=== PATIENT | female | born 1960 | race Caucasian/White ===

== ENCOUNTER 2021-01-03 08:06 | Emergency (ER) | payer BC, SELFPAY ==
[2021-01-03 08:07] VITALS: BP 179/96; PULSE 88; RESP 20; TEMP 36.6; O2SAT 98; BMI 32.9
--- NOTE | 2021-01-03 08:25 | CT_ITS ---
STUDY: CT ABDOMEN AND PELVIS WITH CONTRAST REASON FOR EXAM: Female, 60 years old. Abdominal pain RADIATION DOSAGE (If Supplied By Facility): CTDIvol = ( 17.10 ) mGy, DLP = ( 875.20 ) mGycm TECHNIQUE: Transaxial images were obtained from the dome of the diaphragm to the symphysis pubis without oral contrast. IV 100mL Isovue-370 was administered. Sagittal and coronal images were reconstructed. Individualized dose optimization techniques were used for this CT. COMPARISON: None. FINDINGS: The visualized lung bases are unremarkable. The visualized portions of the heart are within normal limits. Normal liver. Normal gallbladder and extrahepatic biliary system. Normal spleen. Normal pancreas. Normal bilateral adrenal glands. Normal right kidney. Normal left kidney. There is a small hiatal hernia. Nonspecific fluid-filled small bowel loops. No evidence of bowel obstruction. Thickening of the descending colon likely due to underdistention. Diverticulosis of the sigmoid colon. No evidence of acute diverticulitis. The appendix is visualized and appears normal. There is diffuse atherosclerotic calcification of the abdominal aorta, without a demonstrated aneurysm. Normal inferior vena cava. Normal retroperitoneum. Normal urinary bladder. Metallic densities in the pelvic regions consistent with previous tubal ligation. Normal abdominal wall. Degenerative changes in lumbar spine. CT/Abdomen/Pelvis W IV Cont ONLY IMPRESSION: 1. Small hiatal hernia. 2. Diverticulosis without evidence of acute diverticulitis. 3. Thickening of the descending colon likely due to underdistention. 4. Otherwise no focal acute inflammatory process. Electronically Signed: Getachew Lewis MD at 9:53 EDT Tel , Service support ,
[2021-01-03 08:33] LABS: Absolute Lymphocyte Count 1.77 X10^3/uL (0.83-4.51); Absolute Neutrophil Count 5.3 X10^3/uL (2.0-7.7); Basophil# 0.02 X10^3/uL; Basophil% 0.3 % (0-1); Eosinophil# 0.34 X10^3/uL; Eosinophils% 4.3 % (0-5); Hematocrit 41.4 % (37-47); Hemoglobin 13.8 g/dL (12.0-15.0); Lymphocyte # 1.77 X10^3/ul (0.83-4.51); Lymphocyte % 22.2 % (19-41); Mean Corp Hgb Conc 33.3 g/dL (32-36); Mean Corpuscular Hgb 29.1 pg (27.0-32.0); Mean Corpuscular Volume 87.2 fL (81-99); Mean Platelet Vol. 9.7 fl (6.2-12.0); Monocyte# 0.52 X10^3/uL; Monocyte% 6.5 % (0-10); NRBC Flagged by Analyzer 0 % (0-5); Neutrophil # 5.31 X10^3/uL (2.7-7.7); Neutrophil % 66.3 % (47-70); Platelet Count 254 K/mm3 (150-450); RBC Distribution Width CV 12.8 % (11.6-14.6); RBC Distribution Width SD 40.7 fl (35.1-43.9); Red Blood Count 4.75 M/mm3 (4.2-5.4)
[2021-01-03] MEDS: 0.9% Normal Saline 1,000 ML 1000 ML IV (08:36)
[2021-01-03] MEDS: Ondansetron 4 MG/2 ML Vial IV (08:36)
[2021-01-03 08:46] LABS: Mucous, Urine 0 SEEN /hpf (<or=2+); Red Blood Cells-Urine 0 SEEN /hpf (0-5); White Blood Cells 0 SEEN /hpf (0-5)
[2021-01-03 08:50] LABS: AST(SGOT) 17 U/L (15-37); Alanine Aminotransfer ALT/SGPT 26 U/L (13-56); Albumin, Serum 3.7 g/dL (3.2-5.0); Alkaline Phosphatase 129 U/L (45-117); Anion Gap 9 (5-15); BUN 13 mg/dL (7-18); BUN/Creat Ratio 12.6 RATIO (10-20); Calcium,Total 9.4 mg/dL (8.5-10.1); Chloride 103 mmol/L (98-107); Creatinine, Serum 1.03 mg/dL (0.55-1.02); EST Glomerular Filtration Rate 58 mL/min (>60); Est Glom Filt Rate - Afr Amer 70 mL/min (>60); Estimated Creatinine Clearance 46.85 ml/min; Globulin 3.6 g/dL (2.2-4.2); Glucose 104 mg/dL (74-106); Lipase 295 U/L (73-393); Potassium 4.2 mmol/L (3.5-5.1); Protein, Total 7.3 g/dL (6.4-8.2); Sodium Level 139 mmol/L (136-145)
[2021-01-03 08:50] LABS: Color, Urine Yellow (Yellow); Glucose, Dipstick Normal (Normal); Ketone-Dipstick Negative (Negative); Leukocyte Esterase-Dipstick Negative /ul (Negative); Nitrite-Dipstick Negative (Negative); Occult Blood-Urine 10 /ul (Negative); Protein-Dipstick 30 mg/dl (Negative); Urine Bilirubin Dipstick Negative (Negative); Urine Clarity Clear (Clear); Urine Urobilinogen Normal (Normal)
--- NOTE | 2021-01-03 08:56 | EDS_ITS ---
HPI History of Present Illness Chief Complaint: Flank Pain Informant: patient Narrative Narrative: 60-year-old female presents with left flank pain and lower abdominal pain. She reports that 3 weeks ago she began to notice urinary frequency with small amounts of urine. She began to have a pulling-like's pain in her lower pelvis is worse with standing up and movement. This past week she went to an urgent care was started on nitrofurantoin but the culture came back negative so she stopped the antibiotic. She did note that she had some loose stool. The pain in the lower pelvis has persisted and now she has this pain in the left flank. She states that she called the triage nurse last night and they told her to go to the emergency room but she went to bed and came this morning. No fevers. She notes nausea but no vomiting. Prior abdominal surgery is significant for bilateral tubal ligation [facility] Medical History (Updated 01/03/21 @ 10:[address] Hung Cooper DO) Depression Hypercholesterolemia Home Medications atorvastatin 40 mg PO DAILY 01/03/21 [History Last Taken Unknown] bupropion HCl 150 mg PO DAILY 01/03/21 [History Last Taken Unknown] fluoxetine 40 mg PO DAILY 01/03/21 [History Last Taken Unknown] oxycodone-acetaminophen 1 tab PO Q6H PRN PRN 5 Days #20 tablet 01/03/21 [Rx Last Taken Unknown] tolterodine 4 mg PO DAILY 01/03/21 [History Last Taken Unknown] Allergy/AdvReac Type Severity Reaction Status Date / Time codeine Allergy Unknown Verified 01/03/21 08:40 Surgical History (Updated 01/03/21 @ 08:[address] Hung Cooper DO) History of carpal tunnel surgery History of tubal ligation Social History (Updated 01/03/21 @ 08:[address] Hung Cooper DO) Smoking Status: Current some day smoker tobacco type: cigarettes substance use type: does not use ROS ROS ED Constitutional Constitutional ED: Denies chills or weight loss Eyes Eyes: Denies change in vision or diplopia ENT ENT ED: Denies ear pain, rhinorrhea or sore throat Cardiovascular Cardiovascular: Denies chest pain, orthopnea, palpitations or racing heartbeat Respiratory/Chest Respiratory/Chest: Denies cough, dyspnea or orthopnea Gastrointestinal Gastrointestinal: Reports abdominal pain and nausea; Denies diarrhea or vomiting Genitourinary Genitourinary ED: Reports urinary frequency; Denies dysuria or hematuria Musculoskeletal Musculoskeletal: Reports other Details: Left flank pain ; Denies arthralgias or myalgias Integumentary Denies abscess or rash Neurologic Neurologic: Denies headache(s) or weakness Psychiatric Psychiatric: Denies anxiety, depression, suicidal ideation or suicidal thoughts Endocrine Endocrinology: Denies polydipsia, polyphagia or polyuria Allergic/Immunologic Allergic/Immunologic ED: Denies mouth swelling, tongue swelling or urticaria EXAM Physical Exam Const Vital Signs: 01/03/21 08:07 Temperature 98 F Temperature Source Temporal Pulse Rate 88 Respiratory Rate 20 H Blood Pressure 179/96 H Blood Pressure Mean 123 Pulse Ox 98 Oxygen Delivery Method Room Air Positive well nourished, well developed and obese General Appearance ED: well developed Nutritional Appearance: obese HEENT Reports normocephalic, head/scalp atraumatic, TM's clear and moist mucous membranes Negative for trauma Tympanic Membrane ED: Yes TM's clear Eyes PERRL and EOMs intact bilaterally Neck no lymphadenopathy, supple and no JVD Resp normal respiratory effort and clear to auscultation bilaterally Cardio regular rate, regular rhythm and no murmurs GI non-tender Auscultation: normoactive bowel sounds Palpation: soft and tender suprapubic Back/Spine no CVA tenderness and normal ROM Thoracic Spine / Upper Back: Negative for paraspinal muscle tenderness Extremity normal to inspection General Extremety ED: Negative for edema General Extremity: Negative for edema Neuro oriented x3 and CN's II-XII intact bilaterally Sensorium / Orientation: alert Motor Exam: strength 5/5 throughout Psych mental status grossly normal Mood & Affect: Negative for depressed or tearful Skin no rashes or lesions noted and no wounds MDM MDM MDM Narrative Medical decision making narrative: CBC normal CMP with creatinine 1.03 lipase normal urinalysis with no overt infection. CT the pelvis with IV contrast does not demonstrate an acute inflammatory process. She has evidence of sigmoid diverticulosis. This point I do not see an obvious cause for the patient's symptoms. She may benefit given the urinary frequency and pelvic discomfort from visiting with urology or gynecology. Patient will be referred to them as she does not currently have either established Lab Data Attestation: I reviewed the patient's lab results. Labs: Laboratory Results - last 24 hr 01/03/21 01/03/2121 08:18 08:27 08:27 WBC 8.0 RBC 4.75 Hgb 13.8 Hct 41.4 MCV 87.2 MCH 29.1 MCHC 33.3 RDW Std Deviation 40.7 RDW Coeff of Miguel 12.8 Plt Count 254 MPV 9.7 Immature Gran % (Auto) 0.400 Neut % (Auto) 66.3 Lymph % (Auto) 22.2 Upton % (Auto) 6.5 Eos % (Auto) 4.3 Baso % (Auto) 0.3 Absolute Neuts (auto) 5.3 Absolute Lymphs (auto) 1.77 Nucleated RBC % 0 Sodium 139 Potassium 4.2 Chloride 103 Carbon Dioxide 27.0 Anion Gap 9 BUN 13 Creatinine 1.03 H Estim Creat Clear Calc 46.85 Est GFR (MDRD) Af Amer 70 Est GFR (MDRD) Non-Af 58 L BUN/Creatinine Ratio 12.6 Glucose 104 Calcium 9.4 Total Bilirubin 0.70 AST 17 ALT 26 Alkaline Phosphatase 129 H Total Protein 7.3 Albumin 3.7 Globulin 3.6 Albumin/Globulin Ratio 1.0 Lipase 295 Urine Color Yellow Urine Clarity Clear Urine pH 7.0 Ur Specific Bevier 1.010 Urine Protein 30 H Urine Glucose (UA) Normal Urine Ketones Negative Urine Occult Blood 10 H Urine Nitrite Negative Urine Bilirubin Negative Urine Urobilinogen Normal Ur Leukocyte Esterase Negative Urine RBC 0 SEEN Urine WBC 0 SEEN Ur Squamous Epith Cells 0-5 SEEN Urine Bacteria 1+ Urine Mucus 0 SEEN Radiography Diagnostic Testing: Clinical Impression(s) from Imaging Studies Abdomen/Pelvis CT 01/03/21 08:25 IMPRESSION: 1. Small hiatal hernia. 2. Diverticulosis without evidence of acute diverticulitis. 3. Thickening of the descending colon likely due to underdistention. 4. Otherwise no focal acute inflammatory process. Electronically Signed: Getachew Lewis MD at 9:53 EDT Tel , Service support , Discharge Plan Triage Chief Complaint: Flank Pain ED Provider: Hung Cooper Dx/Rx/DC Orders Clinical Impression: Pelvic pain Instructions: ED Pelvic Pain, Unknown Cause Prescriptions: New oxycodone-acetaminophen [oxycodone-acetaminophen] 1 TABLET tablet 1 tab PO Q6H PRN PRN (Reason: pain) 5 Days Qty: 20 RF: 0 No Action fluoxetine 40 mg Capsule 40 mg PO DAILY RF: 0 atorvastatin 40 mg Tablet 40 mg PO DAILY RF: 0 tolterodine 4 mg Capsule,Extended Release 24hr 4 mg PO DAILY RF: 0 bupropion HCl 150 mg Tablet Extended Release 24 Hr 150 mg PO DAILY RF: 0 Primary Care Provider: Ramesh Cornell Referrals: Randa Castro MD [STAFF PHYSICIAN] - As soon as possible (for urology ) Zora Rivera MD [STAFF PHYSICIAN] - As soon as possible (for gynecology) Ramesh Cornell PA [Primary Care Provider] - Disposition Disposition: Home, Self Care
[2021-01-03 08:59] LABS: Bacteria 1+ /hpf (None Seen); Squamous Epithelial Cells - UA 0-5 SEEN /hpf (5-10)
[2021-01-03] MEDS: Ketorolac 30 MG/ML Syringe IV (09:04)
[2021-01-03 10:13] VITALS: BP 167/92; PULSE 74; RESP 16; O2SAT 99
== END 2021-01-03 10:20 | disposition home or self-care (01) ==
PROVIDERS: Emergency Provider Emergency Medicine; PCP Physician Assistant
DX: R10.2 Pelvic and perineal pain (principal); E78.00 Pure hypercholesterolemia, unspecified; E66.9 Obesity, unspecified; F32.A Depression, unspecified; F17.210 Nicotine dependence, cigarettes, uncomplicated; Z68.32 Body mass index [BMI] 32.0-32.9, adult; Z79.899 Other long term (current) drug therapy
CPT/HCPCS: 74177; 80053; 81001; 83690; 85025; 96361; 96374; 96375; 99283; J7030; Q9967; A4216; J2405

== ENCOUNTER 2022-05-22 19:38 | Emergency (ER) | payer BC, SELFPAY ==
[2022-05-22 19:39] VITALS: BP 203/100; PULSE 105; RESP 22; TEMP 37.2; O2SAT 98; BMI 33.4
[2022-05-22 20:04] VITALS: BP 173/89; PULSE 91; RESP 16; O2SAT 99
[2022-05-22] MEDS: Ketorolac 15 MG/ML Vial IV (20:21)
[2022-05-22] MEDS: 0.9% Normal Saline 1,000 ML 999 ML IV (20:21)
[2022-05-22] MEDS: DiphenhydrAMINE 50 MG/ML Syringe 25 MG IV (20:22)
[2022-05-22] MEDS: Metoclopramide 10 MG/2 ML Vial IV (20:22)
--- NOTE | 2022-05-22 20:30 | RAD_ITS ---
INDICATION: cough EXAMINATION/TECHNIQUE: X-RAY - XR Chest 1 View COMPARISON: None. FINDINGS: LINES/DEVICES: None. LUNGS: No consolidation, edema or effusion. No pneumothorax. MEDIASTINUM AND CARDIOVASCULAR STRUCTURES: Cardiac silhouette not enlarged. Central airways and mediastinal contour are unremarkable. BONES AND SOFT TISSUES: Unremarkable. RAD/Chest 1 View (Portable) IMPRESSION: No radiographic evidence of acute cardiopulmonary disease. Electronically Signed: Jozef Osorio DO at 20:54 EDT ,
--- NOTE | 2022-05-22 20:50 | EDS_ITS ---
HPI HPI - URI History of Present Illness Chief Complaint: Headache Narrative Narrative: 61-year-old female presenting with headache, body aches, chills, cough. She think she has COVID. She has been having symptoms since . She states her headache is very bad. She states it seems to be emanating from her right ear. She denies any trauma. She states that there is something draining from the right ear. She has not chest pain and is not short of breath. She has not actually had a fever at home. No nausea or vomiting. No diarrhea or constipation. ROS ROS ED Constitutional Constitutional ED: Reports chills and subjective; Denies fever(s), sweats, weight loss or other Eyes Eyes: Denies change in vision or diplopia ENT ENT ED: Reports ear pain right Cardiovascular Cardiovascular: Denies chest pain or palpitations Respiratory/Chest Respiratory/Chest: Reports cough; Denies dyspnea or dyspnea on exertion Gastrointestinal Gastrointestinal: Denies abdominal pain, nausea or vomiting Genitourinary Genitourinary ED: Denies dysuria or hematuria Musculoskeletal Musculoskeletal: Reports myalgias Integumentary Denies abscess Neurologic Neurologic: Reports headache(s); Denies paresthesias or weakness Psychiatric Psychiatric: Denies anxiety or depression PFSH PFS Medical History Depression Hypercholesterolemia Home Medications atorvastatin 40 mg tablet 40 mg PO DAILY 01/03/21 [History Last Taken Unknown] bupropion HCl 150 mg 24 hr tablet, extended release 150 mg PO DAILY 01/03/21 [History Last Taken Unknown] fluoxetine 40 mg capsule 40 mg PO DAILY 01/03/21 [History Last Taken Unknown] tolterodine 4 mg capsule,extended release 24 hr 4 mg PO DAILY 01/03/21 [History Last Taken Unknown] naproxen 500 mg tablet (Naprosyn) 500 mg PO BID PRN pain #20 tabs 05/22/22 [Rx Last Taken Unknown] ondansetron 4 mg disintegrating tablet 4 mg PO Q8H PRN PRN Nausea #14 tabs 05/22/22 [Rx Last Taken Unknown] Allergy/AdvReac Type Severity Reaction Status Date / Time codeine Allergy Unknown Verified 01/03/21 08:40 Surgical History History of carpal tunnel surgery History of tubal ligation Social History Smoking Status: Current some day smoker tobacco type: cigarettes substance use type: does not use EXAM Physical Exam Const Vital Signs: 05/22/22 19:39 05/22/22 20:04 05/22/22 20:59 Temperature 99 F Temperature Source Temporal Pulse Rate 105 H 91 98 Respiratory Rate 22 H 16 16 Blood Pressure 203/100 H 173/89 H 135/75 H Blood Pressure Mean 134 117 95 Pulse Ox 98 99 98 Oxygen Delivery Method Room Air Room Air Room Air 05/22/22 21:25 Temperature Temperature Source Pulse Rate 89 Respiratory Rate 16 Blood Pressure 145/81 H Blood Pressure Mean Pulse Ox Oxygen Delivery Method Positive well nourished General Appearance ED: NAD HEENT Reports moist mucous membranes HEENT Narrative: Right TM noted to have a right TM perforation. External auditory canals are normal. Left TM normal normocephalic and atraumatic Neck no lymphadenopathy and supple Resp normal respiratory effort and clear to auscultation bilaterally Auscultation: Negative for rales, rhonchi or wheezes GI non-tender Extremity normal to inspection Neuro oriented x3 and CN's II-XII intact bilaterally Sensorium / Orientation: alert Motor Exam: strength 5/5 throughout Psych mental status grossly normal MDM MDM MDM Narrative Medical decision making narrative: 61-year-old female presenting with headache and viral symptoms. Her initial blood pressure was 203/100. I did initially think that this might be the cause of her symptoms. After resting her blood pressure was rechecked it was 173/89. She is not have any chest pain or shortness of breath but is still having a headache.. She also has COVID symptoms which could likely be the cause. He does not have any focal neurologic deficits or lateralizing signs or symptoms. I think her symptoms are all viral. I will test her for COVID and influenza. IV line was established she was given a liter normal saline. She is given Reglan and Benadryl for her headache. We will monitor her blood pressure. After treatment of her headache her blood pressure is now 135/75. I do not think this needs acute treatment. She still complains of right ear pain but she has a perforated eardrum on examination. There is no purulent drainage and only she needs antibiotics clean cotton ball was placed in the ear. I did obtain a chest x-ray which on my interpretation shows no acute process. Radiologist are persistent agrees. Rapid flu and COVID are both negative. At this point I feel the patient is stable to be discharged home. She is given follow-up with ENT. Return precautions were discussed. Impression: 1. Viral syndrome 2. Headache 3. Right TM perforation Radiography Diagnostic Testing: Clinical Impression(s) from Imaging Studies Chest X-Ray 05/22/22 20:30 IMPRESSION: No radiographic evidence of acute cardiopulmonary disease. Electronically Signed: Jozef Osorio DO at 20:54 EDT Reading Location ID and State: [facility] / [place] Tel [phone], Service support , Discharge Plan Triage Chief Complaint: Headache ED Provider: Doron Tobar Dx/Rx/DC Orders Instructions: ED Headache Unspecified, ED PERFORATED TM Infected [Adult], ED Viral Syndrome (Adult) Prescriptions: New ondansetron 4 mg tablet,disintegrating 4 mg PO Q8H PRN PRN (Reason: Nausea) Qty: 14 0RF naproxen [Naprosyn] 500 mg tablet 500 mg PO BID PRN (Reason: pain) Qty: 20 0RF No Action fluoxetine 40 mg Capsule 40 mg PO DAILY atorvastatin 40 mg Tablet 40 mg PO DAILY tolterodine 4 mg Capsule,Extended Release 24hr 4 mg PO DAILY bupropion HCl 150 mg Tablet Extended Release 24 Hr 150 mg PO DAILY Primary Care Provider: Ramesh Cornell Referrals: Odilon Stevens MD [Med Staff - Active Staff] - 1 Day Ramesh Cornell PA [Primary Care Provider] - Disposition Disposition: Home, Self Care
[2022-05-22 20:59] VITALS: BP 135/75; PULSE 98; RESP 16; O2SAT 98
[2022-05-22 21:25] VITALS: BP 145/81; PULSE 89; RESP 16
== END 2022-05-22 21:40 | disposition home or self-care (01) ==
PROVIDERS: Emergency Provider Student in an Organized Health Care Education/Training Program; PCP Physician Assistant; Visit Provider Student in an Organized Health Care Education/Training Program
DX: B34.9 Viral infection, unspecified (principal); R51.9 Headache, unspecified; H72.91 Unspecified perforation of tympanic membrane, right ear; F17.210 Nicotine dependence, cigarettes, uncomplicated; Z79.899 Other long term (current) drug therapy
CPT/HCPCS: 71045; 87428; 96374; 96375; 99283; J7030; A4216

== ENCOUNTER → 2023-02-21 | Outpatient (CLI) | payer BC, SELFPAY ==
--- NOTE | 2023-02-21 15:55 | VDLE_ITS ---
Reason For Study: Right calf pain RIGHT LEFT GSV is normal. CFV is compressible, spontaneous, phasic, CFV is compressible, spontaneous, phasic, competent, and demonstrates normal competent and demonstrates normal augmentation. augmentation. FV is compressible, spontaneous, phasic, competent and demonstrates normal augmentation. POP V is compressible, spontaneous, phasic, competent and demonstrates normal augmentation. T/P Trunk is compressible. PTV is compressible. RT PerV is compressible. Procedure This is a venous duplex using B-mode, color flow and spectral Doppler. Exam performed in department. A preliminary report was called and/or faxed to Dr. Rogers. VL/Venous Duplex US, Unilateral Interpretation Summary There is no evidence of right lower extremity deep vein thrombosis. Right great saphenous vein appears patent and compressible segmentally. Normal flow rate left common femor al vein Ordering Physician: Bob Rogers Referring Physician: Bob Rogers Performed By: Sofia Murguia RVT
== END | disposition home or self-care (01) ==
LOC: CVS 15:50
PROVIDERS: PCP Family Medicine; Referring Provider Family Medicine; Visit Provider Family Medicine
DX: M79.661 Pain in right lower leg (principal)
CPT/HCPCS: 93971

== ENCOUNTER 2023-07-24 14:28 | Emergency (ER) | payer BC, SELFPAY ==
[2023-07-24 14:28] VITALS: BP 188/94; PULSE 95; RESP 16; TEMP 36.8; O2SAT 100; BMI 34.2
--- NOTE | 2023-07-24 14:56 | CT_ITS ---
INDICATION: Trauma, injury EXAMINATION: CT BRAIN - CT Head or Brain W/O Contrast Injection TECHNIQUE: Multiple axial images were obtained of the head without intravenous contrast. A radiation dose optimization technique was used for this scan. IV Contrast dosage and agent: None. COMPARISON: None. FINDINGS: BRAIN PARENCHYMA: No intra- or extra-axial hemorrhage. No evidence of acute infarct. No intracranial mass or mass effect. There is preservation of the real/white matter interface. Posterior fossa structures are unremarkable. CSF SPACES: Appropriate for age. No hydrocephalus. Basal cisterns are patent. CALVARIUM, SKULL BASE, PARANASAL SINUSES AND MASTOID AIR CELLS: Clear. No acute fracture. ORBITS: Both globes, extraocular muscles, optic nerves and retrobulbar fat appear unremarkable. CT/Brain/Head without Contrast IMPRESSION: No acute intracranial findings. Electronically Signed: Kwabena Caraballo MD at 15:41 EDT ,
--- NOTE | 2023-07-24 14:58 | EDS_ITS ---
HPI HPI - Fall History of Present Illness Chief Complaint: Fall Informant: patient and family Narrative Narrative: 62-year-old female presenting to the emergency room with head injury from a fall. Patient was standing on a ledge way about 2 feet up off the ground she lost her balance and started falling. Struck her head against a corner and then fell to the ground. She notes abrasion to the right forearm generalized soreness but a laceration to the right parietal scalp. She denies any neck or back pain. Unknown last tetanus. She states that she is not on any blood thinners. She believes she may have had a brief loss of consciousness versus being stunned [facility] Medical History Depression Hypercholesterolemia Home Medications ?Medication ?Instructions ?Recorded ?Last Taken ?Type atorvastatin 40 mg tablet 40 mg PO DAILY 01/03/21 Unknown History bupropion HCl 150 mg 24 hr tablet, 150 mg PO DAILY 01/03/21 Unknown History extended release fluoxetine 40 mg capsule 40 mg PO DAILY 01/03/21 Unknown History tolterodine 4 mg capsule,extended 4 mg PO DAILY 01/03/21 Unknown History release 24 hr naproxen 500 mg tablet (Naprosyn) 500 mg PO BID PRN pain #20 tabs 05/22/22 Unknown Rx ondansetron 4 mg disintegrating 4 mg PO Q8H PRN PRN Nausea #14 tabs 05/22/22 Unknown Rx tablet Allergy/AdvReac Type Severity Reaction Status Date / Time codeine Allergy Unknown Verified 07/24/23 14:30 Surgical History History of carpal tunnel surgery History of tubal ligation Social History Smoking Status: Current some day smoker tobacco type: cigarettes substance use type: does not use ROS ROS ED Constitutional Constitutional ED: Denies chills, fever(s) or weight loss Eyes Eyes: Denies change in vision or diplopia ENT ENT ED: Denies ear pain, rhinorrhea or sore throat Cardiovascular Cardiovascular: Denies chest pain, orthopnea, palpitations or racing heartbeat Respiratory/Chest Respiratory/Chest: Denies cough, dyspnea or orthopnea Gastrointestinal Gastrointestinal: Denies abdominal pain, diarrhea, nausea or vomiting Genitourinary Genitourinary ED: Denies dysuria, hematuria or urinary frequency Musculoskeletal Musculoskeletal: Denies arthralgias, back pain, myalgias or neck pain Integumentary Reports Abrasions and other Details: scalp laceration ; Denies abscess or rash Neurologic Neurologic: Reports headache(s); Denies weakness Psychiatric Psychiatric: Denies anxiety, depression, suicidal ideation or suicidal thoughts Endocrine Endocrinology: Denies polydipsia, polyphagia or polyuria Allergic/Immunologic Allergic/Immunologic ED: Denies mouth swelling, tongue swelling or urticaria EXAM Physical Exam Const Vital Signs: 07/24/23 14:28 07/24/23 15:09 Temperature 98.2 F Temperature Source Temporal Pulse Rate 95 Respiratory Rate 16 Respiratory Effort Normal Respiratory Depth Normal Respiratory Pattern Normal Blood Pressure 188/94 H Blood Pressure Mean 125 Pulse Ox 100 Oxygen Delivery Method Room Air Positive well nourished and well developed General Appearance ED: well developed HEENT Reports normocephalic and moist mucous membranes HEENT Narrative: Located on the high right parietal occipital scalp is a 2.5 cm linear laceration with concussed skin. The wound edges are well-approximated. There is no significant active bleeding. No palpable bony depression. Eyes PERRL and EOMs intact bilaterally Neck full ROM, no lymphadenopathy, supple and no JVD Resp normal respiratory effort and clear to auscultation bilaterally Cardio regular rate, regular rhythm and no murmurs GI normal to inspection, nondistended, normoactive bowel sounds and non-tender Palpation: soft Back/Spine no CVA tenderness and normal ROM Extremity Extremity Narrative: There is a linear superficial abrasion and contusion to the posterior mid right forearm. General Extremety ED: Negative for edema General Extremity: Negative for edema Neuro oriented x3 and CN's II-XII intact bilaterally Sensorium / Orientation: alert Motor Exam: strength 5/5 throughout Psych mental status grossly normal Mood & Affect: Negative for depressed or tearful Skin no rashes or lesions noted and no wounds MDM MDM MDM Narrative Medical decision making narrative: CT of the brain demonstrates no intracranial hemorrhage or hematoma. No skull fracture. Wound was locally anesthetized using 1% lidocaine with epinephrine. Was washed with Shur-Clens and explored. No foreign bodies noted. Was closed using 3 simple interrupted 5-0 Vicryl stitches. Wound care discussed with patient. Follow-up as needed return if worsening or concerns. Head injury instructions given. History & Record Review Discussion w/independent historian: Patient and Family Radiography Diagnostic Testing: Clinical Impression(s) from Imaging Studies Brain CT 07/24/23 14:56 IMPRESSION: No acute intracranial findings. Electronically Signed: Kwabena Caraballo MD at 15:41 EDT , Discharge Plan Triage Chief Complaint: Fall ED Provider: Hung Cooper Dx/Rx/DC Orders Clinical Impression: Fall, Laceration of scalp, Head injury Instructions: ED Head Injury (Adult), ED Laceration, All Closures Prescriptions: No Action fluoxetine 40 mg Capsule 40 mg PO DAILY atorvastatin 40 mg Tablet 40 mg PO DAILY tolterodine 4 mg Capsule,Extended Release 24hr 4 mg PO DAILY bupropion HCl 150 mg Tablet Extended Release 24 Hr 150 mg PO DAILY ondansetron 4 mg tablet,disintegrating 4 mg PO Q8H PRN PRN (Reason: Nausea) Qty: 14 0RF naproxen [Naprosyn] 500 mg tablet 500 mg PO BID PRN (Reason: pain) Qty: 20 0RF Primary Care Provider: Bob Rogers Referrals: Bob Rogers MD [Primary Care Provider] - As Needed Print Language: [place]an Disposition Disposition: Home, Self Care
[2023-07-24] MEDS: Lidocaine 1% /Epi 1:100 (20ml) 20 ML Vial INFILT (15:10)
[2023-07-24] MEDS: Diphth,Pertuss(Acell),Tet Vac 0.5 ML Vial IM (15:10)
[2023-07-24 16:01] VITALS: BP 140/71; PULSE 79; RESP 16; TEMP 36.6; O2SAT 99
== END 2023-07-24 16:03 | disposition home or self-care (01) ==
PROVIDERS: Emergency Provider Emergency Medicine; PCP Family Medicine; Visit Provider Emergency Medicine
DX: S01.01XA Laceration without foreign body of scalp, initial encounter (principal); F17.210 Nicotine dependence, cigarettes, uncomplicated; W19.XXXA Unspecified fall, initial encounter
CPT/HCPCS: 12001; 70450; 90715; 99282

== ENCOUNTER 2023-08-02 12:15 | Emergency (ER) | payer BC, SELFPAY ==
[2023-08-02 12:16] VITALS: BP 180/102; PULSE 97; RESP 18; O2SAT 98
[2023-08-02 12:17] VITALS: BP 191/104; PULSE 94; RESP 16; TEMP 36.6; O2SAT 98; BMI 34.0
[2023-08-02 12:59] VITALS: BP 152/77
--- NOTE | 2023-08-02 13:47 | EDS_ITS ---
HPI History of Present Illness Chief Complaint: Poisoning Informant: patient Narrative Narrative: Patient presents after ingesting boric acid. She picked up some [id number] boric acid tablets that are to be used as vaginal suppositories to maintain appropriate pH balance. Patient did not closely read the bottle and has been taking 1 tab orally for the past 9 days. She complains of some intermittent headache and dizziness as well as anxiety when she realized what she had been doing. She has had a mild sore throat but states that is been ongoing for the last month and she has been seeing ENT. [facility] Medical History Depression Hypercholesterolemia Home Medications ?Medication ?Instructions ?Recorded ?Last Taken ?Type atorvastatin 40 mg tablet 40 mg PO DAILY 01/03/21 Unknown History bupropion HCl 150 mg 24 hr tablet, 150 mg PO DAILY 01/03/21 Unknown History extended release fluoxetine 40 mg capsule 40 mg PO DAILY 01/03/21 Unknown History tolterodine 4 mg capsule,extended 4 mg PO DAILY 01/03/21 Unknown History release 24 hr naproxen 500 mg tablet (Naprosyn) 500 mg PO BID PRN pain #20 tabs 05/22/22 Unknown Rx ondansetron 4 mg disintegrating 4 mg PO Q8H PRN PRN Nausea #14 tabs 05/22/22 Unknown Rx tablet Allergy/AdvReac Type Severity Reaction Status Date / Time codeine Allergy Unknown Verified 08/02/23 12:16 Surgical History History of carpal tunnel surgery History of tubal ligation Social History Smoking Status: Current some day smoker tobacco type: cigarettes substance use type: does not use ROS ROS ED Constitutional Constitutional ED: Denies chills or fever(s) Eyes Eyes: Denies change in vision ENT ENT ED: Reports sore throat Cardiovascular Cardiovascular: Denies chest pain or palpitations Respiratory/Chest Respiratory/Chest: Denies cough or dyspnea Gastrointestinal Gastrointestinal: Denies abdominal pain or vomiting Genitourinary Genitourinary ED: Denies dysuria Neurologic Neurologic: Reports headache(s); Denies weakness Psychiatric Psychiatric: Reports anxiety EXAM Physical Exam Const Vital Signs: 08/02/23 12:16 08/02/23 12:17 08/02/23 12:26 Temperature 98 F Temperature Source Temporal Pulse Rate 97 94 Respiratory Rate 18 16 Respiratory Pattern Normal Blood Pressure 180/102 H 191/104 H Blood Pressure Mean 128 133 Pulse Ox 98 98 Oxygen Delivery Method Room Air Room Air 08/02/23 12:59 Temperature Temperature Source Pulse Rate Respiratory Rate Respiratory Pattern Blood Pressure 152/77 H Blood Pressure Mean 102 Pulse Ox Oxygen Delivery Method Positive well nourished and well developed General Appearance ED: well developed HEENT Reports moist mucous membranes Eyes EOMs intact bilaterally Chest Wall inspection of chest normal and palpation of chest normal Resp normal respiratory effort and clear to auscultation bilaterally Cardio regular rate and regular rhythm GI non-tender Palpation: soft Extremity normal to inspection Neuro oriented x3 and no sensory deficits noted Motor Exam: strength 5/5 throughout Psych Mood & Affect: anxious Skin no rashes or lesions noted MDM MDM MDM Narrative Medical decision making narrative: I spoke with poison control. They state that this is actually quite common and as long as the patient is not having significant GI symptoms no further workup or evaluation needs to be performed. Patient was significant hypertensive on arrival but was anxious. Repeat blood pressure is improved. Discussion with poison control discussed with the patient and she is comfortable with discharge to home and will monitor any further symptoms. Return instructions provided. Discharge Plan Triage Chief Complaint: Poisoning ED Provider: Kourtney Tobin Dx/Rx/DC Orders Clinical Impression: Ingestion of nontoxic substance Instructions: ED Accidental Ingestion ... Prescriptions: No Action fluoxetine 40 mg Capsule 40 mg PO DAILY atorvastatin 40 mg Tablet 40 mg PO DAILY tolterodine 4 mg Capsule,Extended Release 24hr 4 mg PO DAILY bupropion HCl 150 mg Tablet Extended Release 24 Hr 150 mg PO DAILY ondansetron 4 mg tablet,disintegrating 4 mg PO Q8H PRN PRN (Reason: Nausea) Qty: 14 0RF naproxen [Naprosyn] 500 mg tablet 500 mg PO BID PRN (Reason: pain) Qty: 20 0RF Primary Care Provider: Bob Rogers Referrals: Bob Rogers MD [Primary Care Provider] - 1-2 Weeks Print Language: Niuean Disposition Disposition: Home, Self Care Discharge Date/Time: 08/02/23 13:58
== END 2023-08-02 13:58 | disposition home or self-care (01) ==
PROVIDERS: Emergency Provider Emergency Medicine; PCP Family Medicine; Visit Provider Emergency Medicine
DX: T50.991A Poisoning by other drugs, medicaments and biological substances, accidental (unintentional), initial encounter (principal); G44.40 Drug-induced headache, not elsewhere classified, not intractable; R42 Dizziness and giddiness; F17.210 Nicotine dependence, cigarettes, uncomplicated
CPT/HCPCS: 99282

== ENCOUNTER → 2023-08-23 | Outpatient (CLI) | payer BC, SELFPAY ==
--- NOTE | 2023-08-23 08:20 | RAD_ITS ---
STUDY: X-RAY - ESOPHAGUS (BARIUM SWALLOW) WITH FLUOROSCOPY REASON FOR EXAM: Female, 62 years old. GERD TECHNIQUE: 17 view(s) of the esophagus were obtained following swallowing of barium. FLUOROSCOPY TIME (if supplied): (27 seconds) minutes/seconds. 13.46 mGy. COMPARISON: None. FINDINGS: There is no demonstrated esophageal foreign body. There is no demonstrated stricture or mucosal abnormality. There is a small hiatal hernia of the fundus of the stomach. The patient ingested a 12 mm tablet of barium without any difficulty. Normal visualized aortic arch and descending thoracic aorta. Normal visualized pulmonary parenchyma. Normal visualized osseous structures of the thorax. RAD/Esophagus Dual Contrast IMPRESSION: Small sliding hiatal hernia without gastroesophageal reflux. Electronically Signed: Bryson Krishnan MD at 13:40 EDT ,
== END | disposition home or self-care (01) ==
PROVIDERS: PCP Family Medicine; Referring Provider Otolaryngology Otolaryngology/Facial Plastic Surgery; Visit Provider Otolaryngology Otolaryngology/Facial Plastic Surgery
DX: R13.14 Dysphagia, pharyngoesophageal phase (principal); K21.9 Gastro-esophageal reflux disease without esophagitis
CPT/HCPCS: 74221

== ENCOUNTER → 2023-11-02 | Outpatient (CLI) | payer BC, SELFPAY ==
--- NOTE | 2023-11-02 16:43 | CT_ITS ---
STUDY: CT SOFT TISSUE NECK WITH CONTRAST REASON FOR EXAM: Female, 62 years old. LEFT TONSIL CARCINOMA RADIATION DOSAGE (If Supplied By Facility): CTDIvol = ( 17.00 ) mGy, DLP = ( 1084.34 ) mGycm TECHNIQUE: The patient was scanned in a multi-detector CT scanner. High resolution transaxial imaging was performed following intravenous administration of IV 75mL Isovue-300. Sagittal and coronal images were reconstructed. Individualized dose optimization techniques were used for this CT. COMPARISON: None. FINDINGS: Atherosclerotic calcification of the aortic arch and carotid bifurcations bilaterally. Normal bilateral parotid glands. 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 Normal bilateral parapharyngeal spaces. Normal bilateral carotid spaces. Normal bilateral sublingual and submandibular glands and spaces. Normal visualized nasopharynx. Normal retropharyngeal space. Normal perivertebral space. There is a 2.6 x 2.1 cm x 2.8 cm mass in the left faucial tonsils. A neoplastic process should be ruled out. Indentation of the oropharyngeal airway. The visualized tongue, tongue base and oropharynx are normal. The visualized cervical lymph nodes (levels I-) are within normal size limits, and maintain normal morphology. There is no demonstrated solid or cystic mass lesion. There is no abnormal contrast enhancement. Normal epiglottis, bilateral vallecula and hypopharynx. The pre-epiglottic and paraglottic adipose spaces are normal. Normal visualized bilateral piriform sinuses, aryepiglottic folds, vocal cords, and arytenoid-cricoid articulations. Normal subglottic trachea. Normal bilateral lobes of the thyroid gland. Normal visualized pulmonary apices. Normal visualized paranasal sinuses. There is multilevel degenerative changes of the cervical spine. CT/Soft Tissue Neck WITH Contrast IMPRESSION: 2.6 cm x 2.1 cm x 2.8 cm mass in the left apophyseal tonsils. A neoplastic process should be ruled out. Electronically Signed: Bryson Krishnan MD at 11:19 EDT ,
[2023-11-02 17:16] LABS: CREATININE FINGERSTICK 1.2 mg/dL (0.55-1.02)
== END | disposition home or self-care (01) ==
PROVIDERS: PCP Family Medicine; Referring Provider Otolaryngology Otolaryngology/Facial Plastic Surgery; Visit Provider Otolaryngology Otolaryngology/Facial Plastic Surgery
DX: C44.329 Squamous cell carcinoma of skin of other parts of face (principal)
CPT/HCPCS: 70491; Q9967

== ENCOUNTER 2023-11-21 05:43 | Day surgery (SDC) | payer BC, SELFPAY ==
[2023-11-21] VITALS (8 sets, daily range): BP systolic 158–187; BP diastolic 81–97; PULSE 88–95; RESP 14–18; TEMP 36.1–36.4; O2SAT 92–98; BMI 33.7
--- NOTE | 2023-11-21 | IMM_PTH ---
PATIENT: VIOLA RL LOC: [facility] – [place] U#:[id number] AGE/SX: 63/F ROOM: RE11/21/[address]: Dr. Odilon Stevens MD : 1960 BED: DIS: 11/21/2023 SPEC #: [id number] RECD: 11/22/23 12:41 STATUS: PHIL REQ #: [id number] JUANCARLOS: 11/21/23 00:[address]: Odilon Stevens DEPT: IMMUNOHISTOCHEMISTRY RECD BY: Josue Rutledge ENTERED: 11/22/23 12:41 SP TYPE: IMMUNO OTHR DR: Dr. Bob Rogers MD Tissues: Tonsil, NOS Procedures: CK20 (add) CK5-6 (add) CK7 (add) CK8 (add) KI-67 (add) P16 (add) P53 (add) Pankeratin (initial) P40 (add) PHYSICIAN & INSTITUTION [facility] [place] [id number] SPECIMEN INFORMATION: Tissue Source: B- Left tonsil additional tissue mass Clinical Info: Left tonsil, mass Specimen Number: [id number] CPT code: 57408,00588p1 METHODOLOGY: Deparaffinized sections of prefer/formalin-fixed tissue or PAP/DQ stained slides are incubated with monoclonal/polyclonal antibodies/oligonucleotide probes. Localization is made via biotin free immunoperoxidase method. Appropriate controls are performed and reacted as expected. Results on target cell population are indicated in the following table: RESULTS: ANTIBODY / CLONE RESULT Block B AE1-3 (AE1/AE3/PCK26) positive, focal CK7 (OV-TL12/30) positive, focal CK8 (08xekmD85) positive, focal CK20 (KS20.8) negative CK5-6 (D5 & 1684) positive P40 (BC28) positive P16 (E6H4) positive, block staining P53 (DO-7) positive, focal (wild type pattern) Ki-67 (30-9) positive, moderate to high These tests were developed and their performance characteristics determined by [facility]. They may not have been cleared or approved by the U.S. Food and Drug Administration. The FDA has determined that such clearance or approval is not necessary. The above immunohistochemical/dualISH markers are ordered and reviewed by the Pathologist. INTERPRETATION: Left tonsil, additional mass tissue, biopsy: Invasive squamous cell carcinoma. NAJMA/ 11/23/2023
[2023-11-21] MEDS: Lactated Ringers 1,000 ML 15 ML IV (06:20)
--- NOTE | 2023-11-21 06:44 | PCM.PRE.AN2 ---
ASA Classification* ASA Classification ASA Classification: 2 Assessment & Plan Anesthesia* Anesthesia Assessment Anesthesia Assessment: Discussed sedation and/or anesthesia options, risks, benefits, and alternatives with patient/parents/legal guardian/POA. Questions invited. The patient/parents/legal guardian/POA seems to understand and agrees to proceed with anesthesia plan. Reviewed the physical assessment, medical history, allergy history and patient home medications list prior to surgery/procedure/anesthetic and documented any changes. Performed airway and anesthesia risk assessments. Anesthesia Type Anesthesia Type: General Anesthesia Focused Assessment* Temperature: 97.5 F Pulse Rate: 88 Blood Pressure: 158/97 Respiratory Rate: 18 Pulse Ox: 98 Airway Assessment Mouth opens: >3 cm Mallampati Score: II Focused Labs Anesthesia Preop lab: CBC WBC 8.0 K/mm3 (4.4-11.0) 01/03/21 08:27 RBC 4.75 M/mm3 (4.2-5.4) 01/03/21 08:27 Hgb 13.8 g/dL (12.0-15.0) 01/03/21 08:27 Hct 41.4 % (37-47) 01/03/21 08:27 Plt Count 254 K/mm3 (150-450) 01/03/21 08:27 CHEMISTRY Potassium 4.2 mmol/L (3.5-5.1) 01/03/21 08:27 Sodium 139 mmol/L (136-145) 01/03/21 08:27 BUN 13 mg/dL (7-18) 01/03/21 08:27 Creatinine 1.03 mg/dL (0.55-1.02) H 01/03/21 08:27 Glucose 104 mg/dL (74-106) 01/03/21 08:27 COAG Pre-Assessment Diagnosis/Proposed Procedure Planned Operative Procedure(s): (L) left side tonsillectomy with frozen section Anesthesia History Anesthesia History - medical director of hospice: Anesthesia History - medical director of hospice Hx Hospitalization No 11/14/23 13:17 Any Problems With Anesthesia No 11/14/23 13:17 Cholinesterase deficiency No 11/14/23 13:17 You/Your Family Experience No 11/14/23 13:17 fever (hyperthermia) with Relationship Recent Exposure to Contagious No 11/21/23 06:16 Disease Does patient have nerve No 11/14/23 13:17 stimulator Patient instructed to have device shut off --Does patient have Pacemaker No 11/21/23 06:16 or ICD? When Was Last Pacemaker Check QUESTION #4 FULL TEXT: You/Your Family Experience fever (hyperthermia) with Anesthesia Last Oral Intake Last Oral intake: Last Oral Intake NPO since 01:30 11/21/23 06:16 Meds taken in AM with sips of water? Meds patient instructed to take am of surgery PONV PONV - medical director of hospice: PONV - medical director of hospice Female Yes 11/14/23 13:17 HX of Motion Sickness Yes 11/14/23 13:17 HX of N/V After Surgery No 11/14/23 13:17 Non-Smoker Yes 11/14/23 13:17 Duration of Surgery greater No 11/14/23 13:17 than 60 minutes Number of Risk Factors 3 11/14/23 13:17 PONV Score Moderate Risk 11/14/23 13:17 Height & Weight Height & Weight: Anesthesia: Height & Weight Height 5 ft 3 in 11/21/23 06:16 Weight: 86.4 kg 11/21/23 06:16 Body Mass Index (BMI) 33.7 11/21/23 06:16 Respiratory Assessment Respiratory Assessment - medical director of hospice: Respiratory Tract Infection Hx - medical director of hospice Hx Respiratory Tract Infection No 11/14/23 13:17 STOP Sleep Apnea STOP Sleep Apnea - medical director of hospice: STOP Sleep Apnea - medical director of hospice Hx Hypertension No 11/14/23 13:17 Hx Sleep Apnea No 11/14/23 13:17 CPAP BIPAP Do you snore loudly (louder Yes 11/14/23 13:17 than talking or can be heard Do you often feel tired/ No 11/14/23 13:17 fatigued/ sleepy during daytime? Has anyone observed you stop No 11/14/23 13:17 breathing during sleep? STOP Results Negative 11/14/23 13:17 QUESTION #5 FULL TEXT : Do you snore loudly (louder than talking or can be heard through closed doors)? 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 Specify any problems Hx of Preganancy in last 3 No 11/14/23 13:17 Months Nurse Filling Out Transfusion VCHRISTIN 11/14/23 13:17 & Questions: Date: 11/14/23 11/14/23 13:17 Time: 13:18 11/14/23 13:17 Patient unable to answer at this time (ie. confused, unrespo /Reproduction History /Reproductive History - medical director of hospice: /Reproductive Hx- medical director of hospice Hx Now Gestational Age (in weeks): EDC: Hx Hx Para Hx Section SAB Active Medications Active Medications: Current Medications Generic Name Dose Route Start Last Admin Trade Name Freq PRN Reason Stop Dose Admin Lactated Ringer's 1,000 mls @ 15 mls/hr 11/21/23 06:00 11/21/23 06:20 IV 15 mls/hr .Q48H LACHO Administration PFSH Medical History Post-menopausal Anxiety Arthritis High cholesterol Migraine headache Injury of head and neck Difficulty swallowing Difficulty chewing History of diverticulitis Gastric reflux Former smoker Physical exam, pre-employment Depression Hypercholesterolemia Home Medications ?Medication ?Instructions ?Recorded ?Last Taken ?Type bupropion HCl 150 mg 24 hr tablet, 300 mg PO DAILY 01/03/21 Unknown History extended release fluoxetine 40 mg capsule 60 mg PO DAILY 01/03/21 Unknown History tolterodine 4 mg capsule,extended 4 mg PO DAILY 01/03/21 Unknown History release 24 hr acetaminophen 500 mg capsule 1,000 mg PO Q6H PRN pain 11/14/23 11/21/23 History omeprazole 20 mg capsule,delayed 20 mg PO BID 11/14/23 Unknown History release Allergy/AdvReac Type Severity Reaction Status Date / Time codeine Allergy Unknown Verified 11/21/23 06:29 Surgical History Hx of bilateral cataract extraction History of carpal tunnel surgery History of tubal ligation Social History Smoking Status: Current some day smoker tobacco type: cigarettes substance use type: does not use Review of Systems (Anesthesia) ROS Narrative System reviewed and no additional complaints, except as documented.
--- NOTE | 2023-11-21 07:33 | PCM.DC.SUM ---
Providers Primary Care Physician: Dr. Bob Rogers MD Reason For Visit: left side tonsillectomy with frozen section Medications at Discharge Home Medications bupropion HCl 150 mg 24 hr tablet, extended release 300 mg PO DAILY 01/03/21 fluoxetine 40 mg capsule 60 mg PO DAILY 01/03/21 tolterodine 4 mg capsule,extended release 24 hr 4 mg PO DAILY 01/03/21 acetaminophen 500 mg capsule 1,000 mg PO Q6H PRN pain 11/14/23 omeprazole 20 mg capsule,delayed release 20 mg PO BID 11/14/23 Weight / BMI Weight Weight: 86.4 kg Body Mass Index (BMI) 33.7 D/C Instructions Discharge Diet: Soft diet Discharge Activity: Return to Normal Activity Please Follow Up With: Odilon Stevens MD When: next week Meaningful Use Info Meaningful Use Meaningful Use Diagnoses (Choose all that apply): None applicable Ischemic Stroke Statin Dosing Therapy Reference: STATIN DOSE THERAPY REFERENCE: * Patients > 75 years receive moderate or high dose statin therapy. * Patients 75 years or YOUNGER should receive HIGH intensity statin dose unless contraindicated. You will be required to document reason for non-treatment if statin daily dose does not meet guidelines. HIGH DOSE STATIN THERAPY DAILY Atorvastatin > than or = to 40 mg Rosuvastatin > than or = to 20 mg Amlodipine + Atorvastatin > than or = to 2.5/40 mg Ezetimibe + Simvastatin 10/80 mg Simvastatin 80mg Discharge Plan Admission Attending Provider: Odilon Stevens Primary Care Provider: Bob oRgers Instructions Print Language: Citizen Of [place] Discharge Orders/Prescriptions Prescriptions: No Action fluoxetine 40 mg Capsule 60 mg PO DAILY tolterodine 4 mg Capsule,Extended Release 24hr 4 mg PO DAILY bupropion HCl 150 mg Tablet Extended Release 24 Hr 300 mg PO DAILY acetaminophen 500 mg capsule 1,000 mg PO Q6H PRN (Reason: pain) omeprazole 20 mg capsule,delayed release(DR/EC) 20 mg PO BID Referrals / Follow Up: Bob Rogers MD [Primary Care Provider] - Disposition Disposition (needs filled in before D/C Order can be placed): Home, Self Care
[2023-11-21] MEDS: Bupivacaine Mpf 0.5% 30 ML VIAL (07:46)
--- NOTE | 2023-11-21 08:00 | TONS_PTH ---
PATIENT: VIOLA LR LOC: [facility] – [place] U#:[id number] AGE/SX: 63/F ROOM: RE11/21/[address]: Dr. Odilon Stevens MD : 1960 BED: DIS: 11/21/2023 SPEC #: [id number] RECD: 11/21/23 08:42 STATUS: PHIL REJohanny #: [id number] JUANCARLOS: 11/21/23 08:[address]: Odilon Stevens DEPT: SURGICAL PATHOLOGY RECD BY: Josue Rutledge ENTERED: 11/21/23 08:42 SP TYPE: TONSILS OTHR DR: Dr. Bob Rogers MD Tissues: Tonsil, NOS Procedures: Frozen Section (charge) Frozen Section Add'l ([facility]) Surgery Specimen Level III HEADER OPERATION: Left side biopsy tonsil with frozen section PRE-OP DIAGNOSIS: Left tonsil, mass TISSUE SUBMITTED: A- Left tonsil mass, B- Left tonsil additional tissue mass FROZEN SECTION DIAGNOSIS A. Left tonsil mass, biopsy: Lymphoid tissue, negative for carcinoma. B. Left tonsil mass, biopsy: Invasive squamous cell carcinoma. 11/21/2023 MICROSCOPIC DIAGNOSIS A. Left tonsil mass, biopsy: Lymphoid tissue with focal area suspicious for involvement by invasive squamous cell carcinoma. B. Left tonsil mass, additional tissue, biopsy: Invasive well differentiated squamous cell carcinoma. See comment. Lisa 11/22/2023 COMMENT B. Immunohistochemistry ([id number]) supports the above diagnosis. Immunohistochemistry ([id number]) for surrogate HPV marker (p16) is also being performed and results will be reported separately. Molecular study on the tumor can be performed, if clinically indicated. Please notify the laboratory, if they are needed. Case has been reviewed in consultation with Dr. Swartz who concurs with the above diagnosis. IDC:AM MICROSCOPIC DESCRIPTION Slides are reviewed. GROSS DESCRIPTION A. Received fresh for frozen section diagnosis labeled with the patient's name is a specimen designated Mass of left tonsil. The specimen consists of a piece of pink soft tissue measuring 0.5 x 0.5 x 0.4cm. The entire specimen is submitted in one cassette for frozen section diagnosis. B. Received fresh for frozen section diagnosis labeled with the patient's name is a specimen designated Additional left tonsil mass. The specimen consists of a piece of pink soft tissue measuring 0.9 x 0.6 x 0.4cm. The specimen is bisected and submitted entirely for frozen section diagnosis in one cassette. 11/21/2023 TC:0 CPT:84114y3,10130o7
--- NOTE | 2023-11-21 08:37 | PCM.OPRPT ---
Report of Operation Date of Procedure: 11/21/23 Pre-Operative Diagnosis: left tonsil mass Post-Operative Diagnosis: same Surgery/Procedure Performed:: Biopsy left tonsil Description of Surgical Findings:: frozen section reveals squamous cell carcinoma Surgeon: Odilon Stevens Type of Anesthesia: General Anesthesiologist: Manoj Daniels Estimated Blood Loss (mL): minimal Description of Procedure: The patient was taken to the OR on 11/21/23. She was placed in the supine position on the OR table. She was given sufficient general endotracheal anesthesia. The table was turned 90 degrees clockwise. A Deondre mouth gag was inserted into the patient's mouth. She was suspended on a Braun stand. Palpation of the mass revealed a very hard, fixed mass seemingly invading into the hard palate and mandible. Base on these findings, and the CT neck findings, I did not think it was possible to obtain a lateral plane. I elected to biopsy the mass with a Bovie and this was sent for frozen section. The initial biopsy came back as normal. I then took more tissue superiorly behind the soft palate. This was sent for frozen section as well and found to be invasive squamous cell carcinoma. Hemostasis was achieved with suction cautery. The gag was closed. It was reopened to inspect for bleeding and there was none. The gag was removed. The patient was turned back to the regular anesthesia position and awoken. She was brought to the recovery room in stable condition. Blood loss minimal, replacement none. Sponge, needle and instrument count were correct at the end of the procedure.
--- NOTE | 2023-11-21 09:07 | PCM.POSTANE2 ---
Anesthesia Postop Eval I Sum Anesthesia Postop Eval I Summary Anesthesia Postop Eval I Summary: Anesthesia Postop Eval I: Assessment Summary Airway patent Spontaneous unlabored respirations Mental status nausea Vomiting Anesthesia Postop Eval I: Fluid Summary Crystalloid volume administer (ml) Colloids volume administered ( ml) Blood Product volume administered (ml) Total IV fluid infused Anesthesia Postop Eval I: Summary Notes Anesthesia Complication Anesthesia Complication Comment: Post-operative progress note Anesthesia: Postop Eval II Evaluation Mental status: Awake and Calm Pain Level: 1 nausea: No Vomiting: No Complications Anesthesia Complication: No
[2023-11-21] MEDS: Acetaminophen 325 MG Tablet 650 MG PO (09:35)
--- NOTE | 2023-11-21 10:36 | PCM.POST.ANE ---
Anesthesia: Postop Eval I Current Vital Signs Temperature: 97 F Pulse Rate: 93 Blood Pressure: 164/96 Respiratory Rate: 14 Pulse Ox: 93 Oxygen Delivery Method: Room Air Assessment Airway patent: Yes Spontaneous unlabored respirations: Yes Mental status: Awake and Calm nausea: No Vomiting: No Anesthesia Complication: No Fluid Hydration Crystalloid volume administer (ml): 1,000 Total IV fluid infused: 1,000 Progress Note Anesthesia document: Postop Eval 1 completed: Yes
== END 2023-11-21 10:00 | disposition home or self-care (01) ==
LOC: SDC 05:45 → AC 05:46
PROVIDERS: PCP Family Medicine; Referring Provider Otolaryngology; Visit Provider Otolaryngology
PROC: (CPT 42999; principal; 2023-11-21 07:15)
DX: C09.9 Malignant neoplasm of tonsil, unspecified (principal); Z79.899 Other long term (current) drug therapy
CPT/HCPCS: 42999; 88304; 88331; 88332; 88341; 88342; J7120; J2405

== ENCOUNTER 2023-12-13 08:24 | Day surgery (SDC) | payer BC, SELFPAY ==
[2023-12-13] VITALS (11 sets, daily range): BP systolic 91–148; BP diastolic 60–101; PULSE 82–89; RESP 16–18; TEMP 36.6; O2SAT 96–100; BMI 32.4
--- NOTE | 2023-12-13 08:46 | PRE.ANES_ITS ---
ASA Classification* ASA Classification ASA Classification: 3 Assessment & Plan Anesthesia* Anesthesia Assessment Anesthesia Assessment: Discussed sedation and/or anesthesia options, risks, benefits, and alternatives with patient/parents/legal guardian/POA. Questions invited. The patient/parents/legal guardian/POA seems to understand and agrees to proceed with anesthesia plan. Reviewed the physical assessment, medical history, allergy history and patient home medications list prior to surgery/procedure/anesthetic and documented any changes. Performed airway and anesthesia risk assessments. Anesthesia Type Anesthesia Type: MAC (see written pre anesthesia record for full assessment) Anesthesia Focused Assessment* Airway Assessment Mouth opens: >3 cm Mallampati Score: II Focused Labs Anesthesia Preop lab: CBC WBC 8.0 K/mm3 (4.4-11.0) 01/03/21 08:27 RBC 4.75 M/mm3 (4.2-5.4) 01/03/21 08:27 Hgb 13.8 g/dL (12.0-15.0) 01/03/21 08:27 Hct 41.4 % (37-47) 01/03/21 08:27 Plt Count 254 K/mm3 (150-450) 01/03/21 08:27 CHEMISTRY Potassium 4.2 mmol/L (3.5-5.1) 01/03/21 08:27 Sodium 139 mmol/L (136-145) 01/03/21 08:27 BUN 13 mg/dL (7-18) 01/03/21 08:27 Creatinine 1.03 mg/dL (0.55-1.02) H 01/03/21 08:27 Glucose 104 mg/dL (74-106) 01/03/21 08:27 COAG Pre-Assessment Diagnosis/Proposed Procedure Planned Operative Procedure(s): EGD, PEG Tube Placement in OR (L) Insertion, left poss right Vascular Port & peg tube placement in OR Anesthesia History 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 When Was Last Pacemaker Check QUESTION #4 FULL TEXT: You/Your Family Experience fever (hyperthermia) with Anesthesia Last Oral Intake Last Oral intake: Last Oral Intake NPO since Meds taken in AM with sips of water? Meds patient instructed to take am of surgery PONV PONV - international broadcast music librarian: PONV - international broadcast music librarian Female Yes 12/09/23 15:56 HX of Motion Sickness Yes 12/09/23 15:56 HX of N/V After Surgery No 12/09/23 15:56 Non-Smoker Yes 12/09/23 15:56 Duration of Surgery greater Yes 12/09/23 15:56 than 60 minutes Number of Risk Factors 4 12/09/23 15:56 PONV Score Severe Risk 12/09/23 15:56 Height & Weight Height & Weight: Anesthesia: Height & Weight Height 5 ft 3 in 12/09/23 13:53 Respiratory Assessment Respiratory Assessment - international broadcast music librarian: Respiratory Tract Infection Hx - international broadcast music librarian Hx Respiratory Tract Infection No 12/09/23 15:56 STOP Sleep Apnea STOP Sleep Apnea - international broadcast music librarian: STOP Sleep Apnea - international broadcast music librarian Hx Hypertension No 12/09/23 15:56 Hx Sleep Apnea No 12/09/23 15:56 CPAP BIPAP Do you snore loudly (louder No 12/09/23 15:56 than talking or can be heard Do you often feel tired/ No 12/09/23 15:56 fatigued/ sleepy during daytime? Has anyone observed you stop No 12/09/23 15:56 breathing during sleep? STOP Results Negative 12/09/23 15:56 QUESTION #5 FULL TEXT : Do you snore loudly (louder than talking or can be heard through closed doors)? 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 Specify any problems Hx of Preganancy in last 3 N/A 12/09/23 15:56 Months Nurse Filling Out Transfusion NBUCHER 12/09/23 15:56 & Questions: Date: 12/09/23 12/09/23 15:56 Time: 15:57 12/09/23 15:56 Patient unable to answer at this time (ie. confused, unrespo /Reproduction History /Reproductive History - international broadcast music librarian: /Reproductive Hx- international broadcast music librarian Hx Now Gestational Age (in weeks): EDC: Hx Hx Para Hx Section SAB Active Medications Active Medications: Current Medications Generic Name Dose Route Start Last Admin Trade Name Freq PRN Reason Stop Dose Admin Cefazolin Sodium 2 gm/ Sodium 110 mls @ 150 mls/hr 12/13/23 10:00 Chloride IV 12/13/23 10:43 PREOP ONE [facility] Medical History (Updated 12/09/23 @ 16:01 by Colette Mendoza) Cancer Squamous cell carcinoma of face Post-menopausal Anxiety Arthritis High cholesterol Migraine headache Injury of head and neck Difficulty swallowing Difficulty chewing History of diverticulitis Gastric reflux Former smoker Physical exam, pre-employment Depression Hypercholesterolemia Home Medications ?Medication ?Instructions ?Recorded ?Last Taken ?Type bupropion HCl 150 mg 24 hr tablet, 300 mg PO DAILY 01/03/21 Unknown History extended release fluoxetine 40 mg capsule 60 mg PO DAILY 01/03/21 Unknown History tolterodine 4 mg capsule,extended 4 mg PO DAILY 01/03/21 Unknown History release 24 hr omeprazole 20 mg capsule,delayed 20 mg PO BID 11/14/23 Unknown History release Allergy/AdvReac Type Severity Reaction Status Date / Time codeine Allergy Unknown Verified 12/09/23 15:53 Family History Sister Cancer Father Hypertension CVA (cerebral vascular accident) Mother Hypertension Diabetes Surgical History History of laryngoscopy Hx of bilateral cataract extraction History of carpal tunnel surgery History of tubal ligation Social History Smoking Status: Former smoker quit date: 03/07/21 Tobacco: How many years used: 40 substance use type: does not use Review of Systems (Anesthesia) ROS Narrative System reviewed and no additional complaints, except as documented.
--- NOTE | 2023-12-13 09:31 | PCM.HP.STD ---
HPI - General General Date of Admission: 12/13/23 Date of Service: 12/13/23 Chief Complaint: need for port and PEG HPI Narrative VIOLA LR, is a 63 F who presents with head and neck ca - patient to get chemo and radiation. She was seen in my office to discuss port and peg placement [facility] Medical History Cancer Squamous cell carcinoma of face Post-menopausal Anxiety Arthritis High cholesterol Migraine headache Injury of head and neck Difficulty swallowing Difficulty chewing History of diverticulitis Gastric reflux Former smoker Physical exam, pre-employment Depression Hypercholesterolemia Home Medications ?Medication ?Instructions ?Recorded ?Last Taken ?Type bupropion HCl 150 mg 24 hr tablet, 300 mg PO DAILY 01/03/21 12/12/23 History extended release fluoxetine 40 mg capsule 60 mg PO DAILY 01/03/21 12/12/23 History tolterodine 4 mg capsule,extended 4 mg PO DAILY 01/03/21 12/12/23 History release 24 hr omeprazole 20 mg capsule,delayed 20 mg PO BID 11/14/23 12/12/23 History release Allergy/AdvReac Type Severity Reaction Status Date / Time codeine Allergy Unknown Verified 12/13/23 08:54 Family History Sister Cancer Father Hypertension CVA (cerebral vascular accident) Mother Hypertension Diabetes Surgical History History of laryngoscopy Hx of bilateral cataract extraction History of carpal tunnel surgery History of tubal ligation Social History Smoking Status: Former smoker quit date: 03/07/21 Tobacco: How many years used: 40 substance use type: does not use Vital Signs Vital Signs Vital Signs: 12/13/23 08:55 12/13/23 08:55 Temperature 97.8 F Temperature Source Temporal Pulse Rate 89 Respiratory Rate 18 Respiratory Pattern Normal Blood Pressure 145/79 H Blood Pressure Mean 101 Blood Pressure Source Monitor Blood Pressure Position Semi-Fowlers Blood Pressure Location Left Arm Pulse Ox 99 Oxygen Delivery Method Room Air Weight Weight: 182 lb 15.739 oz Body Mass Index (BMI) 32.4 Physical Exam Const alert and oriented x3 HEENT normocephalic Eyes PERRL General Eye: normal appearance of both eyes Neck full ROM General: trachea midline Chest inspection of chest normal Resp normal air movement Assessment & Plan Assessment/Plan (1) Encounter for insertion of venous access port: (2) Squamous cell carcinoma of left tonsil: PLAN: Plan plan for peg and port placement today
[2023-12-13] MEDS: Cefazolin 2 GM in 0.9% Normal Saline (100mL Bag) 100 ML IV (09:59)
[2023-12-13] MEDS: Lidocaine 1% /Epi 1:100 (20ml) 20 ML Vial (10:50)
[2023-12-13] MEDS: Bupivacaine Mpf 0.5% 30 ML VIAL (10:50)
--- NOTE | 2023-12-13 11:34 | EX.PCM.DISCH ---
Discharge Instructions Diet Discharge Diet: Light diet - advance as tolerated Activity Discharge Activity: Return to Normal Activity and May Shower May shower in (days): 1 Dressing / Incision Call your doctor if your incision/area has: Continuous Slow Oozing, Sudden Increased Bleeding, Increased Pain/ Swelling, Increased Redness, Foul Smelling Discharge and Swelling at the incision site Call your doctor if you observe: Fever of 101 or Higher and Change in Color Remove Dressing in: 4 days Cleanse incision/area with: Soap & Water Catheter: - Additional Dressing/Incision Instructions:: Flush PEG tube with 50 cc saline daily Follow Up Care Test Results: Test results from this visit will be discussed in further detail at your follow-up appointment, if applicable. Discharge Plan Admission Primary Reason for Your Visit: PEG and port placement Attending Provider: Howard Ro Primary Care Provider: Bob Rogers Instructions Print Language: [place] Discharge Orders/Prescriptions Prescriptions: New oxycodone-acetaminophen [Percocet] 5-325 mg tablet 1 tab PO Q8H PRN (Reason: pain) 3 Days Qty: 5 0RF Continued fluoxetine 40 mg Capsule 60 mg PO DAILY tolterodine 4 mg Capsule,Extended Release 24hr 4 mg PO DAILY bupropion HCl 150 mg Tablet Extended Release 24 Hr 300 mg PO DAILY omeprazole 20 mg capsule,delayed release(DR/EC) 20 mg PO BID Referrals / Follow Up: Bob Rogers MD [Primary Care Provider] - Disposition Disposition (needs filled in before D/C Order can be placed): Home, Self Care
--- NOTE | 2023-12-13 11:40 | PCM.POST.ANE ---
Anesthesia: Postop Eval I Current Vital Signs Temperature: 97.8 F Pulse Rate: 84 Blood Pressure: 126/66 Respiratory Rate: 16 Pulse Ox: 100 Oxygen Delivery Method: Room Air Assessment Airway patent: Yes Spontaneous unlabored respirations: Yes Mental status: Awake nausea: No Vomiting: No Anesthesia Complication: No Fluid Hydration Crystalloid volume administer (ml): 15 Total IV fluid infused: 15 Progress Note Anesthesia document: Postop Eval 1 completed: Yes
--- NOTE | 2023-12-13 11:40 | PCM.OPRPT ---
Problems Associated Problem List Diagnoses (1) Encounter for insertion of venous access port: (2) Squamous cell carcinoma of left tonsil: Report of Operation Date of Procedure: 12/13/23 Pre-Operative Diagnosis: Head neck cancer Post-Operative Diagnosis: Same Surgery/Procedure Performed:: Left subclavian Mediport placement with C arm EGD with PEG placement Surgeon: Howard Ro automobile mechanic: None Type of Anesthesia: MAC Anesthesiologist: Manoj Daniels Drains: None Estimated Blood Loss (mL): 5 mL Description of Procedure: Patient is a 63-year-old female recently diagnosed with tonsillar squamous cell carcinoma. She was seen in my office recently to discuss port placement and PEG tube placement. We discussed the details of the planned procedure and she wished to proceed. She was brought to the operating today following informed consent she was placed supine on the operative table with arms outstretched on arm boards. Antibiotics were given preoperatively. A MAC anesthesia was induced. An axillary roll was placed behind the shoulder blades. The left neck and chest were prepped and draped in the usual manner. Local anesthetic was injected into the left periclavicular area. Using the supplied needle and syringe I was then able to gain access to the left subclavian vein on the first pass. Guidewire was then threaded through the aperture and the needle. This was then secured to the drapes using a curved hemostat. C-arm was brought into confirm good placement of the wire. Next marking pen was then used to indicate the site of the subcutaneous pocket. Local anesthetic was injected. #15 blade was then used to make a skin incision Bovie electrocautery was then used dissect down through subcutaneous tissue. A subcutaneous pocket was then created. Another smaller incision was made at the entry point of the guidewire. The tubing was connected to the tunneler and the tubing was then tunneled into the larger incision and up and out through the smaller incision. This was then trimmed to about 20 cm. It was then attached to the port. The port was then affixed to the underlying chest wall using Prolene suture. Next the dilator and tear-away sheath were then threaded over the guidewire and advanced down to the hub. This was performed under fluoroscopy. The guidewire and dilator were then removed, thus leaving the sheath in place. The free end of the tubing was then threaded down the sheath and was advanced. This sheath was then extracted. The port reagan and flushed nicely both with injectable saline as well as heparin flush. The incision was then closed with 3-0 Vicryl and 5-0 Vicryl. Skin glue was applied as dressing. 2 x 2 and an OpSite was then applied. Next the patient was prepped and draped for the EGD PEG portion of the operation. A bite-block was placed. The EGD scope was advanced into the mouth and down the esophagus. Once in the stomach this was insufflated with air. I was then able to get into the duodenum. This appeared normal. I retracted the scope back into the stomach. The stomach grossly appeared normal. I was able to get good insufflation and was able to get very good transillumination as well. There was good one-to-one palpation of the abdomen visualized within the stomach lumen. I then injected local anesthetic. I was able to see the needle and sure the stomach. I then made a small and skin incision using #11 blade. The supplied needle and catheter were then inserted into the skin incision and was then visualized inside the stomach. A snare was then delivered down the scope in order to grab the guidewire. The guidewire was then threaded down the opening in the catheter. This was then brought out through the mouth. The guidewire was then threaded onto the PEG tube and the PEG was then pulled into the mouth and up and out through the abdominal wall. This was secured at about 3-1/2 to 4 cm. Bumper was applied. A clamp as well as a Hernan tree was then applied to the tube as well. This was taped in place. I made an attempt to readvanced the scope however patient was becoming much more awake and would not tolerate insertion of the EGD scope again so this was aborted. I was confident that the port was in good positioning. An abdominal binder was placed. She was awakened anesthesia and taken the PACU in good condition Complications None Admit VTE Documentation VTE Present on Admission: No VTE Mechan Device Prophylaxis: SCD's Multi Select Codes Respiratory/Cardiovascular Resp/Cardiovascular CPT Codes: 53423 Insert tunneled cv cath Digestive Digestive CPT Codes: [address] gastrostomy tube
--- NOTE | 2023-12-13 11:50 | RAD_ITS ---
STUDY: X-RAY CHEST REASON FOR EXAM: Female, 63 years old. Port placement TECHNIQUE: Single AP portable view of the chest. COMPARISON: Comparison is made with prior study May 22, 2022. FINDINGS: A left-sided Port-A-Cath is in place with the tip at the junction of the superior vena cava and right atrium. The lungs are clear and expanded. There is no demonstrated pleural abnormality. Normal size heart. Normal mediastinum and ochoa. Normal visualized pulmonary arteries. Normal visualized aortic arch and descending thoracic aorta. Normal visualized thoracic spine. Normal visualized ribs, clavicles, and shoulders. There is no demonstrated abnormality of the visualized soft tissue structures of the upper abdomen. RAD/CXR for Line Placement IMPRESSION: A left-sided portacatheter is in place with the tip at the junction of the superior vena cava and right atrium. Electronically Signed: Bryson Krishnan MD at 12:24 EDT ,
--- NOTE | 2023-12-13 13:32 | PCM.POSTANE2 ---
Anesthesia Postop Eval I Sum Postop Eval Completion status Anesthesia document: Postop Eval 1 completed: Yes Anesthesia Postop Eval I Summary Anesthesia Postop Eval I Summary: Anesthesia Postop Eval I: Assessment Summary Airway patent Yes 12/13/23 11:43 Spontaneous unlabored Yes 12/13/23 11:43 respirations Mental status Awake 12/13/23 11:43 nausea No 12/13/23 11:43 Vomiting No 12/13/23 11:43 Anesthesia Postop Eval I: Fluid Summary Crystalloid volume administer 15 12/13/23 11:43 (ml) Colloids volume administered ( ml) Blood Product volume administered (ml) Total IV fluid infused 15 12/13/23 11:43 Anesthesia Postop Eval I: Summary Notes Anesthesia Complication No 12/13/23 11:43 Anesthesia Complication Comment: Post-operative progress note Anesthesia: Postop Eval II Evaluation Mental status: Awake Pain Level: 0 nausea: No Vomiting: No
== END 2023-12-13 13:10 | disposition home or self-care (01) ==
LOC: SDC 08:30 → AC 08:44
PROVIDERS: PCP Family Medicine; Referring Provider Surgery; Visit Provider Surgery
PROC: (CPT 36561; principal; 2023-12-13 09:45)
PROC: 0DJ08ZZ Inspection of Upper Intestinal Tract, Via Natural or Artificial Opening Endoscopic (ICD-10-PCS; CPT 43235; principal; 2023-12-13 09:55)
DX: Z45.2 Encounter for adjustment and management of vascular access device (principal); C09.9 Malignant neoplasm of tonsil, unspecified; C76.0 Malignant neoplasm of head, face and neck; F32.A Depression, unspecified; K21.9 Gastro-esophageal reflux disease without esophagitis; F41.9 Anxiety disorder, unspecified; Z87.891 Personal history of nicotine dependence; Z79.899 Other long term (current) drug therapy
CPT/HCPCS: 36561; 43246; 00532; 71045; 77001; A4216; C1788; J2405

== ENCOUNTER 2024-01-07 11:39 | Emergency (ER) | payer BC, SELFPAY ==
[2024-01-07 11:42] VITALS: BP 108/58; PULSE 88; RESP 16; TEMP 36.7; O2SAT 98; BMI 33.5
--- NOTE | 2024-01-07 12:42 | EX.ED.DYSGE1 ---
HPI History of Present Illness Chief Complaint: Anxiety [facility] Medical History Encounter for chemotherapy management Encounter for education Diverticular disease Cancer Squamous cell carcinoma of face Post-menopausal Anxiety Arthritis High cholesterol Migraine headache Injury of head and neck Difficulty swallowing Difficulty chewing History of diverticulitis Gastric reflux Former smoker Depression Hypercholesterolemia Home Medications ?Medication ?Instructions ?Recorded ?Last Taken ?Type bupropion HCl 150 mg 24 hr tablet, 300 mg PO DAILY 01/03/21 12/12/23 History extended release fluoxetine 40 mg capsule 60 mg PO DAILY 01/03/21 12/12/23 History tolterodine 4 mg capsule,extended 4 mg PO DAILY 01/03/21 12/12/23 History release 24 hr omeprazole 20 mg capsule,delayed 20 mg PO BID 11/14/23 12/12/23 History release oxycodone-acetaminophen 5 mg-325 1 tab PO Q8H PRN pain 3 days #5 12/13/23 Unknown Rx mg tablet (Percocet) tabs lidocaine-prilocaine 2.5 %-2.5 % 1 applic topical ONCE PRN port 12/20/23 Unknown Rx topical cream access 30 days #30 grams ondansetron 8 mg disintegrating 8 mg PO Q8H PRN nausea and 12/20/23 Unknown Rx tablet vomiting #30 tabs prochlorperazine maleate 10 mg 10 mg PO Q6H PRN nausea and 12/20/23 Unknown Rx tablet vomiting #30 tabs acetaminophen 500 mg tablet 500 mg PO Q6H PRN 01/04/24 Unknown History (Tylenol Extra Strength) MAGIC MOUTH WASH (BMX) 180 mL 15 ml PO .qid PRN pain #180 mL 01/06/24 Unknown Rx suspension Allergy/AdvReac Type Severity Reaction Status Date / Time codeine Allergy Unknown Verified 01/07/24 11:42 Family History Sister Cancer Father Hypertension CVA (cerebral vascular accident) Mother Hypertension Diabetes Aunt Cancer Unknown Cancer multiple cousins with cancer Surgical History S/P percutaneous endoscopic gastrostomy (PEG) tube placement History of laryngoscopy Hx of bilateral cataract extraction History of carpal tunnel surgery History of tubal ligation Social History Smoking Status: Former smoker quit date: 03/07/21 Tobacco: How many years used: 40 substance use type: does not use EXAM Physical Exam Const Vital Signs: 01/07/24 11:42 Temperature 98.1 F Temperature Source Oral Pulse Rate 88 Respiratory Rate 16 Blood Pressure 108/58 L Blood Pressure Mean 74 Pulse Ox 98 MDM MDM MDM Narrative Medical decision making narrative: HISTORY OF PRESENT ILLNESS: 63-year-old female presents with sore throat after receiving radiation for throat cancer yesterday. She states she also broke her feeding tube. She further states she thinks may have had a panic attack and normal think she has been in the emergency department. She notes she felt short duration shortness of breath she continued to breathe heavily and then it resolved spontaneously. Denying chest pain, palpitations. Bleeding diathesis. Notes she was getting more anxious secondary to recent radiation to her throat. REVIEW OF SYSTEMS: Pertinent positives: Throat pain, shortness of breath Pertinent negatives: Fever, vomiting PHYSICAL EXAM: Nursing triage notes reviewed, Vital signs reviewed Constitutional: please see mdm HENT: MMM, trismus, posterior oropharyngeal edema (baseline per patient) Eyes: Pupils equal round and reactive to light, Extraocular muscles intact Neck: No stridor, no JVD, full neck ROM Lungs: Left chest port in place, clear to auscultation, No wheezing or rales. No increased work of breathing, no conversational dyspnea, no accessory muscle use, no nasal flaring. No respiratory distress noted Heart: Regular rate and rhythm, No murmurs, No rubs and No gallops, 2+ distal pulses (radial, femoral, posterior tibial) in all extremities Abdomen: PEG tube in place soft, there is no tenderness, rigidity, rebound or guarding, no obvious peritoneal signs, no palpable pulsatile abdominal masses, no auscultated abdominal bruit : No CVAT Extremities: No edema Neuro: No focal neurological deficits, cranial nerves II through XII intact, 5/5 strength in all extremities. Intact sensation to light touch in all extremities, 2+ reflexes bilateral patella tendons. Normal gait. No ataxia. Skin: No rash or lesions noted MEDICAL DECISION MAKING: Chief Complaint: Feeding tube malfunction MDM Narrative: The patient was initially hemodynamically stable. Exam without focal cardiopulmonary abnormalities. I initially offered the patient a broad lab and imaging workup to further elucidate etiology of the patient's complaint. While the patient does have a history of throat cancer and underwent radiation therapy she had a low risk Wells score and as such I do not suspect the patient suffering from PE. I did however want to obtain an EKG, chest x-ray, labs including troponin CBC BMP, COVID to further elucidate etiology of patient's complaint. The patient was alert and orient x 3 and had capacity to make her medical symptoms and chose to forego labs images at this time. States she gets her labs done weekly at radiation therapy. She states she thinks he just had a panic attack. She states she does not need any additional therapy. In terms of patient's PEG tube she notes is functioning appropriately she just needed a syringe for it. Services provided by the ED. The patient appropriate discharge home. Strict return precautions were discussed The patient and/or family, caregivers express understanding. The patient and/or family, caregivers agrees with the plan. Shared decision making: I will have a discussion with the patient and or visitors regarding risk/benefits of further testing or admission. They will be made aware of of the risk/benefits inherent in this decision they will be given the opportunity to voice understanding. Total critical care time today provided was at least 0 minutes. This excludes separately billable procedures. Critical care time (if documented) is secondary to the patient having high probability of clinically significant/life threatening deterioration in the patient's condition which required my urgent intervention. Impression: 1. Sore throat 2. Currently undergoing radiation therapy 3. History of throat cancer Dispo: Discharge home This note was generated with [email or web address] dictation software. It may contain incorrect words, spelling, and punctuation that were not noted in review of the chart prior to signing. Discharge Plan Triage Chief Complaint: Anxiety ED Provider: Larry Pruitt Dx/Rx/DC Orders Prescriptions: No Action prochlorperazine maleate 10 mg tablet 10 mg PO Q6H PRN (Reason: nausea and vomiting) Qty: 30 2RF ondansetron 8 mg tablet,disintegrating 8 mg PO Q8H PRN (Reason: nausea and vomiting) Qty: 30 2RF lidocaine-prilocaine 2.5-2.5 % cream 1 applic topical ONCE PRN (Reason: port access) 30 Days Qty: 30 2RF acetaminophen [Tylenol Extra Strength] 500 mg tablet 500 mg PO Q6H PRN fluoxetine 40 mg Capsule 60 mg PO DAILY tolterodine 4 mg Capsule,Extended Release 24hr 4 mg PO DAILY bupropion HCl 150 mg Tablet Extended Release 24 Hr 300 mg PO DAILY omeprazole 20 mg capsule,delayed release(DR/EC) 20 mg PO BID oxycodone-acetaminophen [Percocet] 5-325 mg tablet 1 tab PO Q8H PRN (Reason: pain) 3 Days Qty: 5 0RF MAGIC MOUTH WASH (BMX) 180 mL suspension 15 ml PO .qid PRN (Reason: pain) Qty: 180 5RF Rx Instructions: diphenhydramine 12.5 mg/5 mL oral liquid 60 mL; aluminum-mag hydroxide-simethicone 400 mg-400 mg-40 mg/5 mL oral susp 60 mL; Lidocaine Viscous 2 % mucosal solution 60 mL; Per 180 mL Primary Care Provider: Bob Rogers Referrals: Bob Rogers MD [Primary Care Provider] - Print Language: Serbian
== END 2024-01-07 13:21 | disposition home or self-care (01) ==
PROVIDERS: Emergency Provider Emergency Medicine; PCP Family Medicine; Visit Provider Emergency Medicine
DX: J02.9 Acute pharyngitis, unspecified (principal); Z87.891 Personal history of nicotine dependence
CPT/HCPCS: 99284

== ENCOUNTER → 2024-01-13 | Outpatient (CLI) | payer BC, SELFPAY | END | disposition home or self-care (01) | LOC: RAD 08:26 | PROVIDERS: PCP Family Medicine; Referring Provider Student in an Organized Health Care Education/Training Program; Visit Provider Student in an Organized Health Care Education/Training Program | DX: C09.9 Malignant neoplasm of tonsil, unspecified (principal) | CPT/HCPCS: 74230; 92611 ==

== ENCOUNTER 2024-01-21 13:34 | Emergency (ER) | payer BC, SELFPAY ==
[2024-01-21 13:35] VITALS: BP 144/66; PULSE 116; RESP 15; TEMP 36.9; O2SAT 97; BMI 30.2
[2024-01-21 13:48] VITALS: BP 144/66; PULSE 116; RESP 15; TEMP 36.9; O2SAT 97
--- NOTE | 2024-01-21 14:13 | EKG12_ITS ---
Test Reason : N/V Blood Pressure : */* mmHG Vent. Rate : 91 BPM Atrial Rate : 91 BPM P-R Int : 158 ms QRS Dur : 84 ms QT Int : 356 ms P-R-T Axes : 72 44 71 degrees QTcB Int : 437 ms Normal sinus rhythm Cannot rule out Inferior infarct , age undetermined Abnormal ECG Confirmed by OKSANA REBOLLEDO, ИВАН ([id number]), content editor ELÍAS OLIVARES ([id number]) on 01/23/2024 8:12:19 AM Referred By: Confirmed By: ИВАН GANDHI MD
--- NOTE | 2024-01-21 14:13 | CT_ITS ---
STUDY: CT ABDOMEN AND PELVIS WITH CONTRAST REASON FOR EXAM: Female, 63 years old. LLQ abd pain RADIATION DOSAGE (If Supplied By Facility): CTDIvol = ( 14.85 ) mGy, DLP = ( 949.04 ) mGycm TECHNIQUE: Transaxial images were obtained from the dome of the diaphragm to the symphysis pubis without oral contrast. IV 100mL Isovue-370 was administered. Sagittal and coronal images were reconstructed. Individualized dose optimization techniques were used for this CT. COMPARISON: January 03, 2021 FINDINGS: The visualized lung bases are unremarkable. The visualized portions of the heart are within normal limits. Moderate-sized hiatal hernia is noted Liver is normal in size. There is a tiny hypoattenuated density which is too small to characterize. Bile ducts are not dilated Normal gallbladder and extrahepatic biliary system. Normal spleen. Normal pancreas. Normal bilateral adrenal glands. Normal right kidney. There is a tiny cortical cyst which will not require additional imaging. PEG tube noted with tip in the gastric body. Normal small intestine. Diverticular changes of the descending and sigmoid colon without evidence for acute diverticulitis. The appendix is visualized and appears normal. Atherosclerotic change of the aorta without evidence for aneurysm. Normal inferior vena cava. Normal retroperitoneum. Normal urinary bladder. Postop change status post bilateral tubal ligation Normal abdominal wall. Lumbar spine demonstrates mild degenerative change. CT/Abdomen/Pelvis W IV Cont ONLY IMPRESSION: Diverticular disease of the descending and sigmoid colon without evidence for acute diverticulitis No evidence for small bowel obstruction or other acute abnormality Findings as above Electronically Signed: Miguel Osorio MD at 16:11 EST Reading Location ID and State: [facility] / [place] Tel , Service support ,
--- NOTE | 2024-01-21 14:23 | EDS_ITS ---
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 Patient states that she gets chemotherapy on Mondays followed by radiation the next 5 days. Patient notes that yesterday afternoon she started not feeling well and noted that she was able to sleep however when she woke up this morning she felt worse. She states that she had nausea vomiting and feels that she may be dehydrated as she is not able to keep anything down orally. Patient notes she does have PEG tube but she is not currently using this. Patient denies any recent sick contacts. Denies any history of blood clots or travel history. [facility] Medical History Encounter for chemotherapy management Encounter for education Diverticular disease Cancer Squamous cell carcinoma of face Post-menopausal Anxiety Arthritis High cholesterol Migraine headache Injury of head and neck Difficulty swallowing Difficulty chewing History of diverticulitis Gastric reflux Former smoker Depression Hypercholesterolemia Home Medications ?Medication ?Instructions ?Recorded ?Last Taken ?Type bupropion HCl 150 mg 24 hr tablet, 300 mg PO DAILY 01/03/21 12/12/23 History extended release fluoxetine 40 mg capsule 60 mg PO DAILY 01/03/21 12/12/23 History tolterodine 4 mg capsule,extended 4 mg PO DAILY 01/03/21 12/12/23 History release 24 hr omeprazole 20 mg capsule,delayed 20 mg PO BID 11/14/23 12/12/23 History release oxycodone-acetaminophen 5 mg-325 1 tab PO Q8H PRN pain 3 days #5 12/13/23 Unknown Rx mg tablet (Percocet) tabs lidocaine-prilocaine 2.5 %-2.5 % 1 applic topical ONCE PRN port 12/20/23 Unknown Rx topical cream access 30 days #30 grams ondansetron 8 mg disintegrating 8 mg PO Q8H PRN nausea and 12/20/23 Unknown Rx tablet vomiting #30 tabs prochlorperazine maleate 10 mg 10 mg PO Q6H PRN nausea and 12/20/23 Unknown Rx tablet vomiting #30 tabs acetaminophen 500 mg tablet 500 mg PO Q6H PRN 01/04/24 Unknown History (Tylenol Extra Strength) MAGIC MOUTH WASH (BMX) 180 mL 15 ml PO .qid PRN pain #180 mL 01/06/24 Unknown Rx suspension nystatin 100,000 unit/mL oral 5 ml buccal 4X/DAY 7 days #140 mL 01/09/24 Unknown Rx suspension oxycodone 5 mg/5 mL oral solution 5 mg (5 mL) PO Q6H PRN pain 4 01/11/24 Unknown Rx weeks #500 mL Allergy/AdvReac Type Severity Reaction Status Date / Time codeine Allergy Unknown Verified 01/21/24 13:35 Family History Sister Cancer Father Hypertension CVA (cerebral vascular accident) Mother Hypertension Diabetes Aunt Cancer Unknown Cancer multiple cousins with cancer Surgical History S/P percutaneous endoscopic gastrostomy (PEG) tube placement History of laryngoscopy Hx of bilateral cataract extraction History of carpal tunnel surgery History of tubal ligation Social History Smoking Status: Former smoker quit date: 03/07/21 Tobacco: How many years used: 40 substance use type: does not use ROS ROS ED ROS Narrative Constitutional: Complains of chills denies any fevers, headaches, lightheadedness, dizziness Eyes ears, nose, throat: Complains of sores in the back of her throat from the radiation that has been there for some time now she states denies change in vis ion double vision blurry vision Cardiovascular: Denies chest pain or palpitations Respiratory: Complains of dry cough, denies shortness of breath Abdomen: Complains of some abdominal pain and nausea vomiting as noted above denies diarrhea : Denies any pain phonation, hematuria and polyuria Neurological: Denies numbness, weakness, tingling Musculoskeletal: Complains of back pain in the lower portion of her back denies any falls or trauma Skin: Denies any rashes or lesions EXAM Physical Exam Narrative Exam Narrative: General: Patient is lying in bed rest comfortably did not appear to be in acute distress Head: Atraumatic, normocephalic Eyes ears, nose, throat: PERRL bilateral, EOMI buttock no conjunctival injection noted. Patient has postradiation mucosal changes in the back of her throat, uvula midline, no exudates noted no concern for peritonsillar abscess Neck: Soft, supple, trachea midline Cardiovascular: Patient was tachycardic with a regular rhythm no murmurs gallops rubs noted Respiratory: Clear to auscultation bilaterally no rales rhonchi or wheeze noted Abdomen: Soft, nondistended, tender to palpation left lower quadrant no rebound or guarding on exam. Patient does have PEG tube in place which appears to be without any signs of infection Extremities: +5/5 strength noted in the bilateral upper and lower extremities, no pedal edema no exam, radial pulses +2/4 in the bilateral per extremities Neurological: Patient following commands knew that she was at [facility] there is 2023 Skin: Warm, dry, intact Const Vital Signs: 01/21/24 13:35 01/21/24 13:48 01/21/24 15:08 Temperature 98.5 F 98.5 F 98.4 F Temperature Source Oral Temporal Temporal Pulse Rate 116 H 116 H 92 Respiratory Rate 15 15 18 Blood Pressure 144/66 H 144/66 H 134/77 H Blood Pressure Mean 92 92 96 Pulse Ox 97 97 98 Oxygen Delivery Method Room Air Room Air 01/21/24 15:34 01/21/24 16:00 Temperature 98.1 F Temperature Source Temporal Pulse Rate 92 89 Respiratory Rate 16 16 Blood Pressure 155/63 H Blood Pressure Mean 93 Pulse Ox 96 97 Oxygen Delivery Method Room Air MDM MDM MDM Narrative Medical decision making narrative: Patient is a 63-year-old female who presents to the emergency department chief complaint of abdominal pain, nausea vomiting not feeling well for the past 1 to 2 days now. Patient will have a workup performed here on the differential diagnosis includes but not limited to diverticulitis, viral gastroenteritis, COVID, flu, pneumonia, ACS. Once workup is obtained reviewed she will be reevaluated. Patient's CBC reviewed and showed a white blood count of 4.2, hemoglobin was 10 which is stable compared to previous blood draws, her absolute neutrophil count was normal at 3.3. Patient sodium was noted be 133, potassium normal at 4.1, creatinine normal at 0.86. Patient's AST and ALT 14 and 18 respectively. Patient's troponin was normal at 5, EKG was reviewed and independently interpreted by myself which showed sinus rhythm with a rate of [address] changes noted. Patient's urinalysis showed 25 leukocyte esterase 0-5 white cells and 2+ bacteria however there was noted to be 5-10 squamous epithelial cells and she does not have any urinary symptoms this will be sent for culture she was advised to follow-up on this with her primary care physician. Patient CT abdomen pelvis with IV contrast showed diverticular disease of the descending and sigmoid colon without evidence of acute diverticulitis. No evidence of small bowel obstruction or other acute abnormality. I did discuss results with the patient she is feeling better she would like to go home. She states that she has liquid oxycodone at home for pain control as well as Zofran ODT. She is advised using medication for pain control. She was advised to follow-up with her missile pad mechanic oncologist in outpatient setting in regards to using her PEG tube. She was advised to stay hydrated she states that she is on a pur?ed diet now secondary to the posterior pharynx changes from the radiation therapy. She was encouraged return with worsening symptoms or any concerns. She would like to go home significant other bedside is agreeable this plan all question concerns answered she was discharged home in stable condition. Lab Data Labs: Laboratory Results - last 24 hr 01/21/24 01/21/24 14:50 14:58 WBC 4.2 L RBC 3.46 L Hgb 10.0 L Hct 29.5 L MCV 85.3 MCH 28.9 MCHC 33.9 RDW Std Deviation 42.3 RDW Coeff of Miguel 14.4 Plt Count MPV 9.2 Immature Gran % (Auto) 0.700 Neut % (Auto) 77.6 H Lymph % (Auto) 8.0 L Cloud % (Auto) 13.0 H Eos % (Auto) 0.5 Baso % (Auto) 0.2 Absolute Neuts (auto) 3.3 Absolute Lymphs (auto) 0.34 L Nucleated RBC % 0 Differential Comment SCANNED Platelet Estimate ADEQUATE Plt Morphology Comment CLUMPED RBC Morphology NORM C+C Sodium 133 L Potassium 4.1 Chloride 101 Carbon Dioxide 27.0 Anion Gap 5 BUN 22 H Creatinine 0.86 Estim Creat Clear Calc 64.31 Est GFR (MDRD) Af Amer 85 Est GFR (MDRD) Non-Af 70 BUN/Creatinine Ratio 25.6 H Glucose 100 Calcium 9.3 Total Bilirubin 0.50 AST 14 L ALT 18 Alkaline Phosphatase 114 Troponin I High Sens 5 Total Protein 6.6 Albumin 3.2 Globulin 3.4 Albumin/Globulin Ratio 0.9 Lipase 19 Urine Color Yellow Urine Clarity Clear Urine pH 7.0 Ur Specific [place] 1.010 Urine Protein 30 H Urine Glucose (UA) Normal Urine Ketones 50 H Urine Occult Blood 10 H Urine Nitrite Negative Urine Bilirubin Negative Urine Urobilinogen 4 H Ur Leukocyte Esterase 25 H Urine RBC 0 SEEN Urine WBC 0-5 SEEN Ur Squamous Epith Cells 5-10 SEEN Urine Bacteria 2+ Urine Mucus 0 SEEN Radiography Diagnostic Testing: Clinical Impression(s) from Imaging Studies Abdomen/Pelvis CT 01/21/24 14:13 IMPRESSION: Diverticular disease of the descending and sigmoid colon without evidence for acute diverticulitis No evidence for small bowel obstruction or other acute abnormality Findings as above Electronically Signed: Miguel Osorio MD at 16:11 EST Reading Location ID and State: [address] [place] [address] Tel , Service support , Discharge Plan Triage Chief Complaint: Nausea/Vomiting ED Provider: Jim King Dx/Rx/DC Orders Clinical Impression: Nausea & vomiting Prescriptions: No Action prochlorperazine maleate 10 mg tablet 10 mg PO Q6H PRN (Reason: nausea and vomiting) Qty: 30 2RF ondansetron 8 mg tablet,disintegrating 8 mg PO Q8H PRN (Reason: nausea and vomiting) Qty: 30 2RF lidocaine-prilocaine 2.5-2.5 % cream 1 applic topical ONCE PRN (Reason: port access) 30 Days Qty: 30 2RF nystatin 100,000 unit/mL suspension 5 ml buccal 4X/DAY 7 Days Qty: 140 7RF Rx Instructions: Swish and swallow acetaminophen [Tylenol Extra Strength] 500 mg tablet 500 mg PO Q6H PRN fluoxetine 40 mg Capsule 60 mg PO DAILY tolterodine 4 mg Capsule,Extended Release 24hr 4 mg PO DAILY bupropion HCl 150 mg Tablet Extended Release 24 Hr 300 mg PO DAILY omeprazole 20 mg capsule,delayed release(DR/EC) 20 mg PO BID oxycodone-acetaminophen [Percocet] 5-325 mg tablet 1 tab PO Q8H PRN (Reason: pain) 3 Days Qty: 5 0RF MAGIC MOUTH WASH (BMX) 180 mL suspension 15 ml PO .qid PRN (Reason: pain) Qty: 180 5RF Rx Instructions: diphenhydramine 12.5 mg/5 mL oral liquid 60 mL; aluminum-mag hydroxide- simethicone 400 mg-400 mg-40 mg/5 mL oral susp 60 mL; Lidocaine Viscous 2 % mucosal solution 60 mL; Per 180 mL oxycodone 5 mg/5 mL solution 5 mg PO Q6H PRN (Reason: pain) 28 Days Qty: 500 0RF Rx Instructions: take 5 mL PO/PEG q6 hours prn pain Primary Care Provider: Bob Rogers Referrals: Bob Rogers MD [Primary Care Provider] - Activity Restrictions/Additional Instructions: Follow-up with your missile pad mechanic oncologist outpatient setting. Use the liquid oxycodone and Zofran ODT as prescribed. Return with worsening symptoms or any concerns. Follow-up on urine culture results with your missile pad mechanic oncologist or your primary care physician. Print Language: Palauan Disposition Disposition: Home, Self Care
[2024-01-21] MEDS: Ondansetron 4 MG/2 ML Vial IV (14:49)
[2024-01-21] MEDS: 0.9% Normal Saline (1000mL) 1,000 ML 999 ML IV (14:49)
[2024-01-21 15:03] LABS: Mucous, Urine 0 SEEN /hpf (<or=2+); Red Blood Cells-Urine 0 SEEN /hpf (0-5)
[2024-01-21 15:07] LABS: Absolute Lymphocyte Count 0.34 X10^3/uL (0.83-4.51); Absolute Neutrophil Count 3.3 X10^3/uL (2.0-7.7); Basophil# 0.01 X10^3/uL; Basophil% 0.2 % (0-1); Eosinophil# 0.02 X10^3/uL; Eosinophils% 0.5 % (0-5); Hematocrit 29.5 % (37-47); Lymphocyte # 0.34 X10^3/ul (0.83-4.51); Mean Corp Hgb Conc 33.9 g/dL (32-36); Mean Corpuscular Hgb 28.9 pg (27.0-32.0); Mean Corpuscular Volume 85.3 fL (81-99); Mean Platelet Vol. 9.2 fl (6.2-12.0); Monocyte# 0.55 X10^3/uL; NRBC Flagged by Analyzer 0 % (0-5); Neutrophil # 3.29 X10^3/uL (2.7-7.7); Neutrophil % 77.6 % (47-70); POSITIVE COUNT YES; POSITIVE DIFFERENTIAL YES; RBC Distribution Width CV 14.4 % (11.6-14.6); RBC Distribution Width SD 42.3 fl (35.1-43.9); Red Blood Count 3.46 M/mm3 (4.2-5.4); White Blood Count 4.2 K/mm3 (4.4-11.0)
[2024-01-21 15:07] LABS: Color, Urine Yellow (Yellow); Glucose, Dipstick Normal (Normal); Ketone-Dipstick 50 mg/dl (Negative); Leukocyte Esterase-Dipstick 25 /ul (Negative); Nitrite-Dipstick Negative (Negative); Occult Blood-Urine 10 /ul (Negative); Protein-Dipstick 30 mg/dl (Negative); Urine Bilirubin Dipstick Negative (Negative); Urine Clarity Clear (Clear); Urine Urobilinogen 4 mg/dl (Normal)
[2024-01-21 15:08] VITALS: BP 134/77; PULSE 92; RESP 18; TEMP 36.9; O2SAT 98
[2024-01-21 15:28] LABS: ALB/GLOB Ratio 0.9 RATIO (0.9-2.4); AST(SGOT) 14 U/L (15-37); Alanine Aminotransfer ALT/SGPT 18 U/L (13-56); Albumin, Serum 3.2 g/dL (3.2-5.0); Alkaline Phosphatase 114 U/L (45-117); Anion Gap 5 (5-15); BUN 22 mg/dL (7-18); BUN/Creat Ratio 25.6 RATIO (10-20); Calcium,Total 9.3 mg/dL (8.5-10.1); Chloride 101 mmol/L (98-107); Creatinine, Serum 0.86 mg/dL (0.55-1.02); EST Glomerular Filtration Rate 70 mL/min (>60); Est Glom Filt Rate - Afr Amer 85 mL/min (>60); Estimated Creatinine Clearance 64.31 ml/min; Globulin 3.4 g/dL (2.2-4.2); Glucose 100 mg/dL (74-106); Lipase 19 U/L (13-75); Potassium 4.1 mmol/L (3.5-5.1); Protein, Total 6.6 g/dL (6.4-8.2); Sodium Level 133 mmol/L (136-145); Troponin-I HS 5 pg/mL (3.0-54.0)
[2024-01-21 15:34] VITALS: PULSE 92; RESP 16; O2SAT 96
[2024-01-21 15:34] LABS: Bacteria 2+ /hpf (None Seen); Squamous Epithelial Cells - UA 5-10 SEEN /hpf (5-10); White Blood Cells 0-5 SEEN /hpf (0-5)
[2024-01-21 15:50] LABS: Differential Comment SCANNED; Differential Indicated SCAN CRITERIA MET; Platelet Estimate ADEQUATE (ADEQ); Platelet Morphology CLUMPED; Red Cell Morphology NORM C+C NORMAL (NORM C&C)
[2024-01-21 16:00] VITALS: BP 155/63; PULSE 89; RESP 16; TEMP 36.7; O2SAT 97
== END 2024-01-21 17:17 | disposition home or self-care (01) ==
PROVIDERS: Emergency Provider Emergency Medicine; PCP Family Medicine; Visit Provider Emergency Medicine
DX: R11.2 Nausea with vomiting, unspecified (principal); Z93.1 Gastrostomy status; Z87.891 Personal history of nicotine dependence
CPT/HCPCS: 74177; 80053; 81001; 83690; 84484; 85025; 87077; 87086; 87088; 87631; 93005; 96361; 96374; 96376; 99282; J7030; Q9967; A4216; J2405

== ENCOUNTER 2024-01-23 10:30 | Outpatient (RCR) | payer BC, SELFPAY ==
--- NOTE | 2024-01-11 12:00 | HP.SP.EVAL ---
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 Pt reports painful and restricted jaw opening since October of 2023, which is when she had also been dealing w/ throat pain for weeks at that time. Pt reports increased swallowing difficulty as treatment has progressed. PEG tube is in place, but has not yet been used. See further details re: current dysphagia below. Smoking Status: Former smoker Pain Is pain an issue with your current prescribed condition?: Yes Personal Preferred language: [place]raini Patient Allergies Allergies Allergies: Allergies codeine Allergy (Verified 01/09/24 09:26) Unknown Subjective Dysphagia Symptoms Reported Symptoms/Problems with: Difficulty Swallowing Solids, Difficulty Swallowing Liquids, Pain on Swallowing, Food gets stuck and Xerostomia Current Diet Solids Current Diet: Pureed Other: moist, finely blended purees only Current Diet Liquids Current Liquids: Thin Comments Patient Report: -: Amount of oral intake: -6, 16oz bottles of water -1 serving of food per day, Pt is currently discussing oral supplements w/ video tape editor. She is also planning to begin PEG tube supplements. Xerostomia: moderate-severe Taste: Moderate hypogeusia and dysgeusia Baking soda and salt rinse ? 3-4X, [employer] recommended 5-7X Green tea ? 0X, [employer] recommends starting (decaf) Pain management: Pt reports that magic mouthwash makes things worse. She is taking Tylenol. Patient is about to start oxycodone prescribed by physician. Objective Dysphagia Administered by Administered by: Self Thin Liquids Administred via: Cup and Straw Comments: Coughing after straw sip 1X w/ patient reporting increased difficulty w/ straw sips. Sips consumed via cup w/ no overt s/s of aspiration. Mild-moderate delay for swallow onset w/ thin by cup and straw. Pt reports use of effortful swallows w/ sips. Pureed Administered via: Spoon Comments: 1/4 tsp consumed w/ increase in odynophagia, no overt s/s of aspiration, but need for immediate liquid wash to clear. She feels her dry mouth zaps moisture from applesauce and leave a difficult texture to swallow. Impact Impact on Safety & Functioning: Risk for Aspiration and Risk for Inadequate Nutrition/Hydration Recommendations Modified Barium Swallow/Cookie Swallow Recommended: Yes Swallowing Treatment: Yes Diet Texture Recommendations Solids: Pureed (Level 4) Liquids: Thin (Level 0) NPO: Alternative Nutrition/Hydration Recommended Other: Small bites/sips, No straws, Slow rate, Sit upright for all po intake, Alternate bites/sips Results Swallowing Within Normal Limits: No Swallowing Diagnosis: Oropharyngeal Phase Dysphagia (R13.12) Additional: Moderate-Severe SURGICAL TRAINING SPECIALIST V Trigeminal Nerve V Trigeminal Nerve Response: Intact VII Facial Nerve VII Facial Nerve Result: Impaired Comment: impaired taste X Vagus Nerve X Vagus Nerve Result: Impaired Comment:: Unable to view symmetry of soft palate due to restricted jaw opening, pt reports increased strain and intermittent hoarseness XII Hypoglossal Nerve XII Hypoglossal Nerve Result: Intact Swallowing Performance Scale Swallowing Performance Scale Swallowing Performance Scale Result: 6 Moderate to Severe Reference: Neuro-QoL instrument Radiation Oncology Patient FOIS Functional Oral Intake Scale Total oral diet with multiple consistencies, but requiring special preparation or compensations: Level 5 Other Other EAT-10: -: Eating Assessment Tool (EAT-10) ? Score = 26 Score of 3 or more indicates there may be a swallowing problem or dysphagia. For patients with head and neck cancer, researchers found a cut-off value of 19 to be helpful in detecting presence of post-swallow pharyngeal residue. Plan Plan Plan: Will recommend the patient for skilled outpatient dysphagia therapy to address moderate-severe oropharyngeal dysphagia due to SCC of L tonsil w/ ongoing chemoradiation treatment. Pt is at risk for worsening dysphagia and aspiration risk. Speech therapy POC to include further education and training re: oropharyngeal exercise program, diet texture recommendations, aspiration precautions, and compensatory strategies to decrease risk for aspiration. Additionally, will provide ongoing assessment of diet tolerance during and post chemoradiation treatment. Without skilled ST services, the patient is at increased risk for aspiration, weight loss, and malnutrition. Recommendations MBS: Yes Treatment Warranted: Yes Treatment Warranted: Dysphagia Progress Prognosis: Good Frequency Frequency: 1x/Week Duration: 12 Months Goals that are Established Determination:: Goals will be added/modified as deemed necessary and appropriate. Therapy will be discontinued when results of re-evaluation indicate therapy is no longer needed or lack of progress has been documented. Goal #1-5 Goal #1: The patient will consume least restrictive diet textures without overt s/s of aspiration with minimal verbal cues for use of compensatory strategies to decrease risk for aspiration. Goal #2: The patient will complete an oropharyngeal exercise program X10-15 reps, 3-5X daily with minimal verbal cues to improve strength, ROM, and coordination of swallowing mechanism (Effortful, Jaw, Karen, recommended 30 reps daily). Goal #3: The patient will participate in ongoing education re: short-term and long-term effects of chemoradiation treatment on swallow function and management of symptoms that contribute to dysphagia. Goal #4: The patient will participate in routine MBSS/FEES to objectively assess swallow function and provide recommendations for safest, least restrictive diet and compensatory strategies to reduce risk for aspiration during and following radiation treatment. Education Patient has Indicated that the Following Identified Educational Needs: None The Patient has indicated that they have no educational or learning abilities that may effect their care.: Yes Patient Instruction Patient Education: Treatment Plan, Goals, Safety Precautions, Diet Level and Home Exercise Program Other Education: Educated the patient re: short-term and long-term effects of chemoradiation treatment that increase her risk for worsening dysphagia, such as mucositis, odynophagia, xerostomia, hypo/dysgeusia, disuse atrophy, and radiation fibrosis. Discussed consuming as much oral intake as she safely can and completing oropharyngeal exercises as much as able during treatment. Discussed importance for speech therapy to monitor and address dysphagia during and post chemoradiation treatment. Provided the patient a handout and demonstration of oropharyngeal exercise program, as well as a jaw ROM exercise (Karen, Effortful, Jaw Stretch). The patient provided return demonstration with all exercises with minimal verbal cues. The patient would benefit from continued training to monitor proper execution of exercises and encourage strict adherence to exercise program. Person Taught: Patient Teaching Method: Discussion, Demonstration, Handout and Teach Back Response to teaching: Return Demonstration, Verbalize Understanding and Reinforcement Needed
--- NOTE | 2024-03-06 12:21 | HP.SP.DC ---
ST Discharge Summary Discharged: Discharge: The patient unfortunately . She was a pleasure to work with this dysphagia POC. The patient's chart will be discharged at this time.
== END 2024-01-23 19:00 | disposition home or self-care (01) ==
LOC: SP 10:30
PROVIDERS: PCP Family Medicine; Referring Provider Student in an Organized Health Care Education/Training Program; Visit Provider Student in an Organized Health Care Education/Training Program
DX: C09.9 Malignant neoplasm of tonsil, unspecified (principal)
CPT/HCPCS: 92526; 92610

== ENCOUNTER 2024-02-04 09:05 | Inpatient (IN) | payer BC, MEDICARE, SELFPAY ==
[2024-02-04] VITALS (19 sets, daily range): BP systolic 80–125; BP diastolic 41–74; PULSE 94–114; RESP 17–34; TEMP 35.9–38.1; O2SAT 91–96; BMI 30.7; BMI 29.5
--- NOTE | 2024-02-04 09:10 | EKG12_ITS ---
Test Reason : WEAKNESS Blood Pressure : */* mmHG Vent. Rate : 108 BPM Atrial Rate : 108 BPM P-R Int : 146 ms QRS Dur : 80 ms QT Int : 332 ms P-R-T Axes : 47 32 64 degrees QTcB Int : 444 ms Sinus tachycardia Possible Left atrial enlargement Borderline ECG Confirmed by Andi Melendez ([id number]), food editor CATY SHABAZZ ([id number]) on 02/06/2024 11:34:24 AM Referred By: Confirmed By: Andi Melendez
--- NOTE | 2024-02-04 09:17 | EX.ED.DYSGE1 ---
HPI History of Present Illness Chief Complaint: Weakness Informant: patient and family (Daughter at bedside. Provides most of the history.) Onset/Context/Timing Onset: Days Context: Gradual Onset Timing: Continuous Current Severity: Moderate Maximum Severity: Moderate Narrative Narrative: 63-year-old female history of throat cancer undergoing chemotherapy at her last treatment this past Tuesday. PEG tube for nutrition. History of anemia. Going to her daughters at bedside she has had altered level of consciousness at least the last 4 days with confusion. Denies nausea, vomiting or diarrhea. No documented fever. No recent falls. She is on no blood thinners. No recent hospitalization. Prior similar symptoms: Yes Recent Illness/Hospitalization: No PFSH PFSH Medical History Anemia CINV (chemotherapy-induced nausea and vomiting) Encounter for chemotherapy management Encounter for education Diverticular disease Cancer Squamous cell carcinoma of face Post-menopausal Anxiety Arthritis High cholesterol Migraine headache Injury of head and neck Difficulty swallowing Difficulty chewing History of diverticulitis Gastric reflux Former smoker Depression Hypercholesterolemia Home Medications ?Medication ?Instructions ?Recorded ?Last Taken ?Type bupropion HCl 150 mg 24 hr tablet, 300 mg PO DAILY 01/03/21 02/04/24 History extended release fluoxetine 40 mg capsule 60 mg PO DAILY 01/03/21 02/04/24 History tolterodine 4 mg capsule,extended 4 mg PO DAILY 01/03/21 02/04/24 History release 24 hr omeprazole 20 mg capsule,delayed 20 mg PO BID 11/14/23 02/04/24 History release lidocaine-prilocaine 2.5 %-2.5 % 1 applic topical ONCE PRN port 12/20/23 Unknown Rx topical cream access 30 days #30 grams ondansetron 8 mg disintegrating 8 mg PO Q8H PRN nausea and 12/20/23 Unknown Rx tablet vomiting #30 tabs prochlorperazine maleate 10 mg 10 mg PO Q6H PRN nausea and 12/20/23 Unknown Rx tablet vomiting #30 tabs acetaminophen 500 mg tablet 500 mg PO Q6H PRN fever or pain 01/04/24 02/04/24 History (Tylenol Extra Strength) oxycodone 5 mg/5 mL oral solution 5 mg (5 mL) PO Q6H PRN pain 4 01/11/24 Unknown Rx weeks #500 mL fluoxetine 20 mg capsule 20 mg PO DAILY 02/04/24 02/04/24 History potassium chloride 20 mEq/15 mL 20 meq PO BID 02/04/24 02/04/24 History oral liquid Allergy/AdvReac Type Severity Reaction Status Date / Time codeine Allergy Unknown Verified 01/30/24 10:08 Family History Sister Cancer Father Hypertension CVA (cerebral vascular accident) Mother Hypertension Diabetes Aunt Cancer Unknown Cancer multiple cousins with cancer Surgical History S/P percutaneous endoscopic gastrostomy (PEG) tube placement History of laryngoscopy Hx of bilateral cataract extraction History of carpal tunnel surgery History of tubal ligation Social History Smoking Status: Former smoker quit date: 03/07/21 Tobacco: How many years used: 40 substance use type: does not use ROS ROS ED ROS Narrative Decreased oral intake. Constitutional Constitutional ED: Denies chills or fever(s) Eyes Eyes: Denies blurry vision ENT ENT ED: Denies ear pain Cardiovascular Cardiovascular: Denies chest pain Respiratory/Chest Respiratory/Chest: Denies cough or dyspnea Gastrointestinal Gastrointestinal: Denies abdominal pain, constipation, diarrhea, melena, nausea or vomiting Genitourinary Genitourinary ED: Denies dysuria or hematuria Musculoskeletal Musculoskeletal: Denies arthralgias Integumentary Denies abscess Neurologic Neurologic: Denies headache(s) Psychiatric Psychiatric: Denies anxiety Endocrine Endocrinology: Denies cold intolerance Hematologic/Lymphatic Hematologic/Lymphatic: Reports none Allergic/Immunologic Allergic/Immunologic ED: Denies mouth swelling, tongue swelling or urticaria EXAM Physical Exam Narrative Exam Narrative: 63-year-old female sitting upright in bed her initial blood pressure is 80/41. Heart rate 114. She is afebrile. Pulse ox 94% on room air no signs of hypoxia. She is actually tolerating her hypotension well. Daughter at bedside. H EENT exam pupils round reactive light. No trauma. Very dry mucous membranes. Neck nontender no lymphadenopathy. Heart tachycardic rate about 115 no murmur. Chest wall and ribs nontender. Lungs clear to auscultation bilaterally. Abdomen is soft, nontender, nondistended normal bowel sounds without peritoneal signs. Left upper quadrant feeding tube. Back nontender. Moving all 4 extremities. Normal health care legal assistant strength. Normal dorsi plantarflexion. Nontender no edema. Neurologically she is awake. She knows she is at the hospital. She answers questions. She is confused. She does not know the month. She could not remember the most recent holiday. She has no slurred speech. She has no localizing weakness. Const Vital Signs: 02/04/24 09:05 02/04/24 09:07 02/04/24 09:07 Temperature 97.5 F L 99 F Temperature Source Temporal Core Pulse Rate 114 H 107 H Respiratory Rate 28 H 26 H Respiratory Effort Normal Non-Labored Respiratory Pattern Normal Blood Pressure 80/41 L 101/59 L Blood Pressure Mean 54 73 Pulse Ox 94 92 Oxygen Delivery Method Room Air Room Air 02/04/24 09:16 02/04/24 09:42 02/04/24 09:45 Temperature Temperature Source Pulse Rate 109 H Respiratory Rate 25 H Respiratory Effort Respiratory Pattern Blood Pressure 112/53 L Blood Pressure Mean 70 Pulse Ox 92 Oxygen Delivery Method Room Air 02/04/24 10:00 02/04/24 10:07 Temperature 100.6 F H Temperature Source Core Pulse Rate 109 H Respiratory Rate 22 H Respiratory Effort Respiratory Pattern Blood Pressure 121/57 H 115/59 L Blood Pressure Mean 76 77 Pulse Ox 96 Oxygen Delivery Method Room Air Positive well nourished and well developed; Negative for obese, cachectic, contractures or unkempt General Appearance ED: well developed; Negative for unkempt, cachectic, contractures, cyanotic, diaphoretic, NAD or pallor Nutritional Appearance: Negative for cachectic or obese HEENT Reports dry mucous membranes Negative for trauma or tenderness Mouth ED: Yes dry mucous membranes Mouth: dry mucous membranes Eyes PERRL and EOMs intact bilaterally Neck no lymphadenopathy, supple and no JVD General: Negative for tenderness Chest Wall inspection of chest normal and palpation of chest normal Resp normal respiratory effort and clear to auscultation bilaterally Cardio regular rhythm, S1 normal heart sound, S2 normal heart sound and no murmurs; Negative for regular rate Rate: tachycardic GI normal to inspection, nondistended, normoactive bowel sounds, non-tender, non-distended and no masses Inspection: Negative for abdominal distention Auscultation: normoactive bowel sounds Palpation: soft; Negative for tender, guarding or rebound tenderness present Back/Spine no CVA tenderness General Back: Negative for CVA tenderness Cervical Spine: Negative for cervical spine tenderness Thoracic Spine / Upper Back: Negative for thoracic spinal tenderness or paraspinal muscle tenderness Lumbar Spine / Lower Back: Negative for lumbar spinal tenderness Extremity normal to inspection General Extremety ED: Negative for edema or tenderness General Extremity: Negative for edema Neuro oriented x3 and CN's II-XII intact bilaterally Sensorium / Orientation: alert and orientation impaired; Negative for lethargic or stuporous Motor Exam: strength 5/5 throughout Psych mental status grossly normal Appearance: Negative for unkempt Attitude: No agitated Mood & Affect: Negative for depressed or anxious Skin no rashes or lesions noted and no wounds General Skin Exam: Negative for jaundice or pallor Lesions: No lesion noted Rashes: No rashes noted Trauma: Negative for abrasion Wounds: Negative for wounds noted MDM MDM MDM Narrative Medical decision making narrative: 63-year-old female with throat cancer undergoing chemotherapy with her last treatment last Tuesday. Clinically looks dehydrated and hypotensive. She undergo a septic workup. She will be initially started on 1 L normal saline. Repeat exam patient is doing much better at 11 AM. Pressure currently is 118/60. She has had 1 L normal saline she is being given a second. Should be started on both Rocephin and Zithromax for her right upper and lower lobe pneumonia. I discussed her test results with both her and her . I have the hospitalist on page for admission. She will be admitted for sepsis, hypotension, immunocompromise, acute kidney injury and both right upper and lower lobe pneumonia. Patient will be admitted to the progressive care unit to Dr. Perales. We discussed her anemia also. She will be typed and crossed and transfused a unit. History & Record Review Discussion w/independent historian: Patient and Family Additional record(s) reviewed:: Prior inpatient record, Prior outpatient record, Prior ED visit and Prior labs Lab Data Attestation: I reviewed the patient's lab results. Lab results narrative: CBC shows a white count 2.5. H&H is 7.0 and 20. Platelet count 109. PT/INR of 17 and 1.4. PTT of 30. Electrolytes show sodium 133. Gap 9. BUN 25 creatinine 1.42. Glucose 108. Lactic acid 2.2. Liver enzymes unremarkable. Lipase less than 10. UA occult blood. No white or red cells. No nitrites. 1+ bacteria. Chest x-ray right-sided upper and lower pneumonia. Labs: Laboratory Results - last 24 hr 02/04/24 02/04/24 09:24 09:42 WBC 2.5 L RBC 2.37 L Hgb 7.0 L Hct 20.2 L MCV 85.2 MCH 29.5 MCHC 34.7 RDW Std Deviation 48.1 H RDW Coeff of Miguel 16.2 H Plt Count 109 L MPV 9.8 Immature Gran % (Auto) 0.400 Neut % (Auto) 88.9 H Lymph % (Auto) 2.4 L Leon % (Auto) 7.5 Eos % (Auto) 0.0 Baso % (Auto) 0.8 Absolute Neuts (auto) 2.2 Absolute Lymphs (auto) 0.06 L Nucleated RBC % 0 Differential Comment SCANNED Diff Path Review July foll PT 17.0 H INR 1.4 APTT 30.8 Sodium 133 L Potassium 3.8 Chloride 100 Carbon Dioxide 25.0 Anion Gap 9 BUN 25 H Creatinine 1.42 H Estim Creat Clear Calc 39.23 Est GFR (MDRD) Af Amer 48 L Est GFR (MDRD) Non-Af 39 L BUN/Creatinine Ratio 17.6 Glucose 108 H Lactic Acid 2.2 H* Calcium 9.3 Total Bilirubin 0.80 AST 22 ALT 22 Alkaline Phosphatase 84 Total Protein 6.4 Albumin 2.2 L Globulin 4.2 Albumin/Globulin Ratio 0.5 L Lipase < 10 L Urine Color Yellow Urine Clarity Clear Urine pH 6.0 Ur Specific [place] 1.025 Urine Protein 100 H Urine Glucose (UA) Normal Urine Ketones 15 H Urine Occult Blood 150 H Urine Nitrite Negative Urine Bilirubin 1 H Urine Urobilinogen 8 H Ur Leukocyte Esterase 25 H Urine RBC 0-5 SEEN Urine WBC 0-5 SEEN Ur Squamous Epith Cells 0 SEEN Amorphous Sediment 1+ Urine Bacteria 1+ Hyaline Casts 5-10 SEEN Urine Mucus 0 SEEN Radiography Chest X-Ray - ED: 1 View, Normal, Heart, Mediastinum, Bony Structures, Chronic Changes and Right Infiltrate Diagnostic Testing: Clinical Impression(s) from Imaging Studies Brain CT 02/04/24 10:05 IMPRESSION: 1. No acute intracranial abnormality. 2. Stable senescent changes. Electronically Signed: Juwan García MD at 11:01 EST , Chest x-ray, portable, single view interpreted by myself shows both a right upper and lower lobe pneumonia. By lobar pneumonia. Normal cardiac silhouette. Normal left lung. Mediport on the left. Rhythm Strip Rhythm Strip: Sinus Tach Rate: 108 Ectopy: None EKG Initial EKG: Attestation: I personally reviewed and interpreted this EKG as follows: Interpretation: Sinus Rhythm, No Acute Injury Pattern and Sinus Tachycardia Comments: Sinus tachycardia. Rate 108. No acute signs of VT or ischemia. Follow-up EKG: Attestation: I personally reviewed and interpreted this EKG as follows: Interpretation: Sinus Rhythm and No Acute Injury Pattern Comments: Normal sinus rhythm rate 93 no acute signs of VT or ischemia. Critical Care Time Critical Care Time: Yes Critical care time (excluding procedures): 30-74 minutes, Including time spent:, Discussing w/Patient &/or Family/Brake Lining Finisher, Discussing w/Consultants, Arranging Admission or Transfer, Performing Direct Patient Care at Bedside and - (37 minutes.) Discharge Plan Dx/Rx/DC Orders Clinical Impression: Sepsis, Right upper lobe pneumonia, Right lower lobe pneumonia, Acute hypotension, Altered level of consciousness, Acute kidney injury Disposition Disposition: [facility]
[2024-02-04] MEDS: 0.9% Normal Saline (1000mL) 1,000 ML 1000 ML IV (09:28)
[2024-02-04 09:35] LABS: Absolute Lymphocyte Count 0.06 X10^3/uL (0.83-4.51); Absolute Neutrophil Count 2.2 X10^3/uL (2.0-7.7); Basophil# 0.02 X10^3/uL; Basophil% 0.8 % (0-1); Hematocrit 20.2 % (37-47); Lymphocyte # 0.06 X10^3/ul (0.83-4.51); Lymphocyte % 2.4 % (19-41); Mean Corp Hgb Conc 34.7 g/dL (32-36); Mean Corpuscular Hgb 29.5 pg (27.0-32.0); Mean Corpuscular Volume 85.2 fL (81-99); Mean Platelet Vol. 9.8 fl (6.2-12.0); Monocyte# 0.19 X10^3/uL; Monocyte% 7.5 % (0-10); NRBC Flagged by Analyzer 0 % (0-5); Neutrophil # 2.24 X10^3/uL (2.7-7.7); Neutrophil % 88.9 % (47-70); POSITIVE DIFFERENTIAL YES; POSITIVE MORPHOLOGY YES; Platelet Count 109 K/mm3 (150-450); RBC Distribution Width CV 16.2 % (11.6-14.6); RBC Distribution Width SD 48.1 fl (35.1-43.9); Red Blood Count 2.37 M/mm3 (4.2-5.4); White Blood Count 2.5 K/mm3 (4.4-11.0)
[2024-02-04 09:44] LABS: International Normalized Ratio 1.4
[2024-02-04 09:45] LABS: Partial Thromboplast Time 30.8 Seconds (24.1-36.2)
[2024-02-04 09:48] LABS: Mucous, Urine 0 SEEN /hpf (<or=2+); Squamous Epithelial Cells - UA 0 SEEN /hpf (5-10)
[2024-02-04 09:52] LABS: ALB/GLOB Ratio 0.5 RATIO (0.9-2.4); AST(SGOT) 22 U/L (15-37); Alanine Aminotransfer ALT/SGPT 22 U/L (13-56); Albumin, Serum 2.2 g/dL (3.2-5.0); Alkaline Phosphatase 84 U/L (45-117); Anion Gap 9 (5-15); BUN 25 mg/dL (7-18); BUN/Creat Ratio 17.6 RATIO (10-20); Calcium,Total 9.3 mg/dL (8.5-10.1); Chloride 100 mmol/L (98-107); Creatinine, Serum 1.42 mg/dL (0.55-1.02); EST Glomerular Filtration Rate 39 mL/min (>60); Est Glom Filt Rate - Afr Amer 48 mL/min (>60); Estimated Creatinine Clearance 39.23 ml/min; Globulin 4.2 g/dL (2.2-4.2); Glucose 108 mg/dL (74-106); Lipase < 10 U/L (13-75); Potassium 3.8 mmol/L (3.5-5.1); Protein, Total 6.4 g/dL (6.4-8.2); Sodium Level 133 mmol/L (136-145)
[2024-02-04 09:59] LABS: Color, Urine Yellow (Yellow); Glucose, Dipstick Normal (Normal); Ketone-Dipstick 15 mg/dl (Negative); Leukocyte Esterase-Dipstick 25 /ul (Negative); Nitrite-Dipstick Negative (Negative); Occult Blood-Urine 150 /ul (Negative); Protein-Dipstick 100 mg/dl (Negative); Specific Gravity, Urine 1.025 (1.002-1.030); Urine Clarity Clear (Clear); Urine Urobilinogen 8 mg/dl (Normal)
[2024-02-04 10:01] LABS: Differential Comment SCANNED; Differential Indicated SCAN CRITERIA MET
--- NOTE | 2024-02-04 10:05 | CT_ITS ---
EXAM: CT HEAD WITHOUT INTRAVENOUS CONTRAST CLINICAL INDICATION: ALOC TECHNIQUE: Multiple axial images were obtained of the head without intravenous contrast. This CT exam was performed using one or more of the following dose reduction techniques: automated exposure control, adjustment of the mA and/or kV according to patient size, and/or use of iterative reconstruction technique. COMPARISON: CT Head dated 07/22/2023 FINDINGS: BRAIN AND EXTRA-AXIAL SPACES: No hemorrhage or mass effect. No acute ischemia. Areas of diminished white matter density noted within both cerebral hemispheres suggestive of chronic microvascular change. Prominence of the cortical sulci and ventricles related to volume loss change. Posterior fossa is normal. Basilar cisterns are patent. BONES/JOINTS: Normal calvarium. SINUSES: Mucosal thickening noted within the left maxillary sinus. MASTOID AIR CELLS: Normal. Clear. CT/Brain/Head without Contrast IMPRESSION: 1. No acute intracranial abnormality. 2. Stable senescent changes. Electronically Signed: Juwan García MD at 11:01 EST ,
[2024-02-04 10:09] LABS: Urine Bilirubin Dipstick 1 mg/dL (Negative)
[2024-02-04 10:09] LABS: Lactic Acid 2.2 mmol/L (0.4-1.9)
[2024-02-04 10:10] LABS: Amorphous Sediment 1+; Bacteria 1+ /hpf (None Seen); Hyaline Cast 5-10 SEEN /lpf (0-5); Red Blood Cells-Urine 0-5 SEEN /hpf (0-5); White Blood Cells 0-5 SEEN /hpf (0-5)
--- NOTE | 2024-02-04 10:15 | RAD_ITS ---
EXAM: XR CHEST, 1 VIEW CLINICAL INDICATION: hypotension TECHNIQUE: Frontal view of the chest. COMPARISON: XR Chest dated 12/13/2023 FINDINGS: LUNGS AND PLEURAL SPACES: New rounded opacities are identified throughout the right lung with question of central cavitation. Cavitary pneumonia to BE differentiated from underlying neoplasm. Left lung is clear. No pleural effusion or pneumothorax. HEART: Normal heart size. MEDIASTINUM: No mediastinal or hilar mass. BONES/JOINTS: No acute abnormality. TUBES, LINES AND DEVICES: Left subclavian infusion catheter remains in place within the proximal SVC. RAD/Chest 1 View (Portable) IMPRESSION: 1. Extensive rounded areas opacification of the right lung with question of central cavitation. Pneumonia/abscess suspected. Neoplasm to BE excluded. 2. Recommend follow-up CT chest for further evaluation. Electronically Signed: Juwan García MD at 11:15 EST ,
[2024-02-04] MEDS: Acetaminophen 650 MG/20 ML UDC 1000 MG GT (11:06)
[2024-02-04] MEDS: 0.9% Normal Saline (1000mL) 1,000 ML 999 ML IV (11:06)
[2024-02-04] MEDS: Ceftriaxone 2 GM in 0.9% Normal Saline (50mL MB+) 50 ML IV (11:25)
--- NOTE | 2024-02-04 11:51 | HP.PCM.HOS_ITS ---
HPI - General General Date of Admission: 02/04/24 HPI Narrative VIOLA LR, is a 63 F who presents to the hospital with altered mental status. She has a stage III throat cancer that she is on going curative chemotherapy and radiation with low-dose cisplatin. She received her sixth cycle on 01/30/2024. For the last several days she has been confused per family. She presented to the hospital and was found to have a right lung pneumonia. No obvious signs of sepsis based on her insurance. Her lactic acid is slightly elevated to 2.2 and she was given IV fluids in the ER. She was started on Rocephin and azithromycin however she is immunocompromised with white count of 2.5. She is also anemic which is an unclear etiology at this time though it looks like she has been dropping since the beginning of January therefore we will type and cross and transfuse at least 1 unit starting in the ER. [facility] Medical History Anemia CINV (chemotherapy-induced nausea and vomiting) Encounter for chemotherapy management Encounter for education Diverticular disease Cancer Squamous cell carcinoma of face Post-menopausal Anxiety Arthritis High cholesterol Migraine headache Injury of head and neck Difficulty swallowing Difficulty chewing History of diverticulitis Gastric reflux Former smoker Depression Hypercholesterolemia Home Medications ?Medication ?Instructions ?Recorded ?Last Taken ?Type bupropion HCl 150 mg 24 hr tablet, 300 mg PO DAILY 01/03/21 02/04/24 History extended release fluoxetine 40 mg capsule 60 mg PO DAILY 01/03/21 02/04/24 History tolterodine 4 mg capsule,extended 4 mg PO DAILY 01/03/21 02/04/24 History release 24 hr omeprazole 20 mg capsule,delayed 20 mg PO BID 11/14/23 02/04/24 History release lidocaine-prilocaine 2.5 %-2.5 % 1 applic topical ONCE PRN port 12/20/23 Unknown Rx topical cream access 30 days #30 grams ondansetron 8 mg disintegrating 8 mg PO Q8H PRN nausea and 12/20/23 Unknown Rx tablet vomiting #30 tabs prochlorperazine maleate 10 mg 10 mg PO Q6H PRN nausea and 12/20/23 Unknown Rx tablet vomiting #30 tabs acetaminophen 500 mg tablet 500 mg PO Q6H PRN fever or pain 01/04/24 02/04/24 History (Tylenol Extra Strength) oxycodone 5 mg/5 mL oral solution 5 mg (5 mL) PO Q6H PRN pain 4 01/11/24 Unknown Rx weeks #500 mL fluoxetine 20 mg capsule 20 mg PO DAILY 02/04/24 02/04/24 History potassium chloride 20 mEq/15 mL 20 meq PO BID 02/04/24 02/04/24 History oral liquid Allergy/AdvReac Type Severity Reaction Status Date / Time codeine Allergy Unknown Verified 01/30/24 10:08 Family History Sister Cancer Father Hypertension CVA (cerebral vascular accident) Mother Hypertension Diabetes Aunt Cancer Unknown Cancer multiple cousins with cancer Surgical History S/P percutaneous endoscopic gastrostomy (PEG) tube placement History of laryngoscopy Hx of bilateral cataract extraction History of carpal tunnel surgery History of tubal ligation Social History Smoking Status: Former smoker quit date: 03/07/21 Tobacco: How many years used: 40 substance use type: does not use ROS Constitutional Constitutional: Reports chills, fatigue and fever(s); Denies malaise Eyes Eyes: Denies blurry vision ENT HEENT: Denies headache(s) or nasal discharge Cardiovascular Cardiovascular: Denies chest pain, dyspnea on exertion or syncope Respiratory/Chest Respiratory/Chest: Reports productive cough; Denies shortness of breath at rest or shortness of breath with exertion Gastrointestinal Gastrointestinal: Denies constipation, diarrhea, nausea or vomiting Genitourinary Genitourinary: Denies dysuria Neurologic Neurologic: Denies focal weakness, numbness or tremor(s) Psychiatric Psychiatric: Denies anxiety or depression Vital Signs Vital Signs Vital Signs: 02/04/24 09:05 02/04/24 09:07 02/04/24 09:07 Temperature 97.5 F L 99 F Temperature Source Temporal Core Pulse Rate 114 H 107 H Respiratory Rate 28 H 26 H Respiratory Effort Normal Non-Labored Respiratory Pattern Normal Blood Pressure 80/41 L 101/59 L Blood Pressure Mean 54 73 Pulse Ox 94 92 Oxygen Delivery Method Room Air Room Air 02/04/24 09:16 02/04/24 09:42 02/04/24 09:45 Temperature Temperature Source Pulse Rate 109 H Respiratory Rate 25 H Respiratory Effort Respiratory Pattern Blood Pressure 112/53 L Blood Pressure Mean 70 Pulse Ox 92 Oxygen Delivery Method Room Air 02/04/24 10:00 02/04/24 10:07 02/04/24 10:15 Temperature 100.6 F H Temperature Source Core Pulse Rate 109 H Respiratory Rate 22 H Respiratory Effort Respiratory Pattern Blood Pressure 121/57 H 115/59 L 115/59 L Blood Pressure Mean 76 77 75 Pulse Ox 96 Oxygen Delivery Method Room Air 02/04/24 10:17 02/04/24 10:30 02/04/24 10:45 Temperature Temperature Source Pulse Rate 109 H 108 H 107 H Respiratory Rate 22 H 34 H 19 H Respiratory Effort Respiratory Pattern Blood Pressure 123/59 H 120/56 L Blood Pressure Mean 77 75 Pulse Ox 93 93 93 Oxygen Delivery Method 02/04/24 11:00 02/04/24 11:06 02/04/24 11:42 Temperature 100.2 F H Temperature Source Pulse Rate 107 H 107 H 107 H Respiratory Rate 23 H 20 H 20 H Respiratory Effort Respiratory Pattern Blood Pressure 118/60 118/60 Blood Pressure Mean 76 79 Pulse Ox 92 94 94 Oxygen Delivery Method Weight Weight: 173 lb 8 oz Body Mass Index (BMI) 30.7 Physical Exam Narrative General: Alert, Oriented x3, Cooperative, No apparent distress HEENT: Atraumatic, PERRLA, EOMI, Normocephalic Oral: Moist Mucosa Neck: Supple, No JVD Lungs: Diminished, Normal air movement, scattered rhonchi on the right, No wheeze, No rales Cardiovascular: Tachycardic, Regular Rhythm, Normal S1, Normal S2, No murmurs Abdomen: Soft, Non Tender, Non-Distended, No Hepato-splenomegaly Extremities: No edema, Capillary Refill Less than 3 Seconds Skin: No rashes, No breakdown Musculoskeletal: No Tenderness to Palpation of Joints or Extremities Neurological: No focal neurological deficits, moves all extremities, slight left upper extremity tremor Psych/Mental Status: Normal Affect, Appropriate Results Lab / Micro Data 02/04/24 09:24 02/04/24 09:24 Labs: Laboratory Results - last 24 hr 02/04/24 09:24: WBC 2.5 L, RBC 2.37 L, Hgb 7.0 L, Hct 20.2 L, MCV 85.2, MCH 29.5, MCHC 34.7, RDW Std Deviation 48.1 H, RDW Coeff of Miguel 16.2 H, Plt Count 109 L, MPV 9.8, Immature Gran % (Auto) 0.400, Neut % (Auto) 88.9 H, Lymph % (Auto) 2.4 L, [place] % (Auto) 7.5, Eos % (Auto) 0.0, Baso % (Auto) 0.8, Absolute Neuts (auto) 2.2, Absolute Lymphs (auto) 0.06 L, Nucleated RBC % 0, Differential Comment SCANNED, Diff Path Review July, PT 17.0 H, INR 1.4, APTT 30.8, S odium 133 L, Potassium 3.8, Chloride 100, Carbon Dioxide 25.0, Anion Gap 9, BUN 25 H, Creatinine 1.42 H, Estim Creat Clear Calc 39.23, Est GFR (MDRD) Af Amer 48 L, Est GFR (MDRD) Non-Af 39 L, BUN/Creatinine Ratio 17.6, Glucose 108 H, Lactic Acid 2.2 H*, Calcium 9.3, Total Bilirubin 0.80, AST 22, ALT 22, Alkaline Phosphatase 84, Total Protein 6.4, Albumin 2.2 L, Globulin 4.2, Albumin/Globulin Ratio 0.5 L, Lipase < 10 L 02/04/24 09:42: Urine Color Yellow, Urine Clarity Clear, Urine pH 6.0, Ur Specific [place] 1.025, Urine Protein 100 H, Urine Glucose (UA) Normal, Urine Ketones 15 H, Urine Occult Blood 150 H, Urine Nitrite Negative, Urine Bilirubin 1 H, Urine Urobilinogen 8 H, Ur Leukocyte Esterase 25 H, Urine RBC 0-5 SEEN, Urine WBC 0-5 SEEN, Ur Squamous Epith Cells 0 SEEN, Amorphous Sediment 1+, Urine Bacteria 1+, Hyaline Casts 5-10 SEEN, Urine Mucus 0 SEEN Rhythm Strip Rhythm Strip: Sinus Tach Rate: 108 Ectopy: None Imaging Radiology Impression Brain CT 02/04/24 10:05 IMPRESSION: 1. No acute intracranial abnormality. 2. Stable senescent changes. Electronically Signed: Juwan García MD at 11:01 EST , Chest X-Ray 02/04/24 10:15 IMPRESSION: 1. Extensive rounded areas opacification of the right lung with question of central cavitation. Pneumonia/abscess suspected. Neoplasm to BE excluded. 2. Recommend follow-up CT chest for further evaluation. Electronically Signed: Juwan García MD at 11:15 EST Reading Location ID and State: [facility] / [place] Tel , Service support , Assessment & Plan Assessment/Plan (1) Acute kidney injury: (2) Altered level of consciousness: (3) Right lower lobe pneumonia: (4) Right upper lobe pneumonia: PLAN: Plan 1. Right sided pneumonia no sepsis due to insurance with metabolic encephalopathy and ARABELLA ? Continue with IV fluids ? Will broaden her coverage to include vancomycin, Zosyn, and azithromycin for atypicals given her immunocompromised status ? Sputum culture ? Will continue with antinausea medications as well as pain medication 2. Acute anemia ? Unclear as to the etiology at the moment, will obtain iron studies and a fecal occult ? Her hemoglobin is down to 7 so we will transfuse 1 unit 3. 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 She has a PEG tube in for nutrition, will consult dietitian ? She is undergoing chemoradiation with low-dose cisplatin ? Her last dose of cisplatin was on 01/30/2024, which was her last dose of chemotherapy and she has 5 more days of radiation 4. Anxiety/depression ? Stable ? Continue resume her home medications DVT: SCDs 75 minutes was spent on direct patient care, including documentation as well as chart review and collaboration with colleagues Charges/Coding Visit Charges Inpatient E&M: 00544 Init Hosp L3
[2024-02-04] MEDS: Azithromycin 500 MG in Dextrose 5%-Water (250mL Bag) 250 ML 250 MG IV (12:04)
[2024-02-04] MEDS: 0.9% Normal Saline (1000mL) 1,000 ML 100 ML IV (13:17)
[2024-02-04 13:30] LABS: Reflex Lactate? Y
[2024-02-04 13:41] LABS: Ferritin 935 ng/mL (8-252); Iron 18 ug/dL (50-170); Iron Binding Capacity,Total 163 ug/dL (250-450)
[2024-02-04] MEDS: Pantoprazole Sodium 40 MG in 0.9% Normal Saline (100mL MB+) 100 ML 330 MG IV ×2 (14:11→21:09)
[2024-02-04 14:28] LABS: Lactic Acid 1.1 mmol/L (0.4-1.9)
[2024-02-04] MEDS: Morphine 2 MG/ML Syringe IV ×2 (14:44→21:09)
[2024-02-04] MEDS: 0.9% Saline Lock 10 ML Syringe IV ×2 (14:44→21:09)
[2024-02-04] MEDS: Ondansetron 4 MG/2 ML Vial IV (14:50)
[2024-02-04] MEDS: Vancomycin HCl 2,000 MG in 0.9% Normal Saline (500mL Bag) 500 ML 250 MG IV (17:21)
--- NOTE | 2024-02-04 17:48 | PCM.RX.CS ---
Consult Antibiotic Management Pharmacy has been consulted to manage selected antibiotic: Vancomycin Type of Intervention Type of Consult: New start Suspected Infection Suspected Infection: Pneumonia Labs Labs: Sodium 133 mmol/L (136-145) L 02/04/24 09:24 Potassium 3.8 mmol/L (3.5-5.1) 02/04/24 09:24 Chloride 100 mmol/L (98-107) 02/04/24 09:24 Carbon Dioxide 25.0 mmol/L (21.0-32.0) 02/04/24 09:24 Anion Gap 9 (5-15) 02/04/24 09:24 BUN 25 mg/dL (7-18) H 02/04/24 09:24 Creatinine 1.42 mg/dL (0.55-1.02) H 02/04/24 09:24 Est GFR (MDRD) Af Amer 48 mL/min (>60) L 02/04/24 09:24 Est GFR (MDRD) Non-Af 39 mL/min (>60) L 02/04/24 09:24 BUN/Creatinine Ratio 17.6 RATIO (10-20) 02/04/24 09:24 Glucose 108 mg/dL (74-106) H 02/04/24 09:24 Dosing Weight Weight used for dosin.7 kg Estimated Creatinine Clearance Estimated Creatinine Clearance: 39 ML/MIN Goal Trough Goal Trough: 15-20 mcg/mL Pharmacy Plan for Drug Dosing Pharmacy Plan for Drug Dosing: Give initial load of 2000mg IV x1, then continue with 1000mg q24h per [facility] dosing protocol. Check a trough before the 3rd overall dose. Pharmacy Service will continue to monitor and adjust dosing as required. Follow-Up Labs Follow-Up Labs: Trough: Vancomycin Date/Time Labs Ordered Labs to be done on [date and time ordered]: 02/05 16:30
[2024-02-04 20:31] LABS: Hematocrit 20.9 % (37-47); Hemoglobin 7.2 g/dL (12.0-15.0)
[2024-02-04] MEDS: Piperacil/Tazobactam 3.375 GM in 0.9% Normal Saline (50mL MB+) 50 ML IV (22:28)
[2024-02-05] VITALS (8 sets, daily range): BP systolic 123–145; BP diastolic 60–90; PULSE 100–107; RESP 18–20; TEMP 35.8–36.6; O2SAT 85–99
[2024-02-05] MEDS: 0.9% Normal Saline (1000mL) 1,000 ML 100 ML IV ×3 (02:59→23:58)
[2024-02-05] MEDS: Piperacil/Tazobactam 3.375 GM in 0.9% Normal Saline (50mL MB+) 50 ML IV ×3 (05:38→21:23)
[2024-02-05 07:06] LABS: Hematocrit 21.1 % (37-47); Hemoglobin 7.3 g/dL (12.0-15.0); Mean Corp Hgb Conc 34.6 g/dL (32-36); Mean Corpuscular Hgb 29.9 pg (27.0-32.0); Mean Corpuscular Volume 86.5 fL (81-99); Mean Platelet Vol. 10.2 fl (6.2-12.0); POSITIVE COUNT YES; POSITIVE DIFFERENTIAL YES; POSITIVE MORPHOLOGY YES; Platelet Count 96 K/mm3 (150-450); RBC Distribution Width CV 15.8 % (11.6-14.6); RBC Distribution Width SD 47.9 fl (35.1-43.9); Red Blood Count 2.44 M/mm3 (4.2-5.4)
[2024-02-05 07:54] LABS: Differential Indicated MANUAL DIFF
[2024-02-05 08:09] LABS: Anion Gap 9 (5-15); BUN 23 mg/dL (7-18); BUN/Creat Ratio 25.9 RATIO (10-20); Calcium,Total 8.7 mg/dL (8.5-10.1); Chloride 106 mmol/L (98-107); Creatinine, Serum 0.89 mg/dL (0.55-1.02); EST Glomerular Filtration Rate 68 mL/min (>60); Est Glom Filt Rate - Afr Amer 82 mL/min (>60); Glucose 93 mg/dL (74-106); Potassium 3.5 mmol/L (3.5-5.1); Sodium Level 138 mmol/L (136-145)
[2024-02-05 08:27] LABS: Neutrophil-Band 8 % (0-5); Neutrophil-Segmented 79 % (47-70); Total Cells Counted 100 (MANUAL DIFF)
[2024-02-05 08:28] LABS: Absolute Neutrophil Count 1.6 X10^3/uL (2.0-7.7); Lymphocyte 5 % (19-41); Metamyelocyte 1 % (0-1); Monocyte 7 % (0-10); Neutrophil # 1.58 X10^3/uL (2.7-7.7)
[2024-02-05 08:29] LABS: Differential Comment MANUAL DIFF; Platelet Estimate MOD DEC (ADEQ)
[2024-02-05 08:31] LABS: Red Cell Morphology NORM C+C NORMAL (NORM C&C)
[2024-02-05] MEDS: Pantoprazole Sodium 40 MG in 0.9% Normal Saline (100mL MB+) 100 ML 330 MG IV ×2 (10:02→20:20)
[2024-02-05] MEDS: Azithromycin 500 MG in Dextrose 5%-Water (250mL Bag) 250 ML 250 MG IV (10:36)
[2024-02-05] MEDS: NYSTATIN 500,000 UNIT/5 ML UDC 500000 UNIT PO ×3 (10:38→20:21)
[2024-02-05] MEDS: Morphine 2 MG/ML Syringe IV ×3 (10:42→23:57)
[2024-02-05] MEDS: BMX LIQUID 180 ML 10 ML PO (10:43)
--- NOTE | 2024-02-05 10:46 | PCM.RX.CS ---
Consult Antibiotic Management Pharmacy has been consulted to manage selected antibiotic: Vancomycin Type of Intervention Type of Consult: Follow-up Suspected Infection Suspected Infection: Pneumonia Prior Doses of Antibiotics Prior Doses of Antibiotics Received/Current Regimen: current dose is 1000mg IV q24h but the patient has not received this dose yet. Had a loading dose of 2000mg x1 yesterday at 17:21. Labs Labs: Sodium 138 mmol/L (136-145) 02/05/24 05:55 Potassium 3.5 mmol/L (3.5-5.1) 02/05/24 05:55 Chloride 106 mmol/L (98-107) 02/05/24 05:55 Carbon Dioxide 23.0 mmol/L (21.0-32.0) 02/05/24 05:55 Anion Gap 9 (5-15) 02/05/24 05:55 BUN 23 mg/dL (7-18) H 02/05/24 05:55 Creatinine 0.89 mg/dL (0.55-1.02) 02/05/24 05:55 Est GFR (MDRD) Af Amer 82 mL/min (>60) 02/05/24 05:55 Est GFR (MDRD) Non-Af 68 mL/min (>60) 02/05/24 05:55 BUN/Creatinine Ratio 25.9 RATIO (10-20) H 02/05/24 05:55 Glucose 93 mg/dL (74-106) 02/05/24 05:55 Microbiology Microbiology: Microbiology 02/04/24 09:42 Urine, Catheterized Urine Culture - Preliminary Beta streptococcus Dosing Weight Weight used for dosin lb 14.239 oz Goal Trough Goal Trough: 15-20 mcg/mL Pharmacy Plan for Drug Dosing Pharmacy Plan for Drug Dosing: The patient's SCr improved to 0.89 today (CrCl 61) so will change dose to 750mg q12h. Check a trough before the 3rd dose of 750mg tomorrow. Pharmacy Service will continue to monitor and adjust dosing as required. Follow-Up Labs Follow-Up Labs: Trough: Vancomycin Date/Time Labs Ordered Labs to be done on [date and time ordered]: 02/06/24 11:30
--- NOTE | 2024-02-05 11:07 | PN.HOSP_ITS ---
Subjective Subjective Doing well, no issues overnight Objective Data Objective Data Vital Signs: Vital Signs Temp Pulse Resp BP Pulse Ox O2 Del Method O2 Flow Rate 96.4 F L 103 H 20 H 144/70 H 97 Nasal Cannula 2 02/05/24 08:21 02/05/24 08:21 02/05/24 08:21 02/05/24 08:21 02/05/24 08:21 02/05/24 08:24 02/05/24 10:35 Oxygen Flow Rate (L/min) 2 Oxygen Delivery Method Nasal Cannula Weight: 166 lb 14.239 oz Body Mass Index (BMI) 29.5 Intake & Output: Intake and Output for Last 24 Hours 02/04/24 02/05/24 02/06/24 03:59 03:59 03:59 Intake Total 4388.33 / 4388.33 921.67 / 921.67 Output Total 400 / 400 350 / 350 Balance 3988.33 / 3988.33 571.67 / 571.67 Medical Nutrition Assessment Dietitian: Malnutrition Criteria Met Start: 02/05/24 09:52 Freq: Status: Active Protocol: Document 02/05/24 09:52 (Rec: 02/05/24 09:52 [id number]) Nutrition Malnutrition Evidence of Malnutrition Exists Yes Evidenced By Suboptimal Energy Intake ( Severe),Weight Loss (Severe) Clinical Problem Acute Disease or Injury Related Malnutrition Etiology severe related to dysphagia and decreased appetite Signs/Symptoms as evidenced by 9.1kg (10.7%) weight loss in 1 month and PO /PEG nutrition needs meeting < 75% of estimated nutrition needs for 2-3 weeks Status Active Problem Recommendation Dietitian Recommendations/Changes Recommend 240mL bolus Jevity 1 .5 5x daily with 90mL water flush before and after each bolus to meet estimated nutrition needs. Diet per [employer] recommendations. If able to take PO, will be for pleasure feeds. Enteral nutrition to meet 100% of estimated nutrition needs at this time. Lab / Micro Data 02/05/24 05:55 02/05/24 05:55 Labs: Laboratory Results - last 24 hr 02/04/24 09:17: Iron 18 L, TIBC 163 L, Iron Saturation 11.0 L, Ferritin 935 H 02/04/24 12:57: Blood Type A POSITIVE, Antibody Screen NEGATIVE, Crossmatch See Detail 02/04/24 13:56: Lactic Acid 1.1 02/04/24 19:40: Hgb 7.2 L, Hct 20.9 L 02/05/24 05:55: WBC 2.0 L, RBC 2.44 L, Hgb 7.3 L, Hct 21.1 L, MCV 86.5, MCH 29.9, MCHC 34.6, RDW Std Deviation 47.9 H, RDW Coeff of Miguel 15.8 H, Plt Count 96 L, MPV 10.2, Neut % (Auto) Not Reportable, Absolute Neuts (auto) 1.6 L, Absolute Lymphs (auto) 0.10 L, Total Counted 100, Neutrophils % (Manual) 79 H, Band Neutrophils % 8 H, Lymphocytes % (Manual) 5 L, Monocytes % (Manual) 7, Metamyelocytes % 1, Differential Comment MANUAL DIFF, Diff Path Review May foll, Platelet Estimate MOD DEC, RBC Morphology NORM C+C, Sodium 138, Potassium 3.5, Chloride 106, Carbon Dioxide 23.0, Anion Gap 9, BUN 23 H, Creatinine 0.89, Estim Creat Clear Calc 61.40, Est GFR (MDRD) Af Amer 82, Est GFR (MDRD) Non-Af 68, B UN/Creatinine Ratio 25.9 H, Glucose 93, Calcium 8.7 Micro: Microbiology 02/04/24 09:42 Urine, Catheterized Urine Culture - Preliminary Beta streptococcus Radiography Diagnostic Testing: Radiology Impression Chest X-Ray 02/04/24 10:15 IMPRESSION: 1. Extensive rounded areas opacification of the right lung with question of central cavitation. Pneumonia/abscess suspected. Neoplasm to BE excluded. 2. Recommend follow-up CT chest for further evaluation. Electronically Signed: Juwan García MD at 11:15 EST , Rhythm Strip Rhythm Strip: Sinus Tach Rate: 108 Ectopy: None Physical Exam Narrative General: Alert, Oriented x3, Cooperative, No apparent distress HEENT: Atraumatic, PERRLA, EOMI, Normocephalic Oral: Moist Mucosa Neck: Supple, No JVD Lungs: Diminished, Normal air movement, scattered rhonchi on the right, No wheeze, No rales Cardiovascular: Tachycardic, Regular Rhythm, Normal S1, Normal S2, No murmurs Abdomen: Soft, Non Tender, Non-Distended, No Hepato-splenomegaly Extremities: No edema, Capillary Refill Less than 3 Seconds Skin: No rashes, No breakdown Musculoskeletal: No Tenderness to Palpation of Joints or Extremities Neurological: No focal neurological deficits, moves all extremities, slight left upper extremity tremor Psych/Mental Status: Normal Affect, Appropriate Assessment & Plan Assessment/Plan (1) Acute kidney injury: (2) Altered level of consciousness: (3) Right lower lobe pneumonia: (4) Right upper lobe pneumonia: PLAN: Plan 1. Right sided pneumonia no sepsis due to insurance with metabolic encephalopathy and ARABELLA ? Continue with IV fluids ? Will broaden her coverage to include vancomycin, Zosyn, and azithromycin for atypicals given her immunocompromised status ? Sputum culture pending ? Will continue with antinausea medications as well as pain medication 2. Acute anemia ? Unclear as to the etiology at the moment, will obtain iron studies and a fecal occult ? Her hemoglobin is down to 7 so we will transfuse 1 unit ? Recheck 7.3 today 3. 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 She has a PEG tube in for nutrition, will consult dietitian ? She is undergoing chemoradiation with low-dose cisplatin ? Her last dose of cisplatin was on 01/30/2024, which was her last dose of chemotherapy and she has 5 more days of radiation ? Absolute neutrophils down to 1600 today if it drops below thousand tomorrow may need to Granix 4. Anxiety/depression ? Stable ? Continue her home medications DVT: SCDs Charges/Coding Visit Charges Inpatient E&M: 48575 Subs Hosp L2
[2024-02-05] MEDS: Vancomycin HCl 750 MG in 0.9% Normal Saline (250mL Bag) 250 ML 250 MG IV (12:39)
[2024-02-05] MEDS: Jevity 1.5 1,000 ML 20 ML GT (14:21)
[2024-02-05] MEDS: 0.9% Saline Lock 10 ML Syringe IV (23:57)
[2024-02-06] VITALS (22 sets, daily range): BP systolic 80–183; BP diastolic 49–95; PULSE 82–125; RESP 14–44; TEMP 37–38.2; O2SAT 84–100
[2024-02-06] MEDS: Vancomycin HCl 750 MG in 0.9% Normal Saline (250mL Bag) 250 ML 250 MG IV (01:01)
[2024-02-06] MEDS: DiphenhydrAMINE 50 MG/ML Syringe 25 MG IV (03:10)
[2024-02-06] MEDS: 0.9% Saline Lock 10 ML Syringe IV ×5 (03:12→23:48)
[2024-02-06] MEDS: Piperacil/Tazobactam 3.375 GM in 0.9% Normal Saline (50mL MB+) 50 ML IV ×3 (05:03→23:39)
[2024-02-06] MEDS: Morphine 2 MG/ML Syringe IV ×3 (05:53→15:15)
[2024-02-06 06:07] LABS: Absolute Lymphocyte Count 0.06 X10^3/uL (0.83-4.51); Absolute Neutrophil Count 0.3 X10^3/uL (2.0-7.7); Hematocrit 21.8 % (37-47); Hemoglobin 7.2 g/dL (12.0-15.0); Lymphocyte # 0.06 X10^3/ul (0.83-4.51); Lymphocyte % 13.6 % (19-41); Mean Corpuscular Hgb 28.7 pg (27.0-32.0); Mean Corpuscular Volume 86.9 fL (81-99); Mean Platelet Vol. 9.4 fl (6.2-12.0); Monocyte# 0.09 X10^3/uL; Monocyte% 20.5 % (0-10); NRBC Flagged by Analyzer 0 % (0-5); Neutrophil # 0.27 X10^3/uL (2.7-7.7); Neutrophil % 61.4 % (47-70); POSITIVE COUNT YES; POSITIVE DIFFERENTIAL YES; POSITIVE MORPHOLOGY YES; Platelet Count 91 K/mm3 (150-450); RBC Distribution Width CV 15.9 % (11.6-14.6); RBC Distribution Width SD 48.1 fl (35.1-43.9); Red Blood Count 2.51 M/mm3 (4.2-5.4)
[2024-02-06 06:19] LABS: White Blood Count 0.4 K/mm3 (4.4-11.0)
[2024-02-06 06:20] LABS: Differential Indicated SCAN CRITERIA MET
[2024-02-06 06:24] LABS: Anion Gap 8 (5-15); BUN 18 mg/dL (7-18); BUN/Creat Ratio 21.8 RATIO (10-20); Chloride 109 mmol/L (98-107); Creatinine, Serum 0.83 mg/dL (0.55-1.02); EST Glomerular Filtration Rate 74 mL/min (>60); Est Glom Filt Rate - Afr Amer 89 mL/min (>60); Estimated Creatinine Clearance 65.84 ml/min; Glucose 138 mg/dL (74-106); Sodium Level 140 mmol/L (136-145)
[2024-02-06] MEDS: Pantoprazole Sodium 40 MG in 0.9% Normal Saline (100mL MB+) 100 ML 330 MG IV ×2 (07:58→23:39)
--- NOTE | 2024-02-06 08:12 | PCM.PN.HOSP ---
Reason for Visit Reason for Visit: Diagnoses Pneumonia, unspecified organism (02/04/24) Acute kidney failure, unspecified (02/04/24) Transient alteration of awareness (02/04/24) Objective Data Objective Data Vital Signs: Vital Signs Temp Pulse Resp BP Pulse Ox O2 Del Method O2 Flow Rate 100.8 F H 118 H 20 H 151/86 H 92 Nasal Cannula 2 02/06/24 07:51 02/06/24 07:51 02/06/24 07:51 02/06/24 07:51 02/06/24 07:51 02/06/24 07:51 02/06/24 07:51 Oxygen Flow Rate (L/min) 2 Oxygen Delivery Method Nasal Cannula Weight: 166 lb 14.239 oz Body Mass Index (BMI) 29.5 Intake & Output: Intake and Output for Last 24 Hours 02/04/24 02/05/24 02/06/24 23:59 23:59 23:59 Intake Total 3795 / 3795 3662.00 / 3662.00 1300.37 / 1300.37 Output Total 400 / 400 350 / 350 230 / 230 Balance 3395 / 3395 3312.00 / 3312.00 1070.37 / 1070.37 Medical Nutrition Assessment Dietitian: Malnutrition Criteria Met Start: 02/05/24 09:52 Freq: Status: Active Protocol: Document 02/05/24 09:52 (Rec: 02/05/24 09:52 [id number]) Nutrition Malnutrition Evidence of Malnutrition Exists Yes Malnutrition (severe): Acute Illness/Injury Evidenced By Suboptimal Energy Intake ( Severe),Weight Loss (Severe) Clinical Problem Acute Disease or Injury Related Malnutrition Etiology severe related to dysphagia and decreased appetite Signs/Symptoms as evidenced by 9.1kg (10.7%) weight loss in 1 month and PO /PEG nutrition needs meeting < 75% of estimated nutrition needs for 2-3 weeks Status Active Problem Recommendation Dietitian Recommendations/Changes Recommend Jevity 1.5 at 50mL/ hr goal rate and 150mL water flush 6x daily to meet estimated nutrition needs. Initiate at 20ml/hr and advance by 15mL every 4-8 hours as tolerated to goal rate. Once tolerance of tube feeds is established at goal rate, will tranition to nocturnal or bolus tube feeds for homegoing. RDN will follow for home going enteral nutrition needs. Lab / Micro Data 02/06/24 05:36 02/06/24 05:36 Labs: Laboratory Results - last 24 hr 02/05/24 05:55: Absolute Neuts (auto) 1.6 L, Absolute Lymphs (auto) 0.10 L, Total Counted 100, Neutrophils % (Manual) 79 H, Band Neutrophils % 8 H, Lymphocytes % (Manual) 5 L, Monocytes % (Manual) 7, Metamyelocytes % 1, Differential Comment MANUAL DIFF, Diff Path Review May foll, Platelet Estimate MOD DEC, RBC Morphology NORM C+C 02/06/24 05:36: RBC 2.51 L, Hgb 7.2 L, Hct 21.8 L, MCV 86.9, MCH 28.7, MCHC 33.0, RDW Std Deviation 48.1 H, RDW Coeff of Miguel 15.9 H, Plt Count 91 L, MPV 9.4, Immature Gran % (Auto) 4.500 H, Neut % (Auto) 61.4, Lymph % (Auto) 13.6 L, Deuel % (Auto) 20.5 H, Eos % (Auto) 0.0, Baso % (Auto) 0.0, Absolute Neuts (auto) 0.3 L, Absolute Lymphs (auto) 0.06 L, Nucleated RBC % 0, Sodium 140, Potassium 3.0 L, Chloride 109 H, Carbon Dioxide 23.0, Anion Gap 8, BUN 18, Creatinine 0.83, Estim Creat Clear Calc 65.84, Est GFR (MDRD) Af Amer 89, Est GFR (MDRD) Non-Af 74, BUN/Creatinine Ratio 21.8 H, Glucose 138 H, Calcium 9.0 Micro: Microbiology 02/04/24 09:42 Urine, Catheterized Urine Culture - Final Streptococcus agalactiae (B) Rhythm Strip Rhythm Strip: Sinus Tach Rate: 108 Ectopy: None Physical Exam Narrative Seen and examined. Patient looks sick, febrile, tachypneic and short of breath even at rest. Denies chest pain or pressure. Physical exam General: Alert, Oriented x3, Cooperative, looks frail and fatigued and sick HEENT: Atraumatic, PERRLA, EOMI, Normocephalic Oral: Pharyngeal region ulcerated, erythematous. Neck: Supple, No JVD, Negative Carotid Bruits Chest wall/Lungs: Upper chest wall skin dry, and radiation changes. Air entry diminished in bilateral lung bases. Bilateral crepitation Cardiovascular: Sinus tachycardia, Normal S1, Normal S2, No M/G/R Abdomen: Bowel Sounds Present, Soft, Non Tender, Non-Distended : Burning micturition, increased frequency no renal angle tenderness. No suprapubic tenderness. Extremities: No edema, Capillary Refill Less than 3 Seconds Skin: No rashes, No breakdown Musculoskeletal: No Tenderness to Palpation of Joints or Extremities. Muscle strength 4/5 at major Neurological: Cranial nerves II-XII grossly intact, DTR 2+/4. No acute focal neurological deficit. Psych/Mental Status: Flat affect Assessment & Plan Assessment/Plan (1) Acute kidney injury: PLAN: Total time of the visit including total time spent in counseling or coordination of care, (more than 50% of the total time, spent in obtaining medical information from nurses and other ancillary care providers ,explaining to the patient about labs, imaging, diagnosis and management of active complex medical conditions), review of CT chest with IV contrast, ID and pulmonary consult, review of labs and imaging is 35 minutes. (2) Altered level of consciousness: (3) Right lower lobe pneumonia: (4) Right upper lobe pneumonia: PLAN: Plan 63-year-old female was admitted with altered level of consciousness for 4 days prior to admission. Denies nausea, vomiting or diarrhea. No documented fever or recent fall at home. 1.SIRS due to Right sided pneumonia with multiple rounded opacities and central cavitation with suspicion of lung abscess: Chest x-ray reviewed which shows extensive 100 areas opacification in the right lung. CT chest with IV contrast done but report pending. Images individually reviewed and shows diffuse right lung alveolar opacities and groundglass opacity. It also shows left lower lobe opacity. ID and shop coordinator consulted. Currently on vancomycin Zosyn and azithromycin. Sputum culture are ordered. Triple PCR for SARS-CoV-2, flu and RSV are negative negative on 01/20. Urine culture shows strep group B and mixed gram-positive organism. Respiratory panel and blood cultures are pending Patient does not have chest pain but short of breath, tachycardia, tachypnea and mild hypoxia 2. Pancytopenia with severe neutropenia, normocytic normochromic severe anemia and thrombocytopenia due to recent chemotherapy: Hemoglobin 7.2, WBC 0.4K, ANC 0.3K, ALC 0.06K, platelet count 91K. Started on Granix. 3. 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 She has a PEG tube in for nutrition, will consult dietitian ? She is undergoing chemoradiation with low-dose cisplatin ? Her last dose of cisplatin was on 01/30/2024, which was her last dose of chemotherapy and she has 5 more days of radiation ? 02/05 on oral exam: Base of tongue and posterior pharynx are raw and ulcerated. 4. Anxiety/depression ? Anxious and depressed ? Continue her home medications DVT: SCDs Charges/Coding Visit Charges Inpatient E&M: 89055 Subs Hosp L3
[2024-02-06 09:01] LABS: Platelet Estimate MOD DEC (ADEQ)
--- NOTE | 2024-02-06 09:17 | CT_ITS ---
STUDY: CT CHEST WITH CONTRAST REASON FOR EXAM: Female, 63 years old. Pneumonia RADIATION DOSAGE (If Supplied By Facility): CTDIvol = ( 11.13 ) mGy, DLP = ( 450.46 ) mGycm TECHNIQUE: Transaxial imaging was performed following intravenous administration of IV 75mL Isovue-370. Multiplanar coronal and sagittal images were reformatted. Individualized dose optimization techniques were used for this CT. COMPARISON: Comparison is made with prior chest radiograph dated February 04, 2024. FINDINGS: CHEST A left-sided portacatheter is seen with the tip in the superior vena cava. Diffuse airspace disease in the right hemithorax involving both upper and lower lobes. Focal rounded areas of infiltration. 2. A lesser degree, there is evidence of a patchy airspace disease in the left hemithorax involving both upper and lower lobes. ARDS should be ruled out. Small bilateral pleural effusions slightly worse on the right side. Normal heart and pericardium. Normal mediastinum. Normal hilar regions. Normal unenhanced pulmonary arteries. Normal aorta arch and descending thoracic aorta. There are degenerative changes of the thoracic spine. There is no demonstrated abnormality of the visualized upper abdomen. CT/Chest WITH Contrast IMPRESSION: Bilateral airspace disease as described worse in the right hemithorax with bilateral pleural effusions worse on the right side. ARDS should be ruled out. Electronically Signed: Bryson Krishnan MD at 14:21 EST ,
[2024-02-06] MEDS: Azithromycin 500 MG in Dextrose 5%-Water (250mL Bag) 250 ML 250 MG IV (10:41)
[2024-02-06] MEDS: NYSTATIN 500,000 UNIT/5 ML UDC 500000 UNIT PO ×2 (10:42→13:59)
[2024-02-06] MEDS: FLUoxetine 20 MG Capsule 60 MG PO (10:42)
[2024-02-06] MEDS: buPROPion (XL) 300 MG TABLET.XL PO (10:43)
--- NOTE | 2024-02-06 11:45 | CASEMGMT ---
NIRANJAN CONKLIN Assessment: Face to Face with pt for initial transition planning/care coordination assessment. NIRANJAN CONKLIN introduced self and role at [facility], pt voices understanding and consents to assessment. Pt is A&O x4 and answers all questions appropriately at this time. Pt lying in bed in no distress. Care providers, pharmacy, and demographics verified/updated. Strata: 2 Admitting Dx: R Pneumonia PCP: Sue Specialists: Neurology, does not recall doctors name [facility] Insurance: CASSIE Summers Prescription Benefit: yes LNOK: , Hans; DIL, Mackenzie Living Arrangements: Pt is staying with [id number] at her house in a 1 story home with 10 steps to enter. ADLs: Needs assistance with ADLs and IADLs. Transportation: Pt reports DIL provides transportation. DME: Bedside [employer], tube feeds through [facility], does not use O2 at home. RN KATERIN provided verbal list of local O2 providers, pt chose [facility] for O2 needs. HHC/SNF:Denies Hx of Pt states would like to go home with [facility], denies wanting list of local HHC providers. Pt states she would like to get a walker. Pt states no further concerns/needs. CM to follow. Advised pt to ask CM if any further question/concerns/needs arise, voices understanding. Pt Goal: HHC Plan: HHC and DME, follow for O2 needs, follow plan of care. Justa UREÑA CM
[2024-02-06 11:47] LABS: Vancomycin, Trough Level 10.4 ug/mL (5.0-15.0)
--- NOTE | 2024-02-06 12:00 | PCM.RX.CS ---
Consult Antibiotic Management Pharmacy has been consulted to manage selected antibiotic: Vancomycin Type of Intervention Type of Consult: Follow-up Suspected Infection Suspected Infection: Pneumonia Prior Doses of Antibiotics Prior Doses of Antibiotics Received/Current Regimen: Vancomycin 750 mg Q12H last dose given 02/06/24 @ 0101 Labs Labs: Sodium 140 mmol/L (136-145) 02/06/24 05:36 Potassium 3.0 mmol/L (3.5-5.1) L 02/06/24 05:36 Chloride 109 mmol/L (98-107) H 02/06/24 05:36 Carbon Dioxide 23.0 mmol/L (21.0-32.0) 02/06/24 05:36 Anion Gap 8 (5-15) 02/06/24 05:36 BUN 18 mg/dL (7-18) 02/06/24 05:36 Creatinine 0.83 mg/dL (0.55-1.02) 02/06/24 05:36 Est GFR (MDRD) Af Amer 89 mL/min (>60) 02/06/24 05:36 Est GFR (MDRD) Non-Af 74 mL/min (>60) 02/06/24 05:36 BUN/Creatinine Ratio 21.8 RATIO (10-20) H 02/06/24 05:36 Glucose 138 mg/dL (74-106) H 02/06/24 05:36 Vancomycin Trough 10.4 ug/mL (5.0-15.0) 02/06/24 11:09 Microbiology Microbiology: Microbiology 02/04/24 09:42 Urine, Catheterized Urine Culture - Final Streptococcus agalactiae (B) Dosing Weight Weight used for dosin kg Estimated Creatinine Clearance Estimated Creatinine Clearance: ~ 66 Goal Trough Goal Trough: 15-20 mcg/mL Pharmacy Plan for Drug Dosing Pharmacy Plan for Drug Dosing: Vancomycin trough = 10.4, increase to 1250 mg Q12H, trough prior to the 4th dose of new regimen. Pharmacy Service will continue to monitor and adjust dosing as required. Follow-Up Labs Follow-Up Labs: Trough: Vancomycin Date/Time Labs Ordered Labs to be done on [date and time ordered]: 02/07/24 @ 3436
[2024-02-06] MEDS: Vancomycin HCl 1,250 MG in 0.9% Normal Saline (250mL Bag) 250 ML 167 MG IV (12:10)
[2024-02-06 12:46] LABS: Magnesium 1.7 mg/dL (1.6-2.6); Phosphorus 1.7 mg/dL (2.5-4.9)
--- NOTE | 2024-02-06 13:30 | CON.PCM.CC_ITS ---
Assessment & Plan Assessment/Plan (1) Hypoxemia: PLAN: Plan RECOMMENDATIONS: 1. Antimicrobials per ID recommendations. 2. CT chest 3. Check respiratory viral panel and send sputum for culture. 4. Start scheduled bronchodilators. 5. Maintain aspiration precautions. 6. Continue Granix. IMPRESSIONS: 1. Shortness of breath and hypoxemia Chest imaging demonstrated findings concerning for extensive bilateral pneumonia in the setting of pancytopenia due to chemotherapy for squamous cell carcinoma of the left tonsil. The patient is stable from a respiratory perspective on supplemental O2, which will be weaned to maintain saturations at or above 90%. She has been initiated on empiric broad-spectrum antimicrobials, all of which will be continued. Respiratory viral panel and sputum culture are pending. CT imaging of the chest to be completed. 2. History of tonsillar squamous cell carcinoma/pancytopenia/prior tobacco abuse history/high risk for aspiration Complicates care, management, recovery and prognosis. Continue supportive measures as noted above. Continue nutritional support via G-tube. Maintain aspiration precautions. This note was generated with [employer] dictation software. It may contain incorrect words, spelling, and punctuation that were not noted in checking the note before signing. HPI Consult Data Date of Consult: 02/06/24 HPI Narrative Reason for Consultation: Pneumonia HPI Narrative: The patient is a 63-year-old female, with a history as outlined below, who presented to the emergency department on February 03 with altered mental status and progressive shortness of breath. The patient has known history of squamous cell carcinoma of the left tonsil, currently undergoing chemoradiation. The patient does have a prior tobacco abuse history, having quit completely in 2021. She reported that she has never been diagnosed with COPD or asthma. At her baseline, she does not require supplemental oxygen. She does not utilize any inhalers at her baseline. The patient does currently have a PEG tube for nutritional support, but does admit to liquid intake by mouth. She does report concerns for aspiration with frequent coughing during ingestion of liquids. On presentation to the emergency department, the patient was documented to be afebrile but was tachycardic, tachypneic and hypotensive with a presenting blood pressure of 80/41 mmHg. Laboratory evaluation revealed evidence of pancytopenia. Chemistry profile was notable for a creatinine of 1.42. Lactate was elevated at 2.2. Chest imaging demonstrated bilateral multifocal airspace disease. The patient was placed on broad-spectrum antimicrobials and admitted to the progressive care unit for further management. [facility] Medical History Anemia CINV (chemotherapy-induced nausea and vomiting) Encounter for chemotherapy management Encounter for education Diverticular disease Cancer Squamous cell carcinoma of face Post-menopausal Anxiety Arthritis High cholesterol Migraine headache Injury of head and neck Difficulty swallowing Difficulty chewing History of diverticulitis Gastric reflux Former smoker Depression Hypercholesterolemia Home Medications ?Medication ?Instructions ?Recorded ?Last Taken ?Type bupropion HCl 150 mg 24 hr tablet, 300 mg PO DAILY 01/03/21 02/04/24 History extended release fluoxetine 40 mg capsule 60 mg PO DAILY 01/03/21 02/04/24 History tolterodine 4 mg capsule,extended 4 mg PO DAILY 01/03/21 02/04/24 History release 24 hr omeprazole 20 mg capsule,delayed 20 mg PO BID 11/14/23 02/04/24 History release lidocaine-prilocaine 2.5 %-2.5 % 1 applic topical ONCE PRN port 12/20/23 Unknown Rx topical cream access 30 days #30 grams ondansetron 8 mg disintegrating 8 mg PO Q8H PRN nausea and 12/20/23 Unknown Rx tablet vomiting #30 tabs prochlorperazine maleate 10 mg 10 mg PO Q6H PRN nausea and 12/20/23 Unknown Rx tablet vomiting #30 tabs acetaminophen 500 mg tablet 500 mg PO Q6H PRN fever or pain 01/04/24 02/04/24 History (Tylenol Extra Strength) oxycodone 5 mg/5 mL oral solution 5 mg (5 mL) PO Q6H PRN pain 4 01/11/24 Unknown Rx weeks #500 mL fluoxetine 20 mg capsule 20 mg PO DAILY 02/04/24 02/04/24 History potassium chloride 20 mEq/15 mL 20 meq PO BID 02/04/24 02/04/24 History oral liquid Allergy/AdvReac Type Severity Reaction Status Date / Time codeine Allergy Unknown Verified 01/30/24 10:08 Family History Sister Cancer Father Hypertension CVA (cerebral vascular accident) Mother Hypertension Diabetes Aunt Cancer Unknown Cancer multiple cousins with cancer Surgical History S/P percutaneous endoscopic gastrostomy (PEG) tube placement History of laryngoscopy Hx of bilateral cataract extraction History of carpal tunnel surgery History of tubal ligation Social History Smoking Status: Former smoker quit date: 03/07/21 Tobacco: How many years used: 40 substance use type: does not use ROS ROS Narrative 10 systems were reviewed with pertinent positives as noted in the HPI above. Physical Exam Const alert, oriented x3 and no apparent distress Constitutional Narrative: Chronically ill in appearance. HEENT normocephalic and head/scalp atraumatic Eyes PERRL, EOMs intact bilaterally and conjunctivae normal Neck supple General: trachea midline Chest inspection of chest normal Resp normal respiratory effort Auscultation: wheezes and diminished lung sounds Cardio regular rate and regular rhythm GI normal to inspection, nondistended, normoactive bowel sounds Inspection: GI tube present Extremity no clubbing, cyanosis or edema Skin no rashes or lesions noted Neuro CN's II-XII intact bilaterally, moves all extremities and no focal motor deficits Psych cooperative and affect normal Medical Records Data Medical Nutrition Assessment Dietitian: Malnutrition Criteria Met Start: 02/05/24 09:52 Freq: Status: Active Protocol: Document 02/05/24 09:52 (Rec: 02/05/24 09:52 [id number]) Nutrition Malnutrition Evidence of Malnutrition Exists Yes Malnutrition (severe): Acute Illness/Injury Evidenced By Suboptimal Energy Intake ( Severe),Weight Loss (Severe) Clinical Problem Acute Disease or Injury Related Malnutrition Etiology severe related to dysphagia and decreased appetite Signs/Symptoms as evidenced by 9.1kg (10.7%) weight loss in 1 month and PO /PEG nutrition needs meeting < 75% of estimated nutrition needs for 2-3 weeks Status Active Problem Recommendation Dietitian Recommendations/Changes Recommend Jevity 1.5 at 50mL/ hr goal rate and 150mL water flush 6x daily to meet estimated nutrition needs. Initiate at 20ml/hr and advance by 15mL every 4-8 hours as tolerated to goal rate. Once tolerance of tube feeds is established at goal rate, will tranition to nocturnal or bolus tube feeds for homegoing. RDN will follow for home going enteral nutrition needs. Lab / Micro Data 02/06/24 05:36 02/06/24 05:36 Labs: Laboratory Results - last 24 hr 02/06/24 05:36: WBC 0.4 L*, RBC 2.51 L, Hgb 7.2 L, Hct 21.8 L, MCV 86.9, MCH 28.7, MCHC 33.0, RDW Std Deviation 48.1 H, RDW Coeff of Miguel 15.9 H, Plt Count 91 L, MPV 9.4, Immature Gran % (Auto) 4.500 H, Neut % (Auto) 61.4, Lymph % (Auto) 13.6 L, Harris % (Auto) 20.5 H, Eos % (Auto) 0.0, Baso % (Auto) 0.0, Absolute Neuts (auto) 0.3 L, Absolute Lymphs (auto) 0.06 L, Nucleated RBC % 0, Differential Comment COMMENT, Diff Path Review May foll, Platelet Estimate MOD DEC, Sodium 140, Potassium 3.0 L, Chloride 109 H, Carbon Dioxide 23.0, Anion Gap 8, BUN 18, Creatinine 0.83, Estim Creat Clear Calc 65.84, Est GFR (MDRD) Af Amer 89, Est GFR (MDRD) Non-Af 74, BUN/Creatinine Ratio 21.8 H, Glucose 138 H, Calcium 9.0, Phosphorus 1.7 L, Magnesium 1.7 02/06/24 11:09: Vancomycin Trough 10.4 Micro: Microbiology 02/04/24 09:42 Urine, Catheterized Urine Culture - Final Streptococcus agalactiae (B) Rhythm Strip Rhythm Strip: Sinus Tach Rate: 108 Ectopy: None Charges/Coding Visit Charges Inpatient E&M: 77302 Init Hosp L3
[2024-02-06 13:51] LABS: Pathologist Review Reviewed
[2024-02-06 13:54] LABS: Pathologist Review Reviewed
[2024-02-06 13:56] LABS: Pathologist Review Reviewed
[2024-02-06] MEDS: Potassium Chloride Oral Soln 20 MEQ/15 ML UDC 40 MEQ PO ×2 (14:01→16:55)
[2024-02-06] MEDS: TBO-FILGRASTIM 480 MCG/0.8 ML ML SC (14:01)
[2024-02-06] MEDS: LORazepam 2 MG/ML Syringe 0.5 MG IV ×2 (14:30→20:10)
--- NOTE | 2024-02-06 14:51 | CON.PCM.ID_ITS ---
Assessment & Plan Assessment/Plan (1) Squamous cell carcinoma of left tonsil: (2) Right upper lobe pneumonia: (3) Right lower lobe pneumonia: (4) Sepsis: (5) Neutropenic fever: PLAN: Neutropenic fever with recent chemo and diffuse pneumonia. Ordered resp pcr panel, sputum cx, chest CT, and recommended pulm eval. Mouth with diffuse mucositis. Bcx pending. Cont current empiric broad coverage with vanc, zosyn, azithro. Will follow, thank you, d/w Dr. Bradford HPI Consult Data Date of Consult: 02/06/24 HPI Narrative Reason for Consultation: neutropenic fever HPI Narrative: VIOLA LR, is a 63 F with squamous cell cancer of tonsil, on chemo and radiation. Last chemo a week ago via port. No issues with port. Developed several days confusion, dyspnea, cough with sputum, weakness, some chest pain with coughing. No abd pain, no dysuria, no diarrhea. Mild nausea. Came to ED 02/03, admitted on vanc/zosyn/azithro. Now low grade fever, worsening wbc. Full ROS performed and neg except as noted above. [facility] Medical History Anemia CINV (chemotherapy-induced nausea and vomiting) Encounter for chemotherapy management Encounter for education Diverticular disease Cancer Squamous cell carcinoma of face Post-menopausal Anxiety Arthritis High cholesterol Migraine headache Injury of head and neck Difficulty swallowing Difficulty chewing History of diverticulitis Gastric reflux Former smoker Depression Hypercholesterolemia Home Medications ?Medication ?Instructions ?Recorded ?Last Taken ?Type bupropion HCl 150 mg 24 hr tablet, 300 mg PO DAILY 01/03/21 02/04/24 History extended release fluoxetine 40 mg capsule 60 mg PO DAILY 01/03/21 02/04/24 History tolterodine 4 mg capsule,extended 4 mg PO DAILY 01/03/21 02/04/24 History release 24 hr omeprazole 20 mg capsule,delayed 20 mg PO BID 11/14/23 02/04/24 History release lidocaine-prilocaine 2.5 %-2.5 % 1 applic topical ONCE PRN port 12/20/23 Unknown Rx topical cream access 30 days #30 grams ondansetron 8 mg disintegrating 8 mg PO Q8H PRN nausea and 12/20/23 Unknown Rx tablet vomiting #30 tabs prochlorperazine maleate 10 mg 10 mg PO Q6H PRN nausea and 12/20/23 Unknown Rx tablet vomiting #30 tabs acetaminophen 500 mg tablet 500 mg PO Q6H PRN fever or pain 01/04/24 02/04/24 History (Tylenol Extra Strength) oxycodone 5 mg/5 mL oral solution 5 mg (5 mL) PO Q6H PRN pain 4 01/11/24 Unknown Rx weeks #500 mL fluoxetine 20 mg capsule 20 mg PO DAILY 02/04/24 02/04/24 History potassium chloride 20 mEq/15 mL 20 meq PO BID 02/04/24 02/04/24 History oral liquid Allergy/AdvReac Type Severity Reaction Status Date / Time codeine Allergy Unknown Verified 01/30/24 10:08 Family History Sister Cancer Father Hypertension CVA (cerebral vascular accident) Mother Hypertension Diabetes Aunt Cancer Unknown Cancer multiple cousins with cancer Surgical History S/P percutaneous endoscopic gastrostomy (PEG) tube placement History of laryngoscopy Hx of bilateral cataract extraction History of carpal tunnel surgery History of tubal ligation Social History Smoking Status: Former smoker quit date: 03/07/21 Tobacco: How many years used: 40 substance use type: does not use Physical Exam Const alert and oriented x3 Constitutional Narrative: ill appearing General Appearance: cooperative HEENT HEENT Narrative: diffuse mucositis Eyes PERRL and EOMs intact bilaterally Neck supple and No nodes Resp Auscultation: rhonchi and diminished lung sounds Cardio Rate: tachycardic GI soft to palpation, non-tender and non-distended Extremity General Extremity: Negative for edema Skin no rashes or lesions noted Skin Narrative: port with no inflammation Neuro CN's II-XII intact bilaterally Medical Records Data Medical Nutrition Assessment Dietitian: Malnutrition Criteria Met Start: 02/05/24 09:52 Freq: Status: Active Protocol: Document 02/05/24 09:52 (Rec: 02/05/24 09:52 [id number]) Nutrition Malnutrition Evidence of Malnutrition Exists Yes Malnutrition (severe): Acute Illness/Injury Evidenced By Suboptimal Energy Intake ( Severe),Weight Loss (Severe) Clinical Problem Acute Disease or Injury Related Malnutrition Etiology severe related to dysphagia and decreased appetite Signs/Symptoms as evidenced by 9.1kg (10.7%) weight loss in 1 month and PO /PEG nutrition needs meeting < 75% of estimated nutrition needs for 2-3 weeks Status Active Problem Recommendation Dietitian Recommendations/Changes Recommend Jevity 1.5 at 50mL/ hr goal rate and 150mL water flush 6x daily to meet estimated nutrition needs. Initiate at 20ml/hr and advance by 15mL every 4-8 hours as tolerated to goal rate. Once tolerance of tube feeds is established at goal rate, will tranition to nocturnal or bolus tube feeds for homegoing. RDN will follow for home going enteral nutrition needs. Lab / Micro Data Attestation: I reviewed the patient's lab results. 02/06/24 05:36 02/06/24 05:36 Labs: Laboratory Results - last 24 hr 02/04/24 09:24: Diff Path Review Reviewed 02/05/24 05:55: Diff Path Review Reviewed 02/06/24 05:36: WBC 0.4 L*, RBC 2.51 L, Hgb 7.2 L, Hct 21.8 L, MCV 86.9, MCH 28.7, MCHC 33.0, RDW Std Deviation 48.1 H, RDW Coeff of Miguel 15.9 H, Plt Count 91 L, MPV 9.4, Immature Gran % (Auto) 4.500 H, Neut % (Auto) 61.4, Lymph % (Auto) 13.6 L, [place] % (Auto) 20.5 H, Eos % (Auto) 0.0, Baso % (Auto) 0.0, Absolute Neuts (auto) 0.3 L, Absolute Lymphs (auto) 0.06 L, Nucleated RBC % 0, Differential Comment COMMENT, Diff Path Review Reviewed, Platelet Estimate MOD DEC, Sodium 140, Potassium 3.0 L, Chloride 109 H, Carbon Dioxide 23.0, Anion Gap 8, BUN 18, Creatinine 0.83, Estim Creat Clear Calc 65.84, Est GFR (MDRD) Af Amer 89, Est GFR (MDRD) Non-Af 74, BUN/Creatinine Ratio 21.8 H, Glucose 138 H, Calcium 9.0, Phosphorus 1.7 L, Magnesium 1.7 12/02/24 11:09: Vancomycin Trough 10.4 Micro: Microbiology 02/04/24 09:42 Urine, Catheterized Urine Culture - Final Streptococcus agalactiae (B) Rhythm Strip Rhythm Strip: Sinus Tach Rate: 108 Ectopy: None Imaging Radiology Impression Chest CT 02/06/24 09:17 IMPRESSION: Bilateral airspace disease as described worse in the right hemithorax with bilateral pleural effusions worse on the right side. ARDS should be ruled out. Electronically Signed: Bryson Krishnan MD at 14:21 EST ,
[2024-02-06] MEDS: Ipratropium/Albuterol Sulfate 3 ML AMPUL.NEB INHALATION ×2 (15:57→22:12)
[2024-02-06 16:39] LABS: Allen Test Positive; Base Excess -1 mmol/L (-2 to +2); Bicarbonate 23.5 mmol/L (22-26); Blood Gas Specimen Type ART; Mode Not entered; O2 Delivery Device Cannula; PO2 130 mmHG (75-100); SITE R Radial; SO2 99 % (95-99); Total Carbon Dioxide 25 mmol/L; pCO2 36.6 mmHg (35-45); pH 7.42 (7.35-7.45)
[2024-02-06] MEDS: Jevity 1.5 1,000 ML 50 ML GT (16:59)
[2024-02-06] MEDS: dexMEDEtomidine 400 MCG in 0.9% Normal Saline (100mL Bag) 96 ML 9.5 MCG CONT INF (20:17)
--- NOTE | 2024-02-06 20:25 | RAD_ITS ---
EXAM: XR CHEST, 1 VIEW CLINICAL INDICATION: tachypnea, rhonchi TECHNIQUE: Frontal view of the chest. COMPARISON: 02/04/2024. FINDINGS: LUNGS AND PLEURAL SPACES: Near complete opacification of the right hemithorax and patchy pulmonary opacities in the left hemithorax likely secondary to worsening of airspace disease and perhaps superimposed edema. No pneumothorax. No effusion. HEART: No significant abnormality. Cardiac silhouette not enlarged. MEDIASTINUM: Central airways and mediastinal contour are unremarkable. BONES/JOINTS: No significant abnormality. No acute fracture. SOFT TISSUES: No significant abnormality. TUBES, LINES AND DEVICES: Left side chest port. RAD/Chest 1 View (Portable) IMPRESSION: Near complete opacification of the right hemithorax and patchy pulmonary opacities in the left hemithorax likely secondary to worsening of airspace disease and perhaps superimposed edema. Electronically Signed: Jm German DO at 21:43 EST ,
--- NOTE | 2024-02-06 20:28 | PN.HOSP_ITS ---
Hospitalist Note I was called urgently by the [employer]ANCH[employer] BUSINESS CONSULTANT and RT and informed this patient was restless and agitated. It took four members of the staff to restrain her as she tried to pull off her oxygen with a respiratory rate of ~40 bpm. She was then emergently treated with Ativan 0.5 mg IV once followed by Precedex drip to keep her calm with a corresponding decrease in her agitation and respiratory rate into the ~28 bpm range. She also had rhonci over her throat and at both bases with her STAT CXR showing Pneumonia and possible evalving ARDS in the Right lung >> Left essentially unchanged from previous in the setting of known tonsillar cancer. I spoke to the remote ICU physician. Dr. Moreno, who recommended patient be intubated. Patient was then induced with Etomidate 10 mg IV once along with Ativan 1 mg IV once and then she was intubated on the first attempt with the GlideScope with positive color change noted on CO2 detector. She was noted to have a large friable posterior tumor partially occluding her vocal cords with thick, blood tinged mucous noted before intubation attempt. She did require one dose of Succinylcholine because after intubation she bit down firmly on the blade of the laryngoscope and the bite block could not be set in proper position until this agent took effect. She was then switched from Precedex to Propofol for sedation with patient still appearing to be agitated and uncomfortable. She also had to be started on Levophed drip to keep her MAP > 65 mmHg after Propofol was started with Fentanyl subsequently added for pain control. Her preintubation ABG and her postintubation CXR are recorded below. Patient may likely require tracheostomy due to her Tonsillar Squamous Cell Carcinoma with superimposed Pneumonia and suspected evolving ARDS. Finally, I would like to thank the ICU staff, RT's and the STAT Airway Team for their help and assistance with this challenging patient as their help is greatly a ppreciated! RUN DATE: 02/06/24 [facility], DEPARTMENT OF LABORATORIES PAGE 1 RUN TIME: 2300 [address], [place], [address] PATIENT: VIOLA LR LOC: ICU U #: [id number] : 1960 AGE/SX: 63/F FACILITY: [facility] ROOM: [id number] RE02/04/[address]: Dr. German Bradford MD STATUS:ADM IN ED: 1 DIS: ~ SPEC #: [id number] JUANCARLOS: 02/06/24-2049 STATUS: COMP REQ #: [id number] RECD: 02/06/24-[address]: Dr. German Bradford MD ENTERED: 02/06/24-[address]: MD Dr. Eduard Aragon MD Dr. Bruce Arthur, MD Dr. Derek Brown, DO Dr. David P Myers, MD Dr. Edward Matheis, MD Dr. Gautam Baskaran, MD Dr. Yordanos Habtegebriel, MD Dr. Hemant Dand, MD Dr. Jose Ochoa, MD Dr. Kimber Foust, MD Dr. Lamia Aljundi, MD Dr. Nicholas F Kotsonis, MD Dr. Pritam Ghosh, MD Dr. Pavan Irukulla, MD Dr. Robert Leininger, MD Dr. Saad Farooqi, MD Dr. Sukhdeep Dhesi, DO Dr. Sujoy Gill, MD Dr. Timothy Fernstrom, DO Dr. Vikram Anand, MD Dr. William Haden, MD Dr. William Lago, MD ~ Test Result Flag Reference Range IBG Blood Gas Type ART SITE L Radial JESSICA TEST N/A Mode Not entered O2 Delivery Dev BiPAP FI02 40.0 PEEP 8 pH 7.39 7.35-7.45 pCO2 37.9 35-45 mmHg PO2 80 75-100 mmHG HCO3 22.9 22-26 mmol/L BE -2 -2 to +2 mmol/L TOTAL CO2 24 mmol/L SO2 96 95-99 % [facility] Imaging Services [address] [place] [address] Chest 1 View MR#: [id number] Acct: [id number] Name: VIOLA LR Rep #: [id number] : 1960 F 63 From: Jm German DO PCP: Dr. Bob Rogers MD Status: ADM IN Study: Chest 1 View Date of Exam: 02/06/24 Exam# [id number] Ordering Dr: Lino Jimenez DO EXAM: XR CHEST, 1 VIEW CLINICAL INDICATION: ett advancement TECHNIQUE: Frontal view of the chest. COMPARISON: 02/06/2024. FINDINGS: LUNGS AND PLEURAL SPACES: Similar appearance of right greater than left patchy pulmonary opacities which may be pneumonia and/or edema. No pneumothorax. No effusion. HEART: No significant abnormality. Cardiac silhouette not enlarged. MEDIASTINUM: Central airways and mediastinal contour are unremarkable. BONES/JOINTS: No significant abnormality. No acute fracture. SOFT TISSUES: No significant abnormality. TUBES, LINES AND DEVICES: Endotracheal tube tip is approximately 4 cm above the real. RAD/Chest 1 View IMPRESSION: 1. Similar appearance of right greater than left patchy pulmonary opacities which may be pneumonia and/or edema. 2. Endotracheal tube tip is approximately 4 cm above the real. Electronically Signed: Jm German DO at 22:41 EST , CC: Dr. Lino Jimenez DO; Dr. Bob Rogers MD ~ Speech Language Therapist: Signed
[2024-02-06 20:56] LABS: Base Excess -2 mmol/L (-2 to +2); Bicarbonate 22.9 mmol/L (22-26); Blood Gas Specimen Type ART; Mode Not entered; O2 Delivery Device BiPAP; PEEP 8; PO2 80 mmHG (75-100); SITE L Radial; SO2 96 % (95-99); Total Carbon Dioxide 24 mmol/L; pCO2 37.9 mmHg (35-45); pH 7.39 (7.35-7.45)
[2024-02-06] MEDS: MethylPREDNISolone 125 MG/2 ML Vial IV (21:12)
[2024-02-06] MEDS: Etomidate 20 MG/10 ML Vial 10 MG IV ×2 (21:14→21:25)
[2024-02-06] MEDS: LORazepam 2 MG/ML Syringe 1 MG IV (21:14)
[2024-02-06] MEDS: Succinylcholine Chloride 200 MG/10 ML SYRINGE 10 MG IV (21:18)
--- NOTE | 2024-02-06 21:25 | RAD_ITS ---
EXAM: XR CHEST, 1 VIEW CLINICAL INDICATION: ETT placement TECHNIQUE: Frontal view of the chest. COMPARISON: Chest radiograph subsequently on the same date. Chest radiograph earlier on the same date. FINDINGS: LUNGS AND PLEURAL SPACES: Near opacification of the right hemithorax with patchy pulmonary opacities and additional left basilar pulmonary opacity which may be pneumonia and/or edema. No pneumothorax. No effusion. HEART: No significant abnormality. Cardiac silhouette not enlarged. MEDIASTINUM: Central airways and mediastinal contour are unremarkable. BONES/JOINTS: No significant abnormality. No acute fracture. SOFT TISSUES: No significant abnormality. TUBES, LINES AND DEVICES: Endotracheal tube tip is approximately 4.5 cm above the real. Left-sided chest port. RAD/Chest 1 View (Portable) IMPRESSION: 1. Near opacification of the right hemithorax with patchy pulmonary opacities and additional left basilar pulmonary opacity which may be pneumonia and/or edema. Similar appearance to the prior exam. 2. Endotracheal tube tip is approximately 4.5 cm above the real. Left-sided chest port. Electronically Signed: Jm German DO at 22:32 EST ,
--- NOTE | 2024-02-06 21:25 | RAD_ITS ---
EXAM: XR CHEST, 1 VIEW CLINICAL INDICATION: ett advancement TECHNIQUE: Frontal view of the chest. COMPARISON: 02/06/2024. FINDINGS: LUNGS AND PLEURAL SPACES: Similar appearance of right greater than left patchy pulmonary opacities which may be pneumonia and/or edema. No pneumothorax. No effusion. HEART: No significant abnormality. Cardiac silhouette not enlarged. MEDIASTINUM: Central airways and mediastinal contour are unremarkable. BONES/JOINTS: No significant abnormality. No acute fracture. SOFT TISSUES: No significant abnormality. TUBES, LINES AND DEVICES: Endotracheal tube tip is approximately 4 cm above the real. RAD/Chest 1 View IMPRESSION: 1. Similar appearance of right greater than left patchy pulmonary opacities which may be pneumonia and/or edema. 2. Endotracheal tube tip is approximately 4 cm above the real. Electronically Signed: Jm German DO at 22:41 EST ,
[2024-02-06] MEDS: Propofol 10MG/Ml 1,000 MG/100 ML Bottle 4.5 MG CONT INF (21:45)
[2024-02-06] MEDS: fentaNYL drip 100 ML 2.5 MCG CONT INF (21:45)
--- NOTE | 2024-02-06 22:16 | NURSING ---
2109- Bradley Vargas and Kimberly from RT, icu charge Jany Staples RN, jeannette RN and Dr. Schafer bedside to intubate. Etomidate administered by this RN on Dr. Damon order. Pt intubated @ 2114 and restraints applied.
[2024-02-06 23:14] LABS: Base Excess -2 mmol/L (-2 to +2); Bicarbonate 22.8 mmol/L (22-26); Blood Gas Specimen Type ART; Mode AC; O2 Delivery Device Adult Vent; PEEP 5; PO2 76 mmHG (75-100); RR 16; SITE L Radial; SO2 95 % (95-99); Total Carbon Dioxide 24 mmol/L; pCO2 37.3 mmHg (35-45)
[2024-02-06] MEDS: Chlorhexidine 15 ML PO (23:33)
[2024-02-06] MEDS: Potassium Phosphate 30 MM in 0.9% Normal Saline (250mL Bag) 250 ML 42 MM IV (23:40)
[2024-02-07] VITALS (37 sets, daily range): BP systolic 88–159; BP diastolic 49–76; PULSE 76–108; RESP 16–30; TEMP 36.6–37.4; O2SAT 86–100; BMI 31.1
--- NOTE | 2024-02-07 | FLU_PTH ---
PATIENT: VIOLA LR LOC: ICU U#:[id number] AGE/SX: 63/F ROOM: ICU02 RE02/04/[address]: Dr. Anatoliy Perales MD : 1960 BED: 1 DIS: 02/13/2024 SPEC #: [id number] RECD: 02/07/24 13:40 STATUS: PHIL REQ #: [id number] JUANCARLOS: 02/07/24 00:[address]: Moise Mitchell DEPT: CYTOLOGY RECD BY: Rabia Davis ENTERED: 02/07/24 13:41 SP TYPE: Fluid OTHR DR: MD Dr. Eduard Aragon MD Dr. Bruce Arthur, MD Dr. David P Myers, MD Dr. Edward Matheis, MD Dr. Gautam Baskaran, MD Dr. Yordanos Habtegebriel, MD Dr. Hemant Dand, MD Dr. Jose Ochoa, MD Dr. Kimber Foust, MD Dr. Lamia Aljundi, MD Dr. Nicholas F Kotsonis, MD Dr. Prakash Chand, MD Dr. Pritam Ghosh, MD Dr. Pavan Irukulla, MD Dr. Robert Leininger, MD Dr. Saad Farooqi, MD Dr. Sukhdeep Dhesi, DO Dr. Sujoy Gill, MD Dr. Timothy Fernstrom, DO Dr. Vikram Anand, MD Dr. William Haden, MD Dr. William Lago, MD Tissues: Sputum Procedures: Special Stain Group II Surgery Specimen Level IV Cytospin Fluid HEADER OPERATION: Not noted PRE-OP DIAGNOSIS: Pneumonia TISSUE SUBMITTED: Sputum for cytology DIAGNOSIS CYTOLOGY Sputum for cytology (smears and cytospin): Negative for malignant cells. Negative for acid fast bacilli. See comment. 02/08/2024 COMMENT AFB stain with matched controls were used in the evaluation of this case. CYTOLOGY STUDY Slides are reviewed. CYTOLOGY GROSS Received is 25 ml of light red fluid labeled with the patient's name and and designated per the requisition as Sputum. Submitted for cytology preparation including cell block. Mr 02/07/2024 TC:5 CPT: 84920,85168
[2024-02-07] MEDS: CHLORHEXIDINE GLUC 2% CLOTH 1 EACH TOWELETTE TOPICAL (00:02)
[2024-02-07] MEDS: Vancomycin HCl 1,250 MG in 0.9% Normal Saline (250mL Bag) 250 ML 167 MG IV ×2 (00:08→13:11)
[2024-02-07] MEDS: dexMEDEtomidine 1,000 MCG in 0.9% Normal Saline (250mL Bag) 240 ML 28.4 MCG CONT INF ×3 (01:36→18:57)
[2024-02-07] MEDS: fentaNYL drip 100 ML 17.5 MCG CONT INF ×3 (04:45→16:53)
[2024-02-07] MEDS: Piperacil/Tazobactam 3.375 GM in 0.9% Normal Saline (50mL MB+) 50 ML IV ×3 (05:08→21:16)
[2024-02-07 06:26] LABS: Hematocrit 18.9 % (37-47); Hemoglobin 6.2 g/dL (12.0-15.0); Mean Corp Hgb Conc 32.8 g/dL (32-36); Mean Corpuscular Hgb 28.6 pg (27.0-32.0); Mean Corpuscular Volume 87.1 fL (81-99); Mean Platelet Vol. 11.1 fl (6.2-12.0); Monocyte# 0.06 X10^3/uL; NRBC Flagged by Analyzer 11.5 % (0-5); POSITIVE COUNT YES; POSITIVE DIFFERENTIAL YES; POSITIVE MORPHOLOGY YES; Platelet Count 54 K/mm3 (150-450); RBC Distribution Width CV 16.4 % (11.6-14.6); RBC Distribution Width SD 50.1 fl (35.1-43.9); Red Blood Count 2.17 M/mm3 (4.2-5.4)
[2024-02-07 06:51] LABS: Differential Indicated SCAN CRITERIA MET; White Blood Count 0.3 K/mm3 (4.4-11.0)
[2024-02-07 06:58] LABS: Anion Gap 5 (5-15); BUN 24 mg/dL (7-18); Chloride 114 mmol/L (98-107); Creatinine, Serum 0.83 mg/dL (0.55-1.02); EST Glomerular Filtration Rate 74 mL/min (>60); Est Glom Filt Rate - Afr Amer 89 mL/min (>60); Estimated Creatinine Clearance 67.63 ml/min; Glucose 153 mg/dL (74-106); Phosphorus 4.3 mg/dL (2.5-4.9); Potassium 4.4 mmol/L (3.5-5.1); Sodium Level 144 mmol/L (136-145)
[2024-02-07] MEDS: Ipratropium/Albuterol Sulfate 3 ML AMPUL.NEB INHALATION ×3 (07:03→18:50)
--- NOTE | 2024-02-07 07:40 | PCM.PN.HOSP ---
Reason for Visit Reason for Visit: Diagnoses Sepsis, unspecified organism (02/04/24) Malignant neoplasm of tonsil, unspecified (02/04/24) Neutropenia, unspecified (02/04/24) Pneumonia, unspecified organism (02/04/24) Acute kidney failure, unspecified (02/04/24) Hypoxemia (02/04/24) Transient alteration of awareness (02/04/24) Fever presenting with conditions classified elsewhere (02/04/24) Objective Data Objective Data Vital Signs: Vital Signs Temp Pulse Resp BP Pulse Ox O2 Del Method O2 Flow Rate 97.9 F 86 19 H 129/61 H 94 Mechanical Ventilator 8 02/07/24 05:00 02/07/24 07:03 02/07/24 07:03 02/07/24 07:00 02/07/24 07:03 02/07/24 07:00 02/06/24 16:11 FiO2 50 02/07/24 07:00 Oxygen Flow Rate (L/min) 8 Oxygen Delivery Method Mechanical Ventilator Weight: 176 lb 2.389 oz Body Mass Index (BMI) 31.1 Intake & Output: Intake and Output for Last 24 Hours 02/05/24 02/06/24 02/07/24 23:59 23:59 23:59 Intake Total 3662.00 / 3662.00 3356.13 / 3518.06 1215.56 / 1215.56 Output Total 350 / 350 480 / 640 280 / 280 Balance 3312.00 / 3312.00 2876.13 / 2878.06 935.56 / 935.56 Medical Nutrition Assessment Dietitian: Malnutrition Criteria Met Start: 02/05/24 09:52 Freq: Status: Active Protocol: Document 02/05/24 09:52 LO (Rec: 02/05/24 09:52 [id number]) Nutrition Malnutrition Evidence of Malnutrition Exists Yes Malnutrition (severe): Acute Illness/Injury Evidenced By Suboptimal Energy Intake ( Severe),Weight Loss (Severe) Clinical Problem Acute Disease or Injury Related Malnutrition Etiology severe related to dysphagia and decreased appetite Signs/Symptoms as evidenced by 9.1kg (10.7%) weight loss in 1 month and PO /PEG nutrition needs meeting < 75% of estimated nutrition needs for 2-3 weeks Status Active Problem Recommendation Dietitian Recommendations/Changes Recommend Jevity 1.5 at 50mL/ hr goal rate and 150mL water flush 6x daily to meet estimated nutrition needs. Initiate at 20ml/hr and advance by 15mL every 4-8 hours as tolerated to goal rate. Once tolerance of tube feeds is established at goal rate, will tranition to nocturnal or bolus tube feeds for homegoing. RDN will follow for home going enteral nutrition needs. Lab / Micro Data 02/07/24 05:54 02/07/24 05:54 Labs: Laboratory Results - last 24 hr 02/04/24 09:24: Diff Path Review Reviewed 02/05/24 05:55: Diff Path Review Reviewed 02/06/24 05:36: WBC 0.4 L*, Differential Comment COMMENT, Diff Path Review Reviewed, Platelet Estimate MOD DEC, Phosphorus 1.7 L, Magnesium 1.7 02/06/24 11:09: Vancomycin Trough 10.4 02/07/24 05:54: WBC 0.3 L*, RBC 2.17 L, Hgb 6.2 L, Hct 18.9 L, MCV 87.1, MCH 28.6, MCHC 32.8, RDW Std Deviation 50.1 H, RDW Coeff of Miguel 16.4 H, Plt Count 54 L, MPV 11.1, Immature Gran % (Auto) 15.400 H, Neut % (Auto) 57.7, Lymph % (Auto) 3.8 L, [place] % (Auto) 23.1 H, Eos % (Auto) 0.0, Baso % (Auto) 0.0, Absolute Neuts (auto) 0.2 L, Absolute Lymphs (auto) 0.01 L, Nucleated RBC % 11.5 H, Sodium 144, Potassium 4.4, Chloride 114 H, Carbon Dioxide 25.0, Anion Gap 5, BUN 24 H, Creatinine 0.83, Estim Creat Clear Calc 67.63, Est GFR (MDRD) Af Amer 89, Est GFR (MDRD) Non-Af 74, BUN/Creatinine Ratio 29.0 H, Glucose 153 H, Calcium 9.0, Phosphorus 4.3 Micro: Microbiology 02/06/24 17:03 Urine, Clean Catch Legionella Antigen - Final 02/06/24 17:03 Urine, Clean Catch Streptococcus pneumoniae Antigen (M - Final 02/04/24 09:42 Urine, Catheterized Urine Culture - Final Streptococcus agalactiae (B) ABG Data ABG results: ABG 02/06/24 02/06/24 02/06/24 16:35 20:50 23:10 Specimen Type ART ART ART Sample Site R Radial L Radial L Radial pH 7.42 7.39 7.40 Bicarbonate Actual 23.5 22.9 22.8 Total CO2 25 24 24 Base Excess -1 -2 -2 O2 Saturation 99 96 95 O2 % 15.0 40.0 60.0 ABG pCO2 36.6 37.9 37.3 ABG pO2 130 H 80 76 Bogdan Test Positive N/A N/A Respiration Rate 16 O2 Delivery Device Cannula BiPAP Adult Vent Vent Mode Not entered Not entered AC Tidal Volume 450.0 POC PEEP 8 5 Radiography Diagnostic Testing: Radiology Impression Chest CT 02/06/24 09:17 IMPRESSION: Bilateral airspace disease as described worse in the right hemithorax with bilateral pleural effusions worse on the right side. ARDS should be ruled out. Electronically Signed: Bryson Krishnan MD at 14:21 EST , Chest X-Ray 02/06/24 20:25 IMPRESSION: Near complete opacification of the right hemithorax and patchy pulmonary opacities in the left hemithorax likely secondary to worsening of airspace disease and perhaps superimposed edema. Electronically Signed: Jmcherry German DO at 21:43 EST , Chest X-Ray 02/06/24 21:25 IMPRESSION: 1. Near opacification of the right hemithorax with patchy pulmonary opacities and additional left basilar pulmonary opacity which may be pneumonia and/or edema. Similar appearance to the prior exam. 2. Endotracheal tube tip is approximately 4.5 cm above the real. Left-sided chest port. Electronically Signed: Jm VLisa German DO at 22:32 EST , Chest X-Ray 02/06/24 21:25 IMPRESSION: 1. Similar appearance of right greater than left patchy pulmonary opacities which may be pneumonia and/or edema. 2. Endotracheal tube tip is approximately 4 cm above the real. Electronically Signed: Jm German, at 22:41 EST , Rhythm Strip Rhythm Strip: Sinus Tach Rate: 108 Ectopy: None Physical Exam Narrative Seen and examined. Patient was transferred to ICU in the afternoon with worsening FiO2/pO2 ratio. She had lorazepam 0.5 mg 1 mg for agitation but that made her agitation worse. She was intubated. It was about 200 and then 126. Physical exam General: Intubated and CVA HEENT: Atraumatic, PERRLA, EOMI, Normocephalic Oral: ET tube Neck: Supple, No JVD, Negative Carotid Bruits Chest wall/Lungs: Upper chest wall skin dry, and radiation changes. Air entry diminished in bilateral lung bases. Bilateral crepitation Cardiovascular: Sinus rhythm, Normal S1, Normal S2, No M/G/R Abdomen: Bowel Sounds Present, Soft, Non Tender, Non-Distended : Pool catheter. Dark-colored urine no renal angle tenderness. No suprapubic tenderness. Extremities: No edema, Capillary Refill Less than 3 Seconds Skin: No rashes, No breakdown Musculoskeletal: No Tenderness to Palpation of Joints or Extremities. Muscle strength 4/5 at major Neurological: intubated/sedated no acute focal neurological deficit. Psych/Mental Status: Flat affect Assessment & Plan Assessment/Plan (1) Acute kidney injury: (2) Altered level of consciousness: (3) Right lower lobe pneumonia: (4) Right upper lobe pneumonia: PLAN: Plan 63-year-old female was admitted with altered level of consciousness for 4 days prior to admission. Denies nausea, vomiting or diarrhea. No documented fever or recent fall at home. 1.SIRS due to Right sided pneumonia with multiple rounded opacities and central cavitation with suspicion of lung abscess: Chest x-ray reviewed which shows extensive 100 areas opacification in the right lung. CT chest with IV contrast done but report pending. Images individually reviewed and shows diffuse right lung alveolar opacities and groundglass opacity. It also shows left lower lobe opacity. ID and medical apparatus model maker consulted. Currently on vancomycin Zosyn and azithromycin. Sputum culture are ordered. Triple PCR for SARS-CoV-2, flu and RSV are negative negative on 01/20. Urine culture shows strep group B and mixed gram-positive organism. Respiratory panel and blood cultures are pending Patient does not have chest pain but short of breath, tachycardia, tachypnea and mild hypoxia Possible ARDS: 1. Onset of symptoms within 1 week, bilateral opacities, right more than left with groundglass opacities and consolidation and noncardiogenic edema. FiO2/PaO2 ratio 126. Patient undergoing echo. Discussed with the medical apparatus model maker. Plan for possible bronchoscopy 2. Pancytopenia with severe neutropenia, normocytic normochromic severe anemia and thrombocytopenia due to recent chemotherapy: Hemoglobin 7.2, WBC 0.4K, ANC 0.3K, ALC 0.06K, platelet count 91K. Started on Granix. 12/07: Worsening of pancytopenia. WBC 0.3K, ANC 0.2K, H&H 6.2/19 and platelet count 54K. Monitor PRBC ordered. 3. 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 She has a PEG tube in for nutrition, will consult dietitian ? She is undergoing chemoradiation with low-dose cisplatin ? Her last dose of cisplatin was on 01/30/2024, which was her last dose of chemotherapy and she has 5 more days of radiation ? 02/05 on oral exam: Base of tongue and posterior pharynx are raw and ulcerated. 02/06: Discussed with the Radiotherapist, Dr. Plasencia. She has cancer involving tonsil and soft palate and was able to protect her airway and clear the mucus before but recently had PEG tube placement for nutrition and pain. 4. .Anxiety/depression ? Anxious and depressed ? Continue her home medications DVT: SCDs Charges/Coding Visit Charges Inpatient E&M: 00374 Subs Hosp L3
[2024-02-07 07:49] LABS: Anisocytosis 1+; Platelet Estimate MKD DEC (ADEQ)
[2024-02-07] MEDS: Chlorhexidine 15 ML PO ×2 (07:56→22:14)
--- NOTE | 2024-02-07 08:17 | PN.CC_ITS ---
Assessment & Plan Assessment/Plan (1) Hypoxemia: PLAN: Plan RECOMMENDATIONS: 1. Continue antimicrobial therapy per ID recommendations. 2. Transfuse packed red blood cells as ordered. Check H&H posttransfusion. 3. Check respiratory viral panel along with RSV, influenza and COVID PCR. 4. Tentative plans to proceed with bronchoscopy later this morning. 5. Continue scheduled bronchodilators. 6. Continue Granix as ordered. 7. Continue appropriate GI prophylaxis. IMPRESSIONS: 1. Acute hypoxemic respiratory failure Chest imaging demonstrated findings concerning for extensive bilateral pneumonia in the setting of pancytopenia due to chemotherapy for squamous cell carcinoma of the left tonsil. The patient ultimately decompensated from a respiratory perspective on February 06 and was intubated. Plan to continue supportive measures, including antimicrobials per ID recommendations. The patient will be maintained on assist-control mode mechanical ventilation, with a goal to wean FiO2 to maintain saturations at or above 90%. Will obtain respiratory viral panel and check RSV, COVID and influenza. 2. Pancytopenia Agree with transfusion of packed red blood cells as ordered. Recheck H&H posttransfusion. Continue PPI therapy along with scheduled Granix. 3. History of tonsillar squamous cell carcinoma/pancytopenia/prior tobacco abuse history/high risk for aspiration Complicates care, management, recovery and prognosis. Continue supportive measures as noted above. Continue nutritional support via G-tube. TIME: 34 minutes of critical care time, independent of procedures, was spent addressing the patient's acute hypoxemic respiratory failure, pancytopenia, review of all data and collaboration with the care team. Subjective Subjective The patient was seen and examined at the bedside this morning. Events from the last 24 hours have been reviewed. The patient decompensated from a respiratory perspective overnight and was subsequently intubated. She remains on assist- control mode of mechanical ventilation with an FiO2 requirement of 50%. The patient is otherwise hemodynamically stable. She is currently sedated on Precedex and fentanyl. I did speak with radiation oncology this morning, who indicated that the patient's cancer is curable. The patient remains pancytopenic with a hemoglobin of 6.2 g/dL this morning. Lately count is dropped to 54,000. The patient's most recent ABG demonstrated a pH of 7.4 with a pCO2 of 37 and pO2 of 76. Chemistry profile was unremarkable. There are tentative plans to proceed with bedside bronchoscopy later this morning. Objective Data Objective Data The patient's most recent lab work, culture data and imaging studies have all been personally reviewed. Strep and urine Legionella antigens were negative. Blood and sputum cultures are pending. Vital Signs: Vital Signs Temp Pulse Resp BP Pulse Ox O2 Del Method O2 Flow Rate 98.9 F 90 21 H 129/60 H 90 Mechanical Ventilator 8 02/07/24 08:00 02/07/24 08:00 02/07/24 08:00 02/07/24 08:00 02/07/24 08:00 02/07/24 08:00 02/06/24 16:11 FiO2 50 02/07/24 08:00 Oxygen Flow Rate (L/min) 8 Oxygen Delivery Method Mechanical Ventilator Weight: 176 lb 2.389 oz Body Mass Index (BMI) 31.1 Intake & Output: Intake and Output for Last 24 Hours 02/05/24 02/06/24 02/07/24 23:59 23:59 23:59 Intake Total 3662.00 / 3662.00 3356.13 / 3518.06 1215.56 / 1215.56 Output Total 350 / 350 480 / 640 280 / 280 Balance 3312.00 / 3312.00 2876.13 / 2878.06 935.56 / 935.56 Medical Nutrition Assessment Dietitian: Malnutrition Criteria Met Start: 02/05/24 09:52 Freq: Status: Active Protocol: Document 02/05/24 09:52 (Rec: 02/05/24 09:52 [id number]) Nutrition Malnutrition Evidence of Malnutrition Exists Yes Malnutrition (severe): Acute Illness/Injury Evidenced By Suboptimal Energy Intake ( Severe),Weight Loss (Severe) Clinical Problem Acute Disease or Injury Related Malnutrition Etiology severe related to dysphagia and decreased appetite Signs/Symptoms as evidenced by 9.1kg (10.7%) weight loss in 1 month and PO /PEG nutrition needs meeting < 75% of estimated nutrition needs for 2-3 weeks Status Active Problem Recommendation Dietitian Recommendations/Changes Recommend Jevity 1.5 at 50mL/ hr goal rate and 150mL water flush 6x daily to meet estimated nutrition needs. Initiate at 20ml/hr and advance by 15mL every 4-8 hours as tolerated to goal rate. Once tolerance of tube feeds is established at goal rate, will tranition to nocturnal or bolus tube feeds for homegoing. RDN will follow for home going enteral nutrition needs. Lab / Micro Data Attestation: I reviewed the patient's lab results. 02/07/24 05:54 02/07/24 05:54 Labs: Laboratory Results - last 24 hr 02/04/24 09:24: Diff Path Review Reviewed 02/05/24 05:55: Diff Path Review Reviewed 02/06/24 05:36: WBC 0.4 L*, Differential Comment COMMENT, Diff Path Review Reviewed, Platelet Estimate MOD DEC, Phosphorus 1.7 L, Magnesium 1.7 02/06/24 11:09: Vancomycin Trough 10.4 02/07/24 05:54: WBC 0.3 L*, RBC 2.17 L, Hgb 6.2 L, Hct 18.9 L, MCV 87.1, MCH 28.6, MCHC 32.8, RDW Std Deviation 50.1 H, RDW Coeff of Miguel 16.4 H, Plt Count 54 L, MPV 11.1, Immature Gran % (Auto) 15.400 H, Neut % (Auto) 57.7, Lymph % (Auto) 3.8 L, [place] % (Auto) 23.1 H, Eos % (Auto) 0.0, Baso % (Auto) 0.0, Absolute Neuts (auto) 0.2 L, Absolute Lymphs (auto) 0.01 L, Nucleated RBC % 11.5 H, Platelet Estimate MKD DEC, Anisocytosis 1+, Sodium 144, Potassium 4.4, Chloride 114 H, Carbon Dioxide 25.0, Anion Gap 5, BUN 24 H, Creatinine 0.83, Estim Creat Clear Calc 67.63, Est GFR (MDRD) Af Amer 89, Est GFR (MDRD) Non-Af 74, BUN/Creatinine Ratio 29.0 H, Glucose 153 H, Calcium 9.0, Phosphorus 4.3 Micro: Microbiology 02/06/24 17:03 Urine, Clean Catch Legionella Antigen - Final 02/06/24 17:03 Urine, Clean Catch Streptococcus pneumoniae Antigen (M - Final 02/04/24 09:42 Urine, Catheterized Urine Culture - Final Streptococcus agalactiae (B) ABG Data ABG results: ABG 02/06/24 02/06/24 02/06/24 16:35 20:50 23:10 Specimen Type ART ART ART Sample Site R Radial L Radial L Radial pH 7.42 7.39 7.40 Bicarbonate Actual 23.5 22.9 22.8 Total CO2 25 24 24 Base Excess -1 -2 -2 O2 Saturation 99 96 95 O2 % 15.0 40.0 60.0 ABG pCO2 36.6 37.9 37.3 ABG pO2 130 H 80 76 Bogdan Test Positive N/A N/A Respiration Rate 16 O2 Delivery Device Cannula BiPAP Adult Vent Vent Mode Not entered Not entered AC Tidal Volume 450.0 POC PEEP 8 5 Radiography Diagnostic Testing: Radiology Impression Chest CT 02/06/24 09:17 IMPRESSION: Bilateral airspace disease as described worse in the right hemithorax with bilateral pleural effusions worse on the right side. ARDS should be ruled out. Electronically Signed: Bryson Krishnan MD at 14:21 EST , Chest X-Ray 02/06/24 20:25 IMPRESSION: Near complete opacification of the right hemithorax and patchy pulmonary opacities in the left hemithorax likely secondary to worsening of airspace disease and perhaps superimposed edema. Electronically Signed: Jm German DO at 21:43 EST , Chest X-Ray 02/06/24 21:25 IMPRESSION: 1. Near opacification of the right hemithorax with patchy pulmonary opacities and additional left basilar pulmonary opacity which may be pneumonia and/or edema. Similar appearance to the prior exam. 2. Endotracheal tube tip is approximately 4.5 cm above the real. Left-sided chest port. Electronically Signed: Jm German DO at 22:32 EST , Chest X-Ray 02/06/24 21:25 IMPRESSION: 1. Similar appearance of right greater than left patchy pulmonary opacities which may be pneumonia and/or edema. 2. Endotracheal tube tip is approximately 4 cm above the eral. Electronically Signed: Jm German DO at 22:41 EST , Rhythm Strip Rhythm Strip: Sinus Tach Rate: 108 Ectopy: None Physical Exam Const Constitutional Narrative: The patient is currently intubated, sedated and mechanically ventilated. No ventilator dyssynchrony noted. HEENT normocephalic and head/scalp atraumatic Mouth: endotracheal tube in place Eyes EOMs intact bilaterally and conjunctivae normal Neck supple General: trachea midline Chest inspection of chest normal Chest Narrative: Stable left sided chest wall port. Resp Effort and Inspection: tachypneic Auscultation: rhonchi and diminished lung sounds; Negative for wheezes Cardio regular rate and regular rhythm GI normal to inspection, nondistended, normoactive bowel sounds Inspection: GI tube present Extremity no clubbing, cyanosis or edema Skin no rashes or lesions noted Neuro Sensorium / Orientation: sedated on vent Charges/Coding Procedures Hospitalists Procedures: 79305 Critical Care 1st Hr
[2024-02-07 09:51] LABS: Lymphocyte 8 % (19-41); Monocyte 68 % (0-10); Neutrophil-Segmented 24 % (47-70); Total Cells Counted 25 (MANUAL DIFF)
[2024-02-07 09:55] LABS: Red Cell Morphology N CHROM NORMAL (NORM C&C); Scan Smear per Review Criteria MANUAL DIFF
[2024-02-07 09:57] LABS: Absolute Lymphocyte Count 0.02 X10^3/uL (0.83-4.51); Absolute Neutrophil Count 0.1 X10^3/uL (2.0-7.7); Lymphocyte # 0.02 X10^3/ul (0.83-4.51); Neutrophil # 0.06 X10^3/uL (2.7-7.7)
[2024-02-07] MEDS: Pantoprazole Sodium 40 MG in 0.9% Normal Saline (100mL MB+) 100 ML 330 MG IV ×2 (10:09→21:16)
[2024-02-07] MEDS: TBO-FILGRASTIM 300 MCG/0.5 ML ML SC (10:11)
--- NOTE | 2024-02-07 10:23 | PCM.PN.ID ---
Physical Exam Narrative Intubated overnight, in icu Const no apparent distress Resp Effort and Inspection: mechanically ventilated Auscultation: diminished lung sounds Cardio regular rate and regular rhythm GI soft to palpation, non-tender and non-distended Extremity General Extremity: Negative for edema Skin no rashes or lesions noted ID ID: Route of nutrition/ use of supplements: [] Nutritional Intake: [] IV Site: [] Pool Catheter: [] Assessment & Plan Assessment/Plan (1) Squamous cell carcinoma of left tonsil: (2) Right upper lobe pneumonia: (3) Right lower lobe pneumonia: (4) Sepsis: (5) Neutropenic fever: PLAN: Neutropenic fever with recent chemo and diffuse pneumonia. Now on vent. Pending resp panel and sputum cx. Mouth with diffuse mucositis. Bcx pending. Cont current empiric broad coverage with vanc, zosyn, azithro. Bronch planned Will follow, d/w Dr. Mitchell
[2024-02-07] MEDS: Azithromycin 500 MG in Dextrose 5%-Water (250mL Bag) 250 ML 250 MG IV (10:42)
--- NOTE | 2024-02-07 10:52 | CASEMGMT ---
Social Work As per the initial tea tree farm worker, pt does not have LW/POA and declined additional information. VILMA Potts
[2024-02-07] MEDS: Etomidate 20 MG/10 ML Vial IV ×2 (11:30→18:15)
[2024-02-07] MEDS: Succinylcholine Chloride 200 MG/10 ML SYRINGE 100 MG IV (11:30)
--- NOTE | 2024-02-07 11:35 | CPS ---
bronch scope went down tube, dr. frost was in the lungs. no need for capnometer
--- NOTE | 2024-02-07 11:53 | PCM.PN.BLA ---
Progress Note Prior to the planned bronchoscopy procedure this morning, it was necessary to remove the patient's #6.5 endotracheal tube and replace it with a 7.0 tube to facilitate passage of the bronchoscope. An introducer was utilized to remove the 6.5 endotracheal tube, after which time, the new larger tube was inserted. The patient did become hypoxemic during the procedure, but responded to bagging and application of PEEP. Following upsizing of the patient's endotracheal tube, bronchoscopy with BAL was completed. Procedures Pulmonary Pulmonary Procedures /Diagnostic Testin Insert emergency airway
--- NOTE | 2024-02-07 11:55 | RAD_ITS ---
STUDY: X-RAY CHEST REASON FOR EXAM: Female, 63 years old. ETT placement TECHNIQUE: Single AP portable view of the chest. COMPARISON: February 06, 2024 FINDINGS: 1. Stable endotracheal tube terminating 3.79 cm above the real 2. Stable left chest port and catheter 3. No pneumothorax 4. Unresolved severe consolidation throughout the entire right lung with a trace pleural effusion 5. Minor streaky interstitial opacities persist in the left lung base with a trace pleural effusion. 6. Top normal heart size 7. Stable mediastinum and osseous structures. There is no demonstrated abnormality of the visualized soft tissue structures of the upper abdomen. RAD/Chest 1 View (Portable) IMPRESSION: Unresolved severe consolidation throughout the entire right lung with a trace pleural effusion Electronically Signed: Gabriele Gimenez MD at 13:25 EST ,
--- NOTE | 2024-02-07 12:10 | OP.BRONCH_ITS ---
Patient Name: Pati Power Procedure Date: 02/07/2024 11:16 AM Date of : 1960 Age: 63 Procedure: Bronchoscopy Indications: Bilateral infiltrate Providers: Moise Mitchell MD Medicines: Precedex and Fentanyl were continued throughout the procedure. Etomidate 20 mg was given as well. Complications: No immediate complications Procedure: Pre-Anesthesia Assessment: - A History and Physical has been performed. Patient meds and allergies have been reviewed. The patient is unable to give consent secondary to the patient's altered mental status. The risks and benefits of the procedure and the sedation options and risks were discussed with the patient's spouse. All questions were answered and informed consent was obtained. Patient identification and proposed procedure were verified prior to the procedure by the physician and the nurse in the procedure room. Mental Status Examination: sedated. Airway Examination: orotracheal intubation. Respiratory Examination: poor air movement. CV Examination: normal. ASA Grade Assessment: III - A patient with severe systemic disease. After reviewing the risks and benefits, the patient was deemed in satisfactory condition to undergo the procedure. The anesthesia plan was to use deep sedation / analgesia. Immediately prior to administration of medications, the patient was re-assessed for adequacy to receive sedatives. The heart rate, respiratory rate, oxygen saturations, blood pressure, adequacy of pulmonary ventilation, and response to care were monitored throughout the procedure. The physical status of the patient was re-assessed after the procedure. After I obtained informed consent, the scope was passed under direct vision. Throughout the procedure, the patient's blood pressure, pulse, and oxygen saturations were monitored continuously. The bronchoscope was introduced through the mouth, via the endotracheal tube and advanced to the tracheobronchial tree. The procedure was accomplished without difficulty. The patient tolerated the procedure fairly well. Findings: Bilateral Lung Abnormalities: Erythema was found in the trache and right mainstem bronchus. Scant mucoid secretions were suctioned from the real. The bronchoscope was advanced until wedged at the desired location for bronchoalveolar lavage. BAL was performed in the right middle lobe of the lung and sent for cell count, bacterial culture, viral smears & culture, and fungal & AFB analysis and cytology. 90 mL of fluid were instilled. 30 mL were returned. The return was blood-tinged. There were no mucoid plugs in the return fluid. Impression: - Bilateral infiltrate - Erythema was present in the trachea. - Erythema was present in the right mainstem bronchus. - Bronchoalveolar lavage was performed. Recommendation: - Await BAL results. Procedure Code(s): --- Professional --- 86783, Bronchoscopy, rigid or flexible, including fluoroscopic guidance, when performed; with bronchial alveolar lavage Diagnosis Code(s): --- Professional --- R91.8, Other nonspecific abnormal finding of lung field R09.89, Other specified symptoms and signs involving the circulatory and respiratory systems CPT copyright 2021 [employer]. All rights reserved. The codes documented in this report are preliminary and upon fish butcher review may be revised to meet current compliance requirements. DO Moise Hernández MD 02/07/2024 12:10:05 PM This report has been signed electronically. Number of Addenda: 0 Note Initiated On: 02/07/2024 11:16 AM
[2024-02-07 13:10] LABS: Appearance/Body Fluid CLOUDY; Color/Body Fluid PINK; Source- Body Fluid BRONCHIAL LAVAGE
[2024-02-07 13:15] LABS: White Blood Count/Body Fluid 310 /mm3
[2024-02-07 13:16] LABS: Red Cell Count/Body Fluid 2770 /mm3
[2024-02-07 13:45] LABS: Acid Fast Stain SEE PATHOLOGY REPORT; Cytology, Body Fluid / CSF SEE PATHOLOGY REPORT
[2024-02-07 14:09] LABS: Lymphocytes 2 %; Neutrophil (Segs) 98 %
[2024-02-07 14:12] LABS: Body Fluid QC Type(s) BF1Q
[2024-02-07] MEDS: Jevity 1.5 1,000 ML 50 ML GT (17:12)
--- NOTE | 2024-02-07 18:35 | RAD_ITS ---
STUDY: X-RAY CHEST REASON FOR EXAM: Female, 63 years old. ETT placement verification TECHNIQUE: AP portable COMPARISON: None. FINDINGS: Diffuse bilateral perihilar interstitial infiltrates or pulmonary edema. There is no demonstrated pleural abnormality. Endotracheal tube noted with tip 4 cm proximal to real. Mediport catheter seen on the left with tip in the mid superior vena cava Normal size heart. Normal mediastinum and ochoa. Normal visualized pulmonary arteries. Normal visualized aortic arch and descending thoracic aorta. Normal visualized thoracic spine. Normal visualized ribs, clavicles, and shoulders. There is no demonstrated abnormality of the visualized soft tissue structures of the upper abdomen. There is slightly worsening airspace disease in the left lung since prior exam RAD/Chest 1 View (Portable) IMPRESSION: Diffuse bilateral perihilar infiltrates or pulmonary edema worse on the right. Endotracheal tube placement with tip approximately 4.1 cm proximal to real Electronically Signed: Miguel Osorio MD at 19:29 EST Reading Location ID and State: [address] [place] [address] Tel , Service support ,
[2024-02-07] MEDS: fentaNYL drip 100 ML 20 MCG CONT INF (22:06)
[2024-02-07 22:48] LABS: Vancomycin, Trough Level 16.7 ug/mL (5.0-15.0)
--- NOTE | 2024-02-07 23:31 | PCM.RX.CS ---
Consult Antibiotic Management Pharmacy has been consulted to manage selected antibiotic: Vancomycin Type of Intervention Type of Consult: Follow-up Labs Labs: Sodium 144 mmol/L (136-145) 02/07/24 05:54 Potassium 4.4 mmol/L (3.5-5.1) 02/07/24 05:54 Chloride 114 mmol/L (98-107) H 02/07/24 05:54 Carbon Dioxide 25.0 mmol/L (21.0-32.0) 02/07/24 05:54 Anion Gap 5 (5-15) 02/07/24 05:54 BUN 24 mg/dL (7-18) H 02/07/24 05:54 Creatinine 0.83 mg/dL (0.55-1.02) 02/07/24 05:54 Est GFR (MDRD) Af Amer 89 mL/min (>60) 02/07/24 05:54 Est GFR (MDRD) Non-Af 74 mL/min (>60) 02/07/24 05:54 BUN/Creatinine Ratio 29.0 RATIO (10-20) H 02/07/24 05:54 Glucose 153 mg/dL (74-106) H 02/07/24 05:54 Vancomycin Trough 16.7 ug/mL (5.0-15.0) H 02/07/24 22:25 Microbiology Microbiology: Microbiology 02/06/24 10:53 Mucosa - Nasopharyngeal Respiratory Panel (PCR) - Final 02/06/24 21:42 Sputum, Induced/Lukens Gram Stain - Final 02/07/24 10:45 Mucosa - Nasopharyngeal SARS-CoV-2, Influenza & RSV (PCR) - Final 02/06/24 17:03 Urine, Clean Catch Legionella Antigen - Final 02/06/24 17:03 Urine, Clean Catch Streptococcus pneumoniae Antigen (M - Final 02/04/24 09:42 Urine, Catheterized Urine Culture - Final Streptococcus agalactiae (B) Goal Trough Goal Trough: 15-20 mcg/mL Pharmacy Plan for Drug Dosing Pharmacy Plan for Drug Dosing: Pharmacy Service will continue to monitor and adjust dosing as required. TROUGH 16.7 @ 10.5 HOURS. NO CHANGES, FOLLOW UP TROUGH IN 2 DAYS Follow-Up Labs Follow-Up Labs: Trough: Vancomycin Date/Time Labs Ordered Labs to be done on [date and time ordered]: 02/08 @ 9802
[2024-02-08] VITALS (46 sets, daily range): BP systolic 77–132; BP diastolic 41–95; PULSE 90–112; RESP 12–28; TEMP 36.6–38.3; O2SAT 82–100; BMI 33.0
[2024-02-08] MEDS: Vancomycin HCl 1,250 MG in 0.9% Normal Saline (250mL Bag) 250 ML 167 MG IV ×2 (00:49→12:36)
[2024-02-08] MEDS: Norepinephrine 8 MG in 0.9% Normal Saline (250mL Bag) 242 ML 9.4 MG CONT INF (01:00)
[2024-02-08] MEDS: Propofol 10MG/Ml 1,000 MG/100 ML Bottle 4.8 MG CONT INF (01:00)
[2024-02-08] MEDS: fentaNYL drip 100 ML 20 MCG CONT INF (03:06)
[2024-02-08] MEDS: Ipratropium/Albuterol Sulfate 3 ML AMPUL.NEB INHALATION ×3 (06:40→19:10)
[2024-02-08] MEDS: Propofol 10MG/Ml 1,000 MG/100 ML Bottle 16.8 MG CONT INF (07:37)
[2024-02-08] MEDS: Piperacil/Tazobactam 3.375 GM in 0.9% Normal Saline (50mL MB+) 50 ML IV ×3 (07:56→21:15)
--- NOTE | 2024-02-08 08:16 | PCM.PN.INT ---
Assessment & Plan Assessment/Plan (1) Hypoxemia: (2) ARDS (adult respiratory distress syndrome): PLAN: Plan RECOMMENDATIONS: 1. Continue antimicrobial therapy per ID recommendations. 2. Continue vasopressor support to maintain a mean arterial pressure at or above 65 mmHg. 3. Continue assist-control mode mechanical ventilation. Wean FiO2 and PEEP as tolerated. 4. In light of clinical decompensation, will initiate cis atracurium. 5. Administer IV Lasix as ordered. 6. Obtain follow-up chest x-ray and ABG. 7. Hold tube feeding for now. 8. Continue PPI therapy as ordered. 9. Continue Granix. 10. Continue propofol, fentanyl and Precedex for sedation. 11. Goals of care discussion with the patient's family. IMPRESSIONS: 1. 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 The patient has gone on to develop fulminant ARDS and decompensated from a respiratory perspective on February 06, requiring intubation. She continues to have high ventilator requirements. Ultimately, the patient was initiated on cis atracurium. Will obtain follow-up ABG this afternoon. She will be continued on empiric antibiotics per ID recommendations. Bronchoscopy was completed on February 06 with cultures pending. Goal to wean FiO2 and PEEP to maintain saturations at or above 90%. Echocardiogram also be completed today. 2. Septic shock Clinical concern for underlying bacterial pneumonia. Respiratory viral workup has been unrevealing. The patient remains on empiric broad-spectrum antimicrobials per ID recommendations. Continue vasopressor support to maintain a mean arterial pressure at or above 65 mmHg. 3. Pancytopenia Continue to monitor blood counts for now. Plan to transfuse if hemoglobin once again drops below 7 g/dL. Continue PPI therapy along with scheduled Granix. 4. History of tonsillar squamous cell carcinoma/pancytopenia/prior tobacco abuse history/high risk for aspiration Complicates care, management, recovery and prognosis. Continue supportive measures as noted above. Continue nutritional support via G-tube. TIME: 80 minutes of critical care time, independent of procedures, was spent addressing the patient's acute hypoxemic respiratory failure, septic shock, pancytopenia, review of all data and collaboration with the care team. Subjective Subjective The patient was seen and examined at the bedside this morning. Events from the last 24 hours have been reviewed. The patient is currently afebrile. Overnight, the patient had a significant amount of ventilator dyssynchrony, which required the transition from Precedex to propofol. The patient remained somewhat dyssynchronous this morning with the ventilator. Therefore, additional changes were made to her settings to improve synchrony. As a consequence of being initiated on propofol, the patient became hypotensive and required the initiation of Levophed at 5 mcg/min. She is overall net positive from a volume perspective for the hospitalization. The patient's repeat chest imaging is consistent with fulminant ARDS. Follow-up ABG from this morning demonstrated a pH of 7.37 with a pCO2 of 38 and pO2 of 62. The patient's hemoglobin has improved to 8.0 g/dL this morning. Platelet count has also improved to 66,000. Creatinine has mildly increased to 1.05. At approximately 11:30 AM, I was notified by nursing staff that the patient had acutely decompensated with worsening hypoxemia and clinical instability. Stat chest x-ray was ordered. The patient was notably dyssynchronous with the ventilator. She was hypoxemic despite being on 100% FiO2 and a PEEP of 12. Therefore, the decision was made to initiate cis atracurium. The patient's family was notified of the clinical decompensation. Objective Data Objective Data The patient's most recent lab work, culture data and imaging studies have all been personally reviewed. Strep and urine Legionella antigens were negative. Blood and sputum cultures are pending. COVID, influenza and RSV PCR's were negative. Vital Signs: Vital Signs Temp Pulse Resp BP Pulse Ox O2 Del Method O2 Flow Rate 98.6 F 92 28 H 85/49 L 89 Mechanical Ventilator 8 02/07/24 22:00 02/08/24 00:30 02/08/24 00:30 02/08/24 01:00 02/08/24 00:30 02/08/24 00:00 02/06/24 16:11 FiO2 75 02/08/24 00:00 Oxygen Flow Rate (L/min) 8 Oxygen Delivery Method Mechanical Ventilator Weight: 176 lb 2.389 oz Body Mass Index (BMI) 31.1 Intake & Output: Intake and Output for Last 24 Hours 02/06/24 02/07/24 02/08/24 23:59 23:59 23:59 Intake Total 3356.13 / 3518.06 4056.91 / 4255.31 617.16 / 617.16 Output Total 480 / 640 755 / 755 150 / 150 Balance 2876.13 / 2878.06 3301.91 / 3500.31 467.16 / 467.16 Medical Nutrition Assessment Dietitian: Malnutrition Criteria Met Start: 02/05/24 09:52 Freq: Status: Active Protocol: Document 02/05/24 09:52 LO (Rec: 02/05/24 09:52 LO [id number]) Nutrition Malnutrition Evidence of Malnutrition Exists Yes Malnutrition (severe): Acute Illness/Injury Evidenced By Suboptimal Energy Intake ( Severe),Weight Loss (Severe) Clinical Problem Acute Disease or Injury Related Malnutrition Etiology severe related to dysphagia and decreased appetite Signs/Symptoms as evidenced by 9.1kg (10.7%) weight loss in 1 month and PO /PEG nutrition needs meeting < 75% of estimated nutrition needs for 2-3 weeks Status Active Problem Recommendation Dietitian Recommendations/Changes Recommend Jevity 1.5 at 50mL/ hr goal rate and 150mL water flush 6x daily to meet estimated nutrition needs. Initiate at 20ml/hr and advance by 15mL every 4-8 hours as tolerated to goal rate. Once tolerance of tube feeds is established at goal rate, will tranition to nocturnal or bolus tube feeds for homegoing. RDN will follow for home going enteral nutrition needs. Lab / Micro Data Attestation: I reviewed the patient's lab results. 02/08/24 09:20 02/08/24 09:20 Labs: Laboratory Results - last 24 hr 02/04/24 12:57: Blood Type A POSITIVE, Antibody Screen NEGATIVE, Crossmatch See Detail 02/07/24 05:54: Immature Gran % (Auto) BLOCK BREAKER OPERATOR, Neut % (Auto) BLOCK BREAKER OPERATOR, Lymph % (Auto) BLOCK BREAKER OPERATOR, [place] % (Auto) BLOCK BREAKER OPERATOR, Eos % (Auto) BLOCK BREAKER OPERATOR, Baso % (Auto) BLOCK BREAKER OPERATOR, Absolute Neuts (auto) 0.1 L, Absolute Lymphs (auto) 0.02 L, Total Counted 25, Neutrophils % (Manual) 24 L, Lymphocytes % (Manual) 8 L, Monocytes % (Manual) 68 H, Diff Path Review July foll, RBC Morphology N CHROM 02/07/24 12:19: Fluid Source BRONCHIAL LAVAGE, Fluid Color PINK, Fluid Appearance CLOUDY, Fluid WBC 310, Fluid RBC 2770, Fluid Tot Cell Count TNP, Fluid Neutrophils 98, Fluid Lymphocytes 2, Fl Pathologist Comment May follow, Fluid Comment 2 Not Reportable 02/07/24 22:25: Vancomycin Trough 16.7 H Micro: Microbiology 02/04/24 09:23 Blood Culture (Wb) - Port Blood Culture - Preliminary No growth in 48 hours. 02/04/24 11:11 Blood Culture (Wb) - Line Draw Blood Culture - Preliminary No growth in 48 hours. 02/06/24 10:53 Mucosa - Nasopharyngeal Respiratory Panel (PCR) - Final 02/06/24 21:42 Sputum, Induced/Lukens Gram Stain - Final 02/07/24 10:45 Mucosa - Nasopharyngeal SARS-CoV-2, Influenza & RSV (PCR) - Final 02/06/24 17:03 Urine, Clean Catch Legionella Antigen - Final 02/06/24 17:03 Urine, Clean Catch Streptococcus pneumoniae Antigen (M - Final 02/04/24 09:42 Urine, Catheterized Urine Culture - Final Streptococcus agalactiae (B) ABG Data ABG results: ABG 02/06/24 02/06/24 02/06/24 16:35 20:50 23:10 Specimen Type ART ART ART Sample Site R Radial L Radial L Radial pH 7.42 7.39 7.40 Bicarbonate Actual 23.5 22.9 22.8 Total CO2 25 24 24 Base Excess -1 -2 -2 O2 Saturation 99 96 95 O2 % 15.0 40.0 60.0 ABG pCO2 36.6 37.9 37.3 ABG pO2 130 H 80 76 Bogdan Test Positive N/A N/A Respiration Rate 16 O2 Delivery Device Cannula BiPAP Adult Vent Vent Mode Not entered Not entered AC Tidal Volume 450.0 POC PEEP 8 5 Radiography Diagnostic Testing: Radiology Impression Chest X-Ray 02/07/24 11:55 IMPRESSION: Unresolved severe consolidation throughout the entire right lung with a trace pleural effusion Electronically Signed: Gabriele Gimenez MD at 13:25 EST Reading Location ID and State: [facility] / [place] , Service support , Chest X-Ray 02/07/24 18:35 IMPRESSION: Diffuse bilateral perihilar infiltrates or pulmonary edema worse on the right. Endotracheal tube placement with tip approximately 4.1 cm proximal to real Electronically Signed: Miguel Osorio MD at 19:29 EST , Rhythm Strip Rhythm Strip: Sinus Tach Rate: 108 Ectopy: None Physical Exam Const Constitutional Narrative: The patient is currently intubated, sedated and mechanically ventilated. Occasional ventilator dyssynchrony noted, improved following vent changes General Appearance: in distress and ill appearing HEENT normocephalic and head/scalp atraumatic Mouth: endotracheal tube in place Eyes EOMs intact bilaterally and conjunctivae normal Neck supple General: trachea midline Chest inspection of chest normal Chest Narrative: Stable left sided chest wall port. Resp Effort and Inspection: tachypneic Auscultation: rhonchi and diminished lung sounds; Negative for wheezes Cardio S1 normal heart sound and S2 normal heart sound Rate: tachycardic GI normal to inspection, nondistended, normoactive bowel sounds Inspection: GI tube present Extremity no clubbing, cyanosis or edema Skin no rashes or lesions noted Neuro Sensorium / Orientation: sedated on vent Charges/Coding Procedures Hospitalists Procedures: 35005 Critical Care 1st Hr Multi Select Codes Hospitalists' Procedures Procedures: 46814 Critical Care Addl 30 Min
--- NOTE | 2024-02-08 08:18 | PCM.PN.HOSP ---
Reason for Visit Reason for Visit: Diagnoses Sepsis, unspecified organism (02/04/24) Malignant neoplasm of tonsil, unspecified (02/04/24) Neutropenia, unspecified (02/04/24) Pneumonia, unspecified organism (02/04/24) Acute kidney failure, unspecified (02/04/24) Hypoxemia (02/04/24) Transient alteration of awareness (02/04/24) Fever presenting with conditions classified elsewhere (02/04/24) Objective Data Objective Data Vital Signs: Vital Signs Temp Pulse Resp BP Pulse Ox O2 Del Method O2 Flow Rate 98.6 F 92 28 H 85/49 L 89 Mechanical Ventilator 8 02/07/24 22:00 02/08/24 00:30 02/08/24 00:30 02/08/24 01:00 02/08/24 00:30 02/08/24 00:00 02/06/24 16:11 FiO2 75 02/08/24 00:00 Oxygen Flow Rate (L/min) 8 Oxygen Delivery Method Mechanical Ventilator Weight: 176 lb 2.389 oz Body Mass Index (BMI) 31.1 Intake & Output: Intake and Output for Last 24 Hours 02/06/24 02/07/24 02/08/24 23:59 23:59 23:59 Intake Total 3356.13 / 3518.06 4056.91 / 4255.31 617.16 / 617.16 Output Total 480 / 640 755 / 755 150 / 150 Balance 2876.13 / 2878.06 3301.91 / 3500.31 467.16 / 467.16 Medical Nutrition Assessment Dietitian: Malnutrition Criteria Met Start: 02/05/24 09:52 Freq: Status: Active Protocol: Document 02/05/24 09:52 (Rec: 02/05/24 09:52 [id number]) Nutrition Malnutrition Evidence of Malnutrition Exists Yes Malnutrition (severe): Acute Illness/Injury Evidenced By Suboptimal Energy Intake ( Severe),Weight Loss (Severe) Clinical Problem Acute Disease or Injury Related Malnutrition Etiology severe related to dysphagia and decreased appetite Signs/Symptoms as evidenced by 9.1kg (10.7%) weight loss in 1 month and PO /PEG nutrition needs meeting < 75% of estimated nutrition needs for 2-3 weeks Status Active Problem Recommendation Dietitian Recommendations/Changes Recommend Jevity 1.5 at 50mL/ hr goal rate and 150mL water flush 6x daily to meet estimated nutrition needs. Initiate at 20ml/hr and advance by 15mL every 4-8 hours as tolerated to goal rate. Once tolerance of tube feeds is established at goal rate, will tranition to nocturnal or bolus tube feeds for homegoing. RDN will follow for home going enteral nutrition needs. Lab / Micro Data 02/07/24 05:54 02/07/24 05:54 Labs: Laboratory Results - last 24 hr 02/04/24 12:57: Blood Type A POSITIVE, Antibody Screen NEGATIVE, Crossmatch See Detail 02/07/24 05:54: Immature Gran % (Auto) BRICK SETTER OPERATOR, Neut % (Auto) BRICK SETTER OPERATOR, Lymph % (Auto) BRICK SETTER OPERATOR, [place] % (Auto) BRICK SETTER OPERATOR, Eos % (Auto) BRICK SETTER OPERATOR, Baso % (Auto) BRICK SETTER OPERATOR, Absolute Neuts (auto) 0.1 L, Absolute Lymphs (auto) 0.02 L, Total Counted 25, Neutrophils % (Manual) 24 L, Lymphocytes % (Manual) 8 L, Monocytes % (Manual) 68 H, Diff Path Review May foll, RBC Morphology N CHROM 02/07/24 12:19: Fluid Source BRONCHIAL LAVAGE, Fluid Color PINK, Fluid Appearance CLOUDY, Fluid WBC 310, Fluid RBC 2770, Fluid Tot Cell Count TNP, Fluid Neutrophils 98, Fluid Lymphocytes 2, Fl Pathologist Comment May follow, Fluid Comment 2 Not Reportable 02/07/24 22:25: Vancomycin Trough 16.7 H Micro: Microbiology 02/04/24 09:23 Blood Culture (Wb) - Port Blood Culture - Preliminary No growth in 48 hours. 02/04/24 11:11 Blood Culture (Wb) - Line Draw Blood Culture - Preliminary No growth in 48 hours. 02/06/24 10:53 Mucosa - Nasopharyngeal Respiratory Panel (PCR) - Final 02/06/24 21:42 Sputum, Induced/Lukens Gram Stain - Final 02/07/24 10:45 Mucosa - Nasopharyngeal SARS-CoV-2, Influenza & RSV (PCR) - Final 02/06/24 17:03 Urine, Clean Catch Legionella Antigen - Final 02/06/24 17:03 Urine, Clean Catch Streptococcus pneumoniae Antigen (M - Final 02/04/24 09:42 Urine, Catheterized Urine Culture - Final Streptococcus agalactiae (B) Radiography Diagnostic Testing: Radiology Impression Chest X-Ray 02/07/24 11:55 IMPRESSION: Unresolved severe consolidation throughout the entire right lung with a trace pleural effusion Electronically Signed: Gabriele Gimenez MD at 13:25 EST , Chest X-Ray 02/07/24 18:35 IMPRESSION: Diffuse bilateral perihilar infiltrates or pulmonary edema worse on the right. Endotracheal tube placement with tip approximately 4.1 cm proximal to real Electronically Signed: Miguel Osorio MD at 19:29 EST , Rhythm Strip Rhythm Strip: Sinus Tach Rate: 108 Ectopy: None Physical Exam Narrative Seen and examined. In ICU patient on vent support FiO2 95%, PEEP 10. VT 450 mL, 6 mL/kg body weight as per ARDS protocol. She has worsening FiO2/PaO2 ratio, less than 100. Levophed drip was started yesterday night. . Physical exam General: Intubated and sedated on fentanyl and propofol drip. HEENT: Atraumatic, PERRLA, EOMI, Normocephalic Oral: ET tube Neck: Supple, No JVD, Negative Carotid Bruits Chest wall/Lungs: Upper chest wall skin dry, and radiation changes. Air entry diminished in bilateral lung bases. Cardiovascular: Sinus rhythm,. On vasopressor, No M/G/R Abdomen: Bowel Sounds sluggish, Soft, Non Tender, Non-Distended : Pool catheter. Dark-colored urine no renal angle tenderness. No suprapubic tenderness. Extremities: No edema, Capillary Refill Less than 3 Seconds Skin: No rashes, No breakdown Musculoskeletal: No Tenderness to Palpation of Joints or Extremities. Muscle strength 4/5 at major Neurological: intubated/sedated no acute focal neurological deficit. Psych/Mental Status: Flat affect Assessment & Plan Assessment/Plan (1) Acute kidney injury: (2) Altered level of consciousness: (3) Right lower lobe pneumonia: (4) Right upper lobe pneumonia: PLAN: Plan 63-year-old female was admitted with altered level of consciousness for 4 days prior to admission. Denies nausea, vomiting or diarrhea. No documented fever or recent fall at home. 1.SIRS due to Right sided pneumonia with multiple rounded opacities with suspicion of ARDS: Chest x-ray reviewed which shows extensive 100 areas opacification in the right lung. CT chest with IV contrast done but report pending. Images individually reviewed and shows diffuse right lung alveolar opacities and groundglass opacity. It also shows left lower lobe opacity. ID and cannery tender engineer consulted. Currently on vancomycin Zosyn and azithromycin. Sputum culture are ordered. Triple PCR for SARS-CoV-2, flu and RSV are negative negative on 01/20. Urine culture shows strep group B and mixed gram-positive organism. Respiratory panel and blood cultures are pending Patient does not have chest pain but short of breath, tachycardia, tachypnea and mild hypoxia Possible ARDS: 1. Onset of symptoms within 1 week, bilateral opacities, right more than left with groundglass opacities and consolidation and noncardiogenic edema. FiO2/PaO2 ratio 126. Patient undergoing echo. Discussed with the cannery tender engineer. Plan for possible bronchoscopy 02/07: Discussed with Dr. Mitchell. Patient had bronchoscopy with BAL done yesterday. On high FiO2, PEEP with vent dyssynchrony. She is Precedex was changed to propofol. Hypotension, probably septic shock from bilateral pneumonia: On Levophed drip 2. Pancytopenia with severe neutropenia, normocytic normochromic severe anemia and thrombocytopenia due to recent chemotherapy: Hemoglobin 7.2, WBC 0.4K, ANC 0.3K, ALC 0.06K, platelet count 91K. Started on Granix. 12/07: Worsening of pancytopenia. WBC 0.3K, ANC 0.2K, H&H 6.2/19 and platelet count 54K. Monitor PRBC ordered. 3. 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 She has a PEG tube in for nutrition, will consult dietitian ? She is undergoing chemoradiation with low-dose cisplatin ? Her last dose of cisplatin was on 01/30/2024, which was her last dose of chemotherapy and she has 5 more days of radiation ? 02/05 on oral exam: Base of tongue and posterior pharynx are raw and ulcerated. 02/06: Discussed with the Radiotherapist, Dr. Plasencia. She has cancer involving tonsil and soft palate and was able to protect her airway and clear the mucus before but recently had PEG tube placement for nutrition and pain. 4. .Anxiety/depression ? Anxious and depressed ? Continue her home medications DVT: SCDs Charges/Coding Visit Charges Inpatient E&M: 35920 Subs Hosp L3
--- NOTE | 2024-02-08 09:20 | RAD_ITS ---
STUDY: X-RAY CHEST REASON FOR EXAM: Female, 63 years old. increase O2 demand TECHNIQUE: Single AP portable view of the chest. COMPARISON: February 07, 2024 FINDINGS: 1. Stable endotracheal tube 2. Stable left chest port and catheter 3. Interval worsening of consolidation of the left upper lobe which is now severe. No change in left lower lobe severe consolidation 4. No change in severe consolidation throughout the entire right lung 5. Trace bilateral pleural effusions are present 6. Top normal heart size 7. No pneumothorax is present 8. Stable mediastinum and osseous structures There is no demonstrated abnormality of the visualized soft tissue structures of the upper abdomen. RAD/Chest 1 View (Portable) IMPRESSION: Interval worsening of consolidation of the left upper lobe which is now severe. No change in left lower lobe severe consolidation Electronically Signed: Gabriele Gimenez MD at 10:21 EST ,
--- NOTE | 2024-02-08 09:21 | ECHOCS_ITS ---
Reason For Study: SHORTNESS OF BREATH Procedure This was a 2D Doppler, Color Flow transthoracic echocardiogram. The patient was scanned supine. The study was technically difficult. Contrast injection was performed. Patient was on a ventillator during exam. Exam performed portable in ICU/CCU. Left Ventricle Normal LV size. The estimated ejection fraction is 65 %. No evidence for diastolic dysfunction. No regional wall motion abnormalities noted. Right Ventricle Mildly dilated right ventricle. Mildly decreased right ventricular systolic function. Atria The left and right atria are normal. No doppler evidence for ASD. Mitral Valve There is mild mitral annular calcification. There is no mitral valve stenosis. No mitral valve insufficiency. Tricuspid Valve There is no tricuspid stenosis. Mild tricuspid valve insufficiency. Pulmonary artery systolic pressure is 45 mmHg. Aortic Valve Trisinus/trileaflet aortic valve. There is no aortic stenosis. No aortic valve insufficiency. Pulmonic Valve There is no pulmonic valvular stenosis. Trivial pulmonic valve insufficiency. Great Vessels Normal aortic root. Pericardium/Pleural No pericardial effusion. Medication Diluted definity 2ml given slow IV push to enhance endocardial definition. MMode/2D Measurements & Calculations LVIDd: 3.4 cm IVSd: 1.7 cm LVOT diam: 1.9 cm LVIDs: 1.9 cm LVPWd: 1.3 cm RVDd: 3.4 cm FS: 43.8 % LVOT area: 2.7 cm2 asc Aorta Diam: 2.8 cm LAV(MOD-bp): 31.6 ml LVAd ap4: 18.4 cm2 LAV(MOD-bp) Indexed: 17.2 ml/m2 LVLd ap4: 6.3 cm LAV(MOD-sp2): 45.4 ml EDV(MOD-sp4): 43.9 ml LAV(MOD-sp4): 20.5 ml EDV(sp4-el): 46.2 ml LVAs ap4: 11.9 cm2 LVLs ap4: 5.5 cm ESV(MOD-sp4): 20.1 ml ESV(sp4-el): 21.6 ml EF(MOD-sp4): 54.2 % EF(sp4-el): 53.2 % LVAd ap2: 23.5 cm2 SV(MOD-sp4): 23.8 ml SV(MOD-sp2): 34.5 ml LVLd ap2: 7.5 cm SI(MOD-sp4): 13.0 ml/m2 SI(MOD-sp2): 18.8 ml/m2 EDV(MOD-sp2): 59.8 ml EDV(sp2-el): 62.6 ml LVAs ap2: 13.6 cm2 LVLs ap2: 5.9 cm ESV(MOD-sp2): 25.3 ml ESV(sp2-el): 26.8 ml EF(MOD-sp2): 57.6 % SV(sp4-el): 24.6 ml Ao sinus diam: 2.[address] Junction: 2.2 cm LA dimension(2D): 3.5 cm LA A4 area: 11.0 cm2 RA A4 area: 13.4 cm2 TAPSE: 1.6 cm Time Measurements MV dec time: 0.14 sec Doppler Measurements & Calculations MV E max augusto: 73.2 cm/sec Lat Peak E' Augusto: 10.0 cm/sec Med Peak E' Augusto: 5.4 cm/sec MV A max augusto: 69.5 cm/sec E/E' lat: 7.3 E/E' med: 13.6 MV E/A: 1.1 MV dec slope: 533.7 cm/sec2 Ao V2 max: 172.6 cm/sec LV V1 max: 95.1 cm/sec Ao max P.9 mmHg LV V1 max P.6 mmHg Ao V2 mean: 131.0 cm/sec LV V1 mean P.3 mmHg Ao mean P.3 mmHg LV V1 mean: 74.3 cm/sec Ao V2 VTI: 22.8 cm LV V1 VTI: 13.8 cm AV (velocity ratio): 0.60 AROLDO(I,D): 1.7 cm2 AROLDO(V,D): 1.5 cm2 SV(LVOT): 37.7 ml PA V2 max: 92.2 cm/sec TR max augusto: 315.2 cm/sec TR max P.7 mmHg ECHO/Echo Complete W/ Contrast Interpretation Summary The estimated ejection fraction is 65 %. No evidence for diastolic dysfunction. Mildly dilated right ventricle. Mildly decreased right ventricular systolic function Ordering Physician: Moise Mitchell Performed By: Taylor Clifford RDCS
[2024-02-08 09:36] LABS: Absolute Lymphocyte Count 0.13 X10^3/uL (0.83-4.51); Absolute Neutrophil Count 0.5 X10^3/uL (2.0-7.7); Basophil# 0.02 X10^3/uL; Basophil% 2.7 % (0-1); Eosinophil# 0.01 X10^3/uL; Eosinophils% 1.4 % (0-5); Hematocrit 24.4 % (37-47); Lymphocyte # 0.13 X10^3/ul (0.83-4.51); Lymphocyte % 17.6 % (19-41); Mean Corp Hgb Conc 32.8 g/dL (32-36); Mean Corpuscular Hgb 29.5 pg (27.0-32.0); Mean Platelet Vol. 11.4 fl (6.2-12.0); Monocyte# 0.11 X10^3/uL; Monocyte% 14.9 % (0-10); NRBC Flagged by Analyzer 8.1 % (0-5); Neutrophil # 0.47 X10^3/uL (2.7-7.7); Neutrophil % 63.4 % (47-70); POSITIVE COUNT YES; POSITIVE DIFFERENTIAL YES; POSITIVE MORPHOLOGY YES; Platelet Count 66 K/mm3 (150-450); RBC Distribution Width CV 16.6 % (11.6-14.6); RBC Distribution Width SD 51.8 fl (35.1-43.9); Red Blood Count 2.71 M/mm3 (4.2-5.4)
[2024-02-08 09:48] LABS: White Blood Count 0.7 K/mm3 (4.4-11.0)
[2024-02-08 09:49] LABS: Differential Indicated SCAN CRITERIA MET
[2024-02-08 09:53] LABS: Base Excess -4 mmol/L (-2 to +2); Bicarbonate 21.8 mmol/L (22-26); Blood Gas Specimen Type ART; Mode AC; O2 Delivery Device Adult Vent; PEEP 12; PO2 62 mmHG (75-100); RR 12; SITE R Brach; SO2 91 % (95-99); Total Carbon Dioxide 23 mmol/L; pH 7.37 (7.35-7.45)
[2024-02-08] MEDS: Pantoprazole Sodium 40 MG in 0.9% Normal Saline (100mL MB+) 100 ML 330 MG IV ×2 (09:54→21:14)
[2024-02-08 10:01] LABS: ALB/GLOB Ratio 0.4 RATIO (0.9-2.4); AST(SGOT) 58 U/L (15-37); Alanine Aminotransfer ALT/SGPT 47 U/L (13-56); Albumin, Serum 1.5 g/dL (3.2-5.0); Alkaline Phosphatase 148 U/L (45-117); Anion Gap 6 (5-15); BUN 32 mg/dL (7-18); BUN/Creat Ratio 30.5 RATIO (10-20); Calcium,Total 8.8 mg/dL (8.5-10.1); Chloride 115 mmol/L (98-107); Creatinine, Serum 1.05 mg/dL (0.55-1.02); EST Glomerular Filtration Rate 56 mL/min (>60); Est Glom Filt Rate - Afr Amer 68 mL/min (>60); Estimated Creatinine Clearance 53.46 ml/min; Globulin 3.9 g/dL (2.2-4.2); Glucose 131 mg/dL (74-106); Potassium 3.7 mmol/L (3.5-5.1); Protein, Total 5.4 g/dL (6.4-8.2); Sodium Level 144 mmol/L (136-145)
[2024-02-08 10:40] LABS: BNP,B-Type NATRIURETIC PEPTIDE 190.5 pg/mL (0-100)
[2024-02-08] MEDS: QUEtiapine 25 MG Tablet GT ×2 (10:52→21:22)
[2024-02-08] MEDS: Chlorhexidine 15 ML PO ×2 (10:52→21:15)
[2024-02-08] MEDS: TBO-FILGRASTIM 300 MCG/0.5 ML ML SC (10:53)
[2024-02-08] MEDS: NYSTATIN 500,000 UNIT/5 ML UDC 500000 UNIT PO ×4 (10:53→21:23)
[2024-02-08] MEDS: FLUoxetine 20 MG Capsule 60 MG PO (10:53)
[2024-02-08] MEDS: Azithromycin 500 MG in Dextrose 5%-Water (250mL Bag) 250 ML 250 MG IV (10:54)
[2024-02-08] MEDS: fentaNYL drip 100 ML 15 MCG CONT INF (11:09)
[2024-02-08 11:33] LABS: Platelet Estimate MOD DEC (ADEQ)
--- NOTE | 2024-02-08 11:55 | RAD_ITS ---
STUDY: X-RAY CHEST REASON FOR EXAM: Female, 63 years old. respiratory distress TECHNIQUE: Single AP portable view of the chest. COMPARISON: February 08, 2024 FINDINGS: 1. Stable endotracheal tube and left chest port catheter 2. No pneumothorax is present 3. Unresolved severe bilateral consolidation and pulmonary edema with small bilateral pleural effusions 4. No change in mild cardiomegaly 5. Stable mediastinum and osseous structures There is no demonstrated abnormality of the visualized soft tissue structures of the upper abdomen. RAD/Chest 1 View (Portable) IMPRESSION: No change in severe bilateral consolidation Electronically Signed: Gabriele Gimenez MD at 13:05 EST ,
[2024-02-08] MEDS: Propofol 10MG/Ml 1,000 MG/100 ML Bottle 24 MG CONT INF ×3 (11:57→20:30)
[2024-02-08] MEDS: Succinylcholine Chloride 200 MG/10 ML SYRINGE 100 MG IV (12:06)
[2024-02-08] MEDS: Furosemide 40 MG/4 ML Vial IV (12:10)
[2024-02-08 12:25] LABS: Procalcitonin 0.86 ng/mL (0.00-0.09)
[2024-02-08] MEDS: Cisatracurium *PARALYTIC 100 MG in 0.9% Normal Saline (250mL Bag) 200 ML 24 MG CONT INF (12:28)
--- NOTE | 2024-02-08 12:36 | PCM.PN.ID ---
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 Now on vent and paralytics. Mouth with diffuse mucositis on admit. Bcx ngtd. Cont current empiric broad coverage with vanc, zosyn, azithro. Bronch done, cx pending. Will follow, d/w Dr. Mitchell
[2024-02-08 14:19] LABS: Allen Test Positive; Base Excess -7 mmol/L (-2 to +2); Bicarbonate 22.8 mmol/L (22-26); Blood Gas Specimen Type ART; Mode AC; O2 Delivery Device Adult Vent; PEEP 14; PO2 102 mmHG (75-100); RR 12; SITE R Radial; SO2 95 % (95-99); Total Carbon Dioxide 25 mmol/L; pCO2 72.1 mmHg (35-45); pH 7.11 (7.35-7.45)
[2024-02-08] MEDS: dexMEDEtomidine 1,000 MCG in 0.9% Normal Saline (250mL Bag) 240 ML 28.4 MCG CONT INF (14:21)
--- NOTE | 2024-02-08 15:58 | NURSING ---
02/08/2024 1200 Patient went into respiratory distress with SpO2 in the 70s. Patient suctioned and lavaged but SpO2 remained in low 80s/ 70s. Dr. Mitchell at bedside ordered 100mg succinylcholine IV x1, lasix 40mg IV x1, chest xray, and Nimbex gtt. Dr. Mitchell also stated that it was okay to increase sedation during paralyzation while BIS monitoring was being set up. Dr. Mitchell ordered to turn off Tube feed at this time. Family called in at this time, they arrived quickly and were given update.
[2024-02-08] MEDS: fentaNYL drip 100 ML 17.5 MCG CONT INF ×2 (17:55→23:38)
[2024-02-08] MEDS: Norepinephrine 8 MG in 0.9% Normal Saline (250mL Bag) 242 ML 18.8 MG CONT INF (20:00)
--- NOTE | 2024-02-08 20:15 | NURSING ---
Patient's levophed was not fully infused at 1900. Levophed was running at 10 mcg from 1900 until the new bag was hung at 1999.
[2024-02-09] VITALS (50 sets, daily range): BP systolic 88–131; BP diastolic 44–62; PULSE 16–131; RESP 1–16; TEMP 37.9–38.2; O2SAT 88–95; BMI 32.9
[2024-02-09] MEDS: Propofol 10MG/Ml 1,000 MG/100 ML Bottle 16.8 MG CONT INF (00:45)
[2024-02-09] MEDS: Vancomycin HCl 1,250 MG in 0.9% Normal Saline (250mL Bag) 250 ML 167 MG IV ×2 (01:21→12:19)
[2024-02-09] MEDS: Cisatracurium *PARALYTIC 100 MG in 0.9% Normal Saline (250mL Bag) 200 ML 36 MG CONT INF (02:40)
[2024-02-09] MEDS: fentaNYL drip 100 ML 17.5 MCG CONT INF ×3 (05:21→18:51)
[2024-02-09] MEDS: Piperacil/Tazobactam 3.375 GM in 0.9% Normal Saline (50mL MB+) 50 ML IV (05:42)
[2024-02-09] MEDS: 0.9% Saline Lock 10 ML Syringe IV ×2 (06:54→23:31)
[2024-02-09] MEDS: TITRATION PARAMETER CHANGE 1 EACH IV (06:54)
[2024-02-09] MEDS: Ipratropium/Albuterol Sulfate 3 ML AMPUL.NEB INHALATION ×2 (06:56→19:20)
--- NOTE | 2024-02-09 08:09 | PCM.PN.INT ---
Assessment & Plan Assessment/Plan (1) Hypoxemia: (2) ARDS (adult respiratory distress syndrome): PLAN: Plan RECOMMENDATIONS: 1. Continue antimicrobial therapy per ID recommendations. 2. Continue vasopressor support to maintain a mean arterial pressure at or above 65 mmHg. 3. Continue assist-control mode mechanical ventilation. Wean FiO2 and PEEP as tolerated. 4. Continue Nimbex infusion for at least 48 hours. 5. Obtain follow-up ABG. 6. Continue PPI therapy as ordered. 7. Continue current sedation regimen. IMPRESSIONS: 1. 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 The patient has gone on to develop fulminant ARDS and decompensated from a respiratory perspective on February 06, requiring intubation. She continues to have high ventilator requirements. Ultimately, the patient was initiated on cis atracurium. Her respiratory status has since stabilized. Will plan to continue the patient's paralytic for at least an additional 24 hours. Antimicrobials will be continued per ID recommendations. Bronchoscopy was completed on February 06 with cultures pending. Goal to wean FiO2 and PEEP to maintain saturations at or above 90%. 2. Septic shock Clinical concern for underlying bacterial pneumonia. Respiratory viral workup has been unrevealing. The patient remains on empiric broad-spectrum antimicrobials per ID recommendations. Continue vasopressor support to maintain a mean arterial pressure at or above 65 mmHg. 3. Pancytopenia Continue to monitor blood counts for now. Plan to transfuse if hemoglobin once again drops below 7 g/dL. Continue PPI therapy as ordered. Granix has been completed. 4. History of tonsillar squamous cell carcinoma/pancytopenia/prior tobacco abuse history/high risk for aspiration Complicates care, management, recovery and prognosis. Continue supportive measures as noted above. TIME: 38 minutes of critical care time, independent of procedures, was spent addressing the patient's acute hypoxemic respiratory failure, septic shock, pancytopenia, review of all data and collaboration with the care team. Subjective Subjective The patient was seen and examined at the bedside this morning. Events from the last 24 hours have been reviewed. The patient currently has a low-grade fever and remains hemodynamically stable on Levophed at 10 mcg/min. The patient remains on assist-control mode of mechanical ventilation with an FiO2 requirement of 60% and PEEP of 10. She is currently sedated on propofol and fentanyl, and remains on a cis atracurium infusion. Follow-up ABG this morning demonstrated a pH of 7.23 with a pCO2 of 56 and pO2 of 80. In light of the patient's clinical decompensation and significant comorbidities, the family elected to change her CODE STATUS yesterday to DNR CCA. Objective Data Objective Data The patient's most recent lab work, culture data and imaging studies have all been personally reviewed. Strep and urine Legionella antigens were negative. Blood and sputum cultures are pending. COVID, influenza and RSV PCR's were negative. Vital Signs: Vital Signs Temp Pulse Resp BP Pulse Ox O2 Del Method O2 Flow Rate 100.6 F H 115 H 16 109/53 L 90 Mechanical Ventilator 8 02/09/24 07:00 02/09/24 07:00 02/09/24 07:00 02/09/24 07:00 02/09/24 07:00 02/09/24 07:00 02/06/24 16:11 FiO2 60 02/09/24 07:00 Oxygen Flow Rate (L/min) 8 Oxygen Delivery Method Mechanical Ventilator Weight: 186 lb 1.122 oz Body Mass Index (BMI) 32.9 Intake & Output: Intake and Output for Last 24 Hours 02/07/24 02/08/24 02/09/24 23:59 23:59 23:59 Intake Total 4056.91 / 4255.31 3913.42 / 3970.84 884.19 / 884.19 Output Total 755 / 755 1450 / 1450 300 / 300 Balance 3301.91 / 3500.31 2463.42 / 2520.84 584.19 / 584.19 Medical Nutrition Assessment Dietitian: Malnutrition Criteria Met Start: 02/05/24 09:52 Freq: Status: Active Protocol: Document 02/05/24 09:52 LO (Rec: 02/05/24 09:52 [id number]) Nutrition Malnutrition Evidence of Malnutrition Exists Yes Malnutrition (severe): Acute Illness/Injury Evidenced By Suboptimal Energy Intake ( Severe),Weight Loss (Severe) Clinical Problem Acute Disease or Injury Related Malnutrition Etiology severe related to dysphagia and decreased appetite Signs/Symptoms as evidenced by 9.1kg (10.7%) weight loss in 1 month and PO /PEG nutrition needs meeting < 75% of estimated nutrition needs for 2-3 weeks Status Active Problem Recommendation Dietitian Recommendations/Changes Recommend Jevity 1.5 at 50mL/ hr goal rate and 150mL water flush 6x daily to meet estimated nutrition needs. Initiate at 20ml/hr and advance by 15mL every 4-8 hours as tolerated to goal rate. Once tolerance of tube feeds is established at goal rate, will tranition to nocturnal or bolus tube feeds for homegoing. RDN will follow for home going enteral nutrition needs. Lab / Micro Data Attestation: I reviewed the patient's lab results. 02/08/24 09:20 02/08/24 09:20 Labs: Laboratory Results - last 24 hr 02/07/24 12:19: Acid Fast Stain SEE PATHOLOGY REPORT, Miscellaneous Cytology SEE PATHOLOGY REPORT 02/08/24 09:20: WBC 0.7 L*, RBC 2.71 L, Hgb 8.0 L, Hct 24.4 L, MCV 90.0, MCH 29.5, MCHC 32.8, RDW Std Deviation 51.8 H, RDW Coeff of Miguel 16.6 H, Plt Count 66 L, MPV 11.4, Immature Gran % (Auto) 0.000, Neut % (Auto) 63.4, Lymph % (Auto) 17.6 L, Clinch % (Auto) 14.9 H, Eos % (Auto) 1.4, Baso % (Auto) 2.7 H, Absolute Neuts (auto) 0.5 L, Absolute Lymphs (auto) 0.13 L, Nucleated RBC % 8.1 H, Differential Comment COMMENT, Diff Path Review May foll, Platelet Estimate MOD DEC, Sodium 144, Potassium 3.7, Chloride 115 H, Carbon Dioxide 23.0, Anion Gap 6, BUN 32 H, Creatinine 1.05 H, Estim Creat Clear Calc 53.46, Est GFR (MDRD) Af Amer 68, Est GFR (MDRD) Non-Af 56 L, BUN/Creatinine Ratio 30.5 H, Glucose 131 H, Calcium 8.8, Total Bilirubin 0.70, AST 58 H, ALT 47, Alkaline Phosphatase 148 H, B-Natriuretic Peptide 190.5 H, Total Protein 5.4 L, Albumin 1.5 L, Globulin 3.9, Albumin/Globulin Ratio 0.4 L 02/08/24 09:50: Procalcitonin 0.86 H Micro: Microbiology 12/03/24 12:19 Bronchial Lavage - Right Middle Lobe Gram Stain - Final 02/06/24 21:42 Sputum, Induced/Lukens Gram Stain - Final 02/06/24 21:42 Sputum, Induced/Lukens Respiratory Culture - Preliminary Culture exhibits no growth. 02/04/24 09:23 Blood Culture (Wb) - Port Blood Culture - Preliminary No growth in 48 hours. 02/04/24 11:11 Blood Culture (Wb) - Line Draw Blood Culture - Preliminary No growth in 48 hours. 02/06/24 10:53 Mucosa - Nasopharyngeal Respiratory Panel (PCR) - Final 02/07/24 10:45 Mucosa - Nasopharyngeal SARS-CoV-2, Influenza & RSV (PCR) - Final 02/06/24 17:03 Urine, Clean Catch Legionella Antigen - Final 02/06/24 17:03 Urine, Clean Catch Streptococcus pneumoniae Antigen (M - Final 02/04/24 09:42 Urine, Catheterized Urine Culture - Final Streptococcus agalactiae (B) ABG Data ABG results: ABG 02/08/24 02/08/24 09:49 14:14 Specimen Type ART ART Sample Site R Brach R Radial pH 7.37 7.11 L* Bicarbonate Actual 21.8 L 22.8 Total CO2 23 25 Base Excess -4 L -7 L O2 Saturation 91 L 95 O2 % 100.0 70.0 ABG pCO2 38.0 72.1 H* ABG pO2 62 L 102 H Bogdan Test Positive Respiration Rate 12 12 O2 Delivery Device Adult Vent Adult Vent Vent Mode AC AC Tidal Volume 450.0 450.0 POC PEEP 12 14 Crit Call To/Read Back Yes Blood Gas Notified Whom brown Blood Gas Notified Time 14:15:50 Radiography Diagnostic Testing: Radiology Impression Chest X-Ray 02/08/24 09:20 IMPRESSION: Interval worsening of consolidation of the left upper lobe which is now severe. No change in left lower lobe severe consolidation Electronically Signed: Gabriele Gimenez MD at 10:21 EST Reading Location ID and State: [facility] / [place] , Service support , Chest X-Ray 02/08/24 11:55 IMPRESSION: No change in severe bilateral consolidation Electronically Signed: Gabriele Gimenez MD at 13:05 EST Reading Location ID and State: [address] [place] [address] , Service support , Rhythm Strip Rhythm Strip: Sinus Tach Rate: 108 Ectopy: None Physical Exam Const Constitutional Narrative: The patient is currently intubated, sedated and mechanically ventilated. General Appearance: ill appearing and patient mechanically ventilated HEENT normocephalic and head/scalp atraumatic Mouth: endotracheal tube in place Eyes EOMs intact bilaterally and conjunctivae normal Neck supple General: trachea midline Chest inspection of chest normal Chest Narrative: Stable left sided chest wall port. Resp Auscultation: diminished lung sounds; Negative for rales, rhonchi or wheezes Cardio regular rate, regular rhythm, S1 normal heart sound and S2 normal heart sound GI normal to inspection, nondistended, normoactive bowel sounds Inspection: GI tube present Extremity no clubbing, cyanosis or edema Skin no rashes or lesions noted Neuro Sensorium / Orientation: sedated on vent Charges/Coding Procedures Hospitalists Procedures: 53474 Critical Care 1st Hr
[2024-02-09] MEDS: Chlorhexidine 15 ML PO ×2 (08:14→21:21)
[2024-02-09] MEDS: CHLORHEXIDINE GLUC 2% CLOTH 1 EACH TOWELETTE TOPICAL (08:15)
[2024-02-09] MEDS: TBO-FILGRASTIM 300 MCG/0.5 ML ML SC (08:17)
[2024-02-09] MEDS: FLUoxetine 20 MG Capsule 60 MG PO (08:23)
[2024-02-09] MEDS: QUEtiapine 25 MG Tablet GT ×2 (08:23→21:18)
[2024-02-09] MEDS: NYSTATIN 500,000 UNIT/5 ML UDC 500000 UNIT PO ×4 (08:23→21:17)
[2024-02-09 09:03] LABS: Pathologist Comment/Body Fluid Reviewed
[2024-02-09 09:03] LABS: Allen Test Positive; Base Excess -4 mmol/L (-2 to +2); Bicarbonate 23.6 mmol/L (22-26); Blood Gas Specimen Type ART; Mode ACVC+; O2 Delivery Device Adult Vent; PEEP 10; PO2 80 mmHG (75-100); RR 16; SITE R Radial; SO2 93 % (95-99); Total Carbon Dioxide 25 mmol/L; pCO2 56.5 mmHg (35-45); pH 7.23 (7.35-7.45)
[2024-02-09 09:06] LABS: Pathologist Review Reviewed
[2024-02-09] MEDS: Norepinephrine 8 MG in 0.9% Normal Saline (250mL Bag) 242 ML 18.8 MG CONT INF ×2 (09:57→21:16)
[2024-02-09] MEDS: Pantoprazole Sodium 40 MG in 0.9% Normal Saline (100mL MB+) 100 ML 330 MG IV ×2 (09:57→20:38)
--- NOTE | 2024-02-09 10:22 | PCM.PN.ID ---
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 Now on vent and paralytics. Mouth with diffuse mucositis on admit. Bcx ngtd. Cont current empiric broad coverage with vanc, will change zosyn to salma. Completed azithro. If fever continues, would consider CT chest/abd/pelvis and adding antifungal coverage. BAL with very rare alessandra so far. Will follow
[2024-02-09] MEDS: Azithromycin 500 MG in Dextrose 5%-Water (250mL Bag) 250 ML 250 MG IV (11:18)
[2024-02-09] MEDS: Cisatracurium *PARALYTIC 100 MG in 0.9% Normal Saline (250mL Bag) 200 ML 25.3 MG CONT INF (12:19)
[2024-02-09 14:41] LABS: Pathologist Review Reviewed
[2024-02-09] MEDS: Meropenem 1 GM in 0.9% Normal Saline (100mL MB+) 100 ML IV ×2 (14:47→21:17)
--- NOTE | 2024-02-09 15:30 | PCM.PN.HOSP ---
Reason for Visit Reason for Visit: Diagnoses Sepsis, unspecified organism (02/04/24) Malignant neoplasm of tonsil, unspecified (02/04/24) Neutropenia, unspecified (02/04/24) Pneumonia, unspecified organism (02/04/24) Acute respiratory distress syndrome (02/04/24) Acute kidney failure, unspecified (02/04/24) Hypoxemia (02/04/24) Transient alteration of awareness (02/04/24) Fever presenting with conditions classified elsewhere (02/04/24) Objective Data Objective Data Vital Signs: Vital Signs Temp Pulse Resp BP Pulse Ox O2 Del Method O2 Flow Rate 100.8 F H 105 H 16 115/54 L 92 Mechanical Ventilator 8 02/09/24 12:00 02/09/24 13:00 02/09/24 13:00 02/09/24 13:00 02/09/24 13:00 02/09/24 12:00 02/06/24 16:11 FiO2 60 02/09/24 13:00 Oxygen Flow Rate (L/min) 8 Oxygen Delivery Method Mechanical Ventilator Weight: 186 lb 1.122 oz Body Mass Index (BMI) 32.9 Intake & Output: Intake and Output for Last 24 Hours 02/07/24 02/08/24 02/09/24 23:59 23:59 23:59 Intake Total 4056.91 / 4255.31 3913.42 / 3970.84 1996.51 / 1995.51 Output Total 755 / 755 1450 / 1450 500 / 500 Balance 3301.91 / 3500.31 2463.42 / 2520.84 1496.51 / 1496.51 Medical Nutrition Assessment Dietitian: Malnutrition Criteria Met Start: 02/05/24 09:52 Freq: Status: Active Protocol: Document 02/05/24 09:52 LO (Rec: 02/05/24 09:52 LO [id number]) Nutrition Malnutrition Evidence of Malnutrition Exists Yes Malnutrition (severe): Acute Illness/Injury Evidenced By Suboptimal Energy Intake ( Severe),Weight Loss (Severe) Clinical Problem Acute Disease or Injury Related Malnutrition Etiology severe related to dysphagia and decreased appetite Signs/Symptoms as evidenced by 9.1kg (10.7%) weight loss in 1 month and PO /PEG nutrition needs meeting < 75% of estimated nutrition needs for 2-3 weeks Status Active Problem Recommendation Dietitian Recommendations/Changes Recommend Jevity 1.5 at 50mL/ hr goal rate and 150mL water flush 6x daily to meet estimated nutrition needs. Initiate at 20ml/hr and advance by 15mL every 4-8 hours as tolerated to goal rate. Once tolerance of tube feeds is established at goal rate, will tranition to nocturnal or bolus tube feeds for homegoing. RDN will follow for home going enteral nutrition needs. Lab / Micro Data 02/08/24 09:20 02/08/24 09:20 Labs: Laboratory Results - last 24 hr 02/07/24 05:54: Diff Path Review Reviewed 02/07/24 12:19: Fl Pathologist Comment Reviewed 02/08/24 09:20: Diff Path Review Reviewed Micro: Microbiology 02/04/24 11:11 Blood Culture (Wb) - Line Draw Blood Culture - Final No growth in 5 days. 02/07/24 12:19 Bronchial Lavage - Right Middle Lobe Gram Stain - Final 02/07/24 12:19 Bronchial Lavage - Right Middle Lobe Respiratory Culture - Final Presumptive C albicans 02/04/24 09:23 Blood Culture (Wb) - Port Blood Culture - Final No growth in 5 days. 02/06/24 21:42 Sputum, Induced/Lukens Gram Stain - Final 02/06/24 21:42 Sputum, Induced/Lukens Respiratory Culture - Final Culture exhibits no growth. 02/06/24 10:53 Mucosa - Nasopharyngeal Respiratory Panel (PCR) - Final 02/07/24 10:45 Mucosa - Nasopharyngeal SARS-CoV-2, Influenza & RSV (PCR) - Final 02/06/24 17:03 Urine, Clean Catch Legionella Antigen - Final 02/06/24 17:03 Urine, Clean Catch Streptococcus pneumoniae Antigen (M - Final 02/04/24 09:42 Urine, Catheterized Urine Culture - Final Streptococcus agalactiae (B) ABG Data ABG results: ABG 02/09/24 08:59 Specimen Type ART Sample Site R Radial pH 7.23 L Bicarbonate Actual 23.6 Total CO2 25 Base Excess -4 L O2 Saturation 93 L O2 % 60.0 ABG pCO2 56.5 H ABG pO2 80 Bogdan Test Positive Respiration Rate 16 O2 Delivery Device Adult Vent Vent Mode ACVC+ Tidal Volume 450.0 POC PEEP 10 Radiography Diagnostic Testing: Radiology Impression Echocardiogram 02/08/24 09:21 Interpretation Summary The estimated ejection fraction is 65 %. No evidence for diastolic dysfunction. Mildly dilated right ventricle. Mildly decreased right ventricular systolic function Ordering Physician: Moise Mitchell Performed By: Taylor Clifford RDCS Rhythm Strip Rhythm Strip: Sinus Tach Rate: 108 Ectopy: None Physical Exam Narrative Seen and examined. Patient is, cis atracurium, neuromuscular paralytic drip and she will do blood fulminant ARDS. As mentioned yesterday she was on high vent requirement, FiO2 95% PEEP 10. Currently on FiO2 60%. . Physical exam General: Intubated and sedated on fentanyl and propofol drip. Cisatracurium drip HEENT: Atraumatic, PERRLA, EOMI, Normocephalic Oral: ET tube Neck: Supple, No JVD, Negative Carotid Bruits Chest wall/Lungs: Upper chest wall skin dry, and radiation changes. Air entry diminished in bilateral lung bases. Cardiovascular: Sinus rhythm,. On vasopressor, No M/G/R Abdomen: Bowel Sounds sluggish, Soft, Non Tender, Non-Distended : Pool catheter. Dark-colored urine no renal angle tenderness. No suprapubic tenderness. Extremities: No edema, Capillary Refill Less than 3 Seconds Skin: No rashes, No breakdown Musculoskeletal: No Tenderness to Palpation of Joints or Extremities. Muscle strength 4/5 at major Neurological: intubated/sedated no acute focal neurological deficit. Psych/Mental Status: Flat affect Assessment & Plan Assessment/Plan (1) Acute kidney injury: (2) Altered level of consciousness: (3) Right lower lobe pneumonia: (4) Right upper lobe pneumonia: PLAN: Plan 63-year-old female was admitted with altered level of consciousness for 4 days prior to admission. Denies nausea, vomiting or diarrhea. No documented fever or recent fall at home. 1.acute hypoxic respiratory failure due to Right sided pneumonia with multiple rounded opacities complicating into full-blown ARDS in immunocompromised host: Chest x-ray reviewed which shows extensive 100 areas opacification in the right lung. CT chest with IV contrast done but report pending. Images individually reviewed and shows diffuse right lung alveolar opacities and groundglass opacity. It also shows left lower lobe opacity. ID and silviculture teacher consulted. Currently on vancomycin Zosyn and azithromycin. Sputum culture are ordered. Triple PCR for SARS-CoV-2, flu and RSV are negative negative on 01/20. Urine culture shows strep group B and mixed gram-positive organism. Respiratory panel and blood cultures are pending Patient does not have chest pain but short of breath, tachycardia, tachypnea and mild hypoxia Possible ARDS: 1. Onset of symptoms within 1 week, bilateral opacities, right more than left with groundglass opacities and consolidation and noncardiogenic edema. FiO2/PaO2 ratio 126. Patient undergoing echo. Discussed with the silviculture teacher. Plan for possible bronchoscopy 02/07: Discussed with Dr. Mitchell. Patient had bronchoscopy with BAL done yesterday. On high FiO2, PEEP with vent dyssynchrony. She is Precedex was changed to propofol. 02/08: Neutropenic fever. Tmax 100.8 Fahrenheit. Full-blown ARDS. High vent requirement. On neuromuscular paralytic, cisatracurium. BAL Gram stain shows presumptive Lori albicans. Blood culture negative for 5 days. Sputum culture no growth on 02/06/2024. Zosyn changed to meropenem. Vancomycin continued. Patient completed azithromycin. Hypotension, probably septic shock from bilateral pneumonia: On Levophed drip Plus/: Continue to require vasopressor support. 2. Pancytopenia with severe neutropenia, normocytic normochromic severe anemia and thrombocytopenia due to recent chemotherapy: Hemoglobin 7.2, WBC 0.4K, ANC 0.3K, ALC 0.06K, platelet count 91K. Started on Granix. 12/07: Worsening of pancytopenia. WBC 0.3K, ANC 0.2K, H&H 6.2/19 and platelet count 54K. Monitor PRBC ordered. 12/09: Immature granulocytes 0%, WBC 0.7K, ANC 0.5K. 3. 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 She has a PEG tube in for nutrition, will consult dietitian ? She is undergoing chemoradiation with low-dose cisplatin ? Her last dose of cisplatin was on 01/30/2024, which was her last dose of chemotherapy and she has 5 more days of radiation ? 02/05 on oral exam: Base of tongue and posterior pharynx are raw and ulcerated. 02/06: Discussed with the Radiotherapist, Dr. Plasencia. She has cancer involving tonsil and soft palate and was able to protect her airway and clear the mucus before but recently had PEG tube placement for nutrition and pain. 4. .Anxiety/depression ? Anxious and depressed ? Continue her home medications DVT: SCDs Microbiology Past 72 Hours 02/04/24 11:11 Blood Culture (Wb) - Line Draw Blood Culture - Final No growth in 5 days. 02/07/24 12:19 Bronchial Lavage - Right Middle Lobe Gram Stain - Final 02/07/24 12:19 Bronchial Lavage - Right Middle Lobe Respiratory Culture - Final Presumptive C albicans 02/04/24 09:23 Blood Culture (Wb) - Port Blood Culture - Final No growth in 5 days. 02/06/24 21:42 Sputum, Induced/Lukens Gram Stain - Final 02/06/24 21:42 Sputum, Induced/Lukens Respiratory Culture - Final Culture exhibits no growth. 02/06/24 10:53 Mucosa - Nasopharyngeal Respiratory Panel (PCR) - Final 02/07/24 10:45 Mucosa - Nasopharyngeal SARS-CoV-2, Influenza & RSV (PCR) - Final 02/06/24 17:03 Urine, Clean Catch Legionella Antigen - Final 02/06/24 17:03 Urine, Clean Catch Streptococcus pneumoniae Antigen (M - Final Laboratory Results 02/07/24 05:54: Diff Path Review Reviewed 02/07/24 12:19: Fl Pathologist Comment Reviewed 02/08/24 09:20: Diff Path Review Reviewed 02/09/24 08:59: Specimen Type ART, Sample Site R Radial, pH 7.23 L, Bicarbonate Actual 23.6, Total CO2 25, Base Excess -4 L, O2 Saturation 93 L, O2 % 60.0, ABG pCO2 56.5 H, ABG pO2 80, Bogdan Test Positive, Respiration Rate 16, O2 Delivery Device Adult Vent, Vent Mode ACVC+, Tidal Volume 450.0, POC PEEP 10 Charges/Coding Visit Charges Inpatient E&M: 69391 Subs Hosp L3
[2024-02-09] MEDS: Propofol 10MG/Ml 1,000 MG/100 ML Bottle 7.6 MG CONT INF (19:00)
[2024-02-09] MEDS: Cisatracurium *PARALYTIC 100 MG in 0.9% Normal Saline (250mL Bag) 200 ML 38 MG CONT INF (22:05)
[2024-02-09] MEDS: Vancomycin Trough/Random Due 1 LAB MC (23:31)
[2024-02-10] VITALS (39 sets, daily range): BP systolic 93–140; BP diastolic 44–68; PULSE 78–96; RESP 16; TEMP 37.3–37.7; O2SAT 90–99; BMI 33.3
[2024-02-10 00:30] LABS: Vancomycin, Trough Level 23.2 ug/mL (5.0-15.0)
[2024-02-10] MEDS: fentaNYL drip 100 ML 17.5 MCG CONT INF ×2 (00:34→06:17)
--- NOTE | 2024-02-10 00:35 | PCM.RX.CS ---
Consult Antibiotic Management Pharmacy has been consulted to manage selected antibiotic: Vancomycin Type of Intervention Type of Consult: Follow-up Suspected Infection Suspected Infection: Pneumonia Labs Labs: Sodium 144 mmol/L (136-145) 02/08/24 09:20 Potassium 3.7 mmol/L (3.5-5.1) 02/08/24 09:20 Chloride 115 mmol/L (98-107) H 02/08/24 09:20 Carbon Dioxide 23.0 mmol/L (21.0-32.0) 02/08/24 09:20 Anion Gap 6 (5-15) 02/08/24 09:20 BUN 32 mg/dL (7-18) H 02/08/24 09:20 Creatinine 1.05 mg/dL (0.55-1.02) H 02/08/24 09:20 Est GFR (MDRD) Af Amer 68 mL/min (>60) 02/08/24 09:20 Est GFR (MDRD) Non-Af 56 mL/min (>60) L 02/08/24 09:20 BUN/Creatinine Ratio 30.5 RATIO (10-20) H 02/08/24 09:20 Glucose 131 mg/dL (74-106) H 02/08/24 09:20 Vancomycin Trough 23.2 ug/mL (5.0-15.0) H 02/09/24 23:35 Microbiology Microbiology: Microbiology 02/04/24 11:11 Blood Culture (Wb) - Line Draw Blood Culture - Final No growth in 5 days. 02/07/24 12:19 Bronchial Lavage - Right Middle Lobe Gram Stain - Final 02/07/24 12:19 Bronchial Lavage - Right Middle Lobe Respiratory Culture - Final Presumptive C albicans 02/04/24 09:23 Blood Culture (Wb) - Port Blood Culture - Final No growth in 5 days. 02/06/24 21:42 Sputum, Induced/Lukens Gram Stain - Final 02/06/24 21:42 Sputum, Induced/Lukens Respiratory Culture - Final Culture exhibits no growth. 02/06/24 10:53 Mucosa - Nasopharyngeal Respiratory Panel (PCR) - Final 02/07/24 10:45 Mucosa - Nasopharyngeal SARS-CoV-2, Influenza & RSV (PCR) - Final 02/06/24 17:03 Urine, Clean Catch Legionella Antigen - Final 02/06/24 17:03 Urine, Clean Catch Streptococcus pneumoniae Antigen (M - Final 02/04/24 09:42 Urine, Catheterized Urine Culture - Final Streptococcus agalactiae (B) Dosing Weight Weight used for dosin.4 kg Estimated Creatinine Clearance Estimated Creatinine Clearance: 53 Goal Trough Goal Trough: 15-20 mcg/mL Pharmacy Plan for Drug Dosing Pharmacy Plan for Drug Dosing: Vancomycin trough level, drawn 11.25hrs post-dose, was high at 23.2. Will suspend current dosing, and will draw a random vanco level in 12 hours to determine further orders. Pharmacy Service will continue to monitor and adjust dosing as required. Follow-Up Labs Follow-Up Labs: Trough: Vancomycin (random) Date/Time Labs Ordered Labs to be done on [date and time ordered]: 02/10/24 @1130 (random)
[2024-02-10] MEDS: Propofol 10MG/Ml 1,000 MG/100 ML Bottle 7.6 MG CONT INF (00:39)
[2024-02-10] MEDS: Cisatracurium *PARALYTIC 100 MG in 0.9% Normal Saline (250mL Bag) 200 ML 25.3 MG CONT INF (06:08)
[2024-02-10] MEDS: Meropenem 1 GM in 0.9% Normal Saline (100mL MB+) 100 ML IV ×3 (06:08→22:08)
[2024-02-10 06:25] LABS: Hematocrit 21.7 % (37-47); Hemoglobin 6.9 g/dL (12.0-15.0); Mean Corp Hgb Conc 31.8 g/dL (32-36); Mean Corpuscular Hgb 29.5 pg (27.0-32.0); Mean Corpuscular Volume 92.7 fL (81-99); Mean Platelet Vol. 11.1 fl (6.2-12.0); POSITIVE COUNT YES; POSITIVE DIFFERENTIAL YES; POSITIVE MORPHOLOGY YES; RBC Distribution Width CV 17.1 % (11.6-14.6); RBC Distribution Width SD 57.7 fl (35.1-43.9); Red Blood Count 2.34 M/mm3 (4.2-5.4); White Blood Count 3.6 K/mm3 (4.4-11.0)
[2024-02-10 06:35] LABS: Anion Gap 4 (5-15); BUN 26 mg/dL (7-18); Calcium,Total 8.8 mg/dL (8.5-10.1); Chloride 117 mmol/L (98-107); Creatinine, Serum 1.04 mg/dL (0.55-1.02); EST Glomerular Filtration Rate 57 mL/min (>60); Est Glom Filt Rate - Afr Amer 68 mL/min (>60); Estimated Creatinine Clearance 55.51 ml/min; Glucose 98 mg/dL (74-106); Sodium Level 146 mmol/L (136-145)
[2024-02-10 06:49] LABS: Differential Indicated MANUAL DIFF; Platelet Count 43 K/mm3 (150-450)
[2024-02-10] MEDS: Ipratropium/Albuterol Sulfate 3 ML AMPUL.NEB INHALATION ×3 (06:51→18:53)
[2024-02-10 07:03] LABS: Lymphocyte 7 % (19-41); Metamyelocyte 2 % (0-1); Monocyte 2 % (0-10); Neutrophil-Band 6 % (0-5); Neutrophil-Segmented 83 % (47-70); Nucleated Red Bld Cells,Manual 1 % (0-5); Total Cells Counted 100 (MANUAL DIFF)
[2024-02-10 07:05] LABS: Anisocytosis 2+; Hypochromasia 2+; Platelet Estimate MKD DEC (ADEQ)
[2024-02-10 07:06] LABS: Macrocytosis 2+; Ovalocyte 1+
[2024-02-10 07:07] LABS: Absolute Lymphocyte Count 0.25 X10^3/uL (0.83-4.51); Absolute Neutrophil Count 3.2 X10^3/uL (2.0-7.7)
[2024-02-10] MEDS: NYSTATIN 500,000 UNIT/5 ML UDC 500000 UNIT PO ×4 (07:30→21:29)
[2024-02-10] MEDS: QUEtiapine 25 MG Tablet GT ×2 (07:30→21:29)
[2024-02-10] MEDS: FLUoxetine 20 MG Capsule 60 MG PO (07:30)
[2024-02-10] MEDS: Chlorhexidine 15 ML PO ×2 (07:32→20:08)
[2024-02-10] MEDS: CHLORHEXIDINE GLUC 2% CLOTH 1 EACH TOWELETTE TOPICAL (07:33)
--- NOTE | 2024-02-10 08:18 | PN.CC_ITS ---
Assessment & Plan Assessment/Plan (1) Hypoxemia: (2) ARDS (adult respiratory distress syndrome): PLAN: Plan RECOMMENDATIONS: 1. Continue antimicrobial therapy per ID recommendations. 2. Continue vasopressor support to maintain a mean arterial pressure at or above 65 mmHg. 3. Continue assist-control mode mechanical ventilation. Wean FiO2 and PEEP as tolerated. 4. Will attempt to wean the patient from cis atracurium today. Continue current sedation regimen. 5. Obtain follow-up ABG. 6. Continue PPI therapy as ordered. 7. Transfuse 1 unit of packed red blood cells as ordered. Check H&H posttransfusion. 8. Attempt gentle diuresis as tolerated by hemodynamics and renal function. IMPRESSIONS: 1. 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 The patient went on to develop fulminant ARDS and decompensated from a respiratory perspective on February 06, requiring intubation. She continues to have high ventilator requirements. Ultimately, the patient was initiated on cis atracurium. Her respiratory status has since stabilized. We will plan to attempt to wean the patient from the Nimbex infusion today. Antimicrobials will be continued per ID recommendations. Bronchoscopy was completed on February 06 with cultures pending. Continue to wean FiO2 and PEEP as tolerated. Will attempt gentle diuresis as tolerated by hemodynamics and renal function. 2. Septic shock Clinical concern for underlying bacterial pneumonia. Respiratory viral workup has been unrevealing. The patient remains on empiric broad-spectrum antimicrobials per ID recommendations. Continue vasopressor support to maintain a mean arterial pressure at or above 65 mmHg. 3. Pancytopenia Continue to monitor blood counts for now. Plan to transfuse if hemoglobin once again drops below 7 g/dL. Continue PPI therapy as ordered. Granix has been completed. 4. History of tonsillar squamous cell carcinoma/pancytopenia/prior tobacco abuse history/high risk for aspiration Complicates care, management, recovery and prognosis. Continue supportive measures as noted above. TIME: 36 minutes of critical care time, independent of procedures, was spent addressing the patient's acute hypoxemic respiratory failure, septic shock, pancytopenia, review of all data and collaboration with the care team. Subjective Subjective The patient was seen and examined at the bedside this morning. Events from the last 24 hours have been reviewed. The patient currently has a low-grade fever and remains hemodynamically stable on Levophed at 5 mcg/min. The patient remains on assist-control mode of mechanical ventilation with an FiO2 requirement of 50% and PEEP of 10. She remains heavily sedated on propofol and fentanyl and has been on a continuous Nimbex infusion for the last several days. Hemoglobin is down to 6.9 g/dL. Platelet count is down to 43,000. Arterial blood gas obtained this morning demonstrated a pH of 7.34 with a pCO2 of 48 and pO2 of 84. Creatinine is stable at 1.04. Objective Data Objective Data The patient's most recent lab work, culture data and imaging studies have all been personally reviewed. Strep and urine Legionella antigens were negative. Blood and sputum cultures are pending. COVID, influenza and RSV PCR's were negative. Vital Signs: Vital Signs Temp Pulse Resp BP Pulse Ox O2 Del Method O2 Flow Rate 100 F H 92 16 106/48 L 97 Mechanical Ventilator 94 02/10/24 04:00 02/10/24 08:00 02/10/24 07:00 02/10/24 07:00 02/10/24 07:00 02/10/24 07:00 02/09/24 18:00 FiO2 55 02/10/24 07:00 Oxygen Flow Rate (L/min) 94 Oxygen Delivery Method Mechanical Ventilator Weight: 187 lb 13.341 oz Body Mass Index (BMI) 33.3 Intake & Output: Intake and Output for Last 24 Hours 02/08/24 02/09/24 02/10/24 23:59 23:59 23:59 Intake Total 3913.42 / 3970.84 2942.18 / 3005.08 634.58 / 634.58 Output Total 1450 / 1450 725 / 725 200 / 200 Balance 2463.42 / 2520.84 2217.18 / 2280.08 434.58 / 434.58 Medical Nutrition Assessment Dietitian: Malnutrition Criteria Met Start: 02/05/24 09:52 Freq: Status: Active Protocol: Document 02/05/24 09:52 SOPHIA (Rec: 02/05/24 09:52 [email or web address] [id number]) Nutrition Malnutrition Evidence of Malnutrition Exists Yes Malnutrition (severe): Acute Illness/Injury Evidenced By Suboptimal Energy Intake ( Severe),Weight Loss (Severe) Clinical Problem Acute Disease or Injury Related Malnutrition Etiology severe related to dysphagia and decreased appetite Signs/Symptoms as evidenced by 9.1kg (10.7%) weight loss in 1 month and PO /PEG nutrition needs meeting < 75% of estimated nutrition needs for 2-3 weeks Status Active Problem Recommendation Dietitian Recommendations/Changes Recommend Jevity 1.5 at 50mL/ hr goal rate and 150mL water flush 6x daily to meet estimated nutrition needs. Initiate at 20ml/hr and advance by 15mL every 4-8 hours as tolerated to goal rate. Once tolerance of tube feeds is established at goal rate, will tranition to nocturnal or bolus tube feeds for homegoing. RDN will follow for home going enteral nutrition needs. Lab / Micro Data Attestation: I reviewed the patient's lab results. 02/10/24 06:10 02/10/24 06:10 Labs: Laboratory Results - last 24 hr 02/07/24 05:54: Diff Path Review Reviewed 02/07/24 12:19: Fl Pathologist Comment Reviewed 02/08/24 09:20: Diff Path Review Reviewed 02/09/24 23:35: Vancomycin Trough 23.2 H 02/10/24 06:10: WBC 3.6 L, RBC 2.34 L, Hgb 6.9 L, Hct 21.7 L, MCV 92.7, MCH 29.5, MCHC 31.8 L, RDW Std Deviation 57.7 H, RDW Coeff of Miguel 17.1 H, Plt Count 43 L*, MPV 11.1, Neut % (Auto) Not Reportable, Absolute Neuts (auto) 3.2, A bsolute Lymphs (auto) 0.25 L, Total Counted 100, Neutrophils % (Manual) 83 H, B and Neutrophils % 6 H, Lymphocytes % (Manual) 7 L, Monocytes % (Manual) 2, M etamyelocytes % 2 H, Nucleated RBCs/100 WBC 1, Diff Path Review May foll, Platelet Estimate MKD DEC, Hypochromasia 2+, Anisocytosis 2+, Macrocytosis 2+, Ovalocytes 1+, Sodium 146 H, Potassium 4.0, Chloride 117 H, Carbon Dioxide 26.0, Anion Gap 4 L, BUN 26 H, Creatinine 1.04 H, Estim Creat Clear Calc 55.51, Est GFR (MDRD) Af Amer 68, Est GFR (MDRD) Non-Af 57 L, BUN/Creatinine Ratio 25.0 H, Glucose 98, Calcium 8.8 Micro: Microbiology 02/04/24 11:11 Blood Culture (Wb) - Line Draw Blood Culture - Final No growth in 5 days. 02/07/24 12:19 Bronchial Lavage - Right Middle Lobe Gram Stain - Final 02/07/24 12:19 Bronchial Lavage - Right Middle Lobe Respiratory Culture - Final Presumptive C albicans 02/04/24 09:23 Blood Culture (Wb) - Port Blood Culture - Final No growth in 5 days. 02/06/24 21:42 Sputum, Induced/Lukens Gram Stain - Final 02/06/24 21:42 Sputum, Induced/Lukens Respiratory Culture - Final Culture exhibits no growth. 02/06/24 10:53 Mucosa - Nasopharyngeal Respiratory Panel (PCR) - Final 02/07/24 10:45 Mucosa - Nasopharyngeal SARS-CoV-2, Influenza & RSV (PCR) - Final 02/06/24 17:03 Urine, Clean Catch Legionella Antigen - Final 02/06/24 17:03 Urine, Clean Catch Streptococcus pneumoniae Antigen (M - Final 02/04/24 09:42 Urine, Catheterized Urine Culture - Final Streptococcus agalactiae (B) ABG Data ABG results: ABG 02/09/24 08:59 Specimen Type ART Sample Site R Radial pH 7.23 L Bicarbonate Actual 23.6 Total CO2 25 Base Excess -4 L O2 Saturation 93 L O2 % 60.0 ABG pCO2 56.5 H ABG pO2 80 Bogdan Test Positive Respiration Rate 16 O2 Delivery Device Adult Vent Vent Mode ACVC+ Tidal Volume 450.0 POC PEEP 10 Radiography Diagnostic Testing: Radiology Impression Echocardiogram 02/08/24 09:21 Interpretation Summary The estimated ejection fraction is 65 %. No evidence for diastolic dysfunction. Mildly dilated right ventricle. Mildly decreased right ventricular systolic function Ordering Physician: Moise Mitchell Performed By: Taylor Clifford RDCS Rhythm Strip Rhythm Strip: Sinus Tach Rate: 108 Ectopy: None Physical Exam Const Constitutional Narrative: The patient is currently intubated, sedated and mechanically ventilated. General Appearance: ill appearing and patient mechanically ventilated HEENT normocephalic and head/scalp atraumatic Mouth: endotracheal tube in place Eyes EOMs intact bilaterally and conjunctivae normal Neck supple General: trachea midline Chest inspection of chest normal Chest Narrative: Stable left sided chest wall port. Resp Auscultation: diminished lung sounds; Negative for rales, rhonchi or wheezes Cardio regular rate, regular rhythm, S1 normal heart sound and S2 normal heart sound GI normal to inspection, nondistended, normoactive bowel sounds Inspection: GI tube present Extremity no clubbing, cyanosis or edema Skin no rashes or lesions noted Neuro Sensorium / Orientation: sedated on vent Charges/Coding Procedures Hospitalists Procedures: 57520 Critical Care 1st Hr
--- NOTE | 2024-02-10 08:47 | PCM.PN.HOSP ---
Reason for Visit Reason for Visit: Diagnoses Sepsis, unspecified organism (02/04/24) Malignant neoplasm of tonsil, unspecified (02/04/24) Neutropenia, unspecified (02/04/24) Pneumonia, unspecified organism (02/04/24) Acute respiratory distress syndrome (02/04/24) Acute kidney failure, unspecified (02/04/24) Hypoxemia (02/04/24) Transient alteration of awareness (02/04/24) Fever presenting with conditions classified elsewhere (02/04/24) Objective Data Objective Data Vital Signs: Vital Signs Temp Pulse Resp BP Pulse Ox O2 Del Method O2 Flow Rate 100 F H 92 16 106/48 L 97 Mechanical Ventilator 94 02/10/24 04:00 02/10/24 08:00 02/10/24 07:00 02/10/24 07:00 02/10/24 07:00 02/10/24 07:00 02/09/24 18:00 FiO2 55 02/10/24 07:00 Oxygen Flow Rate (L/min) 94 Oxygen Delivery Method Mechanical Ventilator Weight: 187 lb 13.341 oz Body Mass Index (BMI) 33.3 Intake & Output: Intake and Output for Last 24 Hours 02/08/24 02/09/24 02/10/24 23:59 23:59 23:59 Intake Total 3913.42 / 3970.84 2942.18 / 3005.08 634.58 / 634.58 Output Total 1450 / 1450 725 / 725 200 / 200 Balance 2463.42 / 2520.84 2217.18 / 2280.08 434.58 / 434.58 Medical Nutrition Assessment Dietitian: Malnutrition Criteria Met Start: 02/05/24 09:52 Freq: Status: Active Protocol: Document 02/05/24 09:52 LO (Rec: 02/05/24 09:52 LO [id number]) Nutrition Malnutrition Evidence of Malnutrition Exists Yes Malnutrition (severe): Acute Illness/Injury Evidenced By Suboptimal Energy Intake ( Severe),Weight Loss (Severe) Clinical Problem Acute Disease or Injury Related Malnutrition Etiology severe related to dysphagia and decreased appetite Signs/Symptoms as evidenced by 9.1kg (10.7%) weight loss in 1 month and PO /PEG nutrition needs meeting < 75% of estimated nutrition needs for 2-3 weeks Status Active Problem Recommendation Dietitian Recommendations/Changes Recommend Jevity 1.5 at 50mL/ hr goal rate and 150mL water flush 6x daily to meet estimated nutrition needs. Initiate at 20ml/hr and advance by 15mL every 4-8 hours as tolerated to goal rate. Once tolerance of tube feeds is established at goal rate, will tranition to nocturnal or bolus tube feeds for homegoing. RDN will follow for home going enteral nutrition needs. Lab / Micro Data 02/10/24 06:10 02/10/24 06:10 Labs: Laboratory Results - last 24 hr 02/07/24 05:54: Diff Path Review Reviewed 02/07/24 12:19: Fl Pathologist Comment Reviewed 02/08/24 09:20: Diff Path Review Reviewed 02/09/24 23:35: Vancomycin Trough 23.2 H 02/10/24 06:10: WBC 3.6 L, RBC 2.34 L, Hgb 6.9 L, Hct 21.7 L, MCV 92.7, MCH 29.5, MCHC 31.8 L, RDW Std Deviation 57.7 H, RDW Coeff of Miguel 17.1 H, Plt Count 43 L*, MPV 11.1, Neut % (Auto) Not Reportable, Absolute Neuts (auto) 3.2, Absolute Lymphs (auto) 0.25 L, Total Counted 100, Neutrophils % (Manual) 83 H, Band Neutrophils % 6 H, Lymphocytes % (Manual) 7 L, Monocytes % (Manual) 2, Metamyelocytes % 2 H, Nucleated RBCs/100 WBC 1, Diff Path Review May foll, Platelet Estimate MKD DEC, Hypochromasia 2+, Anisocytosis 2+, Macrocytosis 2+, Ovalocytes 1+, Sodium 146 H, Potassium 4.0, Chloride 117 H, Carbon Dioxide 26.0, Anion Gap 4 L, BUN 26 H, Creatinine 1.04 H, Estim Creat Clear Calc 55.51, Est GFR (MDRD) Af Amer 68, Est GFR (MDRD) Non-Af 57 L, BUN/Creatinine Ratio 25.0 H, Glucose 98, Calcium 8.8 Micro: Microbiology 02/04/24 11:11 Blood Culture (Wb) - Line Draw Blood Culture - Final No growth in 5 days. 02/07/24 12:19 Bronchial Lavage - Right Middle Lobe Gram Stain - Final 02/07/24 12:19 Bronchial Lavage - Right Middle Lobe Respiratory Culture - Final Presumptive C albicans 02/04/24 09:23 Blood Culture (Wb) - Port Blood Culture - Final No growth in 5 days. 02/06/24 21:42 Sputum, Induced/Lukens Gram Stain - Final 02/06/24 21:42 Sputum, Induced/Lukens Respiratory Culture - Final Culture exhibits no growth. 02/06/24 10:53 Mucosa - Nasopharyngeal Respiratory Panel (PCR) - Final 02/07/24 10:45 Mucosa - Nasopharyngeal SARS-CoV-2, Influenza & RSV (PCR) - Final 02/06/24 17:03 Urine, Clean Catch Legionella Antigen - Final 02/06/24 17:03 Urine, Clean Catch Streptococcus pneumoniae Antigen (M - Final 02/04/24 09:42 Urine, Catheterized Urine Culture - Final Streptococcus agalactiae (B) ABG Data ABG results: ABG 02/09/24 08:59 Specimen Type ART Sample Site R Radial pH 7.23 L Bicarbonate Actual 23.6 Total CO2 25 Base Excess -4 L O2 Saturation 93 L O2 % 60.0 ABG pCO2 56.5 H ABG pO2 80 Bogdan Test Positive Respiration Rate 16 O2 Delivery Device Adult Vent Vent Mode ACVC+ Tidal Volume 450.0 POC PEEP 10 Radiography Diagnostic Testing: Radiology Impression Echocardiogram 02/08/24 09:21 Interpretation Summary The estimated ejection fraction is 65 %. No evidence for diastolic dysfunction. Mildly dilated right ventricle. Mildly decreased right ventricular systolic function Ordering Physician: Moise Mitchell Performed By: Taylor Clifford RDCS Rhythm Strip Rhythm Strip: Sinus Tach Rate: 108 Ectopy: None Physical Exam Narrative Seen and examined. Patient is, cis atracurium, neuromuscular paralytic drip and she will do blood fulminant ARDS. Fever, Tmax 100.8 Fahrenheit. Physical exam General: Intubated and sedated on fentanyl and propofol drip. Cisatracurium drip HEENT: Atraumatic, PERRLA, EOMI, Normocephalic Oral: ET tube and OG tube Neck: Supple, No JVD, Negative Carotid Bruits Chest wall/Lungs: Upper chest wall skin dry, and radiation changes. Air entry diminished in bilateral lung bases. Cardiovascular: Sinus rhythm,. On vasopressor, No M/G/R Abdomen: Bowel Sounds sluggish, Soft, Non Tender, Non-Distended : Pool catheter. Dark-colored urine no renal angle tenderness. No suprapubic tenderness. Extremities: No edema, Capillary Refill Less than 3 Seconds Skin: No rashes, No breakdown Musculoskeletal: No Tenderness to Palpation of Joints or Extremities. Muscle strength 4/5 at major Neurological: intubated/sedated no acute focal neurological deficit. Psych/Mental Status: Flat affect Assessment & Plan Assessment/Plan (1) Acute kidney injury: (2) Altered level of consciousness: (3) Right lower lobe pneumonia: (4) Right upper lobe pneumonia: PLAN: Plan 63-year-old female was admitted with altered level of consciousness for 4 days prior to admission. Denies nausea, vomiting or diarrhea. No documented fever or recent fall at home. 1.acute hypoxic respiratory failure due to Right sided pneumonia with multiple rounded opacities complicating into full-blown ARDS in immunocompromised host: Chest x-ray reviewed which shows extensive 100 areas opacification in the right lung. CT chest with IV contrast done but report pending. Images individually reviewed and shows diffuse right lung alveolar opacities and groundglass opacity. It also shows left lower lobe opacity. ID and stitching department supervisor consulted. Currently on vancomycin Zosyn and azithromycin. Sputum culture are ordered. Triple PCR for SARS-CoV-2, flu and RSV are negative negative on 01/20. Urine culture shows strep group B and mixed gram-positive organism. Respiratory panel and blood cultures are pending Patient does not have chest pain but short of breath, tachycardia, tachypnea and mild hypoxia Possible ARDS: 1. Onset of symptoms within 1 week, bilateral opacities, right more than left with groundglass opacities and consolidation and noncardiogenic edema. FiO2/PaO2 ratio 126. Patient undergoing echo. Discussed with the stitching department supervisor. Plan for possible bronchoscopy 02/07: Discussed with Dr. Mitchell. Patient had bronchoscopy with BAL done yesterday. On high FiO2, PEEP with vent dyssynchrony. She is Precedex was changed to propofol. 02/08: Neutropenic fever. Tmax 100.8 Fahrenheit. Full-blown ARDS. High vent requirement. On neuromuscular paralytic, cisatracurium. BAL Gram stain shows presumptive Lori albicans. Blood culture negative for 5 days. Sputum culture no growth on 02/06/2024. Zosyn changed to meropenem. Vancomycin continued. Patient completed azithromycin. 02/09: Patient is still having low-grade fever. Vent requirement 55%, PEEP 10 on cis atracurium. On broad-spectrum antibiotics Hypotension, probably septic shock from bilateral pneumonia: On Levophed drip 02/08: Continue to require vasopressor support. 2. Pancytopenia with severe neutropenia, normocytic normochromic severe anemia and thrombocytopenia due to recent chemotherapy: Hemoglobin 7.2, WBC 0.4K, ANC 0.3K, ALC 0.06K, platelet count 91K. Started on Granix. 02/06: Worsening of pancytopenia. WBC 0.3K, ANC 0.2K, H&H 6.2/19 and platelet count 54K. Monitor PRBC ordered. 02/08: Immature granulocytes 0%, WBC 0.7K, ANC 0.5K. 02/09: WBC count has improved, 3.6K but H&H 6.9/21.7%, platelet count 43K. 1 unit PRBC ordered. 3. 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 She has a PEG tube in for nutrition, will consult dietitian ? She is undergoing chemoradiation with low-dose cisplatin ? Her last dose of cisplatin was on 01/30/2024, which was her last dose of chemotherapy and she has 5 more days of radiation ? 02/05 on oral exam: Base of tongue and posterior pharynx are raw and ulcerated. 02/06: Discussed with the Radiotherapist, Dr. Plasencia. She has cancer involving tonsil and soft palate and was able to protect her airway and clear the mucus before but recently had PEG tube placement for nutrition and pain. 4. .Anxiety/depression ? Anxious and depressed ? Continue her home medications DVT: SCDs Microbiology Past 72 Hours 02/04/24 11:11 Blood Culture (Wb) - Line Draw Blood Culture - Final No growth in 5 days. 02/07/24 12:19 Bronchial Lavage - Right Middle Lobe Gram Stain - Final 02/07/24 12:19 Bronchial Lavage - Right Middle Lobe Respiratory Culture - Final Presumptive C albicans 02/04/24 09:23 Blood Culture (Wb) - Port Blood Culture - Final No growth in 5 days. 02/06/24 21:42 Sputum, Induced/Lukens Gram Stain - Final 02/06/24 21:42 Sputum, Induced/Lukens Respiratory Culture - Final Culture exhibits no growth. 02/06/24 10:53 Mucosa - Nasopharyngeal Respiratory Panel (PCR) - Final 02/07/24 10:45 Mucosa - Nasopharyngeal SARS-CoV-2, Influenza & RSV (PCR) - Final Laboratory Results 02/07/24 05:54: Diff Path Review Reviewed 02/07/24 12:19: Fl Pathologist Comment Reviewed 02/08/24 09:20: Diff Path Review Reviewed 02/09/24 08:59: Specimen Type ART, Sample Site R Radial, pH 7.23 L, Bicarbonate Actual 23.6, Total CO2 25, Base Excess -4 L, O2 Saturation 93 L, O2 % 60.0, ABG pCO2 56.5 H, ABG pO2 80, Bogdan Test Positive, Respiration Rate 16, O2 Delivery Device Adult Vent, Vent Mode ACVC+, Tidal Volume 450.0, POC PEEP 10 02/09/24 23:35: Vancomycin Trough 23.2 H 02/10/24 06:10: WBC 3.6 L, RBC 2.34 L, Hgb 6.9 L, Hct 21.7 L, MCV 92.7, MCH 29.5, MCHC 31.8 L, RDW Std Deviation 57.7 H, RDW Coeff of Miguel 17.1 H, Plt Count 43 L*, MPV 11.1, Neut % (Auto) Not Reportable, Absolute Neuts (auto) 3.2, Absolute Lymphs (auto) 0.25 L, Total Counted 100, Neutrophils % (Manual) 83 H, Band Neutrophils % 6 H, Lymphocytes % (Manual) 7 L, Monocytes % (Manual) 2, Metamyelocytes % 2 H, Nucleated RBCs/100 WBC 1, Diff Path Review May foll, Platelet Estimate MKD DEC, Hypochromasia 2+, Anisocytosis 2+, Macrocytosis 2+, Ovalocytes 1+, Sodium 146 H, Potassium 4.0, Chloride 117 H, Carbon Dioxide 26.0, Anion Gap 4 L, BUN 26 H, Creatinine 1.04 H, Estim Creat Clear Calc 55.51, Est GFR (MDRD) Af Amer 68, Est GFR (MDRD) Non-Af 57 L, BUN/Creatinine Ratio 25.0 H, Glucose 98, Calcium 8.8 Charges/Coding Visit Charges Inpatient E&M: 05638 Subs Hosp L3
[2024-02-10 09:02] LABS: Allen Test Positive; Base Excess 0 mmol/L (-2 to +2); Bicarbonate 25.8 mmol/L (22-26); Blood Gas Specimen Type ART; Mode AC; O2 Delivery Device Adult Vent; PEEP 10; PO2 84 mmHG (75-100); RR 16; SITE L Radial; SO2 95 % (95-99); Total Carbon Dioxide 27 mmol/L; pCO2 48.3 mmHg (35-45); pH 7.34 (7.35-7.45)
[2024-02-10] MEDS: Pantoprazole Sodium 40 MG in 0.9% Normal Saline (100mL MB+) 100 ML 330 MG IV ×2 (09:39→21:29)
[2024-02-10] MEDS: Propofol 10MG/Ml 1,000 MG/100 ML Bottle 15.2 MG CONT INF (10:20)
[2024-02-10 11:35] LABS: Vancomycin, Random Level 16.2 ug/mL (0.0-15.0)
[2024-02-10] MEDS: Furosemide 40 MG/4 ML Vial IV ×2 (11:41→16:07)
--- NOTE | 2024-02-10 11:41 | CASEMGMT ---
Social Work- SW attempted to meet with family to offer support; family not in room multiple times SW checked. SW will continue to follow. RICKI Ritter
--- NOTE | 2024-02-10 12:30 | PCM.PN.ID ---
Physical Exam Narrative Still with fever, on vent Const no apparent distress Resp Effort and Inspection: mechanically ventilated Auscultation: diminished lung sounds Cardio Rate: tachycardic GI soft to palpation, non-tender and non-distended Extremity General Extremity: Negative for edema Skin no rashes or lesions noted ID ID: Route of nutrition/ use of supplements: [] Nutritional Intake: [] IV Site: [] Pool Catheter: [] Assessment & Plan Assessment/Plan (1) Squamous cell carcinoma of left tonsil: (2) Right upper lobe pneumonia: (3) Right lower lobe pneumonia: (4) Sepsis: (5) Neutropenic fever: PLAN: Neutropenic fever with recent chemo and diffuse pneumonia. Now on vent and paralytics. Mouth with diffuse mucositis on admit. Bcx ngtd. Cont current empiric broad coverage with vanc/salma. Completed azithro. Still with fever, will add fluc. Recommend CT chest/abd/pelvis. BAL with very rare alessandra so far. Wbc improved today. Will follow
[2024-02-10] MEDS: fentaNYL drip 100 ML 20 MCG CONT INF ×3 (12:32→23:21)
[2024-02-10] MEDS: Vancomycin HCl 1,250 MG in 0.9% Normal Saline (250mL Bag) 250 ML 167 MG IV (13:08)
[2024-02-10 14:21] LABS: Pathologist Review Reviewed
--- NOTE | 2024-02-10 14:39 | PCM.RX.CS ---
Consult Antibiotic Management Pharmacy has been consulted to manage selected antibiotic: Vancomycin Type of Intervention Type of Consult: Follow-up Suspected Infection Suspected Infection: Pneumonia Prior Doses of Antibiotics Prior Doses of Antibiotics Received/Current Regimen: Last dose((1250mg q12h) held as of 12102/09/2024 Labs Labs: Sodium 146 mmol/L (136-145) H 02/10/24 06:10 Potassium 4.0 mmol/L (3.5-5.1) 02/10/24 06:10 Chloride 117 mmol/L (98-107) H 02/10/24 06:10 Carbon Dioxide 26.0 mmol/L (21.0-32.0) 02/10/24 06:10 Anion Gap 4 (5-15) L 02/10/24 06:10 BUN 26 mg/dL (7-18) H 02/10/24 06:10 Creatinine 1.04 mg/dL (0.55-1.02) H 02/10/24 06:10 Est GFR (MDRD) Af Amer 68 mL/min (>60) 02/10/24 06:10 Est GFR (MDRD) Non-Af 57 mL/min (>60) L 02/10/24 06:10 BUN/Creatinine Ratio 25.0 RATIO (10-20) H 02/10/24 06:10 Glucose 98 mg/dL (74-106) 02/10/24 06:10 Vancomycin Trough 23.2 ug/mL (5.0-15.0) H 02/09/24 23:35 Random Vancomycin 16.2 ug/mL (0.0-15.0) H 02/10/24 10:35 Microbiology Microbiology: Microbiology 02/04/24 11:11 Blood Culture (Wb) - Line Draw Blood Culture - Final No growth in 5 days. 02/07/24 12:19 Bronchial Lavage - Right Middle Lobe Gram Stain - Final 02/07/24 12:19 Bronchial Lavage - Right Middle Lobe Respiratory Culture - Final Presumptive C albicans 02/04/24 09:23 Blood Culture (Wb) - Port Blood Culture - Final No growth in 5 days. 02/06/24 21:42 Sputum, Induced/Lukens Gram Stain - Final 02/06/24 21:42 Sputum, Induced/Lukens Respiratory Culture - Final Culture exhibits no growth. 02/06/24 10:53 Mucosa - Nasopharyngeal Respiratory Panel (PCR) - Final 02/07/24 10:45 Mucosa - Nasopharyngeal SARS-CoV-2, Influenza & RSV (PCR) - Final 02/06/24 17:03 Urine, Clean Catch Legionella Antigen - Final 02/06/24 17:03 Urine, Clean Catch Streptococcus pneumoniae Antigen (M - Final 02/04/24 09:42 Urine, Catheterized Urine Culture - Final Streptococcus agalactiae (B) Dosing Weight Weight used for dosin kg Estimated Creatinine Clearance Estimated Creatinine Clearance: 56 Goal Trough Goal Trough: 15-20 mcg/mL Pharmacy Plan for Drug Dosing Pharmacy Plan for Drug Dosing: VANCOMYCIN LEVEL RECEIVED Current Vancomycin Dose: 1250 MG Q12H Number of Doses Received: 0 (HELD) Vancomycin Level: 16.2 Hours Since Last Dose: 22.8 Renal Function: SCr 1.04 mg/dL, CrCl: 55.5 mL/Min Renal Function Trend: Stable Lab/Micro: Vancomycin Plan/Comments: Patient within therapeutic level after holding one dose, will reduce frequency to q24h while keeping the dose at 1250mg Pharmacy will continue to monitor. JORamesh Pending Level: 02/12/2024 1200 Pharmacy Service will continue to monitor and adjust dosing as required. Follow-Up Labs Follow-Up Labs: Trough: Vancomycin Date/Time Labs Ordered Labs to be done on [date and time ordered]: 02/12/2024 1200
[2024-02-10] MEDS: Fluconazole IVPB 400 MG/200 ML BAG 100 MG IV (14:52)
[2024-02-10] MEDS: Propofol 10MG/Ml 1,000 MG/100 ML Bottle 20.3 MG CONT INF ×2 (15:08→20:04)
[2024-02-10] MEDS: Norepinephrine 8 MG in 0.9% Normal Saline (250mL Bag) 242 ML 5 MG CONT INF (18:21)
--- NOTE | 2024-02-10 19:36 | NURSING ---
A Carlton Martin called seeking information if the patient was on the floor as well as a patient update. This RN noted that Carlton Martin was not on the contact list for this patient and was advised that no information regarding this patient could be released to the caller. Caller verbalizes inability to obtain access to PHI
[2024-02-11] VITALS (39 sets, daily range): BP systolic 93–122; BP diastolic 41–66; PULSE 16–129; RESP 14–17; TEMP 37.2–38.7; O2SAT 82–100; BMI 32.8
[2024-02-11] MEDS: Propofol 10MG/Ml 1,000 MG/100 ML Bottle 20.3 MG CONT INF ×2 (00:28→05:23)
[2024-02-11] MEDS: fentaNYL drip 100 ML 20 MCG CONT INF ×4 (04:21→21:36)
[2024-02-11] MEDS: Meropenem 1 GM in 0.9% Normal Saline (100mL MB+) 100 ML IV ×3 (05:23→20:35)
[2024-02-11] MEDS: 0.9% Saline Lock 10 ML Syringe IV (05:27)
[2024-02-11 05:44] LABS: Hemoglobin 7.9 g/dL (12.0-15.0); Mean Corp Hgb Conc 31.6 g/dL (32-36); Mean Corpuscular Hgb 29.2 pg (27.0-32.0); Mean Corpuscular Volume 92.3 fL (81-99); Mean Platelet Vol. 11.2 fl (6.2-12.0); POSITIVE COUNT YES; POSITIVE DIFFERENTIAL YES; POSITIVE MORPHOLOGY YES; Platelet Count 52 K/mm3 (150-450); RBC Distribution Width CV 16.9 % (11.6-14.6); RBC Distribution Width SD 55.5 fl (35.1-43.9); Red Blood Count 2.71 M/mm3 (4.2-5.4); White Blood Count 5.4 K/mm3 (4.4-11.0)
[2024-02-11 05:56] LABS: Differential Indicated MANUAL DIFF
[2024-02-11 06:01] LABS: Anion Gap 4 (5-15); BUN 27 mg/dL (7-18); BUN/Creat Ratio 26.5 RATIO (10-20); Chloride 114 mmol/L (98-107); Creatinine, Serum 1.02 mg/dL (0.55-1.02); EST Glomerular Filtration Rate 58 mL/min (>60); Est Glom Filt Rate - Afr Amer 70 mL/min (>60); Estimated Creatinine Clearance 56.42 ml/min; Glucose 94 mg/dL (74-106); Potassium 3.6 mmol/L (3.5-5.1); Sodium Level 148 mmol/L (136-145)
[2024-02-11 06:25] LABS: Metamyelocyte 3 % (0-1); Neutrophil-Band 42 % (0-5); Neutrophil-Segmented 45 % (47-70); Total Cells Counted 100 (MANUAL DIFF)
[2024-02-11 06:26] LABS: Differential Comment SCANNED; Lymphocyte 6 % (19-41); Monocyte 4 % (0-10); Platelet Estimate MOD DEC (ADEQ); Toxic Granulation 2+
[2024-02-11 06:27] LABS: Absolute Lymphocyte Count 0.32 X10^3/uL (0.83-4.51); Absolute Neutrophil Count 4.7 X10^3/uL (2.0-7.7)
[2024-02-11] MEDS: Ipratropium/Albuterol Sulfate 3 ML AMPUL.NEB INHALATION ×3 (07:16→19:10)
[2024-02-11] MEDS: NYSTATIN 500,000 UNIT/5 ML UDC 500000 UNIT PO ×4 (09:54→20:35)
[2024-02-11] MEDS: FLUoxetine 20 MG Capsule 60 MG PO (09:54)
[2024-02-11] MEDS: QUEtiapine 25 MG Tablet GT ×2 (09:54→20:34)
[2024-02-11] MEDS: Propofol 10MG/Ml 1,000 MG/100 ML Bottle 22.8 MG CONT INF ×4 (09:54→23:00)
[2024-02-11] MEDS: Chlorhexidine 15 ML PO ×2 (09:54→20:34)
[2024-02-11] MEDS: Pantoprazole Sodium 40 MG in 0.9% Normal Saline (100mL MB+) 100 ML 330 MG IV ×2 (09:55→20:34)
[2024-02-11] MEDS: CHLORHEXIDINE GLUC 2% CLOTH 1 EACH TOWELETTE TOPICAL (09:56)
[2024-02-11] MEDS: Fluconazole IVPB 200 MG/100 ML BAG 100 MG IV (11:22)
[2024-02-11] MEDS: Acetaminophen 650 MG/20 ML UDC GT ×2 (12:26→23:05)
--- NOTE | 2024-02-11 12:46 | PCM.PN.HOSP ---
Reason for Visit Reason for Visit: Diagnoses Sepsis, unspecified organism (02/04/24) Malignant neoplasm of tonsil, unspecified (02/04/24) Neutropenia, unspecified (02/04/24) Pneumonia, unspecified organism (02/04/24) Acute respiratory distress syndrome (02/04/24) Acute kidney failure, unspecified (02/04/24) Hypoxemia (02/04/24) Transient alteration of awareness (02/04/24) Fever presenting with conditions classified elsewhere (02/04/24) Objective Data Objective Data Vital Signs: Vital Signs Temp Pulse Resp BP Pulse Ox O2 Del Method O2 Flow Rate 100.2 F H 91 16 117/49 L 92 Mechanical Ventilator 94 02/11/24 09:00 02/11/24 10:57 02/11/24 10:57 02/11/24 09:00 02/11/24 10:57 02/11/24 09:00 02/09/24 18:00 FiO2 70 02/11/24 09:00 Oxygen Flow Rate (L/min) 94 Oxygen Delivery Method Mechanical Ventilator Weight: 184 lb 15.485 oz Body Mass Index (BMI) 32.8 Intake & Output: Intake and Output for Last 24 Hours 02/09/24 02/10/24 02/11/24 23:59 23:59 23:59 Intake Total 2942.18 / 3005.08 2929.80 / 2972.50 873.58 / 873.58 Output Total 725 / 725 2150 / 2150 925 / 925 Balance 2217.18 / 2280.08 779.80 / 822.50 -51.42 / -51.42 Medical Nutrition Assessment Dietitian: Malnutrition Criteria Met Start: 02/05/24 09:52 Freq: Status: Active Protocol: Document 02/11/24 10:54 AUGUST (Rec: 02/11/24 10:54 AUGUST [id number]) Nutrition Malnutrition Evidence of Malnutrition Exists Yes Malnutrition (severe): Acute Illness/Injury Evidenced By Suboptimal Energy Intake ( Severe),Weight Loss (Severe) Intake Problem Inadequate Oral Intake Etiology related to mechanically ventilated Signs/Symptoms as evidenced by NPO status. Status Active Problem Clinical Problem Acute Disease or Injury Related Malnutrition Etiology severe related to dysphagia and decreased appetite Signs/Symptoms as evidenced by 4.7% weight loss in 1 month service captain and PO/PEG nutrition needs meeting <75% of estimated nutrition needs for 2-3 weeks service captain - currently tf on hold Status Active Problem Recommendation Dietitian Recommendations/Changes When medically able, rec resume TF: Jevity 1.5 at 45ml/ hr x 24 hours goal rate with 115mL water flush 6x daily to provide 1620kcal, 69 grams protein, and 1770mL water daily. Initiate at 20mL/hr and advance by 15mL/hr every 4-8 hours as tolerated to goal rate. Will adjust tube feed, as needed. Lab / Micro Data 02/11/24 05:25 02/11/24 05:25 Labs: Laboratory Results - last 24 hr 02/04/24 12:57: Crossmatch See Detail 02/10/24 06:10: Diff Path Review Reviewed 02/10/24 10:35: Blood Type A POSITIVE, Antibody Screen NEGATIVE, Crossmatch See Detail 02/11/24 05:25: WBC 5.4, RBC 2.71 L, Hgb 7.9 L, Hct 25.0 L, MCV 92.3, MCH 29.2, MCHC 31.6 L, RDW Std Deviation 55.5 H, RDW Coeff of Miguel 16.9 H, Plt Count 52 L, MPV 11.2, Neut % (Auto) Not Reportable, Absolute Neuts (auto) 4.7, Absolute Lymphs (auto) 0.32 L, Total Counted 100, Neutrophils % (Manual) 45 L, Band Neutrophils % 42 H, Lymphocytes % (Manual) 6 L, Monocytes % (Manual) 4, Metamyelocytes % 3 H, Differential Comment SCANNED, Diff Path Review May foll, Toxic Granulation 2+, Platelet Estimate MOD DEC, Sodium 148 H, Potassium 3.6, Chloride 114 H, Carbon Dioxide 30.0, Anion Gap 4 L, BUN 27 H, Creatinine 1.02, Estim Creat Clear Calc 56.42, Est GFR (MDRD) Af Amer 70, Est GFR (MDRD) Non-Af 58 L, BUN/Creatinine Ratio 26.5 H, Glucose 94, Calcium 9.0 Micro: Microbiology 02/04/24 11:11 Blood Culture (Wb) - Line Draw Blood Culture - Final No growth in 5 days. 02/07/24 12:19 Bronchial Lavage - Right Middle Lobe Gram Stain - Final 02/07/24 12:19 Bronchial Lavage - Right Middle Lobe Respiratory Culture - Final Presumptive C albicans 02/04/24 09:23 Blood Culture (Wb) - Port Blood Culture - Final No growth in 5 days. 02/06/24 21:42 Sputum, Induced/Lukens Gram Stain - Final 02/06/24 21:42 Sputum, Induced/Lukens Respiratory Culture - Final Culture exhibits no growth. 02/06/24 10:53 Mucosa - Nasopharyngeal Respiratory Panel (PCR) - Final 02/07/24 10:45 Mucosa - Nasopharyngeal SARS-CoV-2, Influenza & RSV (PCR) - Final 02/06/24 17:03 Urine, Clean Catch Legionella Antigen - Final 02/06/24 17:03 Urine, Clean Catch Streptococcus pneumoniae Antigen (M - Final 02/04/24 09:42 Urine, Catheterized Urine Culture - Final Streptococcus agalactiae (B) Rhythm Strip Rhythm Strip: Sinus Tach Rate: 108 Ectopy: None Physical Exam Narrative Seen and examined. No significant improvement. Atracurium was discontinued yesterday afternoon. Fever Tmax 100.2 Fahrenheit. Provide support, on 70% FiO2, PEEP 10. On Levophed drip. Heart rate in 120s. Physical exam General: Intubated and sedated on fentanyl and propofol drip. HEENT: Atraumatic, PERRLA, EOMI, Normocephalic Oral: ET tube and OG tube Neck: Supple, No JVD, Negative Carotid Bruits Chest wall/Lungs: Upper chest wall skin dry, and radiation changes. Air entry diminished in bilateral lung bases. Cardiovascular: Sinus tachycardia on vasopressor, No M/G/R Abdomen: Bowel Sounds sluggish, Soft, Non Tender, Non-Distended : Pool catheter. Dark-colored urine no renal angle tenderness. No suprapubic tenderness. Extremities: No edema, Capillary Refill Less than 3 Seconds Skin: No rashes, No breakdown Musculoskeletal: No Tenderness to Palpation of Joints or Extremities. Muscle strength 4/5 at major Neurological: intubated/sedated no acute focal neurological deficit. Psych/Mental Status: Flat affect Assessment & Plan Assessment/Plan (1) Acute kidney injury: (2) Altered level of consciousness: (3) Right lower lobe pneumonia: (4) Right upper lobe pneumonia: PLAN: Plan 63-year-old female was admitted with altered level of consciousness for 4 days prior to admission. Denies nausea, vomiting or diarrhea. No documented fever or recent fall at home. 1.acute hypoxic respiratory failure due to Right sided pneumonia with multiple rounded opacities complicating into full-blown ARDS in immunocompromised host: Chest x-ray reviewed which shows extensive 100 areas opacification in the right lung. CT chest with IV contrast done but report pending. Images individually reviewed and shows diffuse right lung alveolar opacities and groundglass opacity. It also shows left lower lobe opacity. ID and data management consultant consulted. Currently on vancomycin Zosyn and azithromycin. Sputum culture are ordered. Triple PCR for SARS-CoV-2, flu and RSV are negative negative on 01/20. Urine culture shows strep group B and mixed gram-positive organism. Respiratory panel and blood cultures are pending Patient does not have chest pain but short of breath, tachycardia, tachypnea and mild hypoxia Possible ARDS: 1. Onset of symptoms within 1 week, bilateral opacities, right more than left with groundglass opacities and consolidation and noncardiogenic edema. FiO2/PaO2 ratio 126. Patient undergoing echo. Discussed with the data management consultant. Plan for possible bronchoscopy 02/07: Discussed with Dr. Mitchell. Patient had bronchoscopy with BAL done yesterday. On high FiO2, PEEP with vent dyssynchrony. She is Precedex was changed to propofol. 02/08: Neutropenic fever. Tmax 100.8 Fahrenheit. Full-blown ARDS. High vent requirement. On neuromuscular paralytic, cisatracurium. BAL Gram stain shows presumptive Lori albicans. Blood culture negative for 5 days. Sputum culture no growth on 02/06/2024. Zosyn changed to meropenem. Vancomycin continued. Patient completed azithromycin. 02/09: Patient is still having low-grade fever. Vent requirement 55%, PEEP 10 on cis atracurium. On broad-spectrum antibiotics 02/10:Diflucan was added yesterday as BAL shows very rare Lori. Restive of antibiotics to continue. Hypotension, probably septic shock from bilateral pneumonia: On Levophed drip 02/08: Continue to require vasopressor support. 02/10: Continue to require vasopressor support. 2. Pancytopenia with severe neutropenia, normocytic normochromic severe anemia and thrombocytopenia due to recent chemotherapy: Hemoglobin 7.2, WBC 0.4K, ANC 0.3K, ALC 0.06K, platelet count 91K. Started on Granix. 02/06: Worsening of pancytopenia. WBC 0.3K, ANC 0.2K, H&H 6.2/19 and platelet count 54K. Monitor PRBC ordered. 02/08: Immature granulocytes 0%, WBC 0.7K, ANC 0.5K. 02/09: WBC count has improved, 3.6K but H&H 6.9/21.7%, platelet count 43K. 1 unit PRBC ordered. 02/10: WBC count 5.4K, H&H 7.9/25%. Platelet count 52K. 3. 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 She has a PEG tube in for nutrition, will consult dietitian ? She is undergoing chemoradiation with low-dose cisplatin ? Her last dose of cisplatin was on 01/30/2024, which was her last dose of chemotherapy and she has 5 more days of radiation ? 02/05 on oral exam: Base of tongue and posterior pharynx are raw and ulcerated. 02/06: Discussed with the Radiotherapist, Dr. Plasencia. She has cancer involving tonsil and soft palate and was able to protect her airway and clear the mucus before but recently had PEG tube placement for nutrition and pain. 4. .Anxiety/depression ? Anxious and depressed ? Continue her home medications DVT: SCDs Charges/Coding Visit Charges Inpatient E&M: 86719 Subs Hosp L3
--- NOTE | 2024-02-11 13:13 | PN.CC_ITS ---
Objective Data Objective Data Vital Signs: Vital Signs Last response 3 Temperature 37.9 C H 02/11/24 09:00 Temperature Source Core 02/11/24 09:00 Pulse Rate 88 02/11/24 12:58 Pulse Strength Normal (2+) 02/10/24 10:00 Respiratory Rate 16 02/11/24 12:58 Respiratory Effort Mechanically Ventilated 02/11/24 08:00 Respiratory Depth Normal 02/11/24 08:00 Respiratory Pattern Normal 02/11/24 12:58 Blood Pressure 117/49 L 02/11/24 09:00 Blood Pressure Mean 71 02/11/24 09:00 Blood Pressure Source Monitor 02/11/24 09:00 Blood Pressure Position Semi-Fowlers 02/11/24 09:00 Blood Pressure Location Right Arm 02/11/24 09:00 Pulse Ox 95 02/11/24 12:58 Oxygen Delivery Method Mechanical Ventilator 02/11/24 09:00 Oxygen Flow Rate (L/min) 94 02/09/24 18:00 Fraction of Inspired Oxygen (FIO2) 70 02/11/24 09:00 I&O: I&O Last 24 Hours 3 02/10/24 02/11/24 02/11/24 23:59 11:59 23:59 Intake Total 1861.42 / 2972.50 873.58 / 873.58 Output Total 1950 / 2150 600 / 925 325 / 925 Balance -88.58 / 822.50 273.58 / -51.42 -325 / -51.42 I&O: Total Stay 3 02/04/24 09:05 thru 02/11/24 12:00 Intake Total 69203.02 Output Total 7235 Balance 67616.02 Current Meds Ordered / Administered: Current meds ordered / Administered 3 Generic Name Dose Route Start Last Admin Trade Name Freq PRN Reason Stop Dose Admin Acetaminophen 650 mg 02/11/24 11:30 02/11/24 12:26 Acetaminophen 650 Mg/20 Ml Udc GT 650 mg Q4H PRN PRN Administration FEVER Albuterol/Ipratropium 3 ml 02/06/24 13:45 02/11/24 07:16 Ipratropium/Albuterol Sulfate 3 Ml Ampul.Neb INHALATION 3 ml Q6HWA.RT LACHO Administration Chlorhexidine Gluconate 15 ml 02/06/24 22:00 02/11/24 09:54 Chlorhexidine 15 Ml PO 15 ml BID LACHO Administration Chlorhexidine Gluconate 1 each 02/07/24 10:00 02/11/24 09:56 Chlorhexidine Gluc 2% Cloth 1 Each [place]lette TOPICAL 1 each DAILY LACHO Administration Fluoxetine HCl 60 mg 02/06/24 10:00 02/11/24 09:54 Fluoxetine 20 Mg Capsule PO 60 mg DAILY LACHO Administration Vancomycin IV-PHARMACY TO DOSE 500 mls @ 250 mls/hr 02/04/24 12:38 1 each/ Sodium Chloride IV X1 PRN Rx to Dose Protocol Sodium Chloride 500 mls @ 15 mls/hr 02/04/24 12:39 IV .[id number] PRN Saline Flush Sodium Chloride 500 mls @ 15 mls/hr 02/04/24 12:39 IV .[id number] PRN Additional IVPB Infusion Pantoprazole Sodium 40 mg/ 110 mls @ 330 mls/hr 02/04/24 13:30 02/11/24 10:15 Sodium Chloride IV Infused Q12 LACHO Infusion Enteral Nutritional Formula 1,000 mls @ 45 mls/hr 02/05/24 13:30 02/10/24 15:01 Jevity 1.5 GT Not Given .[id number] LACHO Fentanyl 100 mls @ 2.5 mls/hr 02/06/24 21:15 02/11/24 09:55 CONT INF 200 mcg/hr UD LACHO 20 mls/hr Administration Protocol 25 MCG/HR Norepinephrine Bitartrate 8 mg 250 mls @ 9.375 mls/hr 02/06/24 22:10 02/11/24 09:00 / Sodium Chloride CONT INF 5 mcg/min .[id number] LACHO 9.4 mls/hr Titration Protocol 5 MCG/MIN Dexmedetomidine HCl 1,000 mcg/ 250 mls @ 10.55 mls/hr 02/07/24 01:30 02/11/24 12:15 Sodium Chloride CONT INF Not Given .[id number] LACHO Protocol 0.5 MCG/KG/HR Propofol 1,000 mg in 100 mls @ 5.064 mls/hr 02/07/24 23:20 02/11/24 09:54 Diprivan CONT INF 45 mcg/kg/min .Q12H LACHO 22.8 mls/hr Administration Protocol 10 MCG/KG/MIN Cisatracurium Besylate 100 mg/ 250 mls @ 25.32 mls/hr 02/08/24 12:00 02/11/24 03:43 Sodium Chloride CONT INF Not Given .[id number] LACHO Protocol 2 MCG/KG/MIN Meropenem 1 gm/ Sodium 120 mls @ 33 mls/hr 02/09/24 14:00 02/11/24 09:02 Chloride IV Infused Q8 LACHO Infusion Vancomycin HCl 1,250 mg/ 275 mls @ 167 mls/hr 02/10/24 12:30 02/10/24 14:49 Sodium Chloride IV Infused Q24H LACHO Infusion Fluconazole 200 mg in 100 mls @ 100 mls/hr 02/11/24 10:00 02/11/24 11:22 IV 100 mls/hr Q24 LACHO Administration Lidocaine/Diphenhydr/Alum/Mg/Simeth 20 ml 02/06/24 13:30 Bmx Liquid 180 Ml PO Q3H PRN PRN oral pain Nystatin 500,000 unit 02/05/24 10:00 02/11/24 09:54 Nystatin 500,000 Unit/5 Ml Udc PO 500,000 unit 4X/DAY LACHO Administration Ondansetron HCl 4 mg 02/04/24 12:38 02/04/24 14:50 Ondansetron 4 Mg/2 Ml Vial IV 4 mg Q6H PRN Administration NAUSEA Prochlorperazine Edisylate 5 mg 02/04/24 12:38 Prochlorperazine 10 Mg/2 Ml Vial IV Q4H PRN PRN Breakthrough Nausea/Vomiting Quetiapine Fumarate 25 mg 02/08/24 09:30 02/11/24 09:54 Quetiapine 25 Mg Tablet GT 25 mg BID LACHO Administration Senna/Docusate Sodium 2 tablet 02/04/24 12:38 Senna/Docusate Sodium 1 Tablet PO BID PRN PRN Constipation Sodium Chloride 10 - 40 ml 02/04/24 12:39 02/11/24 05:27 0.9% Saline Lock 10 Ml Syringe IV 20 ml UD PRN Administration SALINE FLUSH Sodium Chloride 2 spray 02/04/24 17:43 Sodium Chloride 0.65% 1 [place] Cottonwood.Btl NASAL TID PRN PRN NASAL DRYNESS Vancomycin Protocol 1 lab 02/12/24 10:00 Vancomycin Trough/Random Due MC 02/12/24 14:00 DAILY [facility] Medical Records Data Medical Nutrition Assessment Dietitian: Malnutrition Criteria Met Start: 02/05/24 09:52 Freq: Status: Active Protocol: Document 02/11/24 10:54 AUGUST (Rec: 02/11/24 10:54 SLA [id number]) Nutrition Malnutrition Evidence of Malnutrition Exists Yes Malnutrition (severe): Acute Illness/Injury Evidenced By Suboptimal Energy Intake ( Severe),Weight Loss (Severe) Intake Problem Inadequate Oral Intake Etiology related to mechanically ventilated Signs/Symptoms as evidenced by NPO status. 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 Initiate at 20mL/hr and advance by 15mL/hr every 4-8 hours as tolerated to goal rate. Will adjust tube feed, as needed. Lab / Micro Data 02/11/24 05:25 02/11/24 05:25 Labs: Laboratory Results - last 24 hr 02/04/24 12:57: Crossmatch See Detail 02/10/24 06:10: Diff Path Review Reviewed 02/10/24 10:35: Blood Type A POSITIVE, Antibody Screen NEGATIVE, Crossmatch See Detail 02/11/24 05:25: WBC 5.4, RBC 2.71 L, Hgb 7.9 L, Hct 25.0 L, MCV 92.3, MCH 29.2, MCHC 31.6 L, RDW Std Deviation 55.5 H, RDW Coeff of Miguel 16.9 H, Plt Count 52 L, MPV 11.2, Neut % (Auto) Not Reportable, Absolute Neuts (auto) 4.7, Absolute Lymphs (auto) 0.32 L, Total Counted 100, Neutrophils % (Manual) 45 L, Band Neutrophils % 42 H, Lymphocytes % (Manual) 6 L, Monocytes % (Manual) 4, M etamyelocytes % 3 H, Differential Comment SCANNED, Diff Path Review May foll, Toxic Granulation 2+, Platelet Estimate MOD DEC, Sodium 148 H, Potassium 3.6, C hloride 114 H, Carbon Dioxide 30.0, Anion Gap 4 L, BUN 27 H, Creatinine 1.02, Estim Creat Clear Calc 56.42, Est GFR (MDRD) Af Amer 70, Est GFR (MDRD) Non-Af 58 L, BUN/Creatinine Ratio 26.5 H, Glucose 94, Calcium 9.0 Rhythm Strip Rhythm Strip: Sinus Tach Rate: 108 Ectopy: None Assessment and Plan . Assessment and plan: HPI Patient seen and examined Chart and data reviewed at length She remains gravely ill Sedated - no NMB Low grade fever NE for BP I/O (+) MV 7-8 LPM, PIP 36, FiO2 0.85, +10, SpO2 97% No new pCXR or ABG CX NGTD PE GEN sedated, NAD VS as above HEENT DEYANIRA NECK supple COR RRR CHEST coarse ABD soft EXT pitting edema SKIN w/d ILENE grossly NF - sedated ASSESSMENT 1. Acute respiratory failure requiring MV support 2. Pulmonary infiltrates / ARDS 3. Presumed infectious PNA 4. H/N SCC - recent chemotherapy 5. Pancytopenia 6. Hypernatremia 7. Hypervolemia TREATMENT PLAN -MV support w/ low TV - wean FiO2 as able -pCXR and ABG in am -sedation / analgesia -empiric ABX - defer to ID -loop diuretics for (-) fluid balance -consider steroids -VTE ppx -TF as tolerated -free water Critical Care Time: 50 min The entirety of this encounter was done via Telemedicine
[2024-02-11] MEDS: Vancomycin HCl 1,250 MG in 0.9% Normal Saline (250mL Bag) 250 ML 167 MG IV (13:24)
[2024-02-11] MEDS: Jevity 1.5 1,000 ML 10 ML GT (16:39)
[2024-02-11 20:27] LABS: CPK Total, Creatine Kinase 91 U/L (26-192); Triglycerides 229 mg/dL
[2024-02-11] MEDS: Norepinephrine 8 MG in 0.9% Normal Saline (250mL Bag) 242 ML 9.4 MG CONT INF (21:36)
[2024-02-12] VITALS (55 sets, daily range): BP systolic 99–152; BP diastolic 45–77; PULSE 70–128; RESP 16–18; TEMP 37.4–38.1; O2SAT 84–99; BMI 32.9
[2024-02-12] MEDS: Furosemide 100 MG/10 ML Vial 60 MG IV ×4 (02:28→20:50)
[2024-02-12] MEDS: fentaNYL drip 100 ML 20 MCG CONT INF ×4 (03:00→18:08)
[2024-02-12] MEDS: Propofol 10MG/Ml 1,000 MG/100 ML Bottle 22.8 MG CONT INF (03:06)
[2024-02-12 03:42] LABS: Absolute Lymphocyte Count 0.26 X10^3/uL (0.83-4.51); Absolute Neutrophil Count 4.5 X10^3/uL (2.0-7.7); Basophil# 0.04 X10^3/uL; Basophil% 0.8 % (0-1); Eosinophil# 0.05 X10^3/uL; Eosinophils% 0.9 % (0-5); Hematocrit 23.4 % (37-47); Hemoglobin 7.3 g/dL (12.0-15.0); Lymphocyte # 0.26 X10^3/ul (0.83-4.51); Lymphocyte % 4.9 % (19-41); Mean Corp Hgb Conc 31.2 g/dL (32-36); Mean Corpuscular Hgb 29.3 pg (27.0-32.0); Mean Platelet Vol. 11.9 fl (6.2-12.0); Monocyte# 0.24 X10^3/uL; Monocyte% 4.5 % (0-10); NRBC Flagged by Analyzer 0.6 % (0-5); Neutrophil # 4.49 X10^3/uL (2.7-7.7); Neutrophil % 84.6 % (47-70); POSITIVE COUNT YES; POSITIVE DIFFERENTIAL YES; POSITIVE MORPHOLOGY YES; RBC Distribution Width CV 17.1 % (11.6-14.6); RBC Distribution Width SD 57.6 fl (35.1-43.9); Red Blood Count 2.49 M/mm3 (4.2-5.4); White Blood Count 5.3 K/mm3 (4.4-11.0)
[2024-02-12] MEDS: Ipratropium/Albuterol Sulfate 3 ML AMPUL.NEB INHALATION ×4 (03:45→19:20)
[2024-02-12 04:04] LABS: Platelet Count 48 K/mm3 (150-450)
[2024-02-12 04:05] LABS: Differential Indicated SCAN CRITERIA MET
[2024-02-12 04:41] LABS: Differential Comment SCANNED; Platelet Estimate MOD DEC (ADEQ); Toxic Granulation 2+
[2024-02-12 04:44] LABS: ALB/GLOB Ratio 0.3 RATIO (0.9-2.4); AST(SGOT) 19 U/L (15-37); Alanine Aminotransfer ALT/SGPT 18 U/L (13-56); Albumin, Serum 1.1 g/dL (3.2-5.0); Alkaline Phosphatase 106 U/L (45-117); Anion Gap 4 (5-15); BUN 23 mg/dL (7-18); BUN/Creat Ratio 27.2 RATIO (10-20); Calcium,Total 7.5 mg/dL (8.5-10.1); Chloride 119 mmol/L (98-107); Creatinine, Serum 0.85 mg/dL (0.55-1.02); EST Glomerular Filtration Rate 72 mL/min (>60); Est Glom Filt Rate - Afr Amer 87 mL/min (>60); Estimated Creatinine Clearance 67.71 ml/min; Globulin 3.4 g/dL (2.2-4.2); Glucose 93 mg/dL (74-106); Protein, Total 4.5 g/dL (6.4-8.2); Sodium Level 148 mmol/L (136-145)
[2024-02-12] MEDS: Hydrocortisone Sod Succinate 100 MG/2 ML Vial IV ×3 (05:06→20:48)
[2024-02-12] MEDS: CHLORHEXIDINE GLUC 2% CLOTH 1 EACH TOWELETTE TOPICAL (05:06)
[2024-02-12] MEDS: Meropenem 1 GM in 0.9% Normal Saline (100mL MB+) 100 ML IV ×3 (05:06→20:48)
[2024-02-12] MEDS: 0.9% Saline Lock 10 ML Syringe IV (05:06)
--- NOTE | 2024-02-12 05:40 | RAD_ITS ---
STUDY: X-RAY CHEST REASON FOR EXAM: Female, 63 years old. Respiratory failure TECHNIQUE: Single AP portable view of the chest. COMPARISON: 02/08/2024 FINDINGS: Stable appearance of the ET tube, left subclavian port and EKG leads. Lungs are expanded with overall improvement compared to the previous study. Previously noted diffuse airspace opacifications with air bronchograms have significantly improved but not yet resolved. Continued follow-up recommended to assure complete resolution. Normal size heart. Normal mediastinum and ochoa. Normal visualized pulmonary arteries. Normal visualized aortic arch and descending thoracic aorta. Normal visualized thoracic spine. Normal visualized ribs, clavicles, and shoulders. There is no demonstrated abnormality of the visualized soft tissue structures of the upper abdomen. RAD/Chest 1 View (Portable) IMPRESSION: Significant overall improvement compared to the previous study with significantly decreased airspace opacifications in both lung ortega compared to the previous study. Continued follow-up recommended to assure complete resolution Stable appearance of the support lines and tubes Electronically Signed: Ye Parikh MD at 8:35 EST ,
[2024-02-12] MEDS: Potassium Chloride 20mEq/100mL 20 MEQ/100 ML IV.SOLN. 100 MEQ IV BOLUS ×2 (06:09→07:12)
[2024-02-12] MEDS: Potassium Chloride Oral Soln 20 MEQ/15 ML UDC 60 MEQ GT (06:09)
[2024-02-12 06:46] LABS: Magnesium 1.6 mg/dL (1.6-2.6); Phosphorus 2.6 mg/dL (2.5-4.9)
[2024-02-12 07:09] LABS: Allen Test Positive; Base Excess 7 mmol/L (-2 to +2); Blood Gas Specimen Type ART; Mode AC; O2 Delivery Device Adult Vent; PEEP 10; PO2 90 mmHG (75-100); RR 16; SITE R Radial; SO2 96 % (95-99); Total Carbon Dioxide 34 mmol/L; pCO2 55.3 mmHg (35-45); pH 7.37 (7.35-7.45)
[2024-02-12] MEDS: Propofol 10MG/Ml 1,000 MG/100 ML Bottle 25.3 MG CONT INF ×5 (07:18→22:32)
--- NOTE | 2024-02-12 09:22 | PN.HOSP_ITS ---
Reason for Visit Reason for Visit: Diagnoses Sepsis, unspecified organism (02/04/24) Malignant neoplasm of tonsil, unspecified (02/04/24) Neutropenia, unspecified (02/04/24) Pneumonia, unspecified organism (02/04/24) Acute respiratory distress syndrome (02/04/24) Acute kidney failure, unspecified (02/04/24) Hypoxemia (02/04/24) Transient alteration of awareness (02/04/24) Fever presenting with conditions classified elsewhere (02/04/24) Objective Data Objective Data Vital Signs: Vital Signs Temp Pulse Resp BP Pulse Ox O2 Del Method O2 Flow Rate 99.6 F H 80 16 139/51 H 95 Mechanical Ventilator 94 02/12/24 07:00 02/12/24 07:00 02/12/24 07:00 02/12/24 07:00 02/12/24 07:00 02/12/24 07:00 02/09/24 18:00 FiO2 60 02/12/24 07:00 Oxygen Flow Rate (L/min) 94 Oxygen Delivery Method Mechanical Ventilator Weight: 185 lb 13.595 oz Body Mass Index (BMI) 32.9 Intake & Output: Intake and Output for Last 24 Hours 02/10/24 02/11/24 02/12/24 23:59 23:59 23:59 Intake Total 2929.80 / 2972.50 2526.00 / 2573.50 1024.15 / 1024.15 Output Total 2150 / 2150 1365 / 1365 2500 / 2500 Balance 779.80 / 822.50 1161.00 / 1208.50 -1475.85 / -1475.85 Medical Nutrition Assessment Dietitian: Malnutrition Criteria Met Start: 02/05/24 09:52 Freq: Status: Active Protocol: Document 02/12/24 08:31 SLA (Rec: 02/12/24 08:31 SLA [id number]) Nutrition Malnutrition Evidence of Malnutrition Exists Yes Malnutrition (severe): Acute Illness/Injury Evidenced By Suboptimal Energy Intake ( Severe),Weight Loss (Severe) Intake Problem Inadequate Oral Intake Etiology related to mechanically ventilated Signs/Symptoms as evidenced by NPO status. 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 Initiate at 20mL/hr and advance by 10mL/hr every 12- 24 hours as tolerated to goal rate. Will adjust tube feed, as needed. Lab / Micro Data 02/12/24 03:30 02/12/24 03:30 Labs: Laboratory Results - last 24 hr 02/11/24 05:25: Total Creatine Kinase 91, Triglycerides 229 H 02/12/24 03:30: WBC 5.3, RBC 2.49 L, Hgb 7.3 L, Hct 23.4 L, MCV 94.0, MCH 29.3, MCHC 31.2 L, RDW Std Deviation 57.6 H, RDW Coeff of Miguel 17.1 H, Plt Count 48 L*, MPV 11.9, Immature Gran % (Auto) 4.300 H, Neut % (Auto) 84.6 H, Lymph % (Auto) 4.9 L, [place] % (Auto) 4.5, Eos % (Auto) 0.9, Baso % (Auto) 0.8, Absolute Neuts (auto) 4.5, Absolute Lymphs (auto) 0.26 L, Nucleated RBC % 0.6, Differential Comment SCANNED, Diff Path Review May foll, Toxic Granulation 2+, Platelet Estimate MOD DEC, Sodium 148 H, Potassium 3.0 L, Chloride 119 H, Carbon Dioxide 25.0, Anion Gap 4 L, BUN 23 H, Creatinine 0.85, Estim Creat Clear Calc 67.71, Est GFR (MDRD) Af Amer 87, Est GFR (MDRD) Non-Af 72, BUN/Creatinine Ratio 27.2 H , Glucose 93, Calcium 7.5 L, Phosphorus 2.6, Magnesium 1.6, Total Bilirubin 0.50, AST 19, ALT 18, Alkaline Phosphatase 106, Total Protein 4.5 L, Albumin 1.1 L, Globulin 3.4, Albumin/Globulin Ratio 0.3 L Micro: Microbiology 02/04/24 11:11 Blood Culture (Wb) - Line Draw Blood Culture - Final No growth in 5 days. 02/07/24 12:19 Bronchial Lavage - Right Middle Lobe Gram Stain - Final 02/07/24 12:19 Bronchial Lavage - Right Middle Lobe Respiratory Culture - Final Presumptive C albicans 02/04/24 09:23 Blood Culture (Wb) - Port Blood Culture - Final No growth in 5 days. 02/06/24 21:42 Sputum, Induced/Lukens Gram Stain - Final 02/06/24 21:42 Sputum, Induced/Lukens Respiratory Culture - Final Culture exhibits no growth. 02/06/24 10:53 Mucosa - Nasopharyngeal Respiratory Panel (PCR) - Final 02/07/24 10:45 Mucosa - Nasopharyngeal SARS-CoV-2, Influenza & RSV (PCR) - Final 02/06/24 17:03 Urine, Clean Catch Legionella Antigen - Final 02/06/24 17:03 Urine, Clean Catch Streptococcus pneumoniae Antigen (M - Final 02/04/24 09:42 Urine, Catheterized Urine Culture - Final Streptococcus agalactiae (B) ABG Data ABG results: ABG 02/12/24 07:06 Specimen Type ART Sample Site R Radial pH 7.37 Bicarbonate Actual 32.0 H Total CO2 34 Base Excess 7 H O2 Saturation 96 O2 % 55.0 ABG pCO2 55.3 H ABG pO2 90 Bogdan Test Positive Respiration Rate 16 O2 Delivery Device Adult Vent Vent Mode AC Tidal Volume 450.0 POC PEEP 10 Radiography Diagnostic Testing: Radiology Impression Chest X-Ray 02/12/24 05:40 IMPRESSION: Significant overall improvement compared to the previous study with significantly decreased airspace opacifications in both lung ortega compared to the previous study. Continued follow-up recommended to assure complete resolution Stable appearance of the support lines and tubes Electronically Signed: Ye Parikh MD at 8:35 EST , Rhythm Strip Rhythm Strip: Sinus Tach Rate: 108 Ectopy: None Physical Exam Narrative Seen and examined. Vitals shows improvement. BP 139/51, heart rate 80 provide. Low-grade fever. FiO2 decreased to 55 to 60%. PEEP 10. On Levophed drip. Heart rate in 120s. Patient had 2 doses of Lasix 60 mg IVP Physical exam General: Intubated and sedated on fentanyl and propofol drip. HEENT: Atraumatic, PERRLA, EOMI, Normocephalic Oral: ET tube and OG tube Neck: Supple, No JVD, Negative Carotid Bruits Chest wall/Lungs: Upper chest wall skin dry, and radiation changes. Air entry diminished in bilateral lung bases. Cardiovascular: on Dilaudid 0.5 mg for moderate pain and 1 mg for severe pain respectively vasopressor, No M/G/R Abdomen: Bowel Sounds sluggish, Soft, Non Tender, Non-Distended : Pool catheter. Dark-colored urine no renal angle tenderness. No suprapubic tenderness. Extremities: Mild pedal edema, Capillary Refill Less than 3 Seconds Skin: No rashes, No breakdown Musculoskeletal: No Tenderness to Palpation of Joints or Extremities. Muscle strength 4/5 at major Neurological: intubated/sedated no acute focal neurological deficit. Psych/Mental Status: Flat affect Assessment & Plan Assessment/Plan (1) Acute kidney injury: (2) Altered level of consciousness: (3) Right lower lobe pneumonia: (4) Right upper lobe pneumonia: PLAN: Plan 63-year-old female was admitted with altered level of consciousness for 4 days prior to admission. Denies nausea, vomiting or diarrhea. No documented fever or recent fall at home. 1.acute hypoxic respiratory failure due to Right sided pneumonia with multiple rounded opacities complicating into full-blown ARDS in immunocompromised host: Chest x-ray reviewed which shows extensive 100 areas opacification in the right lung. CT chest with IV contrast done but report pending. Images individually reviewed and shows diffuse right lung alveolar opacities and groundglass opacity. It also shows left lower lobe opacity. 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 Currently on vancomycin Zosyn and azithromycin. Sputum culture are ordered. Triple PCR for SARS-CoV-2, flu and RSV are negative negative on 01/20. Urine culture shows strep group B and mixed gram-positive organism. Respiratory panel and blood cultures are pending Patient does not have chest pain but short of breath, tachycardia, tachypnea and mild hypoxia Possible ARDS: 1. Onset of symptoms within 1 week, bilateral opacities, right more than left with groundglass opacities and consolidation and noncardiogenic edema. FiO2/PaO2 ratio 126. Patient undergoing echo. Discussed with the sheet metal duct worker supervisor. Plan for possible bronchoscopy 02/07: Discussed with Dr. Mitchell. Patient had bronchoscopy with BAL done yesterday. On high FiO2, PEEP with vent dyssynchrony. She is Precedex was changed to propofol. 02/08: Neutropenic fever. Tmax 100.8 Fahrenheit. Full-blown ARDS. High vent requirement. On neuromuscular paralytic, cisatracurium. BAL Gram stain shows presumptive Lori albicans. Blood culture negative for 5 days. Sputum culture no growth on 02/06/2024. Zosyn changed to meropenem. Vancomycin continued. Patient completed azithromycin. 02/09: Patient is still having low-grade fever. Vent requirement 55%, PEEP 10 on cis atracurium. On broad-spectrum antibiotics 02/10:Diflucan was added yesterday as BAL shows very rare Lori. Rest antibiotics to continue. 02/11: Improvement in FiO2, 55 to 60%. Lasix 60 mg IV x 2 doses were given. Hypotension, probably septic shock from bilateral pneumonia: On Levophed drip 02/08: Continue to require vasopressor support. 02/10: Continue to require vasopressor support. 02/11: BP improving. On low-dose vasopressor. 2. Pancytopenia with severe neutropenia, normocytic normochromic severe anemia and thrombocytopenia due to recent chemotherapy: Hemoglobin 7.2, WBC 0.4K, ANC 0.3K, ALC 0.06K, platelet count 91K. Started on Granix. 02/06: Worsening of pancytopenia. WBC 0.3K, ANC 0.2K, H&H 6.2/19 and platelet count 54K. Monitor PRBC ordered. 02/08: Immature granulocytes 0%, WBC 0.7K, ANC 0.5K. 02/09: WBC count has improved, 3.6K but H&H 6.9/21.7%, platelet count 43K. 1 unit PRBC ordered. 02/10: WBC count 5.4K, H&H 7.9/25%. Platelet count 52K. 02/11: CBC counts were similar to yesterday. 3. 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 She has a PEG tube in for nutrition, will consult dietitian ? She is undergoing chemoradiation with low-dose cisplatin ? Her last dose of cisplatin was on 01/30/2024, which was her last dose of chemotherapy and she has 5 more days of radiation ? 02/05 on oral exam: Base of tongue and posterior pharynx are raw and ulcerated. 02/06: Discussed with the Radiotherapist, Dr. Plasencia. She has cancer involving tonsil and soft palate and was able to protect her airway and clear the mucus before but recently had PEG tube placement for nutrition and pain. 4. .Anxiety/depression ? Anxious and depressed ? Continue her home medications DVT: SCDs Charges/Coding Visit Charges Inpatient E&M: 48120 Subs Hosp L3
[2024-02-12] MEDS: Chlorhexidine 15 ML PO ×2 (10:15→20:48)
[2024-02-12] MEDS: QUEtiapine 25 MG Tablet GT ×2 (10:15→20:48)
[2024-02-12] MEDS: NYSTATIN 500,000 UNIT/5 ML UDC 500000 UNIT PO ×4 (10:15→20:46)
[2024-02-12] MEDS: FLUoxetine 20 MG Capsule 60 MG PO (10:15)
[2024-02-12] MEDS: Pantoprazole Sodium 40 MG in 0.9% Normal Saline (100mL MB+) 100 ML 330 MG IV ×2 (10:15→20:45)
[2024-02-12] MEDS: Fluconazole IVPB 200 MG/100 ML BAG 100 MG IV (10:20)
[2024-02-12] MEDS: Vancomycin Trough/Random Due 1 LAB MC (12:51)
[2024-02-12 12:58] LABS: Vancomycin, Trough Level 17.6 ug/mL (5.0-15.0)
--- NOTE | 2024-02-12 13:03 | PCM.RX.CS ---
Consult Antibiotic Management Pharmacy has been consulted to manage selected antibiotic: Vancomycin Type of Intervention Type of Consult: Follow-up Suspected Infection Suspected Infection: Pneumonia Prior Doses of Antibiotics Prior Doses of Antibiotics Received/Current Regimen: Vancomycin 1250 mg Q24H last dose 02/10 @ 1324 Labs Labs: Sodium 148 mmol/L (136-145) H 02/12/24 03:30 Potassium 3.0 mmol/L (3.5-5.1) L 02/12/24 03:30 Chloride 119 mmol/L (98-107) H 02/12/24 03:30 Carbon Dioxide 25.0 mmol/L (21.0-32.0) 02/12/24 03:30 Anion Gap 4 (5-15) L 02/12/24 03:30 BUN 23 mg/dL (7-18) H 02/12/24 03:30 Creatinine 0.85 mg/dL (0.55-1.02) 02/12/24 03:30 Est GFR (MDRD) Af Amer 87 mL/min (>60) 02/12/24 03:30 Est GFR (MDRD) Non-Af 72 mL/min (>60) 02/12/24 03:30 BUN/Creatinine Ratio 27.2 RATIO (10-20) H 02/12/24 03:30 Glucose 93 mg/dL (74-106) 02/12/24 03:30 Vancomycin Trough 17.6 ug/mL (5.0-15.0) H 02/12/24 12:15 Random Vancomycin 16.2 ug/mL (0.0-15.0) H 02/10/24 10:35 Microbiology Microbiology: Microbiology 02/04/24 11:11 Blood Culture (Wb) - Line Draw Blood Culture - Final No growth in 5 days. 02/07/24 12:19 Bronchial Lavage - Right Middle Lobe Gram Stain - Final 02/07/24 12:19 Bronchial Lavage - Right Middle Lobe Respiratory Culture - Final Presumptive C albicans 02/04/24 09:23 Blood Culture (Wb) - Port Blood Culture - Final No growth in 5 days. 02/06/24 21:42 Sputum, Induced/Lukens Gram Stain - Final 02/06/24 21:42 Sputum, Induced/Lukens Respiratory Culture - Final Culture exhibits no growth. 02/06/24 10:53 Mucosa - Nasopharyngeal Respiratory Panel (PCR) - Final 02/07/24 10:45 Mucosa - Nasopharyngeal SARS-CoV-2, Influenza & RSV (PCR) - Final 02/06/24 17:03 Urine, Clean Catch Legionella Antigen - Final 02/06/24 17:03 Urine, Clean Catch Streptococcus pneumoniae Antigen (M - Final 02/04/24 09:42 Urine, Catheterized Urine Culture - Final Streptococcus agalactiae (B) Dosing Weight Weight used for dosin kg Estimated Creatinine Clearance Estimated Creatinine Clearance: ~67 Goal Trough Goal Trough: 15-20 mcg/mL Pharmacy Plan for Drug Dosing Pharmacy Plan for Drug Dosing: Vancomycin trough = 17.6, continue current dosing. Pharmacy Service will continue to monitor and adjust dosing as required. Follow-Up Labs Follow-Up Labs: Trough: Vancomycin Date/Time Labs Ordered Labs to be done on [date and time ordered]: 02/14/24 @ 1200
[2024-02-12] MEDS: Vancomycin HCl 1,250 MG in 0.9% Normal Saline (250mL Bag) 250 ML 167 MG IV (13:22)
--- NOTE | 2024-02-12 13:55 | PCM.PN.TICU ---
Objective Data Objective Data Vital Signs: Vital Signs Last response Temperature 37.4 C H 02/12/24 11:00 Temperature Source Core 02/12/24 11:00 Pulse Rate 76 02/12/24 13:19 Pulse Strength Normal (2+) 02/11/24 20:08 Respiratory Rate 16 02/12/24 13:19 Respiratory Effort Normal, Non-Labored, Mechanically Ventilated 02/12/24 12:00 Respiratory Depth Normal 02/12/24 12:00 Respiratory Pattern Normal 02/12/24 13:19 Blood Pressure 121/51 H 02/12/24 11:00 Blood Pressure Mean 74 02/12/24 11:00 Blood Pressure Source Monitor 02/12/24 11:00 Blood Pressure Position Semi-Fowlers 02/12/24 11:00 Blood Pressure Location Right Arm 02/12/24 11:00 Pulse Ox 92 02/12/24 13:13 Oxygen Delivery Method Mechanical Ventilator 02/12/24 12:00 Oxygen Flow Rate (L/min) 94 02/09/24 18:00 Fraction of Inspired Oxygen (FIO2) 45 02/12/24 12:00 I&O: I&O Last 24 Hours 02/11/24 02/12/24 02/12/24 23:59 11:59 23:59 Intake Total 1586.87 / 2573.50 1825.11 / 2047.16 222.05 / 2047.16 Output Total 765 / 1365 2500 / 4350 1850 / 4350 Balance 821.87 / 1208.50 -674.89 / -2302.84 -1627.95 / -2302.84 I&O: Total Stay 02/04/24 09:05 thru 02/12/24 13:00 Intake Total 04828.60 Output Total 69490 Balance 07407.60 Current Meds Ordered / Administered: Current meds ordered / Administered Generic Name Dose Route Start Last Admin Trade Name Freq PRN Reason Stop Dose Admin Acetaminophen 650 mg 02/11/24 11:30 02/11/24 23:05 Acetaminophen 650 Mg/20 Ml Udc GT 650 mg Q4H PRN PRN Administration FEVER Albuterol/Ipratropium 3 ml 02/06/24 13:45 02/12/24 13:19 Ipratropium/Albuterol Sulfate 3 Ml Ampul.Neb INHALATION 3 ml Q6HWA.RT LACHO Administration Chlorhexidine Gluconate 15 ml 02/06/24 22:00 02/12/24 10:15 Chlorhexidine 15 Ml PO 15 ml BID LACHO Administration Chlorhexidine Gluconate 1 each 02/07/24 10:00 02/12/24 05:06 Chlorhexidine Gluc 2% Cloth 1 Each [place] TOPICAL 1 each DAILY LACHO Administration Fluoxetine HCl 60 mg 02/06/24 10:00 02/12/24 10:15 Fluoxetine 20 Mg Capsule PO 60 mg DAILY LACHO Administration Hydrocortisone Sodium Succinate 100 mg 02/12/24 06:00 02/12/24 05:06 Hydrocortisone Sod Succinate 100 Mg/2 Ml Vial IV 100 mg TID LACHO Administration Vancomycin IV-PHARMACY TO DOSE 500 mls @ 250 mls/hr 02/04/24 12:38 1 each/ Sodium Chloride IV X1 PRN Rx to Dose Protocol Sodium Chloride 500 mls @ 15 mls/hr 02/04/24 12:39 IV .[id number] PRN Saline Flush Sodium Chloride 500 mls @ 15 mls/hr 02/04/24 12:39 IV .[id number] PRN Additional IVPB Infusion Pantoprazole Sodium 40 mg/ 110 mls @ 330 mls/hr 02/04/24 13:30 02/12/24 10:35 Sodium Chloride IV Infused Q12 LACHO Infusion Enteral Nutritional Formula 1,000 mls @ 10 mls/hr 02/05/24 13:30 02/11/24 16:39 Jevity 1.5 GT 10 mls/hr .Q48H LACHO Administration Fentanyl 100 mls @ 2.5 mls/hr 02/06/24 21:15 02/12/24 12:51 CONT INF 200 mcg/hr UD LACHO 20 mls/hr Administration Protocol 25 MCG/HR Norepinephrine Bitartrate 8 mg 250 mls @ 9.375 mls/hr 02/06/24 22:10 02/12/24 11:30 / Sodium Chloride CONT INF Not Given .[id number] LACHO Protocol 5 MCG/MIN Propofol 1,000 mg in 100 mls @ 5.064 mls/hr 02/07/24 23:20 02/12/24 13:00 Diprivan CONT INF 50 mcg/kg/min .Q12H LACHO 25.3 mls/hr Titration Protocol 10 MCG/KG/MIN Cisatracurium Besylate 100 mg/ 250 mls @ 25.32 mls/hr 02/08/24 12:00 02/12/24 09:48 Sodium Chloride CONT INF Not Given .[id number] LACHO Protocol 2 MCG/KG/MIN Meropenem 1 gm/ Sodium 120 mls @ 33 mls/hr 02/09/24 14:00 02/12/24 08:45 Chloride IV Infused Q8 LACHO Infusion Vancomycin HCl 1,250 mg/ 275 mls @ 167 mls/hr 02/10/24 12:30 02/12/24 13:22 Sodium Chloride IV 167 mls/hr Q24H LACHO Administration Fluconazole 200 mg in 100 mls @ 100 mls/hr 02/11/24 10:00 02/12/24 11:20 IV Infused Q24 LACHO Infusion Lidocaine/Diphenhydr/Alum/Mg/Simeth 20 ml 02/06/24 13:30 Bmx Liquid 180 Ml PO Q3H PRN PRN oral pain Nystatin 500,000 unit 02/05/24 10:00 02/12/24 10:15 Nystatin 500,000 Unit/5 Ml Udc PO 500,000 unit 4X/DAY LACHO Administration Ondansetron HCl 4 mg 02/04/24 12:38 02/04/24 14:50 Ondansetron 4 Mg/2 Ml Vial IV 4 mg Q6H PRN Administration NAUSEA Prochlorperazine Edisylate 5 mg 02/04/24 12:38 Prochlorperazine 10 Mg/2 Ml Vial IV Q4H PRN PRN Breakthrough Nausea/Vomiting Quetiapine Fumarate 25 mg 02/08/24 09:30 02/12/24 10:15 Quetiapine 25 Mg Tablet GT 25 mg BID LACHO Administration Senna/Docusate Sodium 2 tablet 02/04/24 12:38 Senna/Docusate Sodium 1 Tablet PO BID PRN PRN Constipation Sodium Chloride 10 - 40 ml 02/04/24 12:39 02/12/24 05:06 0.9% Saline Lock 10 Ml Syringe IV 20 ml UD PRN Administration SALINE FLUSH Sodium Chloride 2 spray 02/04/24 17:43 Sodium Chloride 0.65% 1 Plato Plato.Btl NASAL TID PRN PRN NASAL DRYNESS Vancomycin Protocol 1 lab 02/12/24 10:00 02/12/24 12:51 Vancomycin Trough/Random Due 02/12/24 14:00 1 lab DAILY [facility] Administration Vancomycin Protocol 1 lab 02/14/24 10:00 Vancomycin Trough/Random Due 02/14/24 14:00 DAILY [facility] Medical Records Data Medical Nutrition Assessment Dietitian: Malnutrition Criteria Met Start: 02/05/24 09:52 Freq: Status: Active Protocol: Document 02/12/24 08:31 SLA (Rec: 02/12/24 08:31 SLA [id number]) Nutrition Malnutrition Evidence of Malnutrition Exists Yes Malnutrition (severe): Acute Illness/Injury Evidenced By Suboptimal Energy Intake ( Severe),Weight Loss (Severe) Intake Problem Inadequate Oral Intake Etiology related to mechanically ventilated Signs/Symptoms as evidenced by NPO status. 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 Initiate at 20mL/hr and advance by 10mL/hr every 12- 24 hours as tolerated to goal rate. Will adjust tube feed, as needed. Lab / Micro Data 02/12/24 03:30 02/12/24 03:30 Labs: Laboratory Results - last 24 hr 02/11/24 05:25: Total Creatine Kinase 91, Triglycerides 229 H 02/12/24 03:30: WBC 5.3, RBC 2.49 L, Hgb 7.3 L, Hct 23.4 L, MCV 94.0, MCH 29.3, MCHC 31.2 L, RDW Std Deviation 57.6 H, RDW Coeff of Miguel 17.1 H, Plt Count 48 L*, MPV 11.9, Immature Gran % (Auto) 4.300 H, Neut % (Auto) 84.6 H, Lymph % (Auto) 4.9 L, [place] % (Auto) 4.5, Eos % (Auto) 0.9, Baso % (Auto) 0.8, Absolute Neuts (auto) 4.5, Absolute Lymphs (auto) 0.26 L, Nucleated RBC % 0.6, Differential Comment SCANNED, Diff Path Review May foll, Toxic Granulation 2+, Platelet Estimate MOD DEC, Sodium 148 H, Potassium 3.0 L, Chloride 119 H, Carbon Dioxide 25.0, Anion Gap 4 L, BUN 23 H, Creatinine 0.85, Estim Creat Clear Calc 67.71, Est GFR (MDRD) Af Amer 87, Est GFR (MDRD) Non-Af 72, BUN/Creatinine Ratio 27.2 H, Glucose 93, Calcium 7.5 L, Phosphorus 2.6, Magnesium 1.6, Total Bilirubin 0.50, AST 19, ALT 18, Alkaline Phosphatase 106, Total Protein 4.5 L, Albumin 1.1 L, Globulin 3.4, Albumin/Globulin Ratio 0.3 L 02/12/24 12:15: Vancomycin Trough 17.6 H ABG Data ABG results: ABG 02/12/24 07:06 Specimen Type ART Sample Site R Radial pH 7.37 Bicarbonate Actual 32.0 H Total CO2 34 Base Excess 7 H O2 Saturation 96 O2 % 55.0 ABG pCO2 55.3 H ABG pO2 90 Bogdan Test Positive Respiration Rate 16 O2 Delivery Device Adult Vent Vent Mode AC Tidal Volume 450.0 POC PEEP 10 Rhythm Strip Rhythm Strip: Sinus Tach Rate: 108 Ectopy: None Imaging Radiology Impression Chest X-Ray 02/12/24 05:40 IMPRESSION: Significant overall improvement compared to the previous study with significantly decreased airspace opacifications in both lung ortega compared to the previous study. Continued follow-up recommended to assure complete resolution Stable appearance of the support lines and tubes Electronically Signed: Ye Parikh MD at 8:35 EST Reading Location ID and State: [facility] / MD , Service support , Assessment and Plan . Assessment and plan: HPI Patient seen and examined Chart and data reviewed at length She remains gravely ill Sedated - appears comfortable Low grade fever NE for BP at low dose Brisk UOP w/ diuretics MV 7-8 LPM, PIP 40, FiO2 0.55, +10, SpO2 95% pCXR better aerated' ABG reviewed CX NGTD d/w NOK at BS PE GEN sedated, NAD VS as above HEENT DEYANIRA NECK supple COR RRR CHEST coarse ABD soft EXT pitting edema SKIN w/d ILENE grossly NF - sedated ASSESSMENT 1. Acute respiratory failure requiring MV support 2. Pulmonary infiltrates / ARDS 3. Presumed infectious PNA 4. H/N SCC - recent chemotherapy 5. Pancytopenia 6. Hypernatremia 7. Hypervolemia 8. Severe hypoalbuminemia TREATMENT PLAN -MV support w/ low TV - wean FiO2 as able -sedation / analgesia -empiric ABX - defer to ID -loop diuretics for (-) fluid balance -IV hydrocortisone for BP and lung disease -VTE ppx -TF as tolerated - slowly increase rate -free water for Na+ -prognosis guarded Critical Care Time: 50 min The entirety of this encounter was done via Telemedicine
[2024-02-12] MEDS: Magnesium Sulfate 2 GM in Dextrose 5%-Water (100mL Bag) 100 ML IV (15:19)
[2024-02-12] MEDS: Dextrose 5%-Water (1000mL Bag) 1,000 ML 100 ML IV (17:28)
[2024-02-12] MEDS: Jevity 1.5 1,000 ML 20 ML GT (18:11)
[2024-02-12] MEDS: Norepinephrine 8 MG in 0.9% Normal Saline (250mL Bag) 242 ML 5.6 MG CONT INF (20:00)
[2024-02-12] MEDS: Polyethylene Glycol 3350 17 GM PACKET NG (20:50)
[2024-02-13] VITALS (19 sets, daily range): BP systolic 102–144; BP diastolic 47–76; PULSE 64–124; RESP 16; TEMP 36.8–37.6; O2SAT 54–97; BMI 32.5
[2024-02-13] MEDS: CHLORHEXIDINE GLUC 2% CLOTH 1 EACH TOWELETTE TOPICAL (00:26)
[2024-02-13] MEDS: 0.9% Saline Lock 10 ML Syringe IV (02:13)
[2024-02-13] MEDS: Propofol 10MG/Ml 1,000 MG/100 ML Bottle 25.3 MG CONT INF (02:13)
[2024-02-13] MEDS: Dextrose 5%-Water (1000mL Bag) 1,000 ML 100 ML IV (03:31)
[2024-02-13 03:38] LABS: Mean Corpuscular Hgb 29.2 pg (27.0-32.0); Mean Corpuscular Volume 91.2 fL (81-99); POSITIVE COUNT YES; POSITIVE DIFFERENTIAL YES; POSITIVE MORPHOLOGY YES; Platelet Count 63 K/mm3 (150-450); RBC Distribution Width CV 16.1 % (11.6-14.6); RBC Distribution Width SD 52.8 fl (35.1-43.9); Red Blood Count 2.74 M/mm3 (4.2-5.4); White Blood Count 4.3 K/mm3 (4.4-11.0)
[2024-02-13 03:57] LABS: ALB/GLOB Ratio 0.4 RATIO (0.9-2.4); AST(SGOT) 28 U/L (15-37); Alanine Aminotransfer ALT/SGPT 20 U/L (13-56); Albumin, Serum 1.4 g/dL (3.2-5.0); Alkaline Phosphatase 112 U/L (45-117); Anion Gap 5 (5-15); BUN 32 mg/dL (7-18); BUN/Creat Ratio 29.1 RATIO (10-20); Calcium,Total 8.4 mg/dL (8.5-10.1); Chloride 104 mmol/L (98-107); EST Glomerular Filtration Rate 53 mL/min (>60); Est Glom Filt Rate - Afr Amer 64 mL/min (>60); Estimated Creatinine Clearance 52.45 ml/min; Globulin 3.7 g/dL (2.2-4.2); Glucose 174 mg/dL (74-106); Potassium 3.3 mmol/L (3.5-5.1); Protein, Total 5.1 g/dL (6.4-8.2); Sodium Level 142 mmol/L (136-145)
[2024-02-13] MEDS: Hydrocortisone Sod Succinate 100 MG/2 ML Vial IV (04:53)
[2024-02-13] MEDS: fentaNYL drip 100 ML 20 MCG CONT INF ×2 (05:00)
[2024-02-13 05:04] LABS: Basophil 1 % (0-1); Differential Comment SCANNED; Differential Indicated MANUAL DIFF; Lymphocyte 9 % (19-41); Metamyelocyte 1 % (0-1); Monocyte 3 % (0-10); Myelocyte 1 % (0-0); Neutrophil-Band 15 % (0-5); Neutrophil-Segmented 69 % (47-70); Total Cells Counted 100 (MANUAL DIFF)
[2024-02-13 05:05] LABS: Absolute Lymphocyte Count 0.38 X10^3/uL (0.83-4.51); Absolute Neutrophil Count 3.6 X10^3/uL (2.0-7.7); Platelet Estimate MOD DEC (ADEQ)
[2024-02-13] MEDS: Meropenem 1 GM in 0.9% Normal Saline (100mL MB+) 100 ML IV (05:10)
[2024-02-13] MEDS: TITRATION PARAMETER CHANGE 1 EACH IV (05:10)
[2024-02-13] MEDS: Propofol 10MG/Ml 1,000 MG/100 ML Bottle 25.1 MG CONT INF (05:58)
[2024-02-13] MEDS: Ipratropium/Albuterol Sulfate 3 ML AMPUL.NEB INHALATION (06:48)
[2024-02-13] MEDS: QUEtiapine 25 MG Tablet GT (07:36)
[2024-02-13] MEDS: FLUoxetine 20 MG Capsule 60 MG PO (07:36)
[2024-02-13] MEDS: Polyethylene Glycol 3350 17 GM PACKET NG (07:37)
[2024-02-13] MEDS: NYSTATIN 500,000 UNIT/5 ML UDC 500000 UNIT PO (07:37)
[2024-02-13] MEDS: Chlorhexidine 15 ML PO (07:44)
[2024-02-13] MEDS: Pantoprazole Sodium 40 MG in 0.9% Normal Saline (100mL MB+) 100 ML 330 MG IV (07:52)
--- NOTE | 2024-02-13 08:52 | PN.CC_ITS ---
Assessment & Plan Assessment/Plan (1) Hypoxemia: (2) ARDS (adult respiratory distress syndrome): PLAN: Plan RECOMMENDATIONS: 1. Following my discussion with the patient's family this morning regarding overall prognosis and goals of care, the plan at this time is to transition to comfort care measures and proceed with terminal extubation, per family request. CODE STATUS will be updated to DNR comfort care. Orders for comfort medications will be placed. Family questions were answered. IMPRESSIONS: 1. 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 The patient went on to develop fulminant ARDS and decompensated from a respiratory perspective on February 06, requiring intubation. She continues to have high ventilator requirements. She has been maintained on antimicrobials, fluconazole, diuretics and steroids. Bronchoscopy was completed on February 06 with cultures pending. Continue to wean FiO2 and PEEP as tolerated. 2. Septic shock Clinical concern for underlying bacterial pneumonia. Respiratory viral workup has been unrevealing. The patient remains on empiric broad-spectrum antimicrobials per ID recommendations. Continue vasopressor support to maintain a mean arterial pressure at or above 65 mmHg. 3. Pancytopenia Continue to monitor blood counts for now. Plan to transfuse if hemoglobin once again drops below 7 g/dL. Continue PPI therapy as ordered. Granix has been completed. 4. History of tonsillar squamous cell carcinoma/pancytopenia/prior tobacco abuse history/high risk for aspiration Complicates care, management, recovery and prognosis. Continue supportive measures as noted above. CODE STATUS: DNR comfort care, per family request. TIME: 42 minutes of critical care time, independent of procedures, was spent engaging the family and goals of care discussion and addressing the patient's acute hypoxemic respiratory failure, septic shock, pancytopenia, review of all data and collaboration with the care team. Subjective Subjective The patient was seen and examined at the bedside this morning. Events from the last 24 hours have been reviewed. The patient is currently afebrile, hemodynamically stable and maintaining appropriate oxygen saturations on assist- control mode mechanical ventilation with an FiO2 requirement of 60% and PEEP of 10. The patient remains heavily sedated with tenuous respiratory status. She is currently tolerating tube feeding. The patient is being maintained on low- dose vasopressor support with Levophed at 2 mcg/min along with empiric antibiotics, fluconazole, diuretics and steroids. The patient remains pancytopenic. Potassium is low at 3.3 with a creatinine of 1.1. This morning, I was asked to meet with the patient's family regarding overall prognosis and goals of care. I had a lengthy discussion with the patient's family regarding her current clinical state and severity of her underlying ARDS. In light of her comorbidities and suspected quality of life, if she survives, the patient's family has elected to pursue a transition to comfort care measures, with plans for terminal extubation. Objective Data Objective Data The patient's most recent lab work, culture data and imaging studies have all been personally reviewed. Strep and urine Legionella antigens were negative. Blood and sputum cultures are pending. COVID, influenza and RSV PCR's were negative. Vital Signs: Vital Signs Temp Pulse Resp BP Pulse Ox O2 Del Method O2 Flow Rate 98.2 F 66 16 124/52 H 94 Mechanical Ventilator 94 02/13/24 07:00 02/13/24 08:44 02/13/24 08:44 02/13/24 07:00 02/13/24 08:44 02/13/24 08:00 02/09/24 18:00 FiO2 65 02/13/24 08:00 Oxygen Flow Rate (L/min) 94 Oxygen Delivery Method Mechanical Ventilator Weight: 184 lb 1.376 oz Body Mass Index (BMI) 32.5 Intake & Output: Intake and Output for Last 24 Hours 02/11/24 02/12/24 02/13/24 23:59 23:59 23:59 Intake Total 2526.00 / 2573.50 3876.23 / 3905.60 1905.82 / 1905.82 Output Total 1365 / 1365 7350 / 7350 500 / 500 Balance 1161.00 / 1208.50 -3473.77 / -3444.40 1405.82 / 1405.82 Medical Nutrition Assessment Dietitian: Malnutrition Criteria Met Start: 02/05/24 09:52 Freq: Status: Active Protocol: Document 02/12/24 08:31 AUGUST (Rec: 02/12/24 08:31 SLA [id number]) Nutrition Malnutrition Evidence of Malnutrition Exists Yes Malnutrition (severe): Acute Illness/Injury Evidenced By Suboptimal Energy Intake ( Severe),Weight Loss (Severe) Intake Problem Inadequate Oral Intake Etiology related to mechanically ventilated Signs/Symptoms as evidenced by NPO status. 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 Initiate at 20mL/hr and advance by 10mL/hr every 12- 24 hours as tolerated to goal rate. Will adjust tube feed, as needed. Lab / Micro Data Attestation: I reviewed the patient's lab results. 02/13/24 03:30 02/13/24 03:30 Labs: Laboratory Results - last 24 hr 02/12/24 12:15: Vancomycin Trough 17.6 H 02/13/24 03:30: WBC 4.3 L, RBC 2.74 L, Hgb 8.0 L, Hct 25.0 L, MCV 91.2, MCH 29.2, MCHC 32.0, RDW Std Deviation 52.8 H, RDW Coeff of Miguel 16.1 H, Plt Count 63 L, MPV 12.0, Immature Gran % (Auto) SOCIAL WORK ASSISTANT, Neut % (Auto) SOCIAL WORK ASSISTANT, Lymph % (Auto) SOCIAL WORK ASSISTANT, [place] % (Auto) SOCIAL WORK ASSISTANT, Eos % (Auto) SOCIAL WORK ASSISTANT, Baso % (Auto) SOCIAL WORK ASSISTANT, Absolute Neuts (auto) 3.6, Absolute Lymphs (auto) 0.38 L, Total Counted 100, Neutrophils % (Manual) 69, B and Neutrophils % 15 H, Lymphocytes % (Manual) 9 L, Monocytes % (Manual) 3, Basophils % (Manual) 1, Metamyelocytes % 1, Myelocytes % 1 H, Nucleated RBC % SOCIAL WORK ASSISTANT, Differential Comment SCANNED, Diff Path Review May foll, Platelet Estimate MOD DEC, Sodium 142, Potassium 3.3 L, Chloride 104, Carbon Dioxide 33.0 H, Anion Gap 5, BUN 32 H, Creatinine 1.10 H, Estim Creat Clear Calc 52.45, Est GFR (MDRD) Af Amer 64, Est GFR (MDRD) Non-Af 53 L, BUN/Creatinine Ratio 29.1 H, Glucose 174 H, Calcium 8.4 L, Total Bilirubin 0.40, AST 28, ALT 20, Alkaline Phosphatase 112, Total Protein 5.1 L, Albumin 1.4 L, Globulin 3.7, Albumin/Globulin Ratio 0.4 L Micro: Microbiology 02/12/24 22:20 Stool Stool Occult Blood (SANDRA) - Final Occult Blood Positive 02/04/24 11:11 Blood Culture (Wb) - Line Draw Blood Culture - Final No growth in 5 days. 02/07/24 12:19 Bronchial Lavage - Right Middle Lobe Gram Stain - Final 02/07/24 12:19 Bronchial Lavage - Right Middle Lobe Respiratory Culture - Final Presumptive C albicans 02/04/24 09:23 Blood Culture (Wb) - Port Blood Culture - Final No growth in 5 days. 02/06/24 21:42 Sputum, Induced/Lukens Gram Stain - Final 02/06/24 21:42 Sputum, Induced/Lukens Respiratory Culture - Final Culture exhibits no growth. 02/06/24 10:53 Mucosa - Nasopharyngeal Respiratory Panel (PCR) - Final 02/07/24 10:45 Mucosa - Nasopharyngeal SARS-CoV-2, Influenza & RSV (PCR) - Final 02/06/24 17:03 Urine, Clean Catch Legionella Antigen - Final 02/06/24 17:03 Urine, Clean Catch Streptococcus pneumoniae Antigen (M - Final 02/04/24 09:42 Urine, Catheterized Urine Culture - Final Streptococcus agalactiae (B) ABG Data ABG results: ABG 02/09/24 08:59 Specimen Type ART Sample Site R Radial pH 7.23 L Bicarbonate Actual 23.6 Total CO2 25 Base Excess -4 L O2 Saturation 93 L O2 % 60.0 ABG pCO2 56.5 H ABG pO2 80 Bogdan Test Positive Respiration Rate 16 O2 Delivery Device Adult Vent Vent Mode ACVC+ Tidal Volume 450.0 POC PEEP 10 Radiography Diagnostic Testing: Radiology Impression Echocardiogram 02/08/24 09:21 Interpretation Summary The estimated ejection fraction is 65 %. No evidence for diastolic dysfunction. Mildly dilated right ventricle. Mildly decreased right ventricular systolic function Ordering Physician: Moise Mitchell Performed By: Taylor Clifford RDCS Rhythm Strip Rhythm Strip: Sinus Tach Rate: 108 Ectopy: None Physical Exam Const Constitutional Narrative: The patient is currently intubated, sedated and mechanically ventilated. General Appearance: ill appearing and patient mechanically ventilated HEENT normocephalic and head/scalp atraumatic Mouth: endotracheal tube in place Eyes EOMs intact bilaterally and conjunctivae normal Neck supple General: trachea midline Chest inspection of chest normal Chest Narrative: Stable left sided chest wall port. Resp Auscultation: diminished lung sounds; Negative for rales, rhonchi or wheezes Cardio regular rate, regular rhythm, S1 normal heart sound and S2 normal heart sound GI normal to inspection, nondistended, normoactive bowel sounds Inspection: GI tube present Extremity no clubbing, cyanosis or edema Skin no rashes or lesions noted Neuro Sensorium / Orientation: sedated on vent Charges/Coding Procedures Hospitalists Procedures: 54098 Critical Care 1st Hr
--- NOTE | 2024-02-13 09:25 | NURSING ---
Patients son and met with Dr Mitchell. It was decided to change patients code status to DNRCC and withdraw care. Family verbalized that they wanted to proceed with withdrawl as soon as possible. Continuous Sedation meds were stopped at this time and once RT Nadine was present, she extubated the patient at 0940. patient was placed on 2L NC for comfort. Orders received for comfort meds PRN, will continue to monitor. Son and remain at bedside.
[2024-02-13] MEDS: Morphine 2 MG/ML Syringe IV ×2 (09:50→13:46)
[2024-02-13] MEDS: LORazepam 2 MG/ML Syringe IV ×2 (09:50→13:46)
--- NOTE | 2024-02-13 10:12 | CPS ---
Patient extubated per family wishes.
--- NOTE | 2024-02-13 10:48 | PN.HOSP_ITS ---
Subjective Subjective Developed a large, currently intubated and sedated Objective Data Objective Data Vital Signs: Vital Signs Temp Pulse Resp BP Pulse Ox O2 Del Method O2 Flow Rate 98.3 F 85 16 102/59 L 54 Nasal Cannula 2 02/13/24 08:00 02/13/24 09:00 02/13/24 09:00 02/13/24 09:00 02/13/24 09:40 02/13/24 09:40 02/13/24 09:40 FiO2 60 02/13/24 09:00 Oxygen Flow Rate (L/min) 2 Oxygen Delivery Method Nasal Cannula Weight: 184 lb 1.376 oz Body Mass Index (BMI) 32.5 Intake & Output: Intake and Output for Last 24 Hours 02/12/24 02/13/24 02/14/24 03:59 03:59 03:59 Intake Total 2723.93 / 2768.20 4816.32 / 4865.42 1641.81 / 1641.81 Output Total 1365 / 1365 7350 / 7350 500 / 500 Balance 1358.93 / 1403.20 -2533.68 / -2484.58 1141.81 / 1141.81 Medical Nutrition Assessment Dietitian: Malnutrition Criteria Met Start: 02/05/24 09:52 Freq: Status: Active Protocol: Document 02/13/24 10:07 AUGUST (Rec: 02/13/24 10:07 AUGUST [id number]) Nutrition Malnutrition Evidence of Malnutrition Exists Yes Malnutrition (severe): Acute Illness/Injury Evidenced By Suboptimal Energy Intake ( Severe),Weight Loss (Severe) Intake Problem Inadequate Oral Intake Etiology related to mechanically ventilated Signs/Symptoms as evidenced by NPO status. 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 Increase to 30 ml/hr today per Dr. Mitchell. Will adjust tube feed, as needed. Lab / Micro Data 02/13/24 03:30 12/09/24 03:30 Labs: Laboratory Results - last 24 hr 02/12/24 12:15: Vancomycin Trough 17.6 H 02/13/24 03:30: WBC 4.3 L, RBC 2.74 L, Hgb 8.0 L, Hct 25.0 L, MCV 91.2, MCH 29.2, MCHC 32.0, RDW Std Deviation 52.8 H, RDW Coeff of Miguel 16.1 H, Plt Count 63 L, MPV 12.0, Immature Gran % (Auto) INSPECTOR PAPER PRODUCTS, Neut % (Auto) INSPECTOR PAPER PRODUCTS, Lymph % (Auto) INSPECTOR PAPER PRODUCTS, [place] % (Auto) INSPECTOR PAPER PRODUCTS, Eos % (Auto) INSPECTOR PAPER PRODUCTS, Baso % (Auto) INSPECTOR PAPER PRODUCTS, Absolute Neuts (auto) 3.6, Absolute Lymphs (auto) 0.38 L, Total Counted 100, Neutrophils % (Manual) 69, B and Neutrophils % 15 H, Lymphocytes % (Manual) 9 L, Monocytes % (Manual) 3, Basophils % (Manual) 1, Metamyelocytes % 1, Myelocytes % 1 H, Nucleated RBC % INSPECTOR PAPER PRODUCTS, Differential Comment SCANNED, Diff Path Review July foll, Platelet Estimate MOD DEC, Sodium 142, Potassium 3.3 L, Chloride 104, Carbon Dioxide 33.0 H, Anion Gap 5, BUN 32 H, Creatinine 1.10 H, Estim Creat Clear Calc 52.45, Est GFR (MDRD) Af Amer 64, Est GFR (MDRD) Non-Af 53 L, BUN/Creatinine Ratio 29.1 H, Glucose 174 H, Calcium 8.4 L, Total Bilirubin 0.40, AST 28, ALT 20, Alkaline Phosphatase 112, Total Protein 5.1 L, Albumin 1.4 L, Globulin 3.7, Albumin/Globulin Ratio 0.4 L Micro: Microbiology 02/12/24 22:20 Stool Stool Occult Blood (SANDRA) - Final Occult Blood Positive 02/04/24 11:11 Blood Culture (Wb) - Line Draw Blood Culture - Final No growth in 5 days. 02/07/24 12:19 Bronchial Lavage - Right Middle Lobe Gram Stain - Final 02/07/24 12:19 Bronchial Lavage - Right Middle Lobe Respiratory Culture - Final Presumptive C albicans 02/04/24 09:23 Blood Culture (Wb) - Port Blood Culture - Final No growth in 5 days. 02/06/24 21:42 Sputum, Induced/Lukens Gram Stain - Final 02/06/24 21:42 Sputum, Induced/Lukens Respiratory Culture - Final Culture exhibits no growth. 02/06/24 10:53 Mucosa - Nasopharyngeal Respiratory Panel (PCR) - Final 02/07/24 10:45 Mucosa - Nasopharyngeal SARS-CoV-2, Influenza & RSV (PCR) - Final 02/06/24 17:03 Urine, Clean Catch Legionella Antigen - Final 02/06/24 17:03 Urine, Clean Catch Streptococcus pneumoniae Antigen (M - Final 02/04/24 09:42 Urine, Catheterized Urine Culture - Final Streptococcus agalactiae (B) Rhythm Strip Rhythm Strip: Sinus Tach Rate: 108 Ectopy: None Physical Exam Const General Appearance: intubated and patient mechanically ventilated HEENT normocephalic Eyes PERRL and conjunctivae normal Neck supple and no JVD Resp normal respiratory effort, no retractions and no use of accessory muscles Auscultation: rhonchi; Negative for crackles, rales or wheezes Cardio regular rate, regular rhythm, S1 normal heart sound, S2 normal heart sound and no murmurs GI soft to palpation and non-distended; Negative for hepatosplenomegaly Extremity no clubbing, cyanosis or edema Skin no rashes or lesions noted Neuro Sensorium / Orientation: sedated on vent Psych Appearance: intubated Assessment & Plan Assessment/Plan (1) Acute kidney injury: (2) Altered level of consciousness: (3) Right lower lobe pneumonia: (4) Right upper lobe pneumonia: PLAN: Plan 1.acute hypoxic respiratory failure due to Right sided pneumonia with multiple rounded opacities complicating into full-blown ARDS in immunocompromised host: Chest x-ray reviewed which shows extensive 100 areas opacification in the right lung. CT chest with IV contrast done but report pending. Images individually reviewed and shows diffuse right lung alveolar opacities and groundglass opacity. It also shows left lower lobe opacity. ID and carpet sewing machine operator consulted. Currently on vancomycin Zosyn and azithromycin. Sputum culture are ordered. Triple PCR for SARS-CoV-2, flu and RSV are negative negative on 01/20. Urine culture shows strep group B and mixed gram-positive organism. Respiratory panel and blood cultures are pending Patient does not have chest pain but short of breath, tachycardia, tachypnea and mild hypoxia Possible ARDS: 1. Onset of symptoms within 1 week, bilateral opacities, right more than left with groundglass opacities and consolidation and noncardiogenic edema. FiO2/PaO2 ratio 126. Patient undergoing echo. Discussed with the carpet sewing machine operator. Plan for possible bronchoscopy 02/07: Discussed with Dr. Mitchell. Patient had bronchoscopy with BAL done yesterday. On high FiO2, PEEP with vent dyssynchrony. She is Precedex was changed to propofol. 02/08: Neutropenic fever. Tmax 100.8 Fahrenheit. Full-blown ARDS. High vent requirement. On neuromuscular paralytic, cisatracurium. BAL Gram stain shows presumptive Lori albicans. Blood culture negative for 5 days. Sputum culture no growth on 02/06/2024. Zosyn changed to meropenem. Vancomycin continued. Patient completed azithromycin. 02/09: Patient is still having low-grade fever. Vent requirement 55%, PEEP 10 on cis atracurium. On broad-spectrum antibiotics 02/10:Diflucan was added yesterday as BAL shows very rare Lori. Rest antibiotics to continue. 02/11: Improvement in FiO2, 55 to 60%. Lasix 60 mg IV x 2 doses were given. 02/13/2024: Family discussion made her a DNR CCA yesterday Hypotension, probably septic shock from bilateral pneumonia: On Levophed drip 02/08: Continue to require vasopressor support. 02/10: Continue to require vasopressor support. 02/11: BP improving. On low-dose vasopressor. 2. Pancytopenia with severe neutropenia, normocytic normochromic severe anemia and thrombocytopenia due to recent chemotherapy: Hemoglobin 7.2, WBC 0.4K, ANC 0.3K, ALC 0.06K, platelet count 91K. Started on Granix. 02/06: Worsening of pancytopenia. WBC 0.3K, ANC 0.2K, H&H 6.2/19 and platelet count 54K. Monitor PRBC ordered. 02/08: Immature granulocytes 0%, WBC 0.7K, ANC 0.5K. 02/09: WBC count has improved, 3.6K but H&H 6.9/21.7%, platelet count 43K. 1 unit PRBC ordered. 02/10: WBC count 5.4K, H&H 7.9/25%. Platelet count 52K. 02/11: CBC counts were similar to yesterday. 3. 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 She has a PEG tube in for nutrition, will consult dietitian ? She is undergoing chemoradiation with low-dose cisplatin ? Her last dose of cisplatin was on 01/30/2024, which was her last dose of chemotherapy and she has 5 more days of radiation ? 02/05 on oral exam: Base of tongue and posterior pharynx are raw and ulcerated. 02/06: Discussed with the Radiotherapist, Dr. Plasencia. She has cancer involving tonsil and soft palate and was able to protect her airway and clear the mucus before but recently had PEG tube placement for nutrition and pain. 4. .Anxiety/depression ? Anxious and depressed ? Continue her home medications DVT: SCDs Charges/Coding Visit Charges Inpatient E&M: 03035 Subs Hosp L2
[2024-02-13 14:39] LABS: Pathologist Review Reviewed
[2024-02-13 14:42] LABS: Pathologist Review Reviewed
[2024-02-13 14:43] LABS: Pathologist Review Reviewed
--- NOTE | 2024-02-13 15:16 | CASEMGMT ---
SW went to check on patient's family. Per RN patient has been stable since 10 am when patient was extubated. Physician would like hospice consulted. SW and RN spoke with family and they are in agreement with hospice referral. SW called Hospice and made referral to [facility] on Hospice referral line. Hospice will call patient's to arrange a time to meet. SW updated RN and let him know when SW gets a time from Hospice SW will let him know. Maty DODD
--- NOTE | 2024-02-13 16:40 | NURSING ---
Responded to patient's room when it was noted that her heart rate was decreasing. When this RN entered the room, the patient was absent of respirations, without pulse and assytole on the monitor. No apical heart signs heard, verified by NIRANJAN Oshea. Patient pronounced at 1633.
--- NOTE | 2024-02-13 16:48 | CHAPLAIN ---
Type of Pastoral Visit ___ Initial Visit ___ Follow-up Visit ___ On-call Visit ___ General Patient Visit ___ Spiritual Assessment _x__ Family Conference ___ Bereavement ___ Rapid Response ___ Code Blue ___ Other (describe below) Pastoral Care Referral From ___ Patient ___ Family _x__ Nurse ___ Physician ___ Cosmetologist Apprentice ___ Bulk Pigment Reducer ___ Other (describe below) Sacrament/Intervention _x__ Active listening ___ Anointing ___ Mandaen ___ Bereavement ___ Communion ___ Adelita exploration ___ ___ Life review _x__ Prayer ___ Reconciliation ___ Sacrament of Sick _x__ Supportive presence ___ Wedding ___ Other (describe below) Pastoral Comments patient was extubated earlier today and is at end-of-life stage with slowed breathing and unresponsive; spouse and LUIS are in the room; a son had left earlier; siblings are out of state although one may try to come to visit; pt has cancer and pneumonia and declined rapidly; spouse is appropriately anticipating and his grief; listened to family speak of the patient and their feelings/experiences of grief; pt is of the Bahai adelita and the family welcomes further prayers and supportive presence at this time; family express gratitude for the concern and offer of support
--- NOTE | 2024-02-13 17:18 | NURSING ---
Patient did not receive any IV Fluids after 1000 on 02/13/24. Last dose of IV Medication was at 1346.
--- NOTE | 2024-02-13 17:43 | PCA ---
received call from [facility], pt not to be followed by [facility], and pt can be released to the home primary nurse oscar koo.
--- NOTE | 2024-02-13 17:49 | PCM.DEATH ---
Preliminary Cause of Preliminary Cause of Preliminary Cause of : ARDS secondary to septic shock from pneumonia in the setting of immunosuppression Date of Admission: 02/04/24 Date of : 02/13/24 Principle Diagnosis Problem List: Active and Suspected Problems (Updated 02/08/24 @ 13:[address] Moise Mitchell, DO) ARDS (adult respiratory distress syndrome) (Acute) Neutropenic fever (Acute) Hypoxemia (Acute) Anemia (Acute) Acute kidney injury (Acute) Altered level of consciousness (Acute) Right lower lobe pneumonia (Acute) Right upper lobe pneumonia (Acute) Sepsis (Acute) Hospital Course Pati Kessler was a 63-year-old female with stage III squamous cell carcinoma of her left tonsil undergoing chemotherapy and radiation. She presented to the hospital 02/04/2024 with acute metabolic encephalopathy secondary to bilateral pneumonia. She was started on broad-spectrum antibiotics including vancomycin, Zosyn, azithromycin and did have some improvement in symptoms however she continued to drop her white blood cell count and her absolute neutrophil count dropped to 0.3 so she was also started on Granix to help fight her infections. She ultimately developed significant respiratory distress and ARDS and was intubated in the ICU on 02/06/2024. She did progress with septic shock as well necessitating pressor support. The next day she had a bronchoscopy that demonstrated bilateral infiltrates with erythema in her trachea and right mainstem bronchus, BAL so far only showed Lori albicans. Infectious disease was consulted and ultimately medication adjustments were made however she did not have any significant respiratory improvement and on 02/13/2024 the telephone solicitor supervisor discussed the case with family who requested that she be made a DNR CC and to be terminally extubated. She on 02/13/2024 at 1633. Visit Charges Inpatient E&M: 12797 Disch Hosp >30min
--- NOTE | 2024-03-06 16:45 | CASEMGMT ---
Received call from Sofia, a case picker with patient's insurance -[facility] ([phone]) inquiring on the health status and general discharge planning issues for this patient. Sofia able to provide identifying information including name, date of , date of admission, and correct policy ID number for insurance. Updated case picker to patient's status. No other services requested or indicated. -JOHAN Farooq
== END 2024-02-13 18:10 | DRG 870 ==
LOC: ED 11:02 → PCU 12:23 → ICU 02-06 16:33 → PCU 02-13 07:21
PROVIDERS: Internal Medicine; Internal Medicine Critical Care Medicine; Internal Medicine Infectious Disease; Admitting Provider Family Medicine; Emergency Provider Emergency Medicine; PCP Family Medicine; Visit Provider Family Medicine
PROC: 0BJ08ZZ Inspection of Tracheobronchial Tree, Via Natural or Artificial Opening Endoscopic (ICD-10-PCS; CPT 31622; principal; 2024-02-07 11:00)
DX: A41.9 Sepsis, unspecified organism (principal); J80 Acute respiratory distress syndrome; R65.21 Severe sepsis with septic shock; E43 Unspecified severe protein-calorie malnutrition; D61.810 Antineoplastic chemotherapy induced pancytopenia; G93.41 Metabolic encephalopathy; J18.9 Pneumonia, unspecified organism; E46 Unspecified protein-calorie malnutrition; N17.9 Acute kidney failure, unspecified; E87.0 Hyperosmolality and hypernatremia; D84.9 Immunodeficiency, unspecified; E88.09 Other disorders of plasma-protein metabolism, not elsewhere classified; R13.10 Dysphagia, unspecified; C09.9 Malignant neoplasm of tonsil, unspecified; F32.A Depression, unspecified; Z68.31 Body mass index [BMI] 31.0-31.9, adult; E78.00 Pure hypercholesterolemia, unspecified; I95.9 Hypotension, unspecified; K12.30 Oral mucositis (ulcerative), unspecified; E87.70 Fluid overload, unspecified; B37.9 Candidiasis, unspecified; Z79.891 Long term (current) use of opiate analgesic; Z87.891 Personal history of nicotine dependence; R40.4 Transient alteration of awareness; R50.81 Fever presenting with conditions classified elsewhere; Z11.52 Encounter for screening for COVID-19; R09.02 Hypoxemia; T45.1X5A Adverse effect of antineoplastic and immunosuppressive drugs, initial encounter; Z51.5 Encounter for palliative care
CPT/HCPCS: 31500; 31720; 36415; 36600; 51702; 70450; 71045; 71260; 80048; 80053; 80202; 81001; 82274; 82550; 82728; 82803; 83540; 83550; 83605; 83690; 83735; 83880; 84100; 84145; 84478; 85014; 85018; 85025; 85610; 85730; 86850; 86900; 86901; 86920; 86922; 87015; 87040; 87070; 87077; 87086; 87088; 87101; 87116; 87186; 87205; 87206; 87449; 87631; 87633; 88108; 88305; 88313; 89050; 92523; 92526; 92610; 93005; 93306; 94002; 94003; 94640; 94762; 94799; 97110; 97162; 97166; 97530; 97535; 97802; 97803; 99252; 99285; 99406; J2185; J7030; J7040; J7050; P9016; Q9957; Q9967; A4216; C8929; G0463; J0696; J1447; J1940; J2405